=== PATIENT | female | born 1970 | race Caucasian/White ===

== ENCOUNTER 2017-08-13 14:49 | Emergency (ER) | payer OTHER, SELFPAY ==
[2017-08-13 16:29] VITALS: BP 144/90; PULSE 80; RESP 18; TEMP 37.1; O2SAT 95; BMI 50.8
[2017-08-13 17:07] LABS: UTC Influenza A Antigen Negative (Negative); UTC Influenza B Antigen Negative (Negative)
--- NOTE | 2017-08-13 17:14 | HMH.EDUTC ---
[facility] [place] Disposition Clinical Impression: Influenza-like illness Disposition: Home, Self-Care Condition on Discharge: Good Instructions: DI for Influenza -- Adult, DI for Viral Upper Respiratory Infection -- Adult Additional Instructions: * No sign of bacterial infection. Likely viral. Virus can take 7-14 days to run their course. Could be the onset of the flu considering your symptoms. Due to your medications and PMHx, starting tamiflu. * Monitor Temp. Tylenol every 4 hours as needed no more then 5 times a day or 4000mg in 24 hours and/or ibuprofen every 6 hours as needed no more then 3200mg in 24 hours (as long as your primary care doctor has told you that it is ok to take both) for fever/aches/pain. ER if fever no less than 101 despite tylenol and ibuprofen * Encourage fluids, water, gatorade, powerade, pedialyte if infant/toddler/child * warm salt water gargles * warm fluids * sore throat lozenges * sleep elevated * humidifier/vaporizer Referrals: Franko Patricia MD [Primary Care Provider] - ( Follow up IMMEDIATELY for new or worsening symptoms, improvement followed by suddenly feeling worse OR no noticeable improvement over the next 48-72 hours. 911 for difficulty breathing ) Time of Disposition: 17:26 Medical Decision Making Vital Signs: 08/13/17 16:29 Temperature 98.7 F Temperature Source Temporal Artery Scan Pulse Rate [Right] 80 Respiratory Rate 18 Blood Pressure [Right Arm] 144/90 Blood Pressure Mean [Right Arm] 108 Blood Pressure Source [Right Arm] Automatic Cuff Blood Pressure Position [Right Arm] Sitting 02 Sat by Pulse Oximetry 95 Oxygen Delivery Method Room Air - Lab Data Lab results reviewed: Yes: I reviewed the patient's lab results. Lab Results 08/13/17 16:52: Influenza Type A Ag Negative, Influenza Type B Ag Negative - René Inquiry Pt receiving controlled substance: No [facility] [place] HPI - General Stated complaint: head congestion Time Seen by Provider: 08/13/17 17:00 Mode of Arrival: Ambulatory Source of Information: Patient Limitations: No Limitations Description of Symptoms (Recalled from Triage Doc. by RN): COUGH, CONGESTION X3 DAYS HEENT Symptoms (Recalled from RN notes): Yes Resp Symptoms (Recalled from RN notes): No Skin Symptoms (Recalled from RN notes): No MS Symptoms (Recalled from RN notes): No Functional Status (Recalled from RN notes): N - History of Present Illness Provider Complaint: c/o cough, chest congestion, rhinorrhea and feeling feverish starting day before yesterday and each day w/ new symptoms and somewhat worse . Mucinex hasn't helped but nahum jantzer cough congestion has. No known sick contacts. Taking methotrexate daily d/t RA. - Related Data Home Medications Medication Instructions Recorded Confirmed Duloxetine HCl [Cymbalta] 20 mg PO DAILY 08/13/17 08/13/17 Meloxicam 7.5 mg PO DAILY 08/13/17 08/13/17 metHOTREXate sodium [metHOTREXate 2.5 mg PO DAILY 08/13/17 08/13/17 2.5mg Tablet] Allergies Allergy/AdvReac Type Severity Reaction Status Date / Time No Known Allergies Allergy Verified 08/13/17 16:33 - Worker's Comp Is this a Worker's Comp case?: No [facility] History I have reviewed the patient's past medical history: Yes (RA) Medical History: Denies:: Diabetes Mellitus Type 2, Hypertension Other Surgeries: Yes: Appendectomy, Other (hysterectomy) - *Social History Alcohol Intake: never - Psychiatric History Expresses thoughts of harming self/others: None Suicide Plan Description: No Plan ROS Obtained: Yes Systems reviewed as appropriate & no additional complaints - Constitutional Constitutional: Reports as per HPI, Denies anorexia, Denies body ache, Denies chills, Reports fatigue - Eyes Eyes: Denies change in vision, Denies eye pain - ENT Ears, Nose, Mouth, and Throat: Denies abnormal hearing, Denies otalgia, Reports nasal congestion, Reports nasal discharge, Reports post nasal drip, Denies sinus pain, Reports sinus
== END 2017-08-13 17:30 | disposition home or self-care (01) ==
PROVIDERS: Emergency Provider Nurse Practitioner Family; PCP Family Medicine
DX: J10.1 Influenza due to other identified influenza virus with other respiratory manifestations (principal)
CPT/HCPCS: 87804; 99202

== ENCOUNTER → 2017-11-24 08:14 | Outpatient (CLI) | payer OTHER, SELFPAY ==
--- NOTE | 2017-11-24 08:30 | MM_ITS ---
MM Dig screening mamm BI w/CAD CAD Screening ORDERING PHYSICIAN : Monique Del Angel PATIENT AGE: 47 years GENDER: Female HISTORY. No hormones. No new complaints. Noncontributory family history. COMPARISON: . No previous studies for comparison The prior 1998 mammogram study has been purged as per hospital protocol TECHNIQUE: Standard CC and MLO images were obtained. R2 CAD reviewed. FINDINGS: Low-density breast with generalized fatty replacement in both breast.. Minimal fibroglandular elements remaining throughout both breast No worrisome or suspicious mass nor suspicious calcifications. RIGHT BREAST:No new areas of concern. Follow-up in one year recommended LEFT BREAST:No significant findings. There is a ovoid nodular density at the lateral, upper-outer quadrant left breast but this appears to have a area of fatty lumbilication and is most compatible with an intramammary lymph node measuring up to 8.5 mm maximum length. Follow-up in one year the adequate here. IMPRESSION: No areas of significant concern No prior studies available. Only noted What appears to be small benign intramammary lymph node lateral axillary tail left breast Bilateral follow-up in one year recommended BI-RADS Category: 2 Benign Finding(s) RECOMMENDED FOLLOW-UP: 1YR - 1 YEAR FOLLOW-UP (A letter has been sent to the patient regarding results of the study.)
== END ==
PROVIDERS: PCP Family Medicine; Visit Provider Obstetrics & Gynecology Gynecology
DX: Z12.31 Encounter for screening mammogram for malignant neoplasm of breast (principal)
CPT/HCPCS: 77067

== ENCOUNTER → 2019-06-13 09:24 | Outpatient (CLI) | payer OTHER, SELFPAY ==
--- NOTE | 2019-06-13 09:26 | MM_ITS ---
PROCEDURE: MM DIG SCREENING MAMM BI W/CAD CLINICAL INDICATION: SCREENING There is no personal or family history of breast cancer. COMPARISON: [facility] MM Dig screening mamm BI w/CAD from 11/24/2017 TECHNIQUE: Standard CC and MLO images were obtained. R2 CAD reviewed. FINDINGS: The breasts are composed primarily of fat with minimal scattered fibroglandular densities throughout each breast. There is a stable tiny nodular benign-appearing density upper-outer quadrant left breast. There is no suspicious lesion in either breast and no suspicious microcalcifications. IMPRESSION: Fibrofatty parenchyma with no suspicious lesions seen BI-RAD Category: 2 Benign Finding(s) FOLLOW-UP: 1YR 1 Year Follow-up (A letter has been sent to the patient regarding results of the study.) Dictated by: Dr. Rajesh Mendze MD 06/14/2019 15:[address] Rajesh Mendez MD in [place] 06/14/2019 15:32
== END ==
PROVIDERS: PCP Family Medicine; Visit Provider Nurse Practitioner
DX: Z12.31 Encounter for screening mammogram for malignant neoplasm of breast (principal)
CPT/HCPCS: 77067

== ENCOUNTER 2020-12-13 15:36 | Emergency (ER) | payer OTHER, SELFPAY ==
[2020-12-13 15:37] VITALS: BP 148/72; PULSE 79; RESP 19; TEMP 36.9; O2SAT 97; BMI 48.7
--- NOTE | 2020-12-13 16:00 | CT_ITS ---
PROCEDURE INFORMATION: Exam: CT Abdomen And Pelvis Without Contrast Exam date and time: 12/13/2020 4:00 PM Age: 50 years old Clinical indication: Abdominal pain; Flank; Right; Prior surgery TECHNIQUE: Imaging protocol: Computed tomography of the abdomen and pelvis without contrast. Radiation optimization: All CT scans at this facility use at least one of these dose optimization techniques: automated exposure control; mA and/or kV adjustment per patient size (includes targeted exams where dose is matched to clinical indication); or iterative reconstruction. COMPARISON: No relevant prior studies available. FINDINGS: Lungs: Lung bases are clear. Mediastinal space: A small hiatal hernia is present. Liver: There is enlargement of the liver, measuring 25 cm. The liver is otherwise unremarkable. Gallbladder and bile ducts: Prior cholecystectomy. There is no evidence of biliary ductal dilation. Pancreas: Normal. No ductal dilation. Spleen: Normal. No splenomegaly. Adrenal glands: Normal. No mass. Kidneys and ureters: Normal. No hydronephrosis. Stomach and bowel: No bowel obstruction or significant bowel wall thickening. There is excessive colonic stool content. Appendix: Appendix is not confidently visualized on this examination, however there are no significant inflammatory changes to the right lower quadrant. Intraperitoneal space: Unremarkable. No free air. No significant fluid collection. Vasculature: Unremarkable. No abdominal aortic aneurysm. Lymph nodes: Unremarkable. No enlarged lymph nodes. Urinary bladder: Unremarkable as visualized. Reproductive: There has been a hysterectomy. Bones/joints: No acute skeletal pathology. Mild multilevel degenerative changes of the spine, as manifested by multilevel anterior osteophytes and multilevel decrease in intervertebral disc space. Soft tissues: 4.7 cm by 5.9 cm by 7.3 cm supraumbilical ventral abdominal wall fat containing hernia. No other acute soft tissue findings are appreciated. Calcified injection granulomas are noted in the subcutaneous tissues of the buttocks. IMPRESSION: 1. Negative for acute abdominopelvic pathology. 2. Incidental findings as detailed above.
[2020-12-13 16:01] VITALS: BP 126/64; PULSE 73; O2SAT 96
--- NOTE | 2020-12-13 16:03 | HMH.EDABDPAI ---
ED Disposition Clinical Impression: Acute UTI Constipation Qualifiers: Constipation type: slow transit constipation Qualified Code(s): K59.01 - Slow transit constipation Disposition: Home, Self-Care Condition on Discharge: Good Instructions: DI for Urinary Tract Infection (UTI) Prescriptions: cephALEXin [Cephalexin 500mg Tab] 500 mg PO BID #14 tab Transmission Status: Pending to [id number] Referrals: Nitesh Dunne MD [Primary Care Provider] - - Critical Care Critical Care Time: No Attestation: On 12/13/20, the high probability of a clinically significant, sudden or life threatening deterioration of the following system(s) required my full and direct attention, intervention and personal management. The time I documented below is in addition to time spent performing reported procedures but includes the following listed in this critical care notation. Medical Decision Making - Medical Records Medical records reviewed: Yes: I reviewed the patient's medical records. - René Inquiry Pt receiving controlled substance: Yes René was queried for this patient: No Reason not queried -: René login issues Risks and benefits of using a controlled substance: were discussed with pt by me Vital Signs: 12/13/20 15:37 12/13/20 16:01 12/13/20 16:35 Temperature 98.5 F Temperature Source Oral Pulse Rate 73 83 Pulse Rate [Left Radial] 79 Respiratory Rate 19 Blood Pressure 126/64 137/72 Blood Pressure [Right Arm] 148/72 H Blood Pressure Mean 84 93 Blood Pressure Mean [Right Arm] 97 Blood Pressure Source [Right Arm] Automatic Cuff Blood Pressure Position [Right Arm] Sitting 02 Sat by Pulse Oximetry 97 96 99 Oxygen Delivery Method Room Air - Lab Data Lab Results 12/13/20 15:53: Urine Color Yellow, Urine Appearance Clear, Urine pH 6.0, Ur Specific Jackson 1.025, Urine Protein Negative, Urine Glucose (UA) Negative, Urine Ketones Trace, Urine Blood Negative, Urine Nitrate Negative, Urine Bilirubin 3+ A, Urine Urobilinogen 0.2, Ur Leukocyte Esterase Trace, Urine RBC Occasional, Urine WBC 5-10, Ur Squamous Epith Cells 5-10, Urine Bacteria 1+ 12/13/20 15:53: WBC 5.2, RBC 4.92, Hgb 14.1, Hct 42.7, MCV 86.8, MCH 28.7, MCHC 33.0, RDW 14.0, Plt Count 380, MPV 7.4, Neut % (Auto) 57.4, Lymph % (Auto) 33.0, Floyd % (Auto) 6.0, Eos % (Auto) 2.7, Baso % (Auto) 0.9, Neut # (Auto) 3.0, Lymph # (Auto) 1.7, Floyd # (Auto) 0.3, Eos # (Auto) 0.1, Baso # (Auto) 0.1 12/13/20 15:53: Sodium 141, Potassium 3.6, Chloride 103, Carbon Dioxide 33 H, Anion Gap 8.6, BUN 20 H, Creatinine 1.10 H, Estimated Creat Clear 64, Estimated GFR 53 L, Est GFR ( Amer) 64, Glucose 91, Calcium 9.2, Total Bilirubin 0.5, AST 37 H, ALT 32, Alkaline Phosphatase 72, Total Protein 7.3, Albumin 4.5, Globulin 2.8, Albumin/Globulin Ratio 1.6, Lipase 164 Result diagrams: 12/13/20 15:53 12/13/20 15:53 Orders (Tests/Meds): ED MEDICATIONS Generic Name Dose Route Start Last Admin Trade Name Freq PRN Reason Stop Dose Admin Sodium Chloride 1,000 mls @ 999 mls/hr 12/13/20 16:00 12/13/20 16:03 Sod Chlor 0.9% 1000ml Bag IV 12/13/20 17:00 999 mls/hr .Q1H1M [place] Administration Discontinued Medications Generic Name Dose Route Start Last Admin Trade Name Freq PRN Reason Stop Dose Admin Ketorolac Tromethamine 30 mg 12/13/20 16:01 12/13/20 16:03 Ketorolac 30mg/Ml Vial IV 12/13/20 16:02 30 mg ONCE ONE Administration Morphine Sulfate 4 mg 12/13/20 16:00 12/13/20 16:39 Morphine 4mg/Ml Syringe IV 12/13/20 16:01 4 mg ONCE ONE Administration Ondansetron HCl 4 mg 12/13/20 16:00 12/13/20 16:03 Ondansetron 4mg/2ml Vial IV 12/13/20 16:01 4 mg ONCE ONE Administration - CT Data CT Scan: Abdomen, Pelvis Time Received: 18:[address] Reviewed: Yes: I have reviewed the patient's CT results, I have viewed the radiologist's interpretation Findings Narrative: IMPRESSION: 1. Negative for acute abdomino
[2020-12-13 16:06] LABS: Microscopic, Urine URINE MICROSCOPIC (MICROSCOPIC)
[2020-12-13 16:16] LABS: Appearance,Urine CLEAR (Clear); Basophils # 0.1 K/mm3 (0-0.2); Basophils % 0.9 % (0.1-2.0); Blood, Urine Negative (Negative); Color,Urine YELLOW (Yellow); Eosinophils # 0.1 K/mm3 (0.0-0.4); Eosinophils % 2.7 % (0.1-12.0); Glucose,Urine (UA) Negative (Negative); Hematocrit 42.7 % (37.0-47.0); Hemoglobin 14.1 g/dL (12.2-16.2); Ketones,Urine TRACE (Negative); Leukocyte Esterase,Urine TRACE (Negative); Lymphocytes # 1.7 K/mm3 (0.7-4.5); Mean Corpuscular Hemoglobin 28.7 pg (27.0-31.2); Mean Corpuscular Volume 86.8 fl (81-99); Mean Platelet Volume 7.4 fl (7.4-10.4); Monocytes # 0.3 K/mm3 (0.1-1.0); Neutrophils % 57.4 % (37.0-80.0); Nitrate,Urine Negative (Negative); Platelet Count 380 K/mm3 (142-424); Protein,Urine Negative (Negative); Red Blood Count 4.92 M/mm3 (4.20-5.40); Specific Gravity, Urine 1.025 (1.005-1.030); Urobilinogen,Urine 0.2 EU/dl (0.2); White Blood Count 5.2 K/mm3 (4.8-10.8)
[2020-12-13 16:20] LABS: Alanine Aminotransferase 32 U/L (12-78); Albumin Level 4.5 g/dl (3.5-5.0); Albumin/Globulin Ratio 1.6 (1.1-1.8); Alkaline Phosphatase 72 U/L (38-126); Anion Gap 8.6 mEq/L (5-15); Aspartate Amino Transferase 37 U/L (14-36); Bilirubin,Total 0.5 mg/dl (0.2-1.3); Blood Urea Nitrogen 20 mg/dl (7-17); Calcium 9.2 mg/dl (8.4-10.2); Carbon Dioxide 33 mmol/L (22.0-30.0); Chloride 103 mmol/L (98-107); Creatinine Clearance Estimated 64 mL/min (50-200); Estimated Glomerular Filt Rate 53 ml/min (>60); GFR (African American) 64 ML/MIN (>60); Globulin 2.8 g/dL (1.3-3.2); Glucose 91 mg/dl (74-100); Lipase 164 U/L (23-300); Potassium 3.6 mmoL/L (3.5-5.1); Sodium 141 mmol/L (136-145); Total Protein,Serum 7.3 g/dl (6.3-8.2)
[2020-12-13 16:23] LABS: Bilirubin,Urine 3+ (Negative)
[2020-12-13 16:24] LABS: Bacteria,Urine 1+ /lpf; RBC,Urine Occasional #/hpf (0-3)
[2020-12-13 16:35] VITALS: BP 137/72; PULSE 83; O2SAT 99
[2020-12-13 18:39] VITALS: BP 137/72; PULSE 83; RESP 16; TEMP 36.9; O2SAT 99
== END 2020-12-13 18:41 | disposition home or self-care (01) ==
PROVIDERS: Emergency Provider Emergency Medicine; PCP Family Medicine
DX: N30.00 Acute cystitis without hematuria (principal); K59.01 Slow transit constipation; F33.1 Major depressive disorder, recurrent, moderate; Z79.899 Other long term (current) drug therapy
CPT/HCPCS: 74176; 80053; 81001; 83690; 85025; 96365; 96375; 99283; J2405

== ENCOUNTER → 2021-07-15 16:26 | Outpatient (CLI) | payer OTHER, SELFPAY ==
[2021-07-15 18:53] LABS: Basophils % 0.5 % (0.1-2.0); Eosinophils # 0.1 K/mm3 (0.0-0.4); Eosinophils % 2.2 % (0.1-12.0); Hemoglobin 14.2 g/dL (12.2-16.2); Lymphocytes # 1.5 K/mm3 (0.7-4.5); Lymphocytes % 31.4 % (10-50); Mean Corpuscular HGB Conc 34.6 g/dL (31.8-35.4); Mean Corpuscular Hemoglobin 29.3 pg (27.0-31.2); Mean Corpuscular Volume 84.6 fl (81-99); Mean Platelet Volume 6.6 fl (7.4-10.4); Monocytes # 0.2 K/mm3 (0.1-1.0); Neutrophils % 60.9 % (37.0-80.0); Platelet Count 359 K/mm3 (142-424); Red Blood Count 4.85 M/mm3 (4.20-5.40); Red Cell Distribution Width 13.6 % (11.5-17.5); White Blood Count 4.9 K/mm3 (4.8-10.8)
[2021-07-15 19:03] LABS: Chloride 99 mmol/L (98-107); Sodium 139 mmol/L (136-145)
[2021-07-15 19:04] LABS: Potassium 4.2 mmoL/L (3.5-5.1)
[2021-07-15 19:06] LABS: Alanine Aminotransferase 21 U/L (12-78); Albumin Level 4.3 g/dl (3.5-5.0); Albumin/Globulin Ratio 1.7 (1.1-1.8); Alkaline Phosphatase 90 U/L (38-126); Anion Gap 13.2 mEq/L (5-15); Aspartate Amino Transferase 27 U/L (14-36); Bilirubin,Total 0.3 mg/dl (0.2-1.3); Calcium 8.6 mg/dl (8.4-10.2); Carbon Dioxide 31 mmol/L (22.0-30.0); Globulin 2.6 g/dL (1.3-3.2); Glucose 84 mg/dl (74-100); Total Protein,Serum 6.9 g/dl (6.3-8.2)
[2021-07-15 19:11] LABS: Blood Urea Nitrogen 18 mg/dl (7-17); Estimated Glomerular Filt Rate 76 ml/min (>60); GFR (African American) 92 ML/MIN (>60)
[2021-07-15 19:13] LABS: C-Reactive Protein 5.3 mg/L (0-4)
[2021-07-17 11:12] LABS: Hep A Ab, IgM Negative (Negative); Hepatitis B Core Antibody IgM Negative (Negative); Hepatitis B Surface Antigen Negative (Negative); Hepatitis C Antibody 0.1 s/co ratio (0.0-0.9)
[2021-07-17 21:45] LABS: QuantiFERON-TB Gold Plus Negative (Negative)
== END ==
PROVIDERS: Visit Provider Nurse Practitioner Family
DX: M05.79 Rheumatoid arthritis with rheumatoid factor of multiple sites without organ or systems involvement (principal); R53.83 Other fatigue; Z79.899 Other long term (current) drug therapy
CPT/HCPCS: 36415; 80053; 80074; 85025; 86140; 86480

== ENCOUNTER 2021-11-21 13:38 | Emergency (ER) | payer OTHER, SELFPAY ==
[2021-11-21] VITALS (12 sets, daily range): BP systolic 131–153; BP diastolic 88–107; PULSE 65–78; RESP 13–18; TEMP 36.6–36.8; O2SAT 95–98; BMI 51.7
--- NOTE | 2021-11-21 13:29 | ECG_ITS ---
APPROVED REPORT Exam: Resting ECG HR:73 bpm ECG Measurements Heart Rate 73 AXES FL 146 P 27 QRSd 114 QRS -2 QT 409 T 35 QTc 435 Conclusion SINUS RHYTHM WITH MARKED SINUS ARRHYTHMIA MODERATE INTRAVENTRICULAR CONDUCTION DELAY [110+ ms QRS DURATION] BORDERLINE ECG UNCONFIRMED REPORT Electronically signed by : Franko Velasquez MD 11/22/2021 12:11:59
--- NOTE | 2021-11-21 13:44 | XR_ITS ---
FINAL REPORT CLINICAL HISTORY: chest pain FINDINGS: SINGLE-VIEW CHEST The heart size is normal. The mediastinum is normal. The lungs are clear. There is no pneumothorax. IMPRESSION: No acute cardiopulmonary process. Reviewed, Interpreted and Dictated by Gallo Calero III, MD Transcribed by Hawa Stanford Authenticated by Gallo Calero III, MD on 11/21/2021 02:27:[address] [facility]
[2021-11-21 14:12] LABS: Basophils # 0.1 K/mm3 (0-0.2); Basophils % 1.7 % (0.1-2.0); Eosinophils # 0.1 K/mm3 (0.0-0.4); Eosinophils % 2.2 % (0.1-12.0); Hematocrit 43.7 % (37.0-47.0); Hemoglobin 14.2 g/dL (12.2-16.2); Lymphocytes # 1.2 K/mm3 (0.7-4.5); Lymphocytes % 26.1 % (10-50); Mean Corpuscular HGB Conc 32.5 g/dL (31.8-35.4); Mean Corpuscular Hemoglobin 28.8 pg (27.0-31.2); Mean Corpuscular Volume 88.6 fl (81-99); Mean Platelet Volume 7.4 fl (7.4-10.4); Monocytes # 0.2 K/mm3 (0.1-1.0); Monocytes % 5.4 % (1.7-9.3); Neutrophils # 2.8 K/mm3 (1.8-7.8); Neutrophils % 64.5 % (37.0-80.0); Platelet Count 364 K/mm3 (142-424); Red Blood Count 4.93 M/mm3 (4.20-5.40); Red Cell Distribution Width 14.2 % (11.5-17.5); White Blood Count 4.4 K/mm3 (4.8-10.8)
[2021-11-21 14:13] LABS: Chloride 103 mmol/L (98-107); Potassium 3.6 mmoL/L (3.5-5.1); Sodium 140 mmol/L (136-145)
--- NOTE | 2021-11-21 14:14 | CT_ITS ---
FINAL REPORT CLINICAL HISTORY: dizziness FINDINGS: Axial images of the head were obtained without contrast. Coronal reformatted images were also obtained.This study was performed with techniques to keep radiation doses as low as reasonably achievable (ALARA). Individualized dose reduction techniques using automated exposure control or adjustment of mA and/or kV according to the patient's size were employed. There is no evidence of intracranial hemorrhage or mass. The ventricular size is within normal limits. There is no evidence of shift of the midline structures. No abnormal extra axial fluid collection is identified. No skull abnormality is seen on the bone window images. IMPRESSION: No acute intracranial abnormality. Reviewed, Interpreted and Dictated by Gallo Calero III, MD Transcribed by David Rizzo Authenticated by Gallo Calero III, MD on 11/21/2021 03:15:02 PM [facility]
[2021-11-21 14:15] LABS: Bilirubin,Unconjugated 0.4 mg/dL (0.0-1.1); Blood Urea Nitrogen 14 mg/dl (7-17); Creatinine Clearance Estimated 99 mL/min (50-200); Estimated Glomerular Filt Rate 88 ml/min (>60); GFR (African American) 107 ML/MIN (>60)
[2021-11-21 14:16] LABS: Alanine Aminotransferase 32 U/L (12-78); Alkaline Phosphatase 75 U/L (38-126); Anion Gap 5.6 mEq/L (5-15); Aspartate Amino Transferase 37 U/L (14-36); Bilirubin,Direct 0.2 mg/dl (0.0-0.4); Bilirubin,Indirect 0.4 mg/dL (0.0-0.9); Bilirubin,Total 0.6 mg/dl (0.2-1.3); Calcium 8.3 mg/dl (8.4-10.2); Carbon Dioxide 35 mmol/L (22.0-30.0); Glucose 91 mg/dl (74-100); Total Protein,Serum 6.6 g/dl (6.3-8.2)
[2021-11-21 14:41] LABS: Troponin I < 0.01 ng/ml (0.00-0.034)
[2021-11-21 15:14] LABS: Microscopic, Urine URINE MICROSCOPIC (MICROSCOPIC)
--- NOTE | 2021-11-21 15:35 | PC.NURSE ---
rounded on pt at this time, pt resting in bed, states no needs at this time. Call light within reach. will continue to monitor
[2021-11-21 15:39] LABS: Appearance,Urine CLEAR (Clear); Blood, Urine Negative (Negative); Color,Urine YELLOW (Yellow); Glucose,Urine (UA) Negative (Negative); Ketones,Urine Negative (Negative); Leukocyte Esterase,Urine 1+ (Negative); Nitrate,Urine Negative (Negative); PH,Urine 7.5 (5.0-8.5); Protein,Urine Negative (Negative); Urobilinogen,Urine 0.2 EU/dl (0.2)
[2021-11-21 15:49] LABS: Bilirubin,Urine Negative (Negative)
[2021-11-21 16:07] LABS: Mucus,Urine 1+ /lpf; RBC,Urine Occasional #/hpf (0-3)
--- NOTE | 2021-11-21 16:26 | HMH.EDGENADL ---
ED Disposition Clinical Impression: Atypical chest pain, Vertigo Ventral hernia Qualifiers: Obstruction and gangrene presence: without obstruction or gangrene Qualified Code(s): K43.9 - Ventral hernia without obstruction or gangrene Disposition: Home, Self-Care Condition on Discharge: Good Instructions: DI for Vertigo, DI for Atypical Chest Pain, DI for Ventral Hernia Additional Instructions: Antivert and Phenergan as needed for vertigo and nausea. Follow-up with surgery, Dr. Robledo, for hernia. Call for appointment. Additional instructions for CHEST PAIN: See your physician as soon as possible for further evaluation. Return immediately if worsening chest pain, vomiting, shortness of breath, fever, coughing of blood. Prescriptions: Promethazine HCl [Phenergan 25mg tab] 25 mg PO Q6HP PRN #10 tab PRN Reason: Nausea And Vomiting Transmission Status: Pending to [facility] Meclizine HCl [Antivert 25mg tablet] 25 mg PO TIDP PRN #15 tab PRN Reason: Vertigo Transmission Status: Pending to [facility] Referrals: Nitesh Dunne MD [Primary Care Provider] - Gallo Robledo MD [Staff Physician] - - Critical Care Critical Care Time: No Attestation: On 11/21/21, the high probability of a clinically significant, sudden or life threatening deterioration of the following system(s) required my full and direct attention, intervention and personal management. The time I documented below is in addition to time spent performing reported procedures but includes the following listed in this critical care notation. Medical Decision Making - René Inquiry Pt receiving controlled substance: No Vital Signs: 11/21/21 14:00 11/21/21 14:44 11/21/21 15:00 Pulse Rate 73 75 66 Respiratory Rate 17 14 16 Blood Pressure 137/94 H 134/92 H 140/96 H Blood Pressure Mean 108 101 103 02 Sat by Pulse Oximetry 96 96 97 11/21/21 15:30 11/21/21 16:00 11/21/21 16:30 Pulse Rate 69 67 68 Respiratory Rate 17 18 18 Blood Pressure 142/101 H 152/96 H 153/107 H Blood Pressure Mean 112 111 113 02 Sat by Pulse Oximetry 95 96 97 11/21/21 17:00 11/21/21 17:30 11/21/21 18:00 Pulse Rate 65 66 68 Respiratory Rate 18 13 16 Blood Pressure 136/93 H 133/94 H 131/88 Blood Pressure Mean 104 101 97 02 Sat by Pulse Oximetry 96 96 95 - Lab Data Lab Results 11/21/21 13:56: WBC 4.4 L, RBC 4.93, Hgb 14.2, Hct 43.7, MCV 88.6, MCH 28.8, MCHC 32.5, RDW 14.2, Plt Count 364, MPV 7.4, Neut % (Auto) 64.5, Lymph % (Auto) 26.1, Bailey % (Auto) 5.4, Eos % (Auto) 2.2, Baso % (Auto) 1.7, Neut # (Auto) 2.8, Lymph # (Auto) 1.2, Bailey # (Auto) 0.2, Eos # (Auto) 0.1, Baso # (Auto) 0.1 11/21/21 13:56: Sodium 140, Potassium 3.6, Chloride 103, Carbon Dioxide 35 H, Anion Gap 5.6, BUN 14, Creatinine 0.70, Estimated Creat Clear 99, Estimated GFR 88, Est GFR ( Amer) 107, Glucose 91, Calcium 8.3 L, Total Bilirubin 0.6, Direct Bilirubin 0.2, Conjugated Bilirubin 0.0, Indirect Bilirubin 0.4, Unconjugated Bilirubin 0.4, AST 37 H, ALT 32, Alkaline Phosphatase 75, Troponin I < 0.01, NT-Pro-B Natriuret Pep 48.0, Total Protein 6.6, Albumin 4.0 11/21/21 14:12: Urine Color Yellow, Urine Appearance Clear, Urine pH 7.5, Ur Specific Norvell 1.020, Urine Protein Negative, Urine Glucose (UA) Negative, Urine Ketones Negative, Urine Blood Negative, Urine Nitrate Negative, Urine Bilirubin Negative, Urine Urobilinogen 0.2, Ur Leukocyte Esterase 1+ A, Urine RBC Occasional, Urine WBC 3-5, Ur Squamous Epith Cells 3-5, Urine Bacteria None, Urine Mucus 1+ 11/21/21 16:50: Troponin I < 0.01 Result diagrams: 11/21/21 13:56 11/21/21 13:56 Orders (Tests/Meds): ED MEDICATIONS Generic Name Dose Route Start Last Admin Trade Name Freq PRN Reason Stop Dose Admin Sodium Chloride 10 ml 11/21/21 14:00 Sodium Chloride 0.9% 10ml Flush Syringe IV 12/21/21 13:59 NEEDED PRN Maintain IV Site ORDERS Category Date Time Status Troponin I Q3H Lab
--- NOTE | 2021-11-21 16:56 | PC.NURSE ---
LETY FRANKLIN at
[2021-11-21 18:07] LABS: Troponin I < 0.01 ng/ml (0.00-0.034)
== END 2021-11-21 19:38 | disposition home or self-care (01) ==
PROVIDERS: Emergency Provider Emergency Medicine; PCP Family Medicine
DX: R07.89 Other chest pain (principal); R42 Dizziness and giddiness; K43.9 Ventral hernia without obstruction or gangrene; I10 Essential (primary) hypertension; F33.1 Major depressive disorder, recurrent, moderate; Z79.899 Other long term (current) drug therapy
CPT/HCPCS: 36415; 70450; 71045; 80048; 80076; 81001; 83880; 84484; 85025; 87086; 93005; 99284

== ENCOUNTER → 2021-12-11 08:16 | Outpatient (CLI) | payer OTHER, SELFPAY ==
--- NOTE | 2021-12-11 08:17 | CT_ITS ---
FINAL REPORT CLINICAL HISTORY: RUQ abdominal pain; ventral hernia COMPARISON: December 13, 2020 FINDINGS: CT OF THE ABDOMEN AND PELVIS WITH CONTRAST Axial CT images of the abdomen and pelvis were obtained after the administration of intravenous contrast. The patient was unable to tolerate oral contrast. Coronal reformatted images were also obtained and reviewed.This study was performed with techniques to keep radiation doses as low as reasonably achievable (ALARA). Individualized dose reduction techniques using automated exposure control or adjustment of mA and/or kV according to the patient's size were employed. Abdomen: There is mild bibasilar atelectasis or scarring. The heart is normal in size. The liver has an unremarkable appearance, without evidence of mass or biliary ductal dilatation. There is evidence of cholecystectomy. The spleen is unremarkable. No adrenal mass is present. The pancreas has an unremarkable appearance. The kidneys are normal, without evidence of mass or hydronephrosis. The aorta is normal in caliber. There is no free fluid or adenopathy. There is a supraumbilical midline ventral hernia containing fat and a small amount of fluid. The hernia orifice measures 32 mm and the hernia sac measures 101 mm. There is mild stranding/inflammation of the fat that extends to the hernia. Pelvis: The appendix is not identified consistent with the history of appendectomy. The urinary bladder is unremarkable. There has been hysterectomy. No inflammatory process is seen. There is no evidence of mass or adenopathy. There is no evidence of bowel obstruction. IMPRESSION: Supraumbilical midline ventral hernia containing fat and a small amount of fluid with mild stranding/inflammation of the fat. Reviewed, Interpreted and Dictated by Gallo Calero III, MD Transcribed by David Rizzo Authenticated by Gallo Calero III, MD on 12/11/2021 10:20:27 AM [facility]
== END ==
PROVIDERS: PCP Family Medicine; Visit Provider Surgery
DX: R10.11 Right upper quadrant pain (principal)
CPT/HCPCS: 74177; Q9967

== ENCOUNTER → 2022-04-15 07:51 | Outpatient (CLI) | payer OTHER, SELFPAY ==
[2022-04-15 08:25] VITALS: PULSE 79; PULSE 82
--- NOTE | 2022-04-15 09:00 | XR_ITS ---
FINAL REPORT CLINICAL HISTORY: CHRONIC COUGH AND CONGESTION COMPARISON: November 21, 2021 FINDINGS: Two views of the chest were obtained. There is cardiomegaly. The mediastinum is normal. No acute pulmonary abnormality is identified. There is no pneumothorax. The bony thorax is intact. IMPRESSION: No active cardiopulmonary disease. Reviewed, Interpreted and Dictated by Gallo Calero III, MD Transcribed by Suzette Garcia Authenticated and [facility]
== END ==
PROVIDERS: PCP Family Medicine; Visit Provider Nurse Practitioner Family
DX: R09.89 Other specified symptoms and signs involving the circulatory and respiratory systems (principal); R05.3 Chronic cough
CPT/HCPCS: 71046; 94060; 94640

== ENCOUNTER 2022-04-16 21:15 | Emergency (ER) | payer OTHER, SELFPAY ==
[2022-04-16 21:17] VITALS: BP 189/109; PULSE 91; RESP 18; TEMP 36.5; O2SAT 98; BMI 51.7
--- NOTE | 2022-04-16 21:18 | PC.NURSE ---
notified of completion of triage on pt
[2022-04-16 21:30] VITALS: BP 151/98; PULSE 81; O2SAT 95
--- NOTE | 2022-04-16 21:54 | HMH.EDBACK ---
Discharge Plan Disposition Patient Disposition: Home, Self-Care Prescriptions Prescriptions: New prednisone [prednisone] 20 mg tablet 20 mg PO BID Qty: 10 0RF No Action ergocalciferol (vitamin D2) 1,250 mcg (50,000 unit) capsule 1,250 mcg PO pregabalin 75 mg capsule 75 mg PO duloxetine 60 mg capsule,delayed release(DR/EC) 60 mg PO (DME) BD Luer-Oskar Syringe 3 mL 25 gauge x 1 syringe See Rx Instructions .ROUTE .MEDSUPPLY Qty: 1 Rx Instructions: As directed cyanocobalamin (vitamin B-12) 1,000 mcg/mL solution 1,000 mcg SQ prednisone 5 mg tablet 5 mg PO Label Comments: TAKE 4 TABLET BY MOUTH FOR 3 DAYS AND THEN DECREASE BY 1 TABLET EVERY 3 DAYS UNTIL COMPLETE lisinopril 20 mg tablet 20 mg PO Xeljanz 10 mg tablet 10 mg PO BID amoxicillin 875 mg tablet 875 mg PO BID 10 Days Qty: 20 0RF duloxetine 20 MG capsule,delayed release(DR/EC) 20 mg PO DAILY cephalexin 500 MG tablet 500 mg PO BID Qty: 14 0RF meclizine 25 MG tablet 25 mg PO TIDP PRN (Reason: Vertigo) Qty: 15 0RF promethazine 25 MG tablet 25 mg PO Q6HP PRN (Reason: Nausea And Vomiting) Qty: 10 0RF Referrals Follow up/Referrals: Nitesh Dunne MD [Primary Care Provider] - See instructions Clinical Impressions Clinical Impression: Lumbar radiculopathy Instructions Patient Instructions: DI for Back Pain With Sciatica Discharge ED Provider: Rohith Garcia Back Pain HPI General Chief Complaint: Back Pain/Injury Stated Complaint: Lower back pain with nausea Time Seen by Provider: 04/16/22 21:54 Mode of Arrival: Wheelchair Source of Information: Patient and Medical Record Limitations: No Limitations Description of Symptoms (Recalled from ER Triage Doc. by RN): pt states that she was working in her kitchen and stood up and she stated she just felt intense pain in her lower back that radiated to her sides the pt states to have never felt this pain before and that it is a stabbing shooting pain when she moves but when she sits still it is constant pressure. pt states pain is a 10/10 pt also has a hx of RA History of Present Illness HPI Narrative: acute lower back pain after flexion/ext but no fall with burning type pain rad to groin bilat - no cauda equina sx - hx of rheumatoid arthritis MD Complaint: back pain Onset (ago): hour(s) Duration: constant Similar Symptoms Previously: No Location: lumbar spine Severity: moderate Quality: burning Radiation: groin Exacerbating factors: movement Associated symptoms: denies other symptoms Related Data Home Medications Medication Instructions Recorded Confirmed duloxetine 20 mg capsule,delayed 20 mg PO DAILY RHEU 08/13/17 12/18/21 release tofacitinib 10 mg tablet (Xeljanz) 10 mg PO BID 08/26/19 12/18/21 cyanocobalamin (vitamin B-12) 1,000 mcg SQ 12/04/21 12/18/21 1,000 mcg/mL injection solution duloxetine 60 mg capsule,delayed 60 mg PO 12/04/21 12/18/21 release ergocalciferol (vitamin D2) 1,250 1,250 mcg PO 12/04/21 12/18/21 mcg (50,000 unit) capsule lisinopril 20 mg tablet 20 mg PO 12/04/21 12/18/21 prednisone 5 mg tablet 5 mg PO 12/04/21 12/18/21 pregabalin 75 mg capsule 75 mg PO 12/04/21 12/18/21 syringe with needle 3 mL 25 gauge #1 ea 12/04/21 12/18/21 x 1 (BD Luer-Oskar Syringe) Previous Rx's Medication Instructions Recorded amoxicillin 875 mg tablet 875 mg PO BID 10 days #20 tabs 08/26/19 cephalexin 500 mg tablet 500 mg PO BID #14 tabs 12/13/20 meclizine 25 mg tablet 25 mg PO TIDP PRN Vertigo #15 tabs 11/21/21 promethazine 25 mg tablet 25 mg PO Q6HP PRN Nausea And 11/21/21 Vomiting #10 tabs prednisone 20 mg tablet 20 mg PO BID #10 tabs 04/16/22 Allergies Allergy/AdvReac Type Severity Reaction Status Date / Time No Known Allergies Allergy Verified 12/18/21 09:48 PFSH PFSH Social History Smoking Status: Never smoker alcohol intake: never current occupational statu
--- NOTE | 2022-04-16 21:57 | CT_ITS ---
PROCEDURE INFORMATION: Exam: CT Abdomen And Pelvis Without Contrast Exam date and time: 04/16/2022 10:23 PM Age: 51 years old Clinical indication: Abdominal pain; Patient HX: PT states pain from low back, radiates bilaterally; Additional info: Flank pain TECHNIQUE: Imaging protocol: Computed tomography of the abdomen and pelvis without contrast. Radiation optimization: All CT scans at this facility use at least one of these dose optimization techniques: automated exposure control; mA and/or kV adjustment per patient size (includes targeted exams where dose is matched to clinical indication); or iterative reconstruction. COMPARISON: CT ABDOMEN PELVIS W CON 12/11/2021 8:45 AM FINDINGS: Liver: Relatively mild heterogeneous hepatic steatosis. Gallbladder and bile ducts: Cholecystectomy. Pancreas: Mild peripancreatic haziness in the region of pancreatic head, nonspecific, mild pancreatitis is possible. Spleen: No contour deforming lesion. Adrenal glands: No mass. Kidneys and ureters: Few punctate nonobstructing renal calculi. No hydronephrosis. Stomach and bowel: Non-obstructive bowel gas pattern. Appendix: Unremarkable appendix. Intraperitoneal space: No free air. No ascites. Vasculature: No abdominal aortic aneurysm. Lymph nodes: No grossly enlarged lymph nodes. Urinary bladder: Unremarkable as visualized. Reproductive: Hysterectomy. Bones/joints: No acute fracture. No suspicious osseous lesion. Soft tissues: Evaluation of solid abdominal viscera is limited due to lack of intravenous contrast. Large fat containing anterior supraumbilical abdominal wall hernia containing fluid. IMPRESSION: 1. Mild peripancreatic haziness in the region of pancreatic head, nonspecific, mild pancreatitis is possible. Recommend imaging follow-up until complete resolution. 2. No hydronephrosis. 3. Large fat containing anterior supraumbilical abdominal wall hernia containing fluid.
--- NOTE | 2022-04-16 21:57 | CT_ITS ---
PROCEDURE INFORMATION: Exam: CT Lumbar Spine Without Contrast Exam date and time: 04/16/2022 10:26 PM Age: 51 years old Clinical indication: Low back pain; Patient HX: PT states lbp that started today with nki. TECHNIQUE: Imaging protocol: Computed tomography of the lumbar spine without contrast. Radiation optimization: All CT scans at this facility use at least one of these dose optimization techniques: automated exposure control; mA and/or kV adjustment per patient size (includes targeted exams where dose is matched to clinical indication); or iterative reconstruction. COMPARISON: CT ABDOMEN PELVIS WO CON 04/16/2022 10:23 PM FINDINGS: Bones/joints: Visualized vertebral body heights are preserved. Kidneys and ureters: Few subcentimeter nonobstructing renal calculi in the partially visualized left kidney. Soft tissues: Unremarkable. IMPRESSION: Visualized vertebral body heights are preserved. If symptoms persist consider further evaluation with MR.
--- NOTE | 2022-04-16 22:03 | PC.NURSE ---
Pt up to bathroom with one person assist and use of wheelchair
[2022-04-16 22:04] LABS: Microscopic, Urine URINE MICROSCOPIC (MICROSCOPIC)
[2022-04-16 22:07] LABS: Appearance,Urine CLEAR (Clear); Blood, Urine Negative (Negative); Color,Urine YELLOW (Yellow); Glucose,Urine (UA) Negative (Negative); Ketones,Urine Negative (Negative); Leukocyte Esterase,Urine 1+ (Negative); Nitrate,Urine Negative (Negative); PH,Urine 6.5 (5.0-8.5); Protein,Urine Negative (Negative); Specific Gravity, Urine 1.015 (1.005-1.030); Urobilinogen,Urine 0.2 EU/dl (0.2)
[2022-04-16 22:10] LABS: Bilirubin,Urine 2+ (Negative)
[2022-04-16 22:23] LABS: Bacteria,Urine Trace /lpf
--- NOTE | 2022-04-16 22:27 | PC.NURSE ---
Pt gone to RAD
--- NOTE | 2022-04-16 22:36 | PC.NURSE ---
Pt back from RAD
[2022-04-16 23:00] VITALS: BP 150/96; PULSE 81; O2SAT 96
--- NOTE | 2022-04-16 23:18 | PC.NURSE ---
pt stated she is umcomfortable was requesting something for pain. MD notified. no new orders at this time
--- NOTE | 2022-04-16 23:28 | PC.NURSE ---
Pt complains of discomfort. RN and MD made aware.
[2022-04-16 23:30] VITALS: BP 144/88; PULSE 73; O2SAT 93
--- NOTE | 2022-04-16 23:36 | PC.NURSE ---
Pt updated on POC. Pt agreeable. Nneeds or complaints voiced at this time. Call light within reach.
--- NOTE | 2022-04-16 23:40 | PC.NURSE ---
at updating pt on results
[2022-04-17 00:01] VITALS: BP 145/99; PULSE 84; RESP 20; TEMP 36.8; O2SAT 97
== END 2022-04-17 00:10 | disposition home or self-care (01) ==
PROVIDERS: Emergency Provider Emergency Medicine; PCP Family Medicine
DX: M54.16 Radiculopathy, lumbar region (principal)
CPT/HCPCS: 72131; 74176; 81001; 87086; 96372; 99284

== ENCOUNTER 2022-08-02 08:03 | Emergency (ER) | payer OTHER, SELFPAY ==
[2022-08-02 08:10] VITALS: BP 133/98; PULSE 81; RESP 20; TEMP 36.9; O2SAT 96; BMI 51.7
--- NOTE | 2022-08-02 08:28 | EXP.UTC ---
Discharge Plan Disposition Patient Disposition: Home, Self-Care Condition: Good Prescriptions Prescriptions: New azithromycin [Zithromax] 250 mg tablet 250 mg PO UD DOSE PK Qty: 6 0RF Rx Instructions: Take two (2) tablets today, then one (1) tablet days #2 thru #5 benzonatate [benzonatate] 100 mg capsule 100 mg PO TIDP PRN (Reason: Cough) Qty: 30 0RF methylprednisolone 4 mg Tablets,Dose Pack 4 mg PO DIRECTED Qty: 21 0RF Paxlovid (EUA) 300 mg (150 mg x 2)-100 mg tablet See Rx Instructions .ROUTE .COMPLEX Qty: 30 0RF Rx Instructions: take TWO 150 mg tablets of nirmatrelvir with ONE 100 mg tablet of ritonavir twice daily for 5 days ondansetron 4 mg Tablet,Disintegrating 4 mg PO Q8H PRN (Reason: Nausea) Qty: 12 0RF No Action ergocalciferol (vitamin D2) 1,250 mcg (50,000 unit) capsule 1,250 mcg PO pregabalin 75 mg capsule 75 mg PO duloxetine 60 mg capsule,delayed release(DR/EC) 60 mg PO (DME) BD Luer-Oskar Syringe 3 mL 25 gauge x 1 syringe See Rx Instructions .ROUTE .MEDSUPPLY Qty: 1 Rx Instructions: As directed cyanocobalamin (vitamin B-12) 1,000 mcg/mL solution 1,000 mcg SQ prednisone 5 mg tablet 5 mg PO Label Comments: TAKE 4 TABLET BY MOUTH FOR 3 DAYS AND THEN DECREASE BY 1 TABLET EVERY 3 DAYS UNTIL COMPLETE lisinopril 20 mg tablet 20 mg PO Xeljanz 10 mg tablet 10 mg PO BID amoxicillin 875 mg tablet 875 mg PO BID 10 Days Qty: 20 0RF duloxetine 20 MG capsule,delayed release(DR/EC) 20 mg PO DAILY prednisone [prednisone] 20 mg tablet 20 mg PO BID Qty: 10 0RF cephalexin 500 MG tablet 500 mg PO BID Qty: 14 0RF meclizine 25 MG tablet 25 mg PO TIDP PRN (Reason: Vertigo) Qty: 15 0RF promethazine 25 MG tablet 25 mg PO Q6HP PRN (Reason: Nausea And Vomiting) Qty: 10 0RF Referrals Follow up/Referrals: Nitesh Dunne MD [Primary Care Provider] - See instructions Activity Restrictions/Add. Instructions Additional Instructions/Restrictions: Drink plenty of fluids. Take tylenol or ibuprofen for pain or fever. Take the medications as directed. Follow up with your regular doctor. GO TO THE ER FOR ANY WORSENING SYMPTOMS Clinical Impressions Clinical Impression: COVID-19 Instructions Patient Instructions: Coronavirus Disease 2019, Preventing the Spread of Coronavirus Discharge Instructions Discharge ED Provider: Jhon Trotter [facility] General Stated complaint: Covid + @ home, Congestion,Headache Mode of Arrival: Ambulatory Source of Information: Patient Limitations: No Limitations Time Seen by Provider: 08/02/22 08:27 Description of Symptoms (Recalled from Triage Doc. by RN): PATIENT C/O NAUSEA, FATIGUE AND BODY ACHES. REPORTS A POSITIVE AT HOME COVID TEST LAST NIGHT HEENT Symptoms (Recalled from RN notes): No Resp Symptoms (Recalled from RN notes): No Skin Symptoms (Recalled from RN notes): No MS Symptoms (Recalled from RN notes): No Functional Status (Recalled from RN notes): WNL History of Present Illness Provider Complaint: She states that she has been feeling bad for the past 2 days. She has malaise, fatigue, fever, cough, chest congestion, and sinus congestion. She has never had covid-19 before and she has never been vaccinated before. Related Data Home Medications Medication Instructions Recorded Confirmed duloxetine 20 mg capsule,delayed 20 mg PO DAILY RHEU 08/13/17 12/18/21 release tofacitinib 10 mg tablet (Xeljanz) 10 mg PO BID 08/26/19 12/18/21 cyanocobalamin (vitamin B-12) 1,000 mcg SQ 12/04/21 12/18/21 1,000 mcg/mL injection solution duloxetine 60 mg capsule,delayed 60 mg PO 12/04/21 12/18/21 release ergocalciferol (vitamin D2) 1,250 1,250 mcg PO 12/04/21 12/18/21 mcg (50,000 unit) capsule lisinopril 20 mg tablet 20 mg PO 12/04/21 12/18/21 prednisone 5 mg tablet 5 mg PO 12/04/21 12/18/21 pregabalin 75 mg capsule 75 mg PO
[2022-08-02 08:36] VITALS: BP 133/98; PULSE 81; RESP 20; TEMP 36.9; O2SAT 96
== END 2022-08-02 08:54 | disposition home or self-care (01) ==
PROVIDERS: Emergency Provider Nurse Practitioner Family; PCP Family Medicine
DX: U07.1 COVID-19 (principal); R51.9 Headache, unspecified; R09.89 Other specified symptoms and signs involving the circulatory and respiratory systems
CPT/HCPCS: 99212; G0463

== ENCOUNTER → 2023-01-02 10:28 | Outpatient (CLI) | payer OTHER, SELFPAY ==
[2023-01-02 10:43] LABS: Basophils % 0.4 % (0.1-2.0); Eosinophils # 0.2 K/mm3 (0.0-0.4); Eosinophils % 2.7 % (0.1-12.0); Hematocrit 44.9 % (37.0-47.0); Hemoglobin 14.5 g/dL (12.2-16.2); Lymphocytes # 1.1 K/mm3 (0.7-4.5); Lymphocytes % 20.1 % (10-50); Mean Corpuscular HGB Conc 32.3 g/dL (31.8-35.4); Mean Corpuscular Hemoglobin 28.3 pg (27.0-31.2); Mean Corpuscular Volume 87.8 fl (81-99); Mean Platelet Volume 7.4 fl (7.4-10.4); Monocytes # 0.2 K/mm3 (0.1-1.0); Monocytes % 4.3 % (1.7-9.3); Neutrophils % 72.4 % (37.0-80.0); Platelet Count 343 K/mm3 (142-424); Red Blood Count 5.11 M/mm3 (4.20-5.40); White Blood Count 5.6 K/mm3 (4.8-10.8)
[2023-01-02 11:13] LABS: Anion Gap 11.6 mEq/L (5-15); Blood Urea Nitrogen 11 mg/dl (7-17); Calcium 8.7 mg/dl (8.4-10.2); Carbon Dioxide 33 mmol/L (22.0-30.0); Chloride 99 mmol/L (98-107); Estimated Glomerular Filt Rate 88 ml/min (>60); GFR (African American) 106 ML/MIN (>60); Glucose 121 mg/dl (74-100); Potassium 3.6 mmoL/L (3.5-5.1); Sodium 140 mmol/L (136-145)
== END ==
PROVIDERS: PCP Family Medicine; Visit Provider Surgery
DX: Z01.812 Encounter for preprocedural laboratory examination (principal); K43.9 Ventral hernia without obstruction or gangrene
CPT/HCPCS: 36415; 80048; 85025

== ENCOUNTER 2023-01-04 13:00 | Observation (INO) | payer OTHER, SELFPAY ==
[2023-01-01 10:37] VITALS: BMI 53.1
--- NOTE | 2023-01-01 11:18 | SUR.PREOP ---
01/01/23-1109- Patient called requesting rm in OB if Dr goes open during her surgery. Her daughter Sheryl works in OB. Stefanie Jolley joint cutter
[2023-01-04] VITALS (36 sets, daily range): BP systolic 111–150; BP diastolic 71–96; PULSE 76–96; RESP 12–18; TEMP 36.1–43; O2SAT 2–96
--- NOTE | 2023-01-04 07:04 | EXP.HP ---
History of Present Illness *Admission Date: 01/04/23 *Reason for visit:: Hernia *History of present illness: Patient presents for hernia repair.? She is a very pleasant 52-year-old female originally referred by the emergency department for possible incisional hernia.? I had seen her approximately 1 year ago initially.? She has a history of multiple prior surgeries.? She has BMI of approximately 52.? She had presented to the emergency department on 11/21/2021 with symptoms of vertigo and nausea.? She was evaluated and as a side evaluation she asked about unusual sensation in her abdomen.? Patient apparently had laparotomy at [facility] approximately 24 years ago..? She states that incision was left open and had to heal by secondary intention.? She has had additional gynecologic surgeries by Dr. Mike including several laparoscopies, laparotomy with HARJEET and LSO in 1998 and laparotomy with right salpingo-oophorectomy in 2000.? She has had surgery about 3 and half years ago by Dr. Sanabria for prolapse at [facility].? She had an unusual sensation in the abdomen at the lower aspect of her upper midline scar with a palpable knot.? She has some minor discomfort.? She did have a CT scan in November 2020 which made no mention of incisional hernia.? I had her undergo a CT scan last year and this reveals findings of supraumbilical midline ventral hernia containing fat and small amount of fluid with mild stranding/inflammation.? Defect measures 32 mm.? I had made arrangements for laparoscopic possibly open ventral hernia repair in December 2021.? Due to work issues with patient closing her work she delayed surgery.? She has some ongoing symptoms and states that she occasionally has more protrusion at the area. [facility] Disclaimer: The information contained in this section may have been updated after the patient was seen, as this information can be updated by other users. Medical History Anxiety Hypertension ADIEL (obstructive sleep apnea) Surgical History History of appendectomy History of cholecystectomy History of hysterectomy History of thyroidectomy History of tonsillectomy Family History (Updated 01/04/23 @ 06:27 by Ana Barragan RN) Cancer Stroke Social History (Updated 01/04/23 @ 06:28 by Ana Barragan RN) Smoking Status: Never smoker alcohol intake: never current occupational status: employed Travel in the last 8 weeks: None household members: family housing: house current occupational exposures/hazards: No caffeine: Yes Meds Home Medications and Allergies Home Medications Medication Instructions Recorded Confirmed Type tofacitinib 10 mg tablet (Xeljanz) 10 mg PO DAILY . 08/26/19 01/04/23 History duloxetine 60 mg capsule,delayed 60 mg PO DAILY . 12/04/21 01/04/23 History release lisinopril 20 mg tablet 20 mg PO DAILY bp 12/04/21 01/04/23 History etodolac 400 mg tablet 400 mg PO BID . 01/01/23 01/04/23 History fexofenadine 60 mg tablet 180 mg PO DAILY allergies 01/01/23 01/04/23 History New Prescriptions to Start Prescriptions: Allergies Allergy/AdvReac Type Severity Reaction Status Date / Time No Known Allergies Allergy Verified 01/04/23 06:23 Exam Data for Last 24 hours Vital signs and Labs for Last 24 Hours: Temp Pulse Resp BP Pulse Ox 98.3 F 76 18 122/73 95 01/04/23 06:27 01/04/23 06:27 01/04/23 06:27 01/04/23 06:27 01/04/23 06:27 I & O for Last 24 hours: Intake & Output 01/01/23 01/02/23 01/03/23 01/04/23 11:59 11:59 11:59 11:59 Weight 360 lb Constitutional Constitutional: no acute distress *Routine HEENT Exam Head: Present normocephalic Eye: Present EOMI and PERRL ENT: Present mucous membranes moist *Routine Neck Exam Neck: Present supple; Absent lymphadenopathy *Routine Respiratory Exam Respiratory: Present CTA bilaterally
--- NOTE | 2023-01-04 07:37 | P.PN_ITS ---
[facility] Disclaimer: The information contained in this section may have been updated after the patient was seen, as this information can be updated by other users. Medical History Anxiety Hypertension ADIEL (obstructive sleep apnea) Surgical History History of appendectomy History of cholecystectomy History of hysterectomy History of thyroidectomy History of tonsillectomy Family History Other Cancer Stroke Social History Smoking Status: Never smoker alcohol intake: never substance use type: denies use current occupational status: employed Travel in the last 8 weeks: None household members: family housing: house current occupational exposures/hazards: No caffeine: Yes [facility] Anesthesia Checklist Patient Identification Patient Identification: Arm Band and Verbal (Name & ) Structural Data Admitted From: Home Planned Operative Procedure/s: Incisional hernia repair Consent for Planned Operative Procedure(s) Verified: Yes NPO Status Verified Time NPO: 00:00 Additional verifications Anesthesia Reactions: Yes (STOP BREATHING DURING LAST SURGERY DUE TO SLEEP APNEA. ANESTHESIA AWARE.) Hx Blood Transfusions: No Blood Transfusion Reaction: No Airway Assessment C-Spine Mobility Assessed: Yes TMJ Mobility Assessed: Yes Dentition: Good Dentition Neurological Assessment Level of Consciousness: Awake Hx Seizures: No Numbness or tingling in extremities: No Anesthesia Plan Anesthesia Risk discussed: Yes Anesthesia Plan: Verified ASA Class: III Anesthesia Type: General
--- NOTE | 2023-01-04 09:16 | SUR.OPER ---
0915- ONE GRAM OF ANCEF ORDERED BY . GIVEN BY FERNANDO BAKER. PATIENT HAS RECEIVED A TOTAL OF 3 GRAMS OF ANCEF.MD MADE AWARE AND AGREEABLE.
--- NOTE | 2023-01-04 10:39 | P.PNANES_ITS ---
[facility] Anesthesia Record Part I Anesthesia Record I Intake, IV Amount: 2,000 Estimated blood loss (mL): 50 Urine output (mL): 400 Blood Pressure: 128/72 SaO2: 92 Pulse Rate: 87 Respiratory Rate: 12 Temperature: 97.5 F Patient is:: Awake Stable to PACU at:: 10:39
--- NOTE | 2023-01-04 10:46 | EXP.OP.NOTE ---
Date of procedure: 01/04/23 Pre-op Diagnosis:: Incisional/ventral hernia Post-op Diagnosis:: Same Procedure performed:: Laparoscopic ventral hernia repair with placement of 15.2 x 20 cm Bard Ventralight mesh Surgeon:: Gallo Robledo MD MVA STILL OPERATOR:: Caleb Eli Anesthesia: GETNitesh Estimated blood loss (mL): 50 Clinical Note:: Patient presents for hernia repair.? She is a very pleasant 52-year-old female originally referred by the emergency department for possible incisional hernia.? I had seen her approximately 1 year ago initially.? She has a history of multiple prior surgeries.? She has BMI of approximately 52.? She had presented to the emergency department on 11/21/2021 with symptoms of vertigo and nausea.? She was evaluated and as a side evaluation she asked about unusual sensation in her abdomen.? Patient apparently had laparotomy at [facility] approximately 24 years ago..? She states that incision was left open and had to heal by secondary intention.? She has had additional gynecologic surgeries by Dr. Mike including several laparoscopies, laparotomy with HARJEET and LSO in 1998 and laparotomy with right salpingo-oophorectomy in 2000.? She has had surgery about 3 and half years ago by Dr. Sanabria for prolapse at [facility].? She had an unusual sensation in the abdomen at the lower aspect of her upper midline scar with a palpable knot.? She has some minor discomfort.? She did have a CT scan in November 2020 which made no mention of incisional hernia.? I had her undergo a CT scan last year and this reveals findings of supraumbilical midline ventral hernia containing fat and small amount of fluid with mild stranding/inflammation.? Defect measures 32 mm.? I had made arrangements for laparoscopic possibly open ventral hernia repair in December 2021.? Due to work issues with patient closing her work she delayed surgery.? She has some ongoing symptoms and states that she occasionally has more protrusion at the area. Operative findings:: She had a moderate hernia above her umbilicus. There was a large amount of chronically incarcerated omentum with thickened hernia sac and edema. There was a smaller hernia above this. She also had an umbilical hernia. There was fatty infiltration of the liver. Operative note:: Patient was taken to the operating room. She was given preoperative intravenous antibiotics. In the operating room she was placed in a supine position. General anesthesia was induced. Villar catheter was placed. Abdomen was prepped and draped in the standard surgical fashion. Left subcostal incision was made and 5 mm optical trocar was inserted. Please note that this required utilization of extra long trocar for entry into the abdominal cavity. CO2 pneumoperitoneum was achieved to 15 mmHg. This was increased to 20 mmHg. Additional 5 mm trocars were inserted in the left mid and left lower abdomen. There were a large amount of omental adhesions to the anterior abdominal wall. This was taken down using blunt dissection with some use of laparoscopic Metzenbaum dissection and KARISSA ultrasonic harmonic steffanie. Falciform ligament was taken down partly. There was noted to be a hernia at the umbilicus. Above the umbilical area there was herniation of omentum. Prolonged dissection was carried out with traction on this and some use of Metzenbaum dissection for incising surrounding adhesions and KARISSA ultrasonic harmonic steffanie. There was a rather thickened hernia sac which was dissected free from the hernia defect. Dissection was carried out identifying a smaller hernia above this. Ultimately all of the hernia contents and anterior abdominal adhesions were taken down. This was a prolonged process. A 12 mm trocar was inserted in the right subcostal area. 5 mm trocar was inserted in the right lower abdomen. Defects were measured and it was determined that in order to for good coverage of all defects a 15.2 x 20.3 cm Bard Ventralight mesh. Through a tiny incision
--- NOTE | 2023-01-04 13:06 | HMH.PHAINT1 ---
Pharmacy Intervention Comments: MEDICATION RECONCILIATION COMPLETED ON PATIENT USING EXTERNAL FILL HISTORY FROM PHARMACY. -STEVEN LUGO, [place]
--- NOTE | 2023-01-04 13:22 | SUR.PHASEII ---
Report called to Janey Lara RN and pt to room 279
--- NOTE | 2023-01-04 13:30 | PC.NURSE ---
Pt. arrived to room 279 via stretcher accompanied by PACU staff x2. Pt. transferred to bed with assist x3. Pt. tolerated fair. BP noted to be 150/90. all other VSS. Pt. noted to be on 2L O2 via NC. Pt. reports Pain at 10/10 and requesting pain medication. nurse informed pt. she will review orders. Pt. v/u. Call button within reach. Pt. denies further needs.
[2023-01-04 16:09] LABS: Microscopic,Cath URINE MICROSCOPIC (MICROSCOPIC)
[2023-01-04 16:33] LABS: Appearance,Urine/Cath CLEAR (Clear); Blood, Urine/Cath Negative (Negative); Color,Urine/Cath YELLOW (Yellow); Glucose,Urine/Cath (UA) Negative (Negative); Ketones,Urine/Cath Negative (Negative); Leukocyte Esterase,Cath Negative (Negative); Nitrate,Cath Negative (Negative); PH,Urine/Cath 7.5 (5.0-8.5); Protein,Urine/Cath Negative (Negative); Specific Gravity, Urine/Cath 1.015 (1.005-1.030); Urobilinogen,Cath 0.2 EU/dl (0.2)
[2023-01-04 16:35] LABS: Bilirubin,Cath 2+ (Negative)
[2023-01-04 16:52] LABS: Amorphous Sediment,Ur/Cath Trace /lpf; Bacteria,Urine/Cath TRACE /lpf
--- NOTE | 2023-01-04 18:28 | PC.NURSE ---
Pt. arrived to room 279 via bed, accompanied by PACU staff x2. Nurse x2 to room. VSS. Pt noted to be on 2L PO2 via NC.
--- NOTE | 2023-01-04 19:09 | PC.NURSE ---
All care and documentation by Stefanie CONNORS was completed under my direct supervision.
[2023-01-04 21:05] LABS: Coronavirus 19, PCR Not Detected (NotDetected); Influenza A, PCR Not Detected (NotDetected); Influenza B, PCR Not Detected (NotDetected)
--- NOTE | 2023-01-05 04:18 | PC.NURSE ---
Patient has rested well. Pain rating has been about a 4-5/10 throughout the night resting. Patient lung sounds are clear throughout. Bowel sounds are normoactive in all four quadrants. Patient was able to ambulate to the bathroom with standby assistance x2 and void her bladder. Patient reports severe pain with movement. Abdominal binder placed on patient. Educated patient on use of a pillow to splint abdomen will help with pain. Patient verbalized understanding. Vitals have been WNL and patient has remained afebrile thus far.
[2023-01-05 06:39] LABS: Basophils % 0.1 % (0.1-2.0); Eosinophils # 0.1 K/mm3 (0.0-0.4); Eosinophils % 1.9 % (0.1-12.0); Hematocrit 38.9 % (37.0-47.0); Hemoglobin 12.2 g/dL (12.2-16.2); Lymphocytes # 0.5 K/mm3 (0.7-4.5); Lymphocytes % 9.2 % (10-50); Mean Corpuscular HGB Conc 31.3 g/dL (31.8-35.4); Mean Corpuscular Hemoglobin 28.2 pg (27.0-31.2); Mean Platelet Volume 6.2 fl (7.4-10.4); Monocytes # 0.4 K/mm3 (0.1-1.0); Monocytes % 6.4 % (1.7-9.3); Neutrophils # 4.9 K/mm3 (1.8-7.8); Neutrophils % 82.4 % (37.0-80.0); Platelet Count 298 K/mm3 (142-424); Red Blood Count 4.32 M/mm3 (4.20-5.40); Red Cell Distribution Width 13.9 % (11.5-17.5); White Blood Count 5.9 K/mm3 (4.8-10.8)
[2023-01-05 06:47] LABS: Chloride 99 mmol/L (98-107); Potassium 3.3 mmoL/L (3.5-5.1); Sodium 141 mmol/L (136-145)
[2023-01-05 06:50] LABS: Alanine Aminotransferase 216 U/L (12-78); Albumin Level 3.4 g/dl (3.5-5.0); Albumin/Globulin Ratio 1.4 (1.1-1.8); Alkaline Phosphatase 82 U/L (38-126); Anion Gap 8.3 mEq/L (5-15); Aspartate Amino Transferase 217 U/L (14-36); Bilirubin,Total 0.4 mg/dl (0.2-1.3); Blood Urea Nitrogen 13 mg/dl (7-17); Calcium 8.2 mg/dl (8.4-10.2); Carbon Dioxide 37 mmol/L (22.0-30.0); Creatinine Clearance Estimated 76 mL/min (50-200); Estimated Glomerular Filt Rate 66 ml/min (>60); GFR (African American) 80 ML/MIN (>60); Globulin 2.5 g/dL (1.3-3.2); Glucose 94 mg/dl (74-100); Total Protein,Serum 5.9 g/dl (6.3-8.2)
[2023-01-05 07:25] VITALS: O2SAT 99
[2023-01-05 07:35] VITALS: RESP 16
[2023-01-05 07:59] VITALS: BP 105/62; PULSE 81; RESP 20; TEMP 36.8; O2SAT 91
--- NOTE | 2023-01-05 08:25 | EXP.ACUTE.PN ---
Subjective *Date: 01/05/23 *Time: 08:25 Interval history: Patient had been admitted due to inability to control pain postoperatively. She had received multiple doses of morphine and still had some significant pain. With scheduled Toradol and as needed Dilaudid and hydrocodone her pain has improved. She feels better. Still with some postoperative soreness. Tolerating diet. Medical Exam Vital signs and Labs for Last 24 Hours: Vital Signs Temp Pulse Pulse Resp BP BP Pulse Ox 01/05/23 07:59 98.2 F 81 20 105/62 L 91 L 01/05/23 07:35 16 01/04/23 23:35 97.7 F 86 17 148/96 H 91 L 01/04/23 20:30 97.9 F 86 17 115/81 91 L 01/04/23 19:48 90 L 01/04/23 19:45 97.8 F 88 16 125/81 90 L 01/04/23 18:45 98.3 F 90 16 125/80 92 L 01/04/23 17:45 98.2 F 89 18 126/71 92 L 01/04/23 18:02 18 01/04/23 16:45 98.4 F 93 H 16 117/81 93 L 01/04/23 17:00 93 L 01/04/23 16:15 93 H 14 122/74 93 L 01/04/23 16:29 14 01/04/23 13:30 98.3 F 91 H 18 150/92 H 96 01/04/23 15:45 98.3 F 88 16 130/84 92 L 01/04/23 15:15 89 16 133/90 92 L 01/04/23 15:30 16 01/04/23 14:45 98.4 F 94 H 16 93 L 01/04/23 14:30 85 16 111/74 90 L 01/04/23 14:15 94 H 16 123/73 92 L 01/04/23 14:00 96 H 18 139/73 91 L 01/04/23 13:45 98.3 F 91 H 18 150/92 H 96 01/04/23 13:55 18 01/04/23 13:09 91 H 18 125/76 91 L 01/04/23 12:40 88 18 132/88 90 L 01/04/23 12:10 90 18 146/83 H 92 L 01/04/23 11:40 90 18 140/83 93 L 01/04/23 11:30 90 18 139/77 90 L 01/04/23 13:22 93 H 18 130/83 2 L 01/04/23 11:20 91 H 18 135/79 91 L 01/04/23 11:10 97.0 F L 96 H 18 136/86 88 L 01/04/23 11:09 91 H 16 136/90 94 L 01/04/23 10:59 89 14 134/76 94 L 01/04/23 10:49 89 14 141/87 H 92 L 01/04/23 10:39 97.5 F L 88 14 138/93 H 93 L 01/04/23 10:40 97.5 F L 87 12 128/72 Intake and Output 01/04/23 01/05/23 01/05/23 19:59 03:59 11:59 Intake Total 100 / 340 240 / 340 Output Total 0 / 600 600 / 600 Balance 0 / -260 100 / -260 -360 / -260 Intake: Intake, Oral Amount 240 / 240 Intake, Total IV Amount 100 / 100 Cefazolin Sodium 2 gm In 0.9 % 100 / 100 Sodium Chloride 100 ml @ 200 mls/hr IV Q8H [facility] Rx#:[id number] Output: Output, Urine Amount 0 / 600 600 / 600 Other: Number of Unmeasured Voids 1 Laboratory Results - last 24 hr 01/04/23 07:40: Urine Color Yellow, Urine Appearance Clear, Urine pH 7.5, Ur Specific [place] 1.015, Urine Protein Negative, Urine Glucose (UA) Negative, Urine Ketones Negative, Urine Blood Negative, Urine Nitrate Negative, Urine Bilirubin 2+ A, Urine Urobilinogen 0.2, Ur Leukocyte Esterase Negative, Urine RBC None, Urine WBC None, Urine Bacteria Trace 01/04/23 20:57: SARS-CoV-2 (PCR) Not detected, Influenza A Untype (PCR) Not detected, Influenza Type B (PCR) Not detected 01/05/23 06:07: WBC 5.9, RBC 4.32, Hgb 12.2, Hct 38.9, MCV 90.0, MCH 28.2, MCHC 31.3 L, RDW 13.9, Plt Count 298, MPV 6.2 L, Neut % (Auto) 82.4 H, Lymph % (Auto) 9.2 L, Barren % (Auto) 6.4, Eos % (Auto) 1.9, Baso % (Auto) 0.1, Neut # (Auto) 4.9, Lymph # (Auto) 0.5 L, Barren # (Auto) 0.4, Eos # (Auto) 0.1, Baso # (Auto) 0.0 01/05/23 06:07: Sodium 141, Potassium 3.3 L, Chloride 99, Carbon Dioxide 37 H, Anion Gap 8.3, BUN 13, Creatinine 0.90 D, Estimated Creat Clear 76, Estimated GFR 66, Est GFR ( Amer) 80 D, Glucose 94, Calcium 8.2 L, Total Bilirubin 0.4, AST 217 H, ALT 216 H, Alkaline Phosphatase 82, Total Protein 5.9 L, Albumin 3.4 L, Globulin 2.5, Albumin/Globulin Ratio 1.4 I & O for Labs for Last 24 Hours: Intake & Output 01/02/23 01/03/23 01/04/23 01/05/23 11:59 11:59 11:59 11:59 Intake Total 1999 340 / 340 Output Total 600 / 600 Balance 1999 -260 / -260 GI: Present soft Comments:: T
--- NOTE | 2023-01-05 08:28 | EXP.DC.SUM ---
General Admission date:: 01/04/23 Discharge date: 01/05/23 HPI HPI HPI: Patient presents for hernia repair.? She is a very pleasant 52-year-old female originally referred by the emergency department for possible incisional hernia.? I had seen her approximately 1 year ago initially.? She has a history of multiple prior surgeries.? She has BMI of approximately 52.? She had presented to the emergency department on 11/21/2021 with symptoms of vertigo and nausea.? She was evaluated and as a side evaluation she asked about unusual sensation in her abdomen.? Patient apparently had laparotomy at [facility] approximately 24 years ago..? She states that incision was left open and had to heal by secondary intention.? She has had additional gynecologic surgeries by Dr. Mike including several laparoscopies, laparotomy with HARJEET and LSO in 1998 and laparotomy with right salpingo-oophorectomy in 2000.? She has had surgery about 3 and half years ago by Dr. Sanabria for prolapse at [facility].? She had an unusual sensation in the abdomen at the lower aspect of her upper midline scar with a palpable knot.? She has some minor discomfort.? She did have a CT scan in November 2020 which made no mention of incisional hernia.? I had her undergo a CT scan last year and this reveals findings of supraumbilical midline ventral hernia containing fat and small amount of fluid with mild stranding/inflammation.? Defect measures 32 mm.? I had made arrangements for laparoscopic possibly open ventral hernia repair in December 2021.? Due to work issues with patient closing her work she delayed surgery.? She has some ongoing symptoms and states that she occasionally has more protrusion at the area. Postoperatively patient had pain which was unable to be controlled with multiple doses of intravenous morphine. Plan was for admission for pain control. Hospital Course Hospital Course Hospital Course: Patient was taken to the operating room in the morning of 01/04/2023. She had extensive intra-abdominal adhesions. There was a moderate hernia above her umbilicus. There was a large amount of chronically incarcerated omentum with a thickened hernia sac and reactive fluid and edema. There was also a hernia at her umbilicus and a smaller hernia above the moderate hernia. Archbold of hernias were repaired with laparoscopic placement of 15.2 x 20.3 cm Bard Ventralight mesh. Please see operative dictation for complete details. Postoperatively she was having some significant pain and this was refractory to multiple doses of intravenous morphine. Given her refractory pain plan was for admission overnight for pain control. Her morphine was switched to Dilaudid as needed. She was given hydrocodone. Patient was given scheduled Toradol. Overnight her pain improved with this regimen. She was tolerating full liquid diet without difficulty. Following morning plan was made for discharge home. Exam Data for Last 24 hours Vital signs and Labs for Last 24 Hours: Temp Pulse Resp BP Pulse Ox 98.2 F 81 20 105/62 L 91 L 01/05/23 07:59 01/05/23 07:59 01/05/23 07:59 01/05/23 07:59 01/05/23 07:59 Laboratory Results - last 24 hr 01/04/23 07:40: Urine Color Yellow, Urine Appearance Clear, Urine pH 7.5, Ur Specific [place] 1.015, Urine Protein Negative, Urine Glucose (UA) Negative, Urine Ketones Negative, Urine Blood Negative, Urine Nitrate Negative, Urine Bilirubin 2+ A, Urine Urobilinogen 0.2, Ur Leukocyte Esterase Negative, Urine RBC None, Urine WBC None, Urine Bacteria Trace 01/04/23 20:57: SARS-CoV-2 (PCR) Not detected, Influenza A Untype (PCR) Not detected, Influenza Type B (PCR) Not detected 01/05/23 06:07: WBC 5.9, RBC 4.32, Hgb 12.2, Hct 38.9, MCV 90.0, MCH 28.2, MCHC 31.3 L, RDW 13.9, Plt Count 298, MPV 6.2 L, Neut % (Auto) 82.4 H, Lymph % (Auto) 9.2 L, [place] % (Auto) 6.4, Eos % (Auto) 1.9, Baso % (Auto) 0.1, Neut # (Auto) 4.9, Lymph # (Auto) 0.5 L, [place] # (Auto) 0.4, Eos # (Auto) 0.1, Ba
--- NOTE | 2023-01-05 08:46 | PC.NURSE ---
07:50- Dr Robledo at bedside speaking with patient. Abdominal binder removed for assessment. Pt agrees to be discharged home today. Instructions given by MD to shower and remove telfa/tegaderm dressings in 48hrs. Pt v/u
--- NOTE | 2023-01-05 09:35 | HMH.PHAINT1 ---
Pharmacy Intervention Comments: DISCHARGE COUNSELED PATIENT ON KETORLAC AND NORCO. CAUTIONED PATIENT NOT TO TAKE ETODOLAC WHILE TAKING KETORLAC.
--- NOTE | 2023-01-05 09:48 | PC.NURSE ---
0940Chao Giraldo from pharmacy at bedside, educating patient on medications. V/u
--- NOTE | 2023-01-05 10:00 | P.PNANES_ITS ---
[facility] Anesthesia Record Part II Anesthesia Record Part II Discharge Time: 11:09 Destination: Surgical Day Care (OP Surgery) PACU nurse assessment reviewed?: Yes Patient Condition:: Good Anesthesia Complications:: None Swallowing reflex intact?: Yes Cyanosis?: No Blood Pressure: 136/90 Pulse Rate: 91 Temperature: 97 F Mental Status: Alert & Oriented Pain level:: 3 Nausea and/or vomitting:: None Intake, IV Amount: 0 Comments:: Pt discharged from PACU, but pain became uncontrollable in post op. Pt admitted overnight for pain control.
[2023-01-05 10:02] VITALS: BP 136/90; PULSE 91; TEMP 36.1
[2023-01-06 12:15] LABS: HBsAg Screen Negative (Negative); HCV Ab Non Reactive (Non Reactive); Hep A Ab, IGM Negative (Negative); Hep B Core Ab, IgM Negative (Negative)
== END 2023-01-05 09:55 | disposition home or self-care (01) ==
LOC: OB 13:00
PROVIDERS: Admitting Provider Surgery; PCP Family Medicine; Visit Provider Surgery
PROC: 0WQF4ZZ Repair Abdominal Wall, Percutaneous Endoscopic Approach (ICD-10-PCS; CPT 49594; principal; 2023-01-04 07:30)
DX: K43.6 Other and unspecified ventral hernia with obstruction, without gangrene (principal); I10 Essential (primary) hypertension; G47.33 Obstructive sleep apnea (adult) (pediatric)
CPT/HCPCS: 49594; 36415; 80053; 80074; 81001; 85025; 87635; 87636; 96374; C1781; C9803; G0378; J0131; J0330; J2405; U0003; U0005

== ENCOUNTER → 2023-01-14 15:53 | Outpatient (CLI) | payer OTHER, SELFPAY ==
[2023-01-14 16:18] LABS: Chloride 101 mmol/L (98-107); Sodium 141 mmol/L (136-145)
[2023-01-14 16:19] LABS: Potassium 3.7 mmoL/L (3.5-5.1)
[2023-01-14 16:21] LABS: Alanine Aminotransferase 43 U/L (12-78); Albumin Level 4.1 g/dl (3.5-5.0); Albumin/Globulin Ratio 1.6 (1.1-1.8); Alkaline Phosphatase 81 U/L (38-126); Anion Gap 13.7 mEq/L (5-15); Aspartate Amino Transferase 35 U/L (14-36); Bilirubin,Total 0.4 mg/dl (0.2-1.3); Blood Urea Nitrogen 15 mg/dl (7-17); Calcium 8.4 mg/dl (8.4-10.2); Carbon Dioxide 30 mmol/L (22.0-30.0); Estimated Glomerular Filt Rate 66 ml/min (>60); GFR (African American) 80 ML/MIN (>60); Globulin 2.5 g/dL (1.3-3.2); Glucose 102 mg/dl (74-100); Total Protein,Serum 6.6 g/dl (6.3-8.2)
== END ==
PROVIDERS: PCP Family Medicine; Visit Provider Surgery
DX: R74.8 Abnormal levels of other serum enzymes (principal)
CPT/HCPCS: 36415; 80053

== ENCOUNTER 2024-06-23 07:36 | Outpatient (CLI) | payer OTHER, SELFPAY ==
--- OUTSIDE RECORDS SUMMARY | 2024-06-23 07:43 | XMS_ITS | Encounter Summary ---
Author Organization Healthcare Address [address] [place] [address] Care Team Providers Care Change Management Expert Name Role Phone Ralph Dunne MD Primary Care Provider [phone] Reason for Visit * Reason Comments Follow-up Encounter Details Date Type Department Care Team (Late st Contact Info) Description 12/22/2021 11:40 AM EDT Office Visit [facility] [address] [place] [address] Jet Braga MD [address] [place] [address] Social History Tobacco Use Types Packs/Day Years Used Date Smoking Tobacco: Never Smokeless Tobacco: Never Alcohol Use Standard Drinks/Week Comments Yes 0 (1 standard drink = 0.6 oz pur e alcohol) very rare PHQ-2 Answer Date Recorded Patient Health Questionnaire-2 Score 0 12/22/2021 Comments No Sex and Gender Information Value Date Recorded Sex Assigned at Not on file Legal Sex Female 8:58 PM EDT Gender Identity Not on file Sexual Orientation Not on file COVID-19 Exposure Response Date Recorded In the last 10 days, have yo u been in contact with someone who was confirmed or suspected to have Coronavirus/COVID-19? No / Unsure 12/22/2021 11:25 AM EDT documented as of this encounter Last Filed Vital Signs Vital Sign Reading Time Taken Comments Blood Pressure - - Pulse - - Temperature - - Respiratory Rate - - Oxygen Saturation - - Inhaled Oxygen Concentration - - Weight 159 kg (350 lb) 12/22/2021 11:39 AM EDT Height 175.3 cm (5' 9 ) 12/22/2021 11:39 AM EDT Body Mass Index 51.69 12/22/2021 11:39 AM EDT documented in this encounter Miscellaneous Notes * Progress Notes - Jet Braga MD - 12/22/2021 11:40 AM EDT Subjective Patient Verification Patient identity has been confirmed using name and date of ? Yes Authorizations and Agreements/Telemedicine Consent sent and consent confirmed? Yes Patient Location: Patient's Home Patient confirms they are physically located in [place]? Yes If the patient is not physically located in [place], the provider has confirmed with Legal thatthe provider is authorized to provide services in patient's stated location? Yes Provider Location: HealthCare Facility Audio and video or audio only? Audio and video Total visit time: [address] Ralph Dunne MD, I had the pleasure of seeing Florencia Mai at the [facility] with/for Follow-up snoring and OSAH. Visit Type: Established patient HPI She does describe severe excessive daytime sleepiness with ESS score of 20/24. ??She also describesnonrestorative sleep with daytime fatigue. ??She denies any near miss accidents but does have drowsy driving for more than [address] and sometimes has to pull her car on the side to make herself rash when there is long distance driving. ??She does describe very fragmented sleep awakening severaltimes at night including restroom 2-4 times a night and able to go back to sleep. ??Patient denies any nocturnal pains awakening and denies any morning headaches but has describe foggy feeling at times when she wakes up in the morning after nonrestorative sleep despite 7 hours of bedtime. ??She denies any nocturnal cough awakenings nor any nocturnal GERD symptoms. ??She has describe night sweats without any hot flashes but she does have hysterectomy with oophorectomy done in past. She denies any history of restless leg syndrome nor any nocturnal PLM disease as described by patient. PATIENT'S SLEEP STUDY IN JULY OF 2021 SHOWED EVIDENCE OF MODERATE OBSTRUCTIVE SLEEP APNEA WITH AHI 17.2 EVENTS PER HOUR WITH REM AHI 61.9 EVENTS PER HOUR WITH LOWEST O2 SATURATION OF 73% ON ROOM AIR WITH 26.9 MINUTES OF O2 SATURATION BELOW 90%. EVIDENCE OF OBESITY HYPOVENTILATION SYNDROME WITH MORBID OBESITY WITH A BMI OF 51.4. Patient was prescribed auto CPAP at 7/16 cm with new mask fit with heated humidity for comfort [facility] accepts her insurance and they have given her new CPAP unit just yesterday and has not even started using it. For some reason she had to wait 3 months to get this unit. PAP Data Card Download Data card download: Waiting for new data after she starts using it. Total usage % >4 hour compliance % Average use (days used) Setting AutoPAP cm H2O 95th percentile pressure cm H2O, max pressure cm H2O 95th percentile leak L/min, max leak L/min Residual AHI oAHI (apnea plus hypopnea) cAHI Past Medical History: Diagnosis Date ??? Allergy status to unspecified drugs, medicaments and biological substances status History of seasonal allergies ??? Arthritis rhumetoid / fibromyalgia ??? Disease of thyroid gland ??? GERD (gastroesophageal reflux disease) prn med ??? Personal history of other diseases of the musculoskeletal system and connective tissue History of fibromyalgia ??? Personal history of other diseases of the musculoskeletal system and connective tissue History of osteoarthritis ??? Personal history of other endocrine, nutritional and metabolic disease History of obesity ??? Personal history of other mental and behavioral disorders History of anxiety ??? 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 ABDOMINAL SURGERY ??? APPENDECTOMY N/A Appendectomy from [facility] ??? BUNIONECTOMY ??? CHOLECYSTECTOMY ??? COLONOSCOPY multiple ??? FOOT SURGERY N/A Foot surgery from [facility] ??? HYSTEROSCOPY ??? RECTAL PROLAPSE REPAIR Family History Problem Relation Name Age of Onset ??? Crohn's disease Father ??? Other cancer Mother ??? Malig Hyperthermia Neg Hx ??? Anesthesia problems Neg Hx Social History Tobacco Use ??? Smoking status: Never Smoker ??? Smokeless tobacco: Never Used Substance Use Topics ??? Alcohol use: Yes Comment: very rare Current Outpatient Medications Medication Sig Dispense Refill ??? cyanocobalamin (Vitamin B-12) 1000 MCG/ML injection inject 1 milliliter by intramuscular route every week for 4 weeks then once a month for 5 months ??? DULoxetine (Cymbalta) [address] capsule Take 1 capsule by mouth 1 (one) time each day. ??? Tofacitinib Citrate ER (Xeljanz XR) 11 MG tablet sustained-release 24 hour Take 1 tablet by mouth 1 (one) time each day. ??? Tuberculin-Allergy Syringes (VanishPoint Tuberculin Syringe) 25G X 1 1 ML misc to use with b12 ? ? Loreta-D Allergy & Congestion 180-240 MG 24 hr tablet TAKE 1 TABLET BY MOUTH ONCE DAILY FOR 10 DAYS ??? B-D 3CC LUER-KIMBERLEE SYR 25GX1 25G X 1 3 ML misc USE WITH B12 ??? cholecalciferol (Vitamin D-3) 250 MCG (83191 UT) capsule Take 10,000 Units by mouth every 30 (thirty) days. ??? cyanocobalamin (Vitamin B-12) 1000 MCG/ML injection inject 1 milliliter by intramuscular route every week for 4 weeks then once a month for 5 months ??? DULoxetine (Cymbalta) [address] capsule Take 30 mg by mouth 1 (one) time each day. ??? ergocalciferol (Vitamin D-2) 1.25 MG (46740 UT) capsule take 1 capsule by oral route every weekfor 12 weeks ??? etodolac (Lodine) 400 MG tablet Take 400 mg by mouth 2 (two) times a day with meals. ??? fexofenadine (Loreta) 180 MG tablet Take 180 mg by mouth if needed. ??? lisinopril 20 MG tablet Take 1 tablet (20 mg total) by mouth 1 (one) time each day. 30 tablet 3 ??? lisinopril 20 MG tablet Take 1 tablet by mouth 1 (one) time each day. ??? meclizine (Antivert) 25 MG tablet Take 25 mg by mouth 3 (three) times a day if needed. ??? ondansetron ODT (Zofran ODT) 4 MG disintegrating tablet Take 1 tablet (4 mg total) by mouth every 8 (eight) hours if needed for nausea or vomiting for up to 10 doses. 10 tablet 0 ??? pregabalin (Lyrica) 75 MG capsule TAKE 1 CAPSULE BY MOUTH TWICE DAILY FOR FIBROMYALGIA ??? Xeljanz XR 11 MG tablet sustained-release 24 hour No current facility-administered medications for this visit. All medications have been reviewed today. No Known Allergies Immunization History Administered Date(s) Administered ??? Sheri SARS-CoV-2 Vaccination 10/09/2020, 08/07/2021 The following portions of the chart were reviewed this encounter and updated as appropriate: ROS Review of Systems Objective There were no vitals taken for this visit. Height and Weight Height: 175.3 cm (5' 9 ) Weight: 159 kg (350 lb) BSA (Calculated - sq m): 2.78 sq meters BMI (Calculated): 51.66 Weight in (lb) to have BMI = 25: 168.9 Physical exam Physical Exam Phone discussion only done. Assessment/Plan: Impression: 1.??Moderate to high probability for obstructive sleep apnea and possibly severe with excessive daytime sleepiness and nonrestorative sleep with daytime fatigue affecting quality of life.?Moderateto severe OSAH documented on PSG 07/07/21. 2.??Highly suspected obesity hypoventilation syndrome with increase in venous CO2 but also arterialblood gases showing hypoxemia and hypercapnia on room air recently done.? 3.??Cardiac dysrhythmias which includes occasional PVCs but frequent PACs and short runs of SVT. Norecent recurrence. 4.??History of rheumatoid arthritis, but no symptoms flare up. High Risk for difficult intubation if neck spines stiffness develops. 5.??History of fibromyalgia syndrome with chronic pains?? 6.??Chronic lower extremity edema possibly due to chronic venous insufficiency.? 7.??Essential hypertension, labile blood pressure control. Plan and suggest:?? 1. FU in 2 months once she starts use of her CPAP. She was just mailed her mask with out fit by virtual meeting only. Discussion Summary: FU in 2 months. Counseling Documentation: The patient was counseled regarding cpap education, cpap troubleshooting, DME education, diagnosticresults, risks and benefit of treatment options, instructions for management and importance of compliance with treatment. Reviewed data card download and the importance of compliance with therapy. Edu cation provided was verbal counseling.Additional time was spent in care coordination including medical record review. The total time of encounter was 20 minutes. . documented in this encounter Plan of Treatment Not on file documented as of this encounter Visit Diagnoses Not on filedocumented in this encounter Additional Health Concerns Assessment Noted Time A fall risk assessment has been complete d for the patient 12/22/2021 11:43 AM EDT documented as of this encounter Care Teams Change Management Expert Relationship Specialty Start Date End Date Ralph Dunne MD [address] [place] [id number] PCP - General 12/13/20 documented as of this encounter
--- OUTSIDE RECORDS SUMMARY | 2024-06-23 07:43 | XMS_ITS | Encounter Summary ---
Author Organization [facility] Address [address] [place] [address] Care Team Providers Care Veneer Jointer Helper Name Role Phone aRlph Dunne MD Primary Care Provider [phone] Encounter Details Date Type Department Care Team (Latest Contact Info) Description 09/08/2021 Travel Social History Tobacco Use Types Packs/Day Years Used Date Smoking Tobacco: Never Smokeless Tobacco: Never Alcohol Use Standard Drinks/Week Comments Yes 0 (1 standard drink = 0.6 oz pur e alcohol) very rare PHQ-2 Answer Date Recorded Patient Health Questionnaire-2 Score 0 04/08/2021 Comments No Sex and Gender Information Value Date Recorded Sex Assigned at Not on file Legal Sex Female 8:58 PM EDT Gender Identity Not on file Sexual Orientation Not on file COVID-19 Exposure Response Date Recorded In the last month, have you been in contact with someone who was confirmed or suspected to have Coronavirus / COVID-19? No / Unsure 09/08/2021 1:00 PM EST documented as of this encounter Plan of Treatment Not on file documented as of this encounter Visit Diagnoses Not on filedocumented in this encounter Additional Health Concerns Assessment Noted Time A fall risk assessment has been complete d for the patient 09/08/2021 1:11 PM EST documented as of this encounter Care Teams Veneer Jointer Helper Relationship Specialty Start Date End Date Ralph Dunne MD [address] [place] [address] PCP - General 12/13/20 documented as of this encounter
--- OUTSIDE RECORDS SUMMARY | 2024-06-23 07:43 | XMS_ITS | Encounter Summary ---
Author Organization [facility] Address [address] [place] [address] Care Team Providers Care Pepper Picker Name Role Phone Ralph Dunne MD Primary Care Provider [phone] Encounter Details Date Type Department Care Team (Latest Contact Info) Description 12/22/2021 Travel Social History Tobacco Use Types Packs/Day [...] AM EDT documented as of this encounter Plan of Treatment Not on file documented as of this encounter Visit Diagnoses Not on filedocumented in this encounter Additional Health Concerns Assessment Noted Time A fall risk assessment has been complete d for the patient 12/22/2021 11:43 AM EDT documented as of this encounter Care Teams Pepper Picker Relationship Specialty Start Date End Date Ralph Dunne MD [address] [place] [address] PCP - General 12/13/20 documented as of this encounter
--- OUTSIDE RECORDS SUMMARY | 2024-06-23 07:43 | XMS_ITS | Clinical Summary ---
Author Organization [facility] Address [address] [place] [address] Care Team Providers Care Garland Maker Name Role Phone Ralph Dunne MD Primary Care Provider Allergies No known active allergies Medications Xeljanz XR 11 MG tablet sustained-release 24 hour 01/04/20 21 Active etodolac (Lodine) 400 MG tablet Take 400 mg by mouth 2 (two) times a day with meals. 10/06/19 21 Active DULoxetine (Cymbalta) [address] capsule Take 30 mg by mouth 1 (one) time each day. 07/31/20 20 Active cholecalciferol (Vitamin D-3) 250 MCG (66441 UT) capsule Take 10,000 Units by mouth every 30 (thirty) days. Active fexofenadine (Loreta) 180 MG tablet Take 180 mg by mouth if needed. Active ondansetron ODT (Zofran ODT) 4 MG disintegrating tablet Take 1 tablet (4 mg total) by mouth every 8 (eight) hours if needed for nausea or vomiting for up to 10 doses. 10 tablet 03/21/20 21 Active cyanocobalamin (Vitamin B-12) 1000 MCG/ML injection inject 1 milliliter by intramuscular route every week for 4 weeks then once a month for 5 months 01/16/20 21 Active ergocalciferol (Vitamin D-2) 1.25 MG (64133 UT) capsule take 1 capsule by oral route every week for 12 weeks 01/16/20 21 Active lisinopril 20 MG tablet Take 1 tablet (20 mg total) by mouth 1 (one) time each day. 30 tablet 3 05/27/20 Active pregabalin (Lyrica) 75 MG capsule TAKE 1 CAPSULE BY MOUTH TWICE DAILY FOR FIBROMYALGIA 11/06/19 Active lisinopril 20 MG tablet Take 1 tablet by mouth 1 (one) time each day. Active Loreta-D Allergy & Congestion 180-240 MG 24 hr tablet TAKE 1 TABLET BY MOUTH ONCE DAILY FOR 10 DAYS 11/25/19 Active DULoxetine (Cymbalta) [address] capsule Take 1 capsule by mouth 1 (one) time each day. 04/16/20 Active cyanocobalamin (Vitamin B-12) 1000 MCG/ML injection inject 1 milliliter by intramuscular route every week for 4 weeks then once a month for 5 months 04/16/20 Active meclizine (Antivert) 25 MG tablet Take 25 mg by mouth 3 (three) times a day if needed. 11/25/19 22 Active B-D 3CC LUER-KIMBERLEE SYR 25GX1 25G X 1 3 ML misc USE WITH B12 11/06/19 22 Active Tuberculin-Allergy Syringes (Skim.it Tuberculin Syringe) 25G X 1 1 ML misc to use with b12 04/16/20 Active Tofacitinib Citrate ER (Xeljanz XR) 11 MG tablet sustained-release 24 hour Take 1 tablet by mouth 1 (one) time each day. 04/16/20 Active Active Problems Problem Noted Date Diagnosed Date Morbid obesity with body mass index (BMI) of 40. 0 or higher 09/08/2021 Nocturnal hypoxemia 07/07/2021 Excessive daytime sleepiness 04/08/2021 Obesity hypoventilation syndrome 04/08/2021 ADIEL (obstructive sleep apnea) 03/17/2021 History of anesthesia complications 03/17/2021 Fibromyalgia 03/17/2021 Dyspnea 03/17/2021 Peripheral edema 03/17/2021 Precordial pain 03/10/2021 Thyroid nodule 11/04/2020 GERD (gastroesophageal reflux disease) PND (post-nasal drip) 11/04/2020 Morbid obesity 12/20/2019 S/P sacrocolpopexy 12/20/2019 Hypertension 12/19/2019 Mixed stress and urge urinary incontinence 08/30 Vaginal vault prolapse 08/30/2019 Anxiety 02/11/2018 Seropositive rheumatoid arthritis 10/05/2017 Family History Medical History Relation Name Comments Crohn's disease Father Other cancer Mother Anesthesia problems Neg Hx Malig Hyperthermia Neg Hx Relation Name Status Comments Father Mother Social History Tobacco Use Types Packs/Day Years Used Date Smoking Tobacco: Never Smokeless Tobacco: Never Tobacco Cessation:Counseling Given: Yes Alcohol Use Standard Drinks/Week Comments Yes 0 (1 standard drink = 0.6 oz pur e alcohol) very rare PHQ-2 Answer Date Recorded Patient Health Questionnaire-2 Score 0 12/22/2021 Comments No Sex and Gender Information Value Date Recorded Sex Assigned at Not on file Legal Sex Female 8:58 PM EDT Gender Identity Not on file Sexual Orientation Not on file Last Filed Vital Signs Vital Sign Reading Time Taken Comments Blood Pressure 135/94 09/08/2021 1:09 PM EST Pulse 72 09/08/2021 1:09 PM EST Temperature 37.1 ??C (98.8 ??F) 03/21/2021 11:50 AM E DT Respiratory Rate 20 03/21/2021 1:45 PM EDT Oxygen Saturation 94% 09/08/2021 1:09 PM EST Inhaled Oxygen Concentration - - Weight 159 kg (350 lb) 12/22/2021 11:39 AM EDT Height 175.3 cm (5' 9 ) 12/22/2021 11:39 AM EDT Body Mass Index 51.69 12/22/2021 11:39 AM EDT Plan of Treatment Health Maintenance Due Date Last Done Comments [facility]-HIV Screening 1970 [facility]-Hepatitis C Screening 1970 [facility]-/Child/Adol SDOH Screenings 1970 [facility]-Obesity Intervention 1976 [facility]-Pneumococcal Vaccine: Pediatrics (0 to 5 Years) and At-Risk Patients (6 to 64 Years) (1 of 2 - PCV) 1976 [facility]- SDOH Screenings 1988 [facility]-Adult SDOH Screenings 1988 [facility]-DTaP,Tdap,and Td Vaccine s (1 - Tdap) 1989 [facility]-Hepatitis B Vaccines (1 of 3 - 19+ 3-dose series) 1989 [facility]-Zoster Vaccines (1 of 2) 1989 CT Colonography 2015 Colonoscopy 2015 FIT-DNA 2015 FIT 2015 FOBT 2015 Sigmoidoscopy 2015 [facility]-Colorectal Cancer Screening 2015 [facility]-Breast Cancer Screening 2020 [facility]-Depression Screening 12/22/2022 12/22/2021 [id number] Vaccine (2023- season) 2024 08/07/2021, 10/09/2020 [facility]-Influenza Vaccine (#1) 2024 [facility]-RSV Vaccine: 60+ Years o r (1 - 1-dose 75+ series) 2045 [facility]-HIB Vaccines Aged Out No longer e ligible based on patient's age to complete this topic [facility]-HPV Vaccines Aged Out No longer e ligible based on patient's age to complete this topic [facility]-Hepatitis A Vaccines Aged Out No longer eligible based on patient's age to complete this topic [facility]-IPV Vaccines Aged Out No longer e ligible based on patient's age to complete this topic [facility]-Rotavirus Vaccines Aged Out No lo nger eligible based on patient's age to complete this topic Insurance [employer] Care Teams Garland Maker Relationship Specialty Start Date End Date Ralph Dunne MD [address] [place] [address] PCP - General 12/13/20
--- OUTSIDE RECORDS SUMMARY | 2024-06-23 07:44 | XMS_ITS | Encounter Summary ---
Author Organization [facility] Address [address] [id number] Care Team Providers Care Vault Custodian Name Role Phone Ralph Dunne MD Primary Care Provider [phone] Encounter Details Date Type Department Care Team (Late st Contact Info) Description 03/17/2021 2:30 PM EDT Pre-Admission Testing [facility] Pre-op Clinic [address], [address] [place] [id number] Thyroid nodule Anesthesia Record Procedure Summary Procedure Name Responsible Anesthesiologist Anesthesia Start Time Anesthesia Stop Time RT or LT Thyroidectomy, Isthmectomy (Bilateral: Neck) Colby Jalloh MD 03/21/21 0947 03/21/21 1200 Events Date Time Event Comment 03/21/2021 0947 In Room 0947 An Start 0949 An Start Data 1001 An Induction The patient was reevaluated immediately before moderate or deep sedation use and before anesthesia induction. 1002 An Intubation 1013 Anesthesia Ready 1031 Proc Start 1047 Ino IV stopped flus emily, readjusted position with good flow. 1128 Proc Fin 1141 An Extubation 1141 an stop data 1143 Out of Room 1155 Handoff to Receiving I compl eted my handoff to the receiving clinician during which we: 1. Identified the patient 2. Identified the responsible provider 3. Reviewed the pertinent medical history 4. Discussed the surgical course 5. Reviewed intra-op anesthesia management and issues during anesthesia 6. Set expectations for post-procedure period 7. Allowed opportunity for questions and acknowledgement of understanding. 1200 An Stop Meds * Agents No agents on file. * Blood No blood administrations on file. Lines, Drains, and Airways Type Details Placement Removal Wound 03/21/21; 1031; N; Y es; Incision; Throat; Steri strips to sugical incision 03/21/21 1031 by Crispin Esparza RN Peripheral IV Placement Date: 03/03 ; Placement Time: 09; Catheter Size: 18 G; Orientation: Right; Location: Antecubital; Site Prep: Chlorhexidine ; Local Anesth: Injectable, Guion; Technique: Anatomical landmarks; Inserted by: Zane Martins; Insertion Attempts: 2; Patient Tolerance: Tolerated well; Removal Date: 03/21/21; Removal Time: 17103/21/21 0906 by Kyra Dobson RN 03/21/21 171 by Coral La RN Arterial Line Placement Date: 03/03 ; Placement Time: 1000 (created via procedure documentation); Size: 20 G; Orientation: Right; Location: Radial; Inserted by: Resident; Securement: Taped; Patient Tolerance: Tolerated well; Removal Date: 03/21/21; Removal Time: 134; Removal Reason: Per protocol 03/21/21 1000 by Chacho Thompson DO 03/21/21 1347 by Paige Palacio RN ETT Placement Date: 03/03 ; Placement Time: 1002 (created via procedure documentation); Mask Ventilation: 0; Technique: Direct laryngoscopy; Type: ETT - single, NIM tube; Single Lumen Tube Size: 7 mm; Cuffed: Yes; Laryngoscope: Jolanta; Blade Size: 3; Location: Oral; Grade View: Grade I; Insertion Attempts: 1; Placement Verification: Auscultation, Capnometry; Placed by: Resident ; Removal Date: 03/21/21; Removal Time: 1141 03/21/21 1002 by Chacho Thompson DO 03/21/21 1141 by Chacho Thompson DO documented in this encounter Social History Tobacco Use Types Packs/Day Years Used Date Smoking Tobacco: Never Smokeless Tobacco: Never Alcohol Use Standard Drinks/Week Comments Yes 0 (1 standard drink = 0.6 oz pur e alcohol) very rare Comments No Sex and Gender Information Value Date Recorded Sex Assigned at Not on file Legal Sex Female 8:58 PM EDT Gender Identity Not on file Sexual Orientation Not on file COVID-19 Exposure Response Date Recorded In the last month, have you been in contact with someone who was confirmed or suspected to have Coronavirus / COVID-19? No / Unsure 03/20/2021 1:20 PM EDT documented as of this encounter Last Filed Vital Signs Vital Sign Reading Time Taken Comments Blood Pressure 128/83 03/17/2021 2:02 PM EDT Pulse 79 03/17/2021 2:02 PM EDT Temperature 36.6 ??C (97.8 ??F) 03/17/2021 2:02 PM ED T Respiratory Rate 16 03/17/2021 2:02 PM EDT Oxygen Saturation 95% 03/17/2021 2:02 PM EDT Inhaled Oxygen Concentration - - Weight 157 kg (346 lb 12.5 oz) 03/17/2021 2:02 P M EDT Height 175.3 cm (5' 9 ) 03/17/2021 2:02 PM EDT Body Mass Index 51.21 03/17/2021 2:02 PM EDT documented in this encounter Miscellaneous Notes * Preprocedure Instructions - Teo Sanchez DO - 03/17/2021 2:30 PM EDT Current Medications Medication Instructions ??? cholecalciferol (Vitamin D-3) 250 MCG (73499 UT) capsule Hold day of surgery ??? DULoxetine (Cymbalta) [address] capsule Take morning of surgery ??? etodolac (Lodine) 400 MG tablet Hold day of surgery ??? fexofenadine (Loreta) 180 MG tablet Hold day of surgery ??? lisinopril 20 MG tablet Hold day of surgery ??? Xeljanz XR 11 MG tablet sustained-release 24 hour Take morning of surgery General Preoperative Instructions You will be called the business day before surgery with your arrival time Do not eat or drink anything after midnight except water with your medications unless other instructions are given No alcohol or smoking prior to surgery Arrive on time to avoid delays Parking/Registration procedure explained You MUST have a responsible adult available for transport to and from hospital Visitation policy for the day of surgery reviewed Bring insurance card, photo ID, along with power of curriculum and instruction specialist, guardianship or advanced directives if applicable Do not bring money, jewelry or other valuables Hibiclens bathing instructions reviewed if applicable Notify surgeon of fever, illness, any changes or if you decide not to have surgery Pediatric patients under 12 years of age (If applicable) No solid food or milk after midnight Formula 6 hours prior to arrival for surgery Breast milk 4 hours prior to arrival surgery Clear liquids 2 hours prior to arrival for surgery Diabetes Instructions (If applicable) Take diabetes medication as instructed You may have up to 4 ounces of apple juice 2 hours prior to arrival for surgery for low glucose documented in this encounter Plan of Treatment Not on file documented as of this encounter Visit Diagnoses Diagnosis Thyroid nodule Nontoxic uninodular goiter documented in this encounter Additional Health Concerns Assessment Noted Time A fall risk assessment has been complete d for the patient 03/10/2021 12:33 PM EDT documented as of this encounter Care Teams Vault Custodian Relationship Specialty Start Date End Date Ralph Dunne MD [address] [place] [id number] PCP - General 12/13/20 documented as of this encounter
--- OUTSIDE RECORDS SUMMARY | 2024-06-23 07:44 | XMS_ITS | Encounter Summary ---
Author Organization [facility] Address [address] [place] [address] Care Team Providers Care Top Screw Name Role Phone Ralph Dunne MD Primary Care Provider Encounter Details Date Type Department Care Team (Late st Contact Info) Description 03/14/2021 Orders Only [facility] [address] [place] [address] Va Yanes, RN [facility]-INTERVENTIONAL RADIOLOGY ADMIN Encounter for preprocedure screening laboratory testing for COVID-19 (Primary Dx) Social History Tobacco Use Types Packs/Day Years [...] have Coronavirus / COVID-19? No / Unsure 03/12/2021 9:36 AM EDT documented as of this encounter Plan of Treatment Not on file documented as of this encounter Results * SARS CoV-2/COVID-19 by PCR (03/18/2021 8:07 AM EDT) SARS CoV-2/COVID-1 9 RNA PCR Result Not Detected Not Detected 03/18/2021 4:12 PM EDT [facility] Swab Oropharyngeal structure / Unknown Non-blood Collection / Unknown 03/18/2021 8:07 AM EDT 03/18/2021 8:08 AM EDT Narrative [facility] - 03/18/2021 4:12 PM EDT This assay is for in vitro diagnostic use under FDA emergency use authorization only. Negative results do not preclude infection with the SARS CoV-2 virus and should not be the sole basis of a patient treatment/management or public health decision. Follow up testing should be performed according to the current CDC recommendations. This test was performed using the [employer] Alinity m SARS CoV-2 assay, a PCR-based method. The limit of detection (LoD) for this assay is 100 copies/mL. Use of Alinity m SARS CoV-2 assay in an asymptomatic screening population is intended to be used as part of an infection control plan, that may include additional preventative measures such a predefined serial testing plan or directed testing of high-risk individuals. Negative results should be considered presumptive and do not preclude current or future infection obtained through community transmission or other exposures. Negative results must be considered in the context of an individual's recent exposures, history, presence of clinical signs and symptoms consistent with COVID-19. us Hector Oquendo MD LAB MICROBIOLOGY - GENERAL ORDER ANGELES Final Result [facility] [address] [place] [address] documented in this encounter Visit Diagnoses Diagnosis Encounter for preprocedure screening laboratory testing for COVID-19- Primary documented in this encounter Additional Health Concerns Assessment Noted Time A fall risk assessment has been complete d for the patient 03/10/2021 12:33 PM EDT documented as of this encounter Care Teams Top Screw Relationship Specialty Start Date End Date Ralph Dunne MD [address] [place] [address] PCP - General 12/13/20 documented as of this encounter
--- OUTSIDE RECORDS SUMMARY | 2024-06-23 07:44 | XMS_ITS | Encounter Summary ---
Author Organization [facility] Address [address] [place] [address] Care Team Providers Care Cofferdam Construction Supervisor Name Role Phone Ralph Dunne MD Primary Care Provider [phone] Reason for Visit * Imaging (Routine) - Closed Specialty Diagnoses / Procedures Referred By Contac t Referred To Contact Diagnoses Abnormal echocardiogram Shortness of breath Procedures NM Myocardial Perfusion Stress Test Rosa Elena Henderson APRN [address] [place] [address] Phone: tel: fax: [facility] [address] [place] [address] Phone: tel: Referral ID Status Reason Start Date Expiration Date Visits Re quested Visits Authorized [id number] Closed 03/10/2021 09/06/2021 1 1 Encounter Details Date Type Department Care Team (Latest Contact Info) Description 03/12/2021 9:37 AM EDT Hospital Encounter Cardiac Imaging [address] [place] [address] Discharge Disposition: Home or Self Care Social History Tobacco Use Types Packs/Day Years [...] AM EDT documented as of this encounter Medications at Time of Discharge cholecalciferol (Vitamin D-3) 250 MCG (08793 UT) capsule Take 10,000 Units by mouth every 30 (thirty) days. cyanocobalamin (Vitamin B-12) 1000 MCG/ML injection inject 1 milliliter by intramuscular route every week for 4 weeks then once a month for 5 months 1 DULoxetine (Cymbalta) [address] capsule Take 30 mg by mouth 1 (one) time each day. 0 ergocalciferol (Vitamin D-2) 1.25 MG (23277 UT) capsule take 1 capsule by oral route every week for 12 weeks 1 etodolac (Lodine) 400 MG tablet Take 400 mg by mouth 2 (two) times a day with meals. 1 ondansetron ODT (Zofran ODT) 4 MG disintegrating tablet Take 1 tablet (4 mg total) by mouth every 8 (eight) hours if needed for nausea or vomiting for up to 10 doses. 10 tablet 1 Xeljanz XR 11 MG tablet sustained-release 24 hour 1 cephalexin (Keflex) 500 MG capsule Take 1 capsule (500 mg total) by mouth 3 (three) times a day for 7 days. 21 capsule 1 03/28/20 21 diclofenac (Cataflam) 50 MG tablet Take 1 tablet (50 mg total) by mouth 3 (three) times a day for 7 days. 21 tablet 1 03/28/20 21 HYDROcodone-acetami nophen (Novi) 5-325 MG tablet Take 1 tablet by mouth every 4 (four) hours if needed for severe pain for up to 3 days. 18 tablet 1 03/24/20 21 lisinopril 20 MG tablet Take 1 tablet (20 mg total) by mouth 1 (one) time each day. 30 tablet 3 1 05/27/20 21 documented as of this encounter Plan of Treatment Not on file documented as of this encounter Procedures Procedure Name Priority Date/Time Associated Diagnosis Comments NM MYOCARDIAL SPECT REGADENOSON STRESS (MULTI STUDY) Routine 03/12/2021 12:22 PM EDT Abnormal echocardiogram Shortness of breath documented in this encounter Visit Diagnoses Not on filedocumented in this encounter Additional Health Concerns Assessment Noted Time A fall risk assessment has been complete d for the patient 03/10/2021 12:33 PM EDT documented as of this encounter Care Teams Cofferdam Construction Supervisor Relationship Specialty Start Date End Date Ralph Dunne MD [address] [place] [address] PCP - General 12/13/20 documented as of this encounter
--- OUTSIDE RECORDS SUMMARY | 2024-06-23 07:44 | XMS_ITS | Encounter Summary ---
Author Organization [facility] Address [address] [place] [address] Care Team Providers Care Chief Business Officer Name Role Phone Ralph Dunne MD Primary Care Provider [phone] Encounter Details Date Type Department Care Team (Latest Contact Info) Description 07/01/2021 Travel Social History Tobacco Use Types Packs/Day [...] have Coronavirus / COVID-19? No / Unsure 07/01/2021 7:42 PM EST documented as of this encounter Plan of Treatment Not on file documented as of this encounter Visit Diagnoses Not on filedocumented in this encounter Additional Health Concerns Assessment Noted Time A fall risk assessment has been complete d for the patient 07/01/2021 7:45 PM EST documented as of this encounter Care Teams Chief Business Officer Relationship Specialty Start Date End Date Ralph Dunne MD [address] [place] [address] PCP - General 12/13/20 documented as of this encounter
--- OUTSIDE RECORDS SUMMARY | 2024-06-23 07:44 | XMS_ITS | Encounter Summary ---
Author Organization [facility] Address [address] [place] [address] Care Team Providers Care Lasting Machine Operator Hand Method Name Role Phone Ralph Dunne MD Primary Care Provider [phone] Encounter Details Date Type Department Care Team (Latest Contact Info) Description 03/14/2021 Travel Social History Tobacco Use Types Packs/Day [...] have Coronavirus / COVID-19? No / Unsure 03/14/2021 1:24 PM EDT documented as of this encounter Plan of Treatment Not on file documented as of this encounter Visit Diagnoses Not on filedocumented in this encounter Additional Health Concerns Assessment Noted Time A fall risk assessment has been complete d for the patient 03/10/2021 12:33 PM EDT documented as of this encounter Care Teams Lasting Machine Operator Hand Method Relationship Specialty Start Date End Date Ralph Dunne MD [address] [facility] [place] [address] PCP - General 12/13/20 documented as of this encounter
--- OUTSIDE RECORDS SUMMARY | 2024-06-23 07:44 | XMS_ITS | Encounter Summary ---
Author Organization [facility] Address [address] [place] [address] Care Team Providers Care Automation Clerk Name Role Phone Ralph Dunne MD Primary Care Provider [phone] Reason for Visit * Reason Onset Date Comments HCN - Rx Refill Request 05/26/2021 Encounter Details Date Type Department Care Team ([facility] st Contact Info) Description 05/26/2021 Telephone [facility] [address] [place] [address] Rosa Elena Henderson, MANAGER ASSISTED LIVING [address] [place] [address] HCN - Rx Refill Request Social History Tobacco Use Types Packs/Day Years [...] PM EST documented as of this encounter Miscellaneous Notes * Telephone Encounter - Tanya White I - 05/26/2021 3:42 PM EDT Patient's primary won't fill her bp meds, said to get that from [place] [place] office or to send the script over to the patient's primary who is a non- physician. Lisinopril 20mg Has 0 refills, needs renewal documented in this encounter Plan of Treatment Not on file documented as of this encounter Visit Diagnoses Not on filedocumented in this encounter Additional Health Concerns Assessment Noted Time A fall risk assessment has been complete d for the patient 04/08/2021 9:49 AM EDT documented as of this encounter Care Teams Automation Clerk Relationship Specialty Start Date End Date Ralph Dunne MD [address] [place] [address] PCP - General 12/13/20 documented as of this encounter
--- OUTSIDE RECORDS SUMMARY | 2024-06-23 07:44 | XMS_ITS | Encounter Summary ---
Author Organization [facility] Address [address] [place] [address] Care Team Providers Care Traffic Court Magistrate Name Role Phone Ralph Dunne MD Primary Care Provider [phone] Encounter Details Date Type Department Care Team (Latest Contact Info) Description 02/14/2021 Travel Social History Tobacco Use Types Packs/Day [...] have Coronavirus / COVID-19? No / Unsure 02/13/2021 10:54 AM EDT documented as of this encounter Plan of Treatment Not on file documented as of this encounter Visit Diagnoses Not on filedocumented in this encounter Care Teams Traffic Court Magistrate Relationship Specialty Start Date End Date Ralph Dunne MD [address] [place] [address] PCP - General 12/13/20 documented as of this encounter
--- OUTSIDE RECORDS SUMMARY | 2024-06-23 07:44 | XMS_ITS | Encounter Summary ---
Author Organization [facility] Address [address] [place] [address] Care Team Providers Care Bowling Alley Manager Name Role Phone Ralph Dunne MD Primary Care Provider [phone] Encounter Details Date Type Department Care Team (Late st Contact Info) Description 07/07/2021 Orders Only [facility] [address] [place] [address] Jet Braga MD [address] [place] [address] ADIEL (obstructive sleep apnea) (Primary Dx); Obesity hypoventilation syndrome (CMS/HCC); Nocturnal hypoxemia Social History Tobacco Use Types Packs/Day Years [...] as of this encounter Visit Diagnoses Diagnosis ADIEL (obstructive sleep apnea)- Primary Obstructive sleep apnea (adult) (pediatric) Obesity hypoventilation syndrome (CMS/HCC) Obesity hypoventilation syndrome Nocturnal hypoxemia documented in this encounter Additional Health Concerns Assessment Noted Time A fall risk assessment has been complete d for the patient 07/01/2021 7:45 PM EST documented as of this encounter Care Teams Bowling Alley Manager Relationship Specialty Start Date End Date Ralph Dunne MD [address] [place] [address] PCP - General 12/13/20 documented as of this encounter
--- OUTSIDE RECORDS SUMMARY | 2024-06-23 07:44 | XMS_ITS | Encounter Summary ---
Author Organization [facility] Address [address] [place] [address] Care Team Providers Care Partridge Farmer Name Role Phone Ralph Dunne MD Primary Care Provider [phone] Reason for Visit * Reason Comments Follow-up thyroid nodule Encounter Details Date Type Department Care Team ([facility] Contact Info) Description 04/10/2021 9:45 AM EDT Office Visit [facility] [address] [place] [address] Hector Oquendo MD [address] [facility] [address] [place] [address] Thyroid nodule (Primary Dx) Social History Tobacco Use Types [...] have Coronavirus / COVID-19? No / Unsure 04/10/2021 9:26 AM EDT documented as of this encounter Last Filed Vital Signs Vital Sign Reading Time Taken Comments Blood Pressure 131/83 04/10/2021 9:38 AM EDT Pulse 77 04/10/2021 9:38 AM EDT Temperature - - Respiratory Rate - - Oxygen Saturation - - Inhaled Oxygen Concentration - - Weight 152 kg (335 lb) 04/10/2021 9:38 AM EDT Height 175.3 cm (5' 9 ) 04/10/2021 9:38 AM EDT Body Mass Index 49.47 04/10/2021 9:38 AM EDT documented in this encounter Miscellaneous Notes * Progress Notes - Hector Oquendo MD - 04/10/2021 9:45 AM EDT Ms. Florencia Mai is a very pleasant 50 y.o. patient who is returning to the clinic today for follow-up. She underwent excision the nodule of the thyroid isthmus on 03/21/2021. Pathology revealed a benign nodule. The patient is returning to the clinic without any complications. ?? She 1st noticed an anterior lower neck mass early September 2020. It was mobile and nontender to palpation. She felt some discomfort and throat irritation without any pain, choking sensation, dysphagia. She was seen by primary care physician and had blood work that included a thyroid panel and PTH and all came back normal. She was then recommended consult with me for evaluation and management. My clinical examination revealed a 3 cm mobile nontender mass of the isthmus and I recommended an ultrasound-guided biopsy. She underwent an ultrasound of the thyroid on December 23, 2020 and this revealed a 3 cm nodule of the isthmus, TR 2 and no biopsy was performed. The patient is returning to the clinic today to discuss the ultrasound results and have the nodule treated. She has been on omeprazole but this is not significantly improving her hoarseness. She has been taking Flonase that is also partially helping with herpostnasal drip. She underwent an excision of thyroid nodule of the isthmus on 03/21/2021 and was discharged home without any complications. Pathology revealed a benign colloid nodule. She denies any choking sensationas before. The patient's complete review of system from 04/10/21 was performed today All systems were negativeexcept for those mentioned in the HPI, osteoarthritis, rheumatoid arthritis and fibromyalgia. Radiographs: - Ultrasound of the thyroid: . December 23, 2020: Right thyroid lobe measures 4.3 cm, left thyroid lobe 5.1 cm, nodule of the isthmusmeasuring 3 cm, TR 2 I reviewed the images in person and discussed them with the patient. I do agree with the interpretation. Surgery: -03/21/2021: Excision of isthmus nodule Pathology: -03/21/2021: Benign colloid nodule ?? Allergies: No Known Allergies Past medical history: As in history of present illness Past surgical history: bilateral Bunionectomy, appendectomy, abdominal surgery, cholecystectomy andexcision of left neck cyst, excision of thyroid nodule 03/21/2021 Family history: reviewed and consistent with colon cancer in her mother and Crohn's disease in her father Social history: The patient does not smoke, drink or use any illicit drugs ?? PHYSICAL EXAMINATION: Visit Vitals BP 131/83 Pulse 77 Ht 1.753 m (5' 9 ) Wt 152 kg (335 lb) BMI 49.47 kg/m?? General: she is a healthy-appearing 50 y.o. patient, alert and oriented x3, in no acute distress, well nourished, well developed ?? Psychiatric evaluation: Normal mood and affect, very pleasant and cooperative ?? Otoscopy: did not reveal any cerumen impaction Tympanic membranes are normal without any middle eareffusions ?? Nasal cavity examination: Septum is midline I did not see any pus or polyps ?? Oral cavity examination: The buccal mucosa, lips, gingiva, retromolar trigone, alveolar ridge, floor of mouth, tongue and palate unremarkable ?? Neck: soft and supple I did not feel any enlarged lymphadenopathy ?? Eyes: Extraocular movements are intact bilaterally PERRLA ?? Neurological examination: Cranial nerves II-XII are grossly intact ?? Skin of the neck and face: did not reveal any evidence of significant rashes or suspicious appearing nevi or other concerning lesions ?? Endocrine examination: s/p excision of thyroid nodule of the isthmus ?? Respiratory: chest is symmetrical, breathing comfortably without effort. Voice is very strong. ?? IMPRESSION: 1-s/p excision of the nodule a thyroid isthmus, 03/21/2021 2-allergic rhinitis with postnasal drip 3-GERD 4-fibromyalgia 5-osteoarthritis 6-rheumatoid arthritis ?? RECOMMENDATIONS: I discussed those findings with the patient. She is doing very well with surgery and her nodule was benign on pathology. She will continue to follow-up with her primary care physician and with me on a p.r.n. basis. Hector Oquendo MD MS FACS Hepatologist Head & Neck Oncology Rhinology & Skull Base Surgery documented in this encounter Plan of Treatment Not on file documented as of this encounter Visit Diagnoses Diagnosis Thyroid nodule- Primary Nontoxic uninodular goiter documented in this encounter Additional Health Concerns Assessment Noted Time A fall risk assessment has been complete d for the patient 04/08/2021 9:49 AM EDT documented as of this encounter Care Teams Partridge Farmer Relationship Specialty Start Date End Date Ralph Dunne MD [address] [place] [address] PCP - General 12/13/20 documented as of this encounter
--- OUTSIDE RECORDS SUMMARY | 2024-06-23 07:44 | XMS_ITS | Encounter Summary ---
Author Organization [facility] Address [address] [place] [address] Care Team Providers Care Real Estate Marketing Coordinator Name Role Phone Ralph Dunne MD Primary Care Provider [phone] Encounter Details Date Type Department Care Team (Latest Contact Info) Description 06/24/2021 Travel Social History Tobacco Use Types Packs/Day [...] have Coronavirus / COVID-19? No / Unsure 06/24/2021 9:25 AM EST documented as of this encounter Plan of Treatment Not on file documented as of this encounter Visit Diagnoses Not on filedocumented in this encounter Additional Health Concerns Assessment Noted Time A fall risk assessment has been complete d for the patient 04/08/2021 9:49 AM EDT documented as of this encounter Care Teams Real Estate Marketing Coordinator Relationship Specialty Start Date End Date Ralph Dunne MD [address] [place] [address] PCP - General 12/13/20 documented as of this encounter
--- OUTSIDE RECORDS SUMMARY | 2024-06-23 07:44 | XMS_ITS | Encounter Summary ---
Author Organization [facility] Address [address] [place] [address] Care Team Providers Care General Engineer Name Role Phone Ralph Dunne MD Primary Care Provider [phone] Encounter Details Date Type Department Care Team (Latest Contact Info) Description 04/10/2021 Travel Social History Tobacco Use Types Packs/Day [...] documented as of this encounter Care Teams General Engineer Relationship Specialty Start Date End Date Ralph Dunne MD [address] [place] [address] PCP - General 12/13/20 documented as of this encounter
--- OUTSIDE RECORDS SUMMARY | 2024-06-23 07:44 | XMS_ITS | Encounter Summary ---
Author Organization [facility] Address [address] [place] [address] Care Team Providers Care Batch And Furnace Manager Name Role Phone Ralph Dunne MD Primary Care Provider [phone] Reason for Visit * Auth/Cert Specialty Diagnoses / Procedures Referred By Prakash morejon Referred To Contact Diagnoses Thyroid nodule Thyroid nodule [E04.1] Procedures SD THYROID LOBECTOMY,UNILAT SD REMOVE BENIGN THYROID LESION RT or LT Thyroidectomy, Isthmectomy Hector Oquendo MD [address] [address] Phone: tel: fax: [facility] [address] [place] [phone] Phone: tel: Referral ID Status Reason Start Date Expiration Date Visits Re quested Visits Authorized [id number] 1 1 Encounter Details Date Type Department Care Team (Late st Contact Info) Description 03/21/2021 10:00 AM EDT - 03/21/2021 1:15 PM EDT Surgery [facility] [address] [place] [phone] Hector Oquendo MD [address] [phone] RT or LT Thyroidectomy, Isthmectomy Surgery Details Date/Time Status Location OR Service Patient Class Case Class Case Type Trauma Case? 03/21/2021 10:00 AM Posted [facility] Extended Recovery E-Electiv e Panel 1 Procedure LRB Anes Op Region Wound Class Comments RT or LT Thyroidectomy, Isthmectomy Bilateral General Neck Class I/ Clean Surgeon Surgeon Role Service Panel Hector Oquendo MD Primary ENT 30 January, Gavi Singletary MD Resident - Assisting ENT 1 documented in this encounter Social History Tobacco [...] have Coronavirus / COVID-19? No / Unsure 03/21/2021 8:57 AM EDT documented as of this encounter Last Filed Vital Signs Vital Sign Reading Time Taken Comments Blood Pressure 163/103 03/21/2021 1:15 PM EDT Pulse 93 03/21/2021 1:15 PM EDT Temperature 37.1 ??C (98.8 ??F) 03/21/2021 11:50 AM E DT Respiratory Rate 23 03/21/2021 1:15 PM EDT Oxygen Saturation 92% 03/21/2021 1:15 PM EDT Inhaled Oxygen Concentration - - Weight 157 kg (346 lb 2 oz) 03/21/2021 11:50 AM EDT Height 175.3 cm (5' 9 ) 03/21/2021 11:50 AM EDT Body Mass Index 51.11 03/21/2021 11:50 AM EDT documented in this encounter Discharge Instructions * Attachments The following attachments cannot be sent through Care Everywhere. * Thyroidectomy Discharge Instructions ([place]) ([place]) documented in this encounter Medications at Time of Discharge cholecalciferol (Vitamin D-3) 250 MCG ([address] [place]) capsule Take 10,000 Units by mouth every 30 (thirty) days. cyanocobalamin (Vitamin B-12) 1000 MCG/ML injection inject 1 milliliter by intramuscular route every week for 4 weeks then once a month for 5 months 06/16/202 1 DULoxetine (Cymbalta) [address] capsule Take 30 mg by mouth 1 (one) time each day. 0 ergocalciferol (Vitamin D-2) 1.25 MG (27760 [place]) capsule take 1 capsule by oral route every week for 12 weeks 1 etodolac (Lodine) 400 MG tablet Take 400 mg by mouth 2 (two) times a day with meals. 1 fexofenadine (Loreta) 180 MG tablet Take 180 mg by mouth if needed. ondansetron ODT (Zofran ODT) 4 MG disintegrating [...] 21 tablet 1 03/28/20 21 HYDROcodone-acetami nophen ([place]) 5-325 MG tablet Take 1 tablet by mouth every 4 (four) hours if needed for severe pain for up to 3 days. 18 tablet 1 03/24/20 21 lisinopril 20 MG tablet Take 1 tablet (20 mg total) by mouth 1 (one) time each day. 30 tablet 3 1 05/27/20 21 documented as of this encounter Miscellaneous Notes * Anesthesia PACU Signout - Delbert Menchaca MD - 03/21/2021 1:32 PM EDT Anesthesia PACU Signout Patient location during evaluation: PACU Patient participation: complete - patient participated Level of consciousness: baseline Pain management: inadequate (pain score >3) with changes suggested below Airway patency: natural airway Hydration status: acceptable PONV: none Cardiovascular status: acceptable Respiratory status: acceptable Discharge Disposition: home Comments: Patient has mildly increased BP with complaints of surgical site pain. Will continue ordered regimen of narcotic medication and re-assess. Cosigned by Marvin Osorio MD at 03/21/2021 4:41 PM EDT Associated attestation - Marvin Osorio MD - 03/21/2021 4:41 PM EDT Patient seen and evaluated. Agree with A&P. * Perioperative Nursing Note - Crispin Esparza RN - 03/21/2021 10:38 AM EDT No castillo per . January. Family contacted at 1032. * Op Note - Hector Oquendo MD - 03/21/2021 10:31 AM EDT PATIENT NAME: Florencia Mai DATE OF : 1970 DATE OF PROCEDURE: 03/21/2021 ATTENDING PHYSICIAN: Hector Oquendo MD RESIDENT SURGEON: Gavi Jade MD PREOPERATIVE DIAGNOSES: 1. Thyroid isthmus nodule POSTOPERATIVE DIAGNOSES: 1. Same PROCEDURE PERFORMED: 1. Thyroid isthmusectomy ANESTHESIA: GETA with NIM ESTIMATED BLOOD LOSS: 5 cc SPECIMENS: Thyroid isthmus IMPLANTS, DRAINS AND STENTS: None COMPLICATIONS: None immediate INDICATIONS FOR PROCEDURE: Florencia Mai is a 50 y.o. female with a 3 cm nodule of the isthmus, TR 2, discovered on palpation and with dysphagia. It was recommended she undergo isthmusectomy with possible hemithyroidectomy and she was agreeable to proceed. FINDINGS: 1. Soft benign appearing 3 cm thyroid nodule in the isthmus with no extension laterally into eitherthyroid lobe. This was removed with a transthyroid dissection on the lateral edges with preservation of RLN. OPERATIVE DESCRIPTION: After informed consent was obtained from the patient, the patient was brought back to the operatingroom suite and placed in supine position on the operating room table. After induction of general endotracheal anesthesia by the Anesthesia service, using an endotracheal tube designed to monitor the integrity the patient's recurrent laryngeal nerve, a timeout was performed to ensure the correct patient and correct procedure. Once all in the room were in agreement, EMG wires were connected to the nerve integrity monitoring system and grounds were secured. Mechanical stimulation revealed normal EMG signals bilaterally. Resistance in the electrodes was adequate. The nerve integrity monitoring mac walter was found to be in working order and was used subsequently throughout the case. With this found to be in working order, a shoulder roll was placed and the patient was prepped and draped in the usual sterile fashion for thyroid surgery. Next, 1% lidocaine with 1:100,000 epinephrine was injected into the patient's anterior neck within a preexisting skin crease. The sternal notchand cricoid cartilage was also identified at this time. Next, a #15 blade was used to incise down through skin and soft tissue over the previously marked location down through the subcutaneous fat. Dissection continued down in layers until the platysma muscle was reached. This was incised through using Bovie electrocautery, and subplatysmal flaps were raised superiorly to the level of the thyroid cartilage and inferiorly to the level of the sternal notch. After this, attention was then turned to separation of the strap muscles. Dissection continued deep along the median raphe of the strap muscles, and these were retracted laterally. The strap muscles were left intact and the thyroid isthmus was visualized along with the nodule The strap muscles were retracted laterally off of the nodule. An anterior jugular vein was dissected free and clipped. The nodule was palpated and felt to be almost all completely superficial to the anterior aspect of the trachea. The nodule was grasped with a [place] and was retracted inferiorly and using dissection with bipolar and clips through the superior aspect of the isthmus and nodule this was released off of the anterior tracheal wall. This was palpated out laterally on the left and dissection through the thyroid lobe on the left taking a small cuff of thyroid tissue with isthmus andnodule was performed. This was all done anterior to the trachea to preserve the recurrent laryngealnerve. This is carried around inferiorly to remove the attachments of the thyroid isthmus off of the anterior tracheal wall using care with the bipolar electrocautery. On the right side a small cuff of thyroid tissue was kept around the nodule and dissection was carried through the thyroid lobe on the right side all anterior to the anterior trachea as well. This thus removed the nodule in the isthmus. This was set aside for permanent. Bipolar was performed on the edges of the thyroid lobes for hemostasis. Next, a Valsalva was performed to look for any evidence of active bleeding. No evidence of further bleeding was identified. Surgicel was placed within the thyroid wound bed. Next, the strap muscles were approximated in a running locking fashion. Next, the subplatysmal flaps were subsequently closedin a 2- layer fashion using 4-0 Vicryl in a deep dermal fashion followed by 5-0 moncryl in a subcuticular fashion. Steristrips were placed. This subsequently completed the patient's procedure and the patient was returned to the Anesthesia service, who extubated and awoke the patient without difficulty and transferred the patient to the recovery room in stable condition. Dr. Oquendo was present and av ailable for all portions of this procedure. I was present for the entire procedure. Hector Oquendo MD MS FACS [employer] Head & Neck Oncology Rhinology & Skull Base Surgery * H&P - Gavi Zepeda MD - 03/21/2021 9:12 AM EDT Ms.??Florencia Mai is a very pleasant 50 y.o. patient who??is scheduled to undergo isthmusectomy with possible hemithyroidectomy today after preop clearance. No new changes. ?? She 1st noticed an anterior lower neck mass early September 2020.?It was mobile and nontender to palpation.??She felt some discomfort and throat irritation without any pain, choking sensation and dysphagia.??She was seen by primary care physician and had blood work that included a thyroid panel and PTH and all came back normal.??She was then recommended consult with me for evaluation and management.??My clinical examination revealed a 3 cm mobile nontender mass of the isthmus and I recommended an ultrasound-guided biopsy. ?? She underwent an ultrasound of the thyroid on December 23, 2020 and this revealed a 3 cm nodule of the isthmus, TR 2 and no biopsy was performed. ??The patient is returning to the clinic today to discuss the ultrasound results and have the nodule treated. ??She has been on omeprazole but this is not significantly improving her hoarseness. ??She has been taking Flonase that is also partially helping with her postnasal drip. ?? The patient's complete review of system from??03/21/21 was performed today ??All systems were negative except for those mentioned in the HPI, osteoarthritis, rheumatoid arthritis and fibromyalgia. ?? Radiographs: -??Ultrasound of the thyroid: ?. ??December 23, 2020: ??Right thyroid lobe measures 4.3 cm, left thyroid lobe 5.1 cm, nodule of the isthmus measuring 3 cm, TR 2 ?? Allergies:??No Known Allergies Past medical history: As in history of present illness Past surgical history:??bilateral Bunionectomy, appendectomy, abdominal surgery, cholecystectomy and excision of left neck cyst Family history: reviewed and consistent with colon cancer in her mother and Crohn's disease in her father Social history:??The patient does not smoke, drink or use any illicit drugs ?? PHYSICAL EXAMINATION: General: she is a healthy-appearing 50 y.o. patient, alert and oriented x3, in no acute distress, well nourished, well developed ? Psychiatric evaluation: Normal mood and affect, very pleasant and cooperative ?? Otoscopy: normal pinnae ?? Nasal cavity examination: Septum is midline dorsum straight ?? Oral cavity examination: The buccal mucosa, lips, gingiva, retromolar trigone, alveolar ridge, floor of mouth, tongue and palate unremarkable ?? Neck: soft and supple ??I did not feel any enlarged lymphadenopathy ?? Eyes: Extraocular movements are intact bilaterally ??PERRLA ?? Neurological examination: Cranial nerves II-XII are grossly intact ?? Skin of the neck and face: did not reveal any evidence of significant rashes or suspicious appearing nevi or other concerning lesions ?? Endocrine examination: She had a 3 cm thyroid nodule, located in the isthmus ??It is nontender to palpation??and ascends with swallowing. ?? Respiratory: chest is symmetrical, breathing comfortably without effort ?? IMPRESSION: 1-3 cm thyroid nodule, in the isthmus, TR 2 2-allergic rhinitis with postnasal drip 3-GERD 4-fibromyalgia 5-osteoarthritis 6-rheumatoid arthritis ?? RECOMMENDATIONS: I discussed those findings with the patient.?? she is scheduled to undergo an isthmusectomty with possible hemithyroidectomy, right versus left. She agreed to proceed despite all the risks and benefits today and consent signed. ?? All the risks of the surgery were discussed with the patient who agreed to proceed. The patient understands that the risks include but are not limited to infection, bleeding, pain, hoarseness with injury of the recurrent laryngeal or superior thyroid nerve or nerves, hypocalcemia which may be permanent, injury to the lips and teeth, hematomas, need for tracheostomy, need for additional surgeries,difficulty swallowing, difficulty breathing and risk of anesthesia such as arrhythmias, stroke, disability and . Despite all those risks, the patient wished to proceed and is already on my schedule for the procedure. ? Hector Oquendo MD MS FACS [employer] Head & Neck Oncology Rhinology & Skull Base Surgery Cosigned by Hector Oquendo MD at 03/21/2021 12:18 PM EDT Associated attestation - Hector Oquendo MD - 03/21/2021 12:18 PM EDT I saw and evaluated the patient with the resident/fellow. I discussed the case with the resident/fellow and agree with the findings and plan as documented. Hector Oquendo MD MS FACS [employer] Head & Neck Oncology Rhinology & Skull Base Surgery' documented in this encounter Plan of Treatment Not on file documented as of this encounter Procedures Procedure Name Priority Date/Time Associated Diagnosis Comments SURGICAL PATHOLOGY EXAM Routine 03/21/2021 11:13 AM EDT Thyroid nodule THYROIDECTOMY 03/21/2021 9:32 AM EDT Thyroid nodule documented in this encounter Results * Surgical Pathology Exam (03/21/2021 11:13 AM EDT) Case Report Surgical Pathology ?Case: [id number] ? Authorizing Provider: ??Hector Oquendo MD ? Collected: ? 03/21/2021 1113 ? Ordering Location: ? [facility] ? Received: ?03/21/2021 1153 ? Pathologist: ? Barb Whelan MD ? Specimen: ?Thyroid, thyroid isthmus ? 03/25/2021 2:02 PM EDT [facility] Final Diagnosis THYROID, ISTHMUSECTOMY: - COLLOID NODULES, CONSISTENT WITH MULTINODULAR GOITER. - NO EVIDENCE OF ADENOMA OR MALIGNANCY. 03/25/2021 2:02 PM EDT [facility] Clinical Information Pre-op diagnosis: Thyroid nodule [E04.1] 03/25/2021 2:02 PM EDT [facility] Gross Description A. THYROID ISTHMUS Specimen label: Thyroid Specimen fixation: Fresh and subsequently placed in formalin Specimen type: Isthmusectomy Laterality: Isthmus Specimen weight: 57.8 grams Specimen size: 2.8 x 2.4 x 1.7 cm Exterior surface: Intact The specimen is serially sectioned into six levels (right margin-level I, left margin-level ) Inking code: Anterior: Black Posterior: Blue Right resection margin: Green Left resection margin: Red Masses:1 Description: Centrally located, well circumscribed, yellow red, friable nodule that measures 1.7 x 1.5 x 1.1 cm. Margins: Right resection margin: 0.5 cm Left resection margin: 0.8 cm Anterior capsule: Abutting Posterior capsule: Abutting Background thyroid parenchyma: Maroon brown and grossly unremarkable. Other findings: None Tissue submitted for ancillary studies: No Digital photos taken: No Specimen entirely submitted: Yes Mass entirely submitted: Yes The specimen is entirely submitted as follows: A1-A2: Right resection margin (Level I) A3: Left resection margin (level ) A4: Superior half of level II A5: Inferior half of level II A6: Superior half of level III A7: Inferior half of level III A8: Superior half of level IV A9: Inferior half of level IV A10: Superior half of level V A11: Inferior half of level V Ora Rico MD 03/25/2021 2:02 PM EDT [facility] Note: A resident was involved in the service. I attest I examined the relevant preparations for the specimens and confirmed the diagnosis or interpretation. 03/25/2021 2:02 PM EDT [facility] Tissue Thyroid structure / Unknown 03/21/2021 11:13 AM EDT 03/21/2021 11:53 AM EDT Comment:Pre-op diagnosis: Thyroid nodule [E04.1] us Hector Oquendo MD LAB PATHOLOGY ORDERABLES Final R esult [facility] [address] [place] [address] documented in this encounter Visit Diagnoses Diagnosis Thyroid nodule Nontoxic uninodular goiter Thyroid nodule Nontoxic uninodular goiter documented in this encounter Administered Medications Inactive Administered Medications - up to 3 most recent administrations Medication Order MAR Action Action Date Dose Rate Site acetaminophen (Tylenol) tablet 1,000 mg 1,000 mg, Oral, Once as needed, 1 dose, Starting on Wed03/21/21 at 1143, Until Wed03/21/21 at 1651, Routine, Recovery (Phase I only), mild pain, pain level >1 out of 10 Given 03/21/2021 4:51 PM EDT 1,000 mg fentaNYL (Sublimaze) injection 25 mcg 25 mcg, Intravenous, Every 5 min PRN, 2 doses, Starting on Wed03/21/21 at 1143, Until Wed03/21/21 at 1237, Routine, Recovery (Phase I only), severe pain, pain score of 3 to 4 out of 10 Given 03/21/2021 12:37 PM EDT 25 mcg Given 03/21/2021 12:32 PM EDT 25 mcg fentaNYL (Sublimaze) injection 50 mcg 50 mcg, Intravenous, Once as needed, 2 doses, Starting on Wed03/21/21 at 1143, Until Wed03/21/21 at 2007, Routine, Recovery (Phase I only), severe pain, pain score of 5 to 8 out of 10 Given 03/21/2021 12:11 PM EDT 50 mcg HYDROmorphone (Dilaudid) injection 0.5 mg 0.5 mg, Intravenous, Every 10 min PRN, 2 doses, Starting on Wed03/21/21 at 1143, Until Wed03/21/21 at 1313, Routine, Recovery (Phase I only), severe pain, pain score of 9 to 10 out of 10 Given 03/21/2021 1:13 PM EDT 0.5 mg Given 03/21/2021 12:49 PM EDT 0.5 mg lidocaine (Xylocaine) 1 % injection - Pyxis Override Pull 1 dose, Starting on Wed03/21/21 at 0857, Until Wed03/21/21 at 0916 Given 03/21/2021 9:16 AM EDT 50 mL lidocaine-EPINEPHrine (Xylocaine W/EPI) 1 %-1:[id number] injection As needed, Starting on Wed03/21/21 at 1031, Until Wed03/21/21 at 1144, Routine, Intraprocedure Given 03/21/2021 10:31 AM EDT 4 mL Ot her ondansetron (Zofran) injection 4 mg 4 mg, Intravenous, Once as needed, 1 dose, Starting on Wed03/21/21 at 1143, Until Wed03/21/21 at 1249, Routine, Recovery (Phase I only), nausea, vomiting Given 03/21/2021 12:49 PM EDT 4 mg oxyCODONE (Roxicodone) immediate release tablet 10 mg 10 mg, Oral, Once as needed, 1 dose, Starting on Wed03/21/21 at 1146, Until Wed03/21/21 at 1233, Routine, Recovery (Phase I only), severe pain, > 5 out of 10 Given 03/21/2021 12:33 PM EDT 10 mg sodium chloride 0.9 % flush 10 mL 10 mL, Intravenous, Every 8 hours PRN, Starting on Wed03/21/21 at 0915, Until Wed03/21/21 at 2007, Routine, Holding - Preprocedure, line care Given 03/21/2021 12:15 PM EDT 10 mL documented in this encounter Active and Recently Administered Medications Times are shown in EDT. Scheduled Medication Order 03/19/2021 03/20/2021 03/21/2021 lactated Ringer's infusion (COMPLETED) 100 mL/hr, Intravenous, Once, 1 dose, On Wed03/21/21 at 0945, Routine 0947 (New Bag - Prov ider: Chacho Thompson DO)1143 (Stopped - Provider: Chacho Thompson DO) PRN Medication Order 03/19/2021 03/20/2021 03/21/2021 acetaminophen (Tylenol) tablet 1,000 mg (COMPLETED) 1,000 mg, Oral, Once as needed, 1 dose, Starting on Wed03/21/21 at 1143, Until Wed03/21/21 at 1651, Routine, Recovery (Phase I only), mild pain, pain level >1 out of 10 1651 (Given - Provid er: Emily Nicole) fentaNYL (Sublimaze) injection 25 mcg (COMPLETED) 25 mcg, Intravenous, Every 5 min PRN, 2 doses, Starting on Wed03/21/21 at 1143, Until Wed03/21/21 at 1237, Routine, Recovery (Phase I only), severe pain, pain score of 3 to 4 out of 10 1232 (Given - Provid er: Paige Palacio RN)1237 (Given - Provider: Paige Palacio RN) fentaNYL (Sublimaze) injection 50 mcg 50 mcg, Intravenous, Once as needed, 2 doses, Starting on Wed03/21/21 at 1143, Until Wed03/21/21 at 2007, Routine, Recovery (Phase I only), severe pain, pain score of 5 to 8 out of 10 1211 (Given - Provid er: Paige Palacio RN) HYDROmorphone (Dilaudid) injection 0.5 mg (COMPLETED) 0.5 mg, Intravenous, Every 10 min PRN, 2 doses, Starting on Wed03/21/21 at 1143, Until Wed03/21/21 at 1313, Routine, Recovery (Phase I only), severe pain, pain score of 9 to 10 out of 10 1249 (Given - Provid er: Paige Palacio RN)1313 (Given - Provider: Paige Palacio RN) lidocaine-EPINEPHrine (Xylocaine W/EPI) 1 %-1:[id number] injection (CANCELED) As needed, Starting on Wed03/21/21 at 1031, Until Wed03/21/21 at 1144, Routine, Intraprocedure 1031 (Given - Provid er: Gavi Jade MD - Comment: injection to neck) ondansetron (Zofran) injection 4 mg (COMPLETED) 4 mg, Intravenous, Once as needed, 1 dose, Starting on Wed03/21/21 at 1143, Until Wed03/21/21 at 1249, Routine, Recovery (Phase I only), nausea, vomiting 1249 (Given - Provid er: Paige Palacio RN) oxyCODONE (Roxicodone) immediate release tablet 10 mg (COMPLETED)(Linked Group 1) 10 mg, Oral, Once as needed, 1 dose, Starting on Wed03/21/21 at 1146, Until Wed03/21/21 at 1233, Routine, Recovery (Phase I only), severe pain, > 5 out of 10 1233 (Given - Provid er: Paige Palacio RN) sodium chloride 0.9 % flush 10 mL(Linked Group 2) 10 mL, Intravenous, Every 8 hours PRN, Starting on Wed03/21/21 at 0915, Until Wed03/21/21 at 2007, Routine, Holding - Preprocedure, line care 1215 (Given - Provid er: Paige Palacio RN) No Frequency Medication Order 03/19/2021 03/20/2021 03/21/2021 lidocaine (Xylocaine) 1 % injection - Pyxis Override Pull (COMPLETED) 1 dose, Starting on Wed03/21/21 at 0857, Until Wed03/21/21 at 0916 0916 (Given - Provid er: Kyra Dobson RN) Linked Groups Order Group 1: oxyCODONE (Roxicodone) immediate release tablet 5 mg (COMPLETED) 5 mg, Oral, Once as needed, 1 dose, Starting on Wed03/21/21 at 1146, Until Wed03/21/21 at 1233, Routine, Recovery (Phase I only), moderate pain, > 2 out of 10 Or oxyCODONE (Roxicodone) immediate release tablet 10 mg (COMPLETED)Jump to med 10 mg, Oral, Once as needed, 1 dose, Starting on Wed03/21/21 at 1146, Until Wed03/21/21 at 1233, Routine, Recovery (Phase I only), severe pain, > 5 out of 10 Group 2: Insert peripheral IV (CANCELED) Once, On Wed03/21/21 at 0916, For 1 occurrence, Holding - Preprocedure And Saline lock IV (CANCELED) Once, On Wed03/21/21 at 0916, For 1 occurrence, Holding - Preprocedure And sodium chloride 0.9 % flush 10 mLJump to med 10 mL, Intravenous, Every 8 hours PRN, Starting on Wed03/21/21 at 0915, Until Wed03/21/21 at 2007, Routine, Holding - Preprocedure, line care documented in this encounter Additional Health Concerns Assessment Noted Time A fall risk assessment has been complete d for the patient 03/10/2021 12:33 PM EDT documented as of this encounter Care Teams Batch And Furnace Manager Relationship Specialty Start Date End Date Ralph Dunne MD [address] [place] [id number] PCP - General 12/13/20 documented as of this encounter
--- OUTSIDE RECORDS SUMMARY | 2024-06-23 07:44 | XMS_ITS | Encounter Summary ---
Author Organization [facility] Address [address] [place] [address] Care Team Providers Care Records Supervisor Name Role Phone Ralph Dunne MD Primary Care Provider [phone] Reason for Visit * Auth/Cert Specialty Diagnoses / Procedures Referred By Prakash morejon Referred To Contact Diagnoses Thyroid nodule Thyroid nodule Procedures MO THYROID LOBECTOMY,UNILAT MO REMOVE BENIGN THYROID LESION BILATERAL THYROIDECTOMY, ISTHMECTOMY Hector Oquendo MD [address] [address] Phone: tel: fax: [facility] [address] [place] [phone] Phone: tel: Referral ID Status Reason Start Date Expiration Date Visits Re quested Visits Authorized [id number] 1 1 Encounter Details Date Type Department Care Team (Late st Contact Info) Description 02/14/2021 7:30 AM EDT - 02/14/2021 10:00 AM EDT Surgery [facility] [address] [place] [phone] Hector Oquendo MD [address] [phone] Not Performed BILATERAL THYROIDECTOMY, ISTHMECTOMY Social History Tobacco Use Types Packs/Day Years [...] Sign Reading Time Taken Comments Blood Pressure 144/90 02/14/2021 10:00 AM EDT Pulse 86 02/14/2021 10:00 AM EDT Temperature 36.5 ??C (97.7 ??F) 02/14/2021 9:20 AM ED T Respiratory Rate 31 02/14/2021 10:00 AM EDT Oxygen Saturation 92% 02/14/2021 10:00 AM EDT Inhaled Oxygen Concentration - - Weight 154 kg (340 lb) 02/14/2021 9:20 AM EDT Height 175.3 cm (5' 9 ) 02/14/2021 9:20 AM EDT Body Mass Index 50.21 02/14/2021 3:00 PM EDT documented in this encounter Medications at Time of Discharge cholecalciferol (Vitamin D-3) 250 MCG (10029 UT) capsule Take 10,000 Units by mouth every 30 (thirty) days. cyanocobalamin (Vitamin B-12) 1000 MCG/ML injection inject 1 milliliter by intramuscular route every week for 4 weeks then once a month for 5 months 01/15/2021 DULoxetine (Cymbalta) [address] capsule Take 30 mg by mouth 1 (one) time each day. 07/31/2020 ergocalciferol (Vitamin D-2) 1.25 MG (48889 UT) capsule take 1 capsule by oral route every week for 12 weeks 01/15/2021 etodolac (Lodine) 400 MG tablet Take 400 mg by mouth 2 (two) times a day with meals. 10/05/2020 Xeljanz XR 11 MG tablet sustained-releas e 24 hour 01/03/2021 lisinopril 10 MG tablet Take 10 mg by mouth 1 (one) time each day. 11/28/2020 documented as of this encounter Miscellaneous Notes * H&P - PiyushAmber marquis, DO - 02/14/2021 6:30 PM EDT Images from the original note were not included. CARDIOLOGY NEW CONSULT NOTE Reason For Consult: hypotension Requesting Service: Emergency Department Requested Date/Time: 02/14/21 SUBJECTIVE History Of Present Illness Florencia Mai is a 50 y.o. female with a past medical history as listed below who initially presented to the [facility] today for scheduled thyroidectomy. During the procedure patient became bradycardic with HR in the 50s and hypotensive with systolic blood pressure in the 70s. Intraoperatively patient received pushes of phenylephrine, vaso, and epinephrine. Cardiology was consultedfor intra-operative bradycardia and hypotension. Patient reports that she has had shortness of breath and fatigue with minimal activity. Notes chronic lower extremity edema. No recent chest pain, orthopnea, PND, or palpitations. She has never formally been tested for ADIEL. She is not a smoker and does not have a family history of heart disease. Review of Systems 14 point ROS reviewed and is otherwise negative except that which is mentioned in the HPI. Past Medical History Past Medical History: Diagnosis Date ??? Allergy [...] arthritis of unspecified site (CMS/HCC) Rheumatoid arteritis Surgical History Past Surgical History: Procedure Laterality Date ??? APPENDECTOMY N/A Appendectomy from [facility] ??? BUNIONECTOMY ??? CHOLECYSTECTOMY ??? FOOT SURGERY N/A Foot surgery from [facility] ??? GALLBLADDER SURGERY N/A Gallbladder Surgery from [facility] ??? HYSTEROSCOPY Family History Reviewed and non-contributory. Social History Tobacco use: none Alcohol use: Denies any significant recent usage. Other: Denies any recent illicit drug use. Allergies Patient has no known allergies. Home Medications Current Outpatient Medications Medication Instructions ??? cholecalciferol (VITAMIN D-3) 10,000 Units, Oral, Weekly ??? DULoxetine (CYMBALTA) 30 mg, Oral, Daily ??? etodolac (LODINE) 400 mg, Oral, 2 times daily with meals ??? lisinopril 10 mg, Oral, Daily ??? Xeljanz XR 11 MG tablet sustained-release 24 hour No dose, route, or frequency recorded. OBJECTIVE Physical Exam Blood pressure (!) 133/93, pulse 92, temperature 36.5 ??C (97.7 ??F), temperature source Oral, resp. rate 19, height 1.753 m (5' 9 ), weight 154 kg (340 lb), SpO2 91 %. GENERAL: Awake, alert, NAD HEENT: NCAT NECK: No appreciable JVD CARDIAC: Regular rate, regular rhythm, normal S1/S2, no m/r/g, 2+ radial pulses bilaterally PULM: CTAB without increased work of breathing ABD: Soft, NT, ND EXT: Warm and well perfused, bilateral 1+ non-pitting edema SKIN: No rashes or lesions NEURO: A&Ox4, moving all extremities spontaneously Results / Imaging Results from last 7 days Lab Units 02/14/21 0949 SODIUM, SYRINGE mmol/L 143 Most recent Echocardiogram: 02/14/21: Left??Ventricle: Left ventricle size is normal. Normal wall thickness. Severely increased ventricular mass. The EF by visual approximation is greater than 55%. Normal diastolic function. Normal left ventricular filling pressure. Right??Ventricle: Right ventricle size is normal. Normal systolic function. Pericardium: No pericardial effusion. No significant valvular stenosis or regurgitation ECG/Telemetry: Bigeminy with no significant ST changes. ASSESSMENT/PLAN Floerncia Mai is a 50 y.o. female who initially presented to the [facility] today forplanned thyroidectomy. 1. Intraoperative hypotension and bradycardia 2. Dyspnea 3. Rheumatoid arthritis 4. Thyroid Nodule Patient presented for planned thyroidectomy today however shortly after being sedated she developedsignificant hypotension and bradycardia and the procedure was aborted. ECG revealed bigeminy without significant ST changes. An echocardiogram was completed which revealed preserved LVEF without any wall motion abnormalities; however, main pulmonary artery dilation was noted. Suspect some degree ofunderlying pulmonary hypertension. Recommend that she have an outpatient sleep study. Recommend establishing with cardiology as an outpatient. Amber Pickett DO Fellow, PGY-4, Department of Cardiovascular Medicine Pager: [phone] Cosigned by Varun Cabezas MD at 02/15/2021 5:41 AM EDT Associated attestation - Varun Cabezas MD - 02/15/2021 5:41 AM EDT I saw and evaluated the patient with the resident/fellow. I discussed the case with the resident/fellow and agree with the findings and plan as documented. * Anesthesia PACU Signout - Booker White MD - 02/14/2021 10:52 AM EDT Patient: Florencia Mai Anesthesia Type: general Vitals Value Taken Time BP 127/80 02/14/21 1030 Temp 36.5 ??C (97.7 ??F) 02/14/21 0920 Pulse 82 02/14/21 1050 Resp 18 02/14/21 1050 SpO2 93 % 02/14/21 1050 Vitals shown include unvalidated device data. Anesthesia PACU Signout Patient location during evaluation: PACU Level of consciousness: baseline Pain management: adequate (pain score 0-3) Airway patency: natural airway Hydration status: acceptable PONV: none Cardiovascular status: acceptable Respiratory status: acceptable Discharge Disposition: home Cosigned by Emmanuel Teran MD at 02/14/2021 3:47 PM EDT Associated attestation - Emmanuel Teran MD - 02/14/2021 3:47 PM EDT Agree with above assessment and evaluation from resident/MACHINE [employer]. * Op Note - Hector Oquendo MD - 02/14/2021 7:30 AM EDT Procedure canceled by Anesthesia. Hector Oquendo MD MS FACS [facility] Rhinology & Skull Base Surgery * H&P - Hector Oquendo MD - 02/14/2021 6:44 AM EDT Ms. Florencia Mai is a very pleasant 50 y.o. patient who is scheduled to undergo any smoke ME with possible hemithyroidectomy. She 1st noticed an anterior lower neck mass early September 2020. ??It was mobile and nontender to palpation.??She felt some discomfort and throat irritation without any pain, choking sensation and dysphagia. She was seen by primary care physician and had blood work that included a thyroid panel andPTH and all came back normal. She was then recommended consult with me for evaluation and management. My clinical examination revealed a 3 cm mobile nontender mass of the isthmus and I recommended anultrasound-guided biopsy. ?? She underwent an ultrasound of [...] is also partially helping with herpostnasal drip. ?? The patient's complete review of system from 02/14/21 was performed today ??All systems were negative except for those mentioned in the HPI, osteoarthritis, rheumatoid arthritis and fibromyalgia. ?? Radiographs: - Ultrasound of the thyroid: . December 23, 2020: Right thyroid lobe measures 4.3 cm, left thyroid lobe 5.1 cm, nodule of the isthmusmeasuring 3 cm, TR 2 ?? I reviewed the images in person and discussed them with the patient. I do agree with the interpretation. ?? Allergies: No Known Allergies Past medical history: As in history of present illness Past surgical history: bilateral Bunionectomy, appendectomy, abdominal surgery, cholecystectomy andexcision of left neck cyst Family history: reviewed [...] Otoscopy: did not reveal any cerumen impaction ??Tympanic membranes are normal without any middle ear effusions ?? Nasal cavity examination: Septum is midline ??I did not see any pus or polyps [...] in the isthmus ??It is nontender to palpation and ascends with swallowing. ?? Respiratory: chest is symmetrical, breathing comfortably without effort ?? IMPRESSION: 1-3 cm thyroid nodule, in the isthmus, TR 2 2-allergic rhinitis with postnasal drip 3-GERD 4-fibromyalgia 5-osteoarthritis 6-rheumatoid arthritis ?? RECOMMENDATIONS: I discussed those findings with the patient. she is scheduled to undergo any smoked a me with possible hemithyroidectomy, right versus left. She agreed to proceed despite all the risks and benefits. ?? All the risks of the surgery [...] procedure. ? Hector Oquendo MD MS FACS [facility] Rhinology & Skull Base Surgery * Preprocedure Instructions - Jacqui Bradshaw RN - 02/11/2021 9:37 AM EDT Current Medications Medication Instructions ??? DULoxetine (Cymbalta) [address] capsule Take morning of surgery ??? etodolac (Lodine) 400 MG tablet Hold 3-5 days before surgery ??? lisinopril 10 MG tablet Hold day of surgery ??? Xeljanz XR 11 MG tablet sustained-release 24 hour Consult prescribing physician for instructions General Preoperative Instructions You will be called [...] card, photo ID, along with power of trust and estates attorney, guardianship or advanced directives if applicable Do [...] to arrival for surgery for low glucose preop instructions reviewed with pt., verbalized understanding documented in this encounter Plan of Treatment Not on file documented as of this encounter Procedures Procedure Name Priority Date/Time Associated Diagnosis Comments ECHO, ADULT TRANSTHORACIC COMPLETE Routine 02/14/2021 3:58 PM EDT BLOOD GAS PANEL, ARTERIAL STAT 02/14/2021 9:49 AM EDT BLOOD GAS PANEL, ARTERIAL STAT 02/14/2021 8:40 AM EDT Thyroid nodule ECG ADULT STAT 02/14/2021 7:17 AM EDT documented in this encounter Results * ECHO, ADULT TRANSTHORACIC COMPLETE (02/14/2021 3:58 PM EDT) BSA 2.6 m2 JESSE ISCV LVIDd 53.0 mm JESSE ISCV LVIDs 36.0 mm JESSE ISCV IVSd 11.9 mm JESSE ISCV LVPWd 8.3 mm JESSE ISCV MV E Vmax 75.3 cm/s JESSE ISCV MV A Vmax 73.5 cm/s JESSE ISCV LA dimension 28.0 mm JESSE ISCV RV s' Topher 20.4 cm/s JESSE ISCV TAPSE 26.[address]ESSE ISCV [address] end-d topher 0.8 cm/s JESSE ISCV PA MO(ACCEL) 63.3 mmHg JESSE ISCV LV MASS(C)D 202.1 g JESSE ISCV PA acc time 0.0 sec JESSE ISCV LV Lat e' Velocity 8.0 cm/s JESSE ISCV LV Sept e' Topher 7.0 cm/s JESSE ISCV RAP [id number] 00 mmHg JESSE ISCV PA accel 35.0 ms JESSE ISCV Ao Root Diam 39.0 cm JESSE ISCV Ao Sinus Diam 39.0 mm JESSE ISCV Asc Ao Diam 33.0 mm JESSE ISCV Lat E/e' 9.4 JESSE ISCV Sep E/e' 10.8 JESSE ISCV Avg E/e' [id number] 000 JESSE ISCV LV mass 202.0 g JESSE ISCV LV Mass Index 77.7 g/m2 JESSE ISCV Anatomical Region Laterality Modality Echocardiography Narrative 02/14/2021 4:34 PM EDT ?Left??Ventricle: Left ventricle size is normal. Normal wall thickness. Severely increased ventricular mass. The EF by visual approximation is greater than 55%. Normal diastolic function. Normal left ventricular filling pressure. ?Right??Ventricle: Right ventricle size is normal. Normal systolic function. ?Pericardium: No pericardial effusion. ?No significant valvular stenosis or regurgitation ?No previoust study for comparison Left Ventricle Left ventricle size is normal. Normal wall thickness. Severely increased ventricular mass. Normal wall motion. The EF by visual approximation is greater than 55%. Normal diastolic function. Normal left ventricular filling pressure. Right Ventricle Right ventricle size is normal.Normal systolic function. Normal systolic excursion velocity by TDI (>9.5 cm/s). Left Atrium Left atrium volume index is normal. Normal sized pulmonary veins. Right Atrium Right atrium size is normal. IVC/SVC IVC diameter is less than or equal to 21 mm and decreases greater than 50% during inspiration; therefore the estimated right atrial pressure is normal (~3 mmHg). Mitral Valve Valve structure is normal. No restricted motion. Physiologically normal transvalvular regurgitation. No stenosis. Tricuspid Valve Valve structure is normal. No restricted motion. Physiologically normal transvalvular regurgitation. No stenosis. Although the spectral doppler envelope of TR was not adequate for calculating the PAP, the estimated PAP based upon other 2D and Doppler features that the PAP is 'at most elevated' Aortic Valve The aortic valve appears to be anatomically normal (trileaflet). No restricted motion. Trace transvalvular regurgitation. No hemodynamically significant stenosis. Pulmonic Valve Grossly Normal Trace transvalvular regurgitation. No stenosis. Main pulmonary artery is moderately dilated. Ascending Aorta Mildly enlarged sinus of Valsalva. Pericardium No pericardial effusion. Study Details A complete echocardiogram using two-dimensional (2D) and m-mode imaging with color and spectral flow Doppler was performed.During the study the apical, parasternal, subcostal and suprasternal view was captured. Overall the study quality was adequate. Hector Oquendo MD CV ECHO PROCEDURES Final Result * (ABNORMAL) Blood gas panel, arterial (02/14/2021 9:49 AM EDT) pH, Arterial 7.37 7.35 - 7.45 LAB HEMATOLOGY METHOD 02/14/2021 10:19 AM EDT [facility] pCO2, Arterial 52(H) 32 - 45 mmHg LAB HEMATOLOGY METHOD 02/14/2021 10:19 AM EDT [facility] pO2, Arterial 59(LL) 83 - 108 mmHg LAB HEMATOLOGY METHOD 02/14/2021 10:19 AM EDT [facility] SO2, Measured, Arterial 91(L) 94 - 98 % LAB HEMATOLOGY METHOD 02/14/2021 10:19 AM EDT [facility] Base Excess, Arterial 3.1(H) -2 - 3 mmol/L LAB HEMATOLOGY METHOD 02/14/2021 10:19 AM EDT [facility] Bicarbonate, Calculated, Arterial 30(H) 22 - 26 mmol/L LAB HEMATOLOGY METHOD 02/14/2021 10:19 AM EDT [facility] Hematocrit, Whole Blood 43.3 34.0 - 45.0 % LAB HEMATOLOGY METHOD 02/14/2021 10:19 AM EDT [facility] Sodium, Whole Blood 143 136 - 145 mmol/L LAB HEMATOLOGY METHOD 02/14/2021 10:19 AM EDT [facility] Potassium, Whole Blood 3.3(L) 3.6 - 4.9 mmol/L LAB HEMATOLOGY METHOD 02/14/2021 10:19 AM EDT [facility] Chloride, Whole Blood 104 97 - 107 mmol/L LAB HEMATOLOGY METHOD 02/14/2021 10:19 AM EDT [facility] Glucose, Whole Blood 141(H) 74 - 99 mg/dL LAB HEMATOLOGY METHOD 02/14/2021 10:19 AM EDT [facility] Ionized Calcium, Whole Blood 4.5(L) 4.6 - 5.1 mg/dL LAB HEMATOLOGY METHOD 02/14/2021 10:19 AM EDT [facility] Lactate, Arterial, Whole Blood 1.0 0.5 - 1.6 mmol/L LAB HEMATOLOGY METHOD 02/14/2021 10:19 AM EDT [facility] Blood Arterial blood specimen / Unknown Arterial Puncture / Unknown 02/14/2021 9:49 AM EDT 02/14/2021 10:15 AM EDT [facility]ac Casillas [facility] BLOOD ORDERABLES Fi nal Result [facility] [address] [place] [id number] * (ABNORMAL) Blood gas panel, arterial (02/14/2021 8:40 AM EDT) pH, Arterial 7.41 7.35 - 7.45 LAB HEMATOLOGY METHOD 02/14/2021 8:58 AM EDT [facility] pCO2, Arterial 48(H) 32 - 45 mmHg LAB HEMATOLOGY METHOD 02/14/2021 8:58 AM EDT [facility] pO2, Arterial 140(H) 83 - 108 mmHg LAB HEMATOLOGY METHOD 02/14/2021 8:58 AM EDT [facility] SO2, Measured, Arterial 100(H) 94 - 98 % LAB HEMATOLOGY METHOD 02/14/2021 8:58 AM EDT [facility] Base Excess, Arterial 4.7(H) -2 - 3 mmol/L LAB HEMATOLOGY METHOD 02/14/2021 8:58 AM EDT [facility] Bicarbonate, Calculated, Arterial 30(H) 22 - 26 mmol/L LAB HEMATOLOGY METHOD 02/14/2021 8:58 AM EDT [facility] Hematocrit, Whole Blood 38.5 34.0 - 45.0 % LAB HEMATOLOGY METHOD 02/14/2021 8:58 AM EDT [facility] Sodium, Whole Blood 142 136 - 145 mmol/L LAB HEMATOLOGY METHOD 02/14/2021 8:58 AM EDT [facility] Potassium, Whole Blood 3.2(L) 3.6 - 4.9 mmol/L LAB HEMATOLOGY METHOD 02/14/2021 8:58 AM EDT [facility] Chloride, Whole Blood 106 97 - 107 mmol/L LAB HEMATOLOGY METHOD 02/14/2021 8:58 AM EDT [facility] Glucose, Whole Blood 122(H) 74 - 99 mg/dL LAB HEMATOLOGY METHOD 02/14/2021 8:58 AM EDT [facility] Ionized Calcium, Whole Blood 4.4(L) 4.6 - 5.1 mg/dL LAB HEMATOLOGY METHOD 02/14/2021 8:58 AM EDT [facility] Lactate, Arterial, Whole Blood 1.3 0.5 - 1.6 mmol/L LAB HEMATOLOGY METHOD 02/14/2021 8:58 AM EDT [facility] Blood Arterial blood specimen / Unknown Arterial Puncture / Unknown 02/14/2021 8:40 AM EDT 02/14/2021 8:56 AM EDT Comment:Pre-op diagnosis: Thyroid nodule us Hector Oquendo MD LAB BLOOD ORDERABLES Final Resul t [facility] [address] [place] [id number] * ECG Adult (02/14/2021 7:17 AM EDT) EKG DIAGNOSIS CLASS Abnormal MUSE ECG Ventricular Rate 67 BPM MUSE ECG Atrial Rate 67 BPM MUSE ECG MO Interval 144 ms MUSE ECG QRSD Interval 110 ms MUSE ECG QT Interval 458 ms MUSE ECG QTC Interval 483 ms MUSE ECG P [place] 35 degrees MUSE ECG R [place] -1 degrees MUSE ECG T Wave [place] 19 degrees MUSE ECG Diagnosis Sinus rhythm MUSE ECG Diagnosis with MUSE ECG Diagnosis premature atrial complexes MUSE ECG Diagnosis in a pattern of bigeminy MUSE ECG Diagnosis Abnormal ECG MUSE ECG Diagnosis Confirmed by Byron De Dios ([id number]) on 02/14/2021 12:29:59 PM MUSE ECG 02/14/2021 7:17 AM EDT 02/14/2021 12:29 PM EDT Sterling Carrasquillo DO ECG ORDERABLES Final Result MUSE ECG documented in this encounter Visit Diagnoses Diagnosis Thyroid nodule Nontoxic uninodular goiter HTN (hypertension) Unspecified essential hypertension Obesity Obesity, unspecified Thyroid nodule Nontoxic uninodular goiter documented in this encounter Administered Medications Inactive Administered Medications - up to 3 most recent administrations Medication Order MAR Action Action Date Dose Rate Site lactated Ringer's infusion 100 mL/hr, Intravenous, Continuous, Starting on Wed02/14/21 at 0945, Until Wed02/14/21 at 2041, Routine ondansetron (Zofran) injection 4 mg 4 mg, Intravenous, Once as needed, 1 dose, Starting on Wed02/14/21 at 0931, Until Wed02/14/21 at 2041, Routine, Recovery (Phase I only), nausea, vomiting documented in this encounter Active and Recently Administered Medications Times are shown in EDT. Continuous Medication Order 02/12/2021 02/13/2021 02/14/2021 lactated Ringer's infusion 100 mL/hr, Intravenous, Continuous, Starting on Wed02/14/21 at 0945, Until Wed02/14/21 at 2041, Routine 0945 (Canceled Entry - Provider: Automatic Discharge Provider - Comment: Automatically canceled at discontinue of medication order) PRN Medication Order 02/12/2021 02/13/2021 02/14/2021 ondansetron (Zofran) injection 4 mg 4 mg, Intravenous, Once as needed, 1 dose, Starting on Wed02/14/21 at 0931, Until Wed02/14/21 at 2042, Routine, Recovery (Phase I only), nausea, vomiting documented in this encounter Care Teams Records Supervisor Relationship Specialty Start Date End Date Ralph Dunne MD [address] [place] [address] PCP - General 12/13/20 documented as of this encounter
--- OUTSIDE RECORDS SUMMARY | 2024-06-23 07:44 | XMS_ITS | Encounter Summary ---
Author Organization [facility] Address [address] [place] [address] Care Team Providers Care Drafter Structural Name Role Phone Ralph Dunne MD Primary Care Provider [phone] Reason for Referral * Cardiac Stress Testing (Routine) - Closed Specialty Diagnoses / Procedures Referred By Prakash morejon Referred To Contact Cardiology Diagnoses Abnormal echocardiogram Shortness of breath Palpitations Procedures Adult Holter Monitor > 48hrs - 7 days Rosa Elena Henderson APRN [address] [place] [address] Phone: tel: fax: Referral ID Status Reason Start Date Expiration Date Visits Re quested Visits Authorized [id number] Closed 03/10/2021 09/06/2021 1 1 * Imaging (Routine) - Closed Specialty Diagnoses / Procedures Referred By Prakash morejon Referred To Contact Diagnoses Abnormal echocardiogram Shortness of breath Procedures NM Myocardial Perfusion Stress Test Rosa Elena Henderson APRN [address] [place] [address] Phone: tel: fax: PFE AUTHORIZATIONS [address] [place] [address] Phone: tel: Referral ID Status Reason Start Date Expiration Date Visits Re quested Visits Authorized [id number] Closed 03/10/2021 09/06/2021 1 1 * Consultation (Routine) - Closed Specialty Diagnoses / Procedures Referred By Prakash morejon Referred To Contact Sleep Medicine Diagnoses Abnormal echocardiogram Shortness of breath Rosa Elena Henderson, VEHICLE FARE COLLECTOR [address] [place] [address] Phone: tel: fax: [facility] [address] [place] [address] Phone: tel: Referral ID Status Reason Start Date Expiration Date V isits Requested Visits Authorized [id number] Closed Specialty Services Required 03/10/2021 09/06/2021 1 1 Encounter Details Date Type Department Care Team ([facility] st Contact Info) Description 03/10/2021 12:30 PM EDT Office Visit [facility] [place] [address], [address] [place] [address] Rosa Elena Henderson, VEHICLE FARE COLLECTOR [address] [place] [address] Abnormal echocardiogram (Primary Dx); Shortness of breath; Palpitations; Essential hypertension; Class 3 severe obesity due to excess calories with serious comorbidity and body mass index (BMI) of 50.0 to 59.9 in adult (CMS/HCC); Precordial pain Social History Tobacco Use Types Packs/Day Years [...] Sign Reading Time Taken Comments Blood Pressure 131/88 03/10/2021 12:30 PM EDT Pulse 72 03/10/2021 12:30 PM EDT Temperature 37.1 ??C (98.7 ??F) 03/10/2021 12:30 PM E DT Respiratory Rate - - Oxygen Saturation 93% 03/10/2021 12:30 PM EDT Inhaled Oxygen Concentration - - Weight 157 kg (345 lb 7.4 oz) 03/10/2021 12:30 P M EDT Height 175.3 cm (5' 9 ) 03/10/2021 12:30 PM EDT Body Mass Index 51.02 03/10/2021 12:30 PM EDT documented in this encounter Miscellaneous Notes * Progress Notes - Rosa Elena Henderson NP - 03/10/2021 12:30 PM EDT Images from the original note were not included. Florencia Mai is a 50 y.o. female female with a past medical history of HTN, Obesity, and thyroiddisease. She presented to the [facility] on 02/14/2021 for a scheduled thyroidectomy. During the procedure patient became bradycardic with HR in the 50s and hypotensive with systolic bloodpressure in the 70s. Intraoperatively patient received pushes of phenylephrine, vaso, and epinephrine. Cardiology was consulted for intra-operative bradycardia and hypotension. She underwent an echo with the following findings: 02/14/21: Left??Ventricle: Left ventricle size is normal. Normal wall thickness. Severely increased ventricular mass. The EF by visual approximation is greater than 55%. Normal diastolic function. Normal left ventricular filling pressure. ??Right??Ventricle: Right ventricle size is normal. Normal systolic function. Pericardium: No pericardial effusion. No significant valvular stenosis or regurgitation Moderately dilated pulmonary artery. ?? ECG/Telemetry intraop: Bigeminy with no significant ST changes. The surgery was canceled, she was referred for outpt. Referral for a sleep study (which she hasn't gotten an appt for yet), and to f/u with cardiology as an outpatient. Today she reports that she has had shortness of breath, fatigue, and palpitations for a few months.She can walk just 10-12 feet and be winded to the point she has to stop and catch her breath. The palpitations happen 2-3 times a day and she describes them as a flutter. last week while mowing herlawn and weed eating she had a chest pressure in the center of her chest that lasted for 30 minutes. It went away gradually when she stopped to rest. She denies any dizziness, orthopnea, or syncope. She has gotten so fatigued at times that she feels she will collapse. She has chronic edema that hasbeen stable. In regards to potential sleep apnea, she is unsure if she snores as she is single and no one lives with her. She does wake up tired and could fall asleep easily during the day. She does not exercise. Family hx-father had ME in his 70s-no stents. Non-smoker. ?? Review of symptoms Constitutional: Negative for decreased appetite and weight gain. Positive for fatigue Cardiovascular: Positive for chest pain, dyspnea on exertion, palpitations, and leg swelling. Negative for near-syncope, orthopnea, paroxysmal nocturnal dyspnea and syncope. Respiratory: Negative for cough, shortness of breath and sleep disturbances due to breathing. Gastrointestinal: Negative for bloating. 14 Point ROS reviewed and is otherwise negative except as per HPI. Past Medical History Past Medical History: [...] Surgery from [facility] ??? HYSTEROSCOPY Family History family history includes Crohn's disease in her father; Other cancer in her mother. Father-ME in his70s. Social History reports that she has never smoked. She has never used smokeless tobacco. She reports current alcohol use. She reports that she does not use drugs. Medications Current Outpatient Medications Medication Sig Dispense Refill ??? cholecalciferol (Vitamin D-3) 250 MCG (52503 UT) capsule Take 10,000 Units by mouth 1 (one) time per week. ??? DULoxetine (Cymbalta) [address] capsule Take 30 mg by mouth 1 (one) time each day. ??? etodolac (Lodine) 400 MG tablet Take 400 mg by mouth 2 (two) times a day with meals. ??? lisinopril 10 MG tablet Take 10 mg by mouth 1 (one) time each day. ??? Xeljanz XR 11 MG tablet sustained-release 24 hour No current facility-administered medications for this visit. Physical Exam Constitutional: Appearance: Normal appearance. Morbidly obese Cardiovascular: Rate and Rhythm: Normal rate and regular rhythm. Heart sounds: Normal heart sounds. No cardiac murmur Extremities: chronic 2+ edema, normal pulses Pulmonary: Effort: Pulmonary effort is normal. Breath sounds: Normal breath sounds. Abdominal: General: Abdomen is flat. Palpations: Abdomen is soft. Skin: General: Skin is warm and dry. Neurological: General: No focal deficit present. Mental Status: She is alert and oriented to person, place, and time. Psychiatric: Mood and Affect: Mood normal. Behavior: Behavior normal. Visit Vitals BP 131/88 Pulse 72 Temp 37.1 ??C (98.7 ??F) Ht 1.753 m (5' 9 ) Wt 157 kg (345 lb 7.4 oz) SpO2 93% BMI 51.02 kg/m?? Cardiac Testing Imaging Echo, Adult Transthoracic Complete Result Date: 02/14/2021 ??? Left??Ventricle: Left ventricle size is normal. Normal wall thickness. Severely increased ventricular mass. The EF by visual approximation is greater than 55%. Normal diastolic function. Normal left ventricular filling pressure. ??? Right??Ventricle: Right ventricle size is normal. Normal systolic function. ??? Pericardium: No pericardial effusion. ??? No significant valvular stenosis or regurgitation ??? No previoust study for comparison Labs Lab Results Component Value Date NA 143 02/14/2021 Assessment and Plan Chest pain -Suspicious for ischemia in her description per HPI. Risk factors include HTN, Family hx, morbid obesity -Will proceed with Nuclear stress test as her pain is too severe to walk on a treadmill. -Need labs for risk stratification-lipid, cmp Shortness of breath -Abnormal echo suggesting PH due to dilation of Pulmonary Artery. Cause could be from ADIEL. -Agree with Sleep Clinic referral -Proceed with Nuclear stress test. HTN -BP not controlled. -Increase lisinopril to 20mg daily -Check BP at home and bring readings to f/u Palpitations -Placing 48 hour monitor today -TSH normal per pt. -Bigeminy intraoperatively per notes. Pre-op Clearance -Due to concerning symptoms would hold off on surgery until further testing is completed. She will f/u after testing complete to review results. A total time of 45 minutes was spent by addressing the current illness, reviewing records (prior imaging, lab work, etc), and formulating a plan. The patient is agreeable to the plan and all pertinent questions were answered. Rosa Elena Henderson NP 03/14/2021. I have reviewed Ms. Mai's nuclear stress test that is normal. No further cardiac testing is indicated prior to her surgery. Ischemia has been ruled out as a potential cause for her SOA. Unfortunately it seems she will not be able to get a sleep study prior to planned surgery but she likely doeshave ADIEL so this should be considered when she has surgery. RCRI class I risk. She will f/u with Cardiology in 3 months and hopefully by then she will have had her sleep study and started treatment. Rosa Elena Henderson NP documented in this encounter Plan of Treatment Scheduled Referrals Name Type Priority Associated Diagnoses Order Schedule Ambulatory referral to Sleep Medicine Outpatient Referral Routine Abnormal echocardiogram Shortness of breath 1 Occurrences starting 03/10/2021 until 09/10/2021 documented as of this encounter Procedures Procedure Name Priority Date/Time Associated Diagnosis Comments NM MYOCARDIAL SPECT REGADENOSON STRESS (MULTI STUDY) Routine 03/12/2021 12:22 PM EDT Abnormal echocardiogram Shortness of breath documented in this encounter Results * NM MYOCARDIAL SPECT REGADENOSON STRESS (MULTI STUDY) (03/12/2021 12:22 PM EDT) Target HR 145 bpm MUSE Resting HR 70 bpm MUSE Peak HR 96 bpm MUSE Baseline Systolic BP 162.0 mmHg MUSE Baseline Diastolic BP 104.0 mmHg MUSE Anatomical Region Laterality Modality Nuclear Medicine Narrative 03/13/2021 6:41 PM EDT ?This is a normal nuclear stress test. ?Stress ECG: No ischemic ST segment changes occurred with stress. ?Perfusion: SPECT images demonstrate normal myocardial perfusion. There is no defect located in the myocardium. ?Function: Gated SPECT images demonstrate normal systolic function. Regional wall motion is normal. LV wall thickening appears concordantly normal. Upper-normal left ventricular cavity size. ?LVEF: 60 - 64%. ?There is a previous examination/report available for comparison or correlation, echocardiography from 02/14/2021. There is no change. Technical Details A one-day protocol was followed. 10.6 mCi of Tc-99m sestamibi were injected intravenously at rest. After a waiting period of 45-60 minutes, SPECT imaging of the heart was performed in the sitting upright position with three-dimensional tomographic reconstructions. 0.4 mg of regadenoson was infused over 10-12 seconds followed by 33.1 mCi of Tc-99m sestamibi injected intravenously. After a waiting period of 60-90 minutes, post-stress SPECT imaging of the heart was performed in the sitting upright and supine positions with three-dimensional tomographic reconstructions. Gated SPECT data were obtained to calculate left ventricular volumes and ejection fraction post-stress. Motion correction was not applied to the rest and/or post-stress acquisitions. Stress Findings A pharmacological stress test was performed. The test was performed using regadenoson. The patient experienced level 6 out of 10 chest pressure beginning after regadenoson injection ending after regadenoson injection. The patient experienced no other symptoms during the stress test. The patient reached the end of the planned protocol. Stress ECG Baseline ECG: The baseline ECG shows normal sinus rhythm and normal axis. Ectopy noted on baseline ECG was occasional premature atrial contractions. Baseline ECG shows no ST segment deviation. Stress and Recovery ECG: No ischemic ST segment changes occurred. An occasional premature atrial contraction presented during stress. Arrhythmias during recovery were occasional premature atrial contractions. ECG Conclusion: No ischemic ST segment changes occurred with stress. Study Impression There is no significant patient motion noted. The SPECT images demonstrate an upper-normal left ventricular cavity with an estimated left ventricular end- diastolic volume of 117 mL (normal: <149 mL for males, < 102 mL for females). There is no stress-induced transient ischemic dilation (TID) of the left ventricular cavity. SPECT images demonstrate normal myocardial perfusion. There is no defect located in the myocardium. The gated SPECT images demonstrate normal systolic function. Regional wall motion is normal. LV wall thickening appears concordantly normal. The calculated post-stress LVEF is 60 - 64%. Nuclear Conclusion This is a normal nuclear stress test. There is a previous examination/report available for comparison or correlation, echocardiography from 02/14/2021. There is no change. [employer] VEHICLE FARE COLLECTOR CV STRESS PROCEDURES Fin al Result * Adult Holter Monitor > 48hrs - 7 days (03/10/2021 1:56 PM EDT) BSA 2.76 m2 JESSE ZYMED Anatomical Region Laterality Modality Other Narrative 03/18/2021 1:01 PM EDT THE MONITOR WAS WORN FOR 44 HOURS. THE PREDOMINANT RHYTHM WAS SINUS, WITH SINUS BRADYCARDIA AND SINUS TACHYCARDIA. RATES RANGED FROM 53/MIN TO 126/MIN. 1.) ATRIAL ECTOPY INCLUDED PREMATURE ATRIAL COMPLEXES, ATRIAL COUPLETS, ATRIAL BIGEMINY AND ATRIAL TRIGEMINY. 2.) 3 ATRIAL RUNS WERE NOTED. THE LONGEST RUN WAS 3 BEATS AND THE FASTEST RATE WAS 185/MIN. 3.) RARE PREMATURE VENTRICULAR COMPLEXES WERE NOTED. THE PATIENT RETURNED THE SYMPTOM DIARY WITH NUMEROUS ENTRIES. THE FOLLOWING EVENTS SHOWED ECTOPY. 1.) D1 11:26AM FLUTTER THE STRIP SHOWED SINUS RHYTHM WITH A SINGLE PREMATURE VENTRICULAR COMPLEX. 2.) D1 12:14AM FLUTTER THE STRIP SHOWED SINUS RHTHM WITH A SINGLE PREMATURE ATRIAL COMPLEX. 3.) D2 4:50AM CHEST PRESSURE THE STRIP SHOWED SINUS RHYTHM WITH ATRIAL BIGEMINY. Agree with findings symptomatic ectopy Rosa Elena L Fishs Eddy VEHICLE FARE COLLECTOR CV CARDIAC SERVICES PROC EDURES Final Result documented in this encounter Visit Diagnoses Diagnosis Abnormal echocardiogram- Primary Nonspecific (abnormal) findings on radiological and other examination of other intrathoracic organs Shortness of breath Palpitations Essential hypertension Unspecified essential hypertension Class 3 severe obesity due to excess calories with serious comorbidity and body mass index (BMI) of 50.0 to 59.9 in adult ([facility]) Precordial pain Abnormal echocardiogram Nonspecific (abnormal) findings on radiological and other examination of other intrathoracic organs Shortness of breath Palpitations documented in this encounter Additional Health Concerns Assessment Noted Time A fall risk assessment has been complete d for the patient 03/10/2021 12:33 PM EDT documented as of this encounter Care Teams Drafter Structural Relationship Specialty Start Date End Date Ralph Dunne MD [address] [place] [address] PCP - General 12/13/20 documented as of this encounter
--- OUTSIDE RECORDS SUMMARY | 2024-06-23 07:44 | XMS_ITS | Encounter Summary ---
Author Organization [facility] Address [address] [place] [address] Care Team Providers Care Decorator Hand Name Role Phone Ralph Dunne MD Primary Care Provider [phone] Encounter Details Date Type Department Care Team (Latest Contact Info) Description 03/20/2021 Travel Social History Tobacco Use Types Packs/Day [...] documented as of this encounter Care Teams Decorator Hand Relationship Specialty Start Date End Date Ralph Dunne MD [address] [facility] [place] [address] PCP - General 12/13/20 documented as of this encounter
--- OUTSIDE RECORDS SUMMARY | 2024-06-23 07:44 | XMS_ITS | Encounter Summary ---
Author Organization Address [address] [place] [address] Care Team Providers Care Medical Records Field Technician Name Role Phone Ralph Dunne MD Primary Care Provider [phone] Reason for Referral * Cardiac Stress Testing (Routine) - Closed Specialty Diagnoses / Procedures Referred By Prakash morejon Referred To Contact Cardiology Diagnoses Abnormal echocardiogram Shortness of breath Palpitations Procedures Adult Holter Monitor > 48hrs - 7 days Rosa Elena Henderson APRN [address] [place] [address] Phone: tel: fax: Referral ID Status Reason Start Date Expiration Date Visits Re quested Visits Authorized [id number] Closed 03/10/2021 09/06/2021 1 1 Reason for Visit * Cardiac Stress Testing (Routine) - Closed Specialty Diagnoses / Procedures Referred By Contac darleen Referred To Contact Cardiology Diagnoses Abnormal echocardiogram Shortness of breath Palpitations Procedures Adult Holter Monitor > 48hrs - 7 days Rosa Elena Henderson RETAIL SALES ASSOCIATE [address] [place] [address] Phone: tel: fax: Referral ID Status Reason Start Date Expiration Date Visits Re quested Visits Authorized [id number] Closed 03/10/2021 09/06/2021 1 1 Encounter Details Date Type Department Care Team (Latest Contact Info) Description 03/10/2021 1:31 PM EDT - 03/10/2021 11:59 PM EDT Hospital Encounter Medical Office Building Cardiac Diagnostic Testing Medical Office Building Echo Lab [address] [facility], [address] [place] [address] Abnormal echocardiogram; Shortness of breath; Palpitations Discharge Disposition: Home or Self Care Social [...] have Coronavirus / COVID-19? No / Unsure 03/17/2021 1:48 PM EDT documented as of this encounter Medications at Time of Discharge cholecalciferol (Vitamin D-3) 250 MCG (73860 UT) capsule Take 10,000 Units by mouth every 30 (thirty) days. cyanocobalamin (Vitamin B-12) 1000 MCG/ML injection inject 1 milliliter by intramuscular route every week for 4 weeks then once a month for 5 months 1 DULoxetine (Cymbalta) [address] capsule Take 30 mg by mouth 1 (one) time each day. 0 ergocalciferol (Vitamin D-2) 1.25 MG (36104 UT) capsule take 1 capsule by oral [...] a day for 7 days. 21 capsule 08/20/03/28/20 21 diclofenac (Cataflam) 50 MG tablet Take 1 tablet (50 mg total) by mouth 3 (three) times a day for 7 days. 21 tablet 1 03/28/20 21 HYDROcodone-acetami nophen ([place]) 5-325 MG tablet Take 1 tablet by mouth every 4 (four) hours if needed for severe pain for up to 3 days. 18 tablet 03/24/20 21 lisinopril 20 MG tablet Take 1 tablet (20 mg total) by mouth 1 (one) time each day. 30 tablet 3 1 05/27/20 21 documented as of this encounter Plan of Treatment Not on file documented as of this encounter Procedures Procedure Name Priority Date/Time Associated Diagnosis Comments ADULT HOLTER MONITOR > 48 HRS-7 DAYS Routine 03/10/2021 1:56 PM EDT Abnormal echocardiogram Shortness of breath Palpitations documented in this encounter Results * Adult Holter Monitor > 48hrs - 7 days (03/10/2021 1:56 PM EDT) BSA 2.76 m2 JESSE YonesED Anatomical Region Laterality Modality Other Narrative 03/18/2021 [...] ATRIAL BIGEMINY. Agree with findings symptomatic ectopy us Rosa Elena Henderson APRN CV CARDIAC SERVICES PROC EDURES Final Result documented in this encounter Visit Diagnoses Diagnosis Abnormal echocardiogram Nonspecific (abnormal) findings on radiological and other examination of other intrathoracic organs Shortness of breath Palpitations documented in this encounter Additional Health Concerns Assessment Noted Time A fall risk assessment has been complete d for the patient 03/10/2021 12:33 PM EDT documented as of this encounter Care Teams Medical Records Field Technician Relationship Specialty Start Date End Date Ralph Dunne MD [address] [place] [address] PCP - General 12/13/20 documented as of this encounter
--- OUTSIDE RECORDS SUMMARY | 2024-06-23 07:44 | XMS_ITS | Encounter Summary ---
Author Organization [facility] Address [address] [place] [address] Care Team Providers Care Traffic And Transport Planner Name Role Phone Ralph Dunne MD Primary Care Provider [phone] Encounter Details Date Type Department Care Team (Latest Contact Info) Description 03/17/2021 Travel Social History Tobacco Use Types Packs/Day [...] documented as of this encounter Care Teams Traffic And Transport Planner Relationship Specialty Start Date End Date Ralph Dunne MD [address] [facility] [place] [address] PCP - General 12/13/20 documented as of this encounter
--- OUTSIDE RECORDS SUMMARY | 2024-06-23 07:44 | XMS_ITS | Encounter Summary ---
Author Organization [facility] Address [address] [place] [address] Care Team Providers Care Educational Program Director Name Role Phone Ralph Dunne MD Primary Care Provider [phone] Encounter Details Date Type Department Care Team (Latest Contact Info) Description 03/12/2021 Travel Social History Tobacco Use Types Packs/Day [...] documented as of this encounter Care Teams Educational Program Director Relationship Specialty Start Date End Date Ralph Dunne MD [address] [facility] [place] [address] PCP - General 12/13/20 documented as of this encounter
--- OUTSIDE RECORDS SUMMARY | 2024-06-23 07:44 | XMS_ITS | Encounter Summary ---
Author Organization Healthcare Address [address] [place] [address] Care Team Providers Care Furnace Erector Name Role Phone Ralph Dunne MD Primary Care Provider [phone] Reason for Referral * Other Medical (Routine) - Closed Specialty Diagnoses / Procedures Referred By Prakash morejon Referred To Contact Sleep Medicine Diagnoses Shortness of breath ADIEL (obstructive sleep apnea) Excessive daytime sleepiness Obesity hypoventilation syndrome (CMS/HCC) Procedures Adult Sleep Study Overnight Polysomnography Jet Braga MD [address] [facility] [address] [place] [address] Phone: tel: fax: Referral ID Status Reason Start Date Expiration Date V isits Requested Visits Authorized [id number] Closed Specialty Services Required 04/08/2021 10/05/2021 1 1 Reason for Visit * Reason Comments Consult * Consultation (Routine) - Closed Specialty Diagnoses / Procedures Referred By Prakash morejon Referred To Contact Sleep Medicine Diagnoses Abnormal echocardiogram Shortness of breath Rosa Elena Henderson, HOG [facility] [address] [place] [address] Phone: tel: fax: [facility] Sleep [facility] [address] [facility], [address]th [place] [address] Phone: tel: Referral ID Status Reason Start Date Expiration Date V isits Requested Visits Authorized [id number] Closed Specialty Services Required 03/10/2021 09/06/2021 1 1 Encounter Details Date Type Department Care Team (Late st Contact Info) Description 04/08/2021 10:00 AM EDT Consult [facility] Sleep [facility] [address] [place] [address] Jet Braga MD [address] [place] [address] ADIEL (obstructive sleep apnea) (Primary Dx); Abnormal echocardiogram; Shortness of breath; Excessive daytime sleepiness; Obesity hypoventilation syndrome (CMS/HCC) Social History Tobacco Use Types Packs/Day Years [...] have Coronavirus / COVID-19? No / Unsure 04/08/2021 9:35 AM EDT documented as of this encounter Last Filed Vital Signs Vital Sign Reading Time Taken Comments Blood Pressure 130/100 04/08/2021 9:48 AM EDT Pulse - - Temperature - - Respiratory Rate - - Oxygen Saturation - - Inhaled Oxygen Concentration - - Weight 157 kg (346 lb) 04/08/2021 9:48 AM EDT Height 175.3 cm (5' 9 ) 04/08/2021 9:48 AM EDT Body Mass Index 51.1 04/08/2021 9:48 AM EDT documented in this encounter Miscellaneous Notes * Progress Notes - Jet Braga MD - 04/08/2021 10:00 AM EDT Subjective Tele health new patient evaluation due to COVID-19 pandemic. Patient lives in [facility]. Patient Verification Patient identity has been confirmed using name and date of ? Yes Authorizations and Agreements/Telemedicine Consent sent and consent confirmed? Yes Patient Location: Patient's Home Patient confirms they are physically located in [place]? Yes If the patient is not physically located in [place], the provider has confirmed with Legal thatthe provider is authorized to provide services in patient's stated location? Yes Provider Location: HealthCare Facility Audio and video or audio only? Audio and video Total visit time: [address] Ralph Dunne MD, I had the pleasure of seeing Florencia Huber Pau at the [facility] with/for Consult. Visit Type: New patient Evaluation for sleep-related breathing disorder which includes obstructive sleep apnea but possiblyof obesity hypoventilation syndrome with morbid obesity. HPI 50 years old female who has described recent surgery for thyroid isthmus nodule which does not show any evidence of malignancy done in mid March of 2021 but had event full anesthesia are induction in January when patient developed bradycardia with hypotension and surgery had to be canceled and cardiac evaluation was done after January episode before surgery could be completed. Patient did have cardiac stress test which was nuclear which was normal done on March 10, 2021. Patient also had 24 hour Holter monitor done showing short runs of SVT and frequent PACs. EKG shows normal sinus rhythm with left axis deviation and PACs. Patient's echocardiogram on February 14, 2021 showed normal left ventricular systolic function and ejection fraction of more than 55%. Normal left ventricular diastolic function and normal right ventricular size as well as function with possibly normal right ventricular systolic pressure. Due to labile blood pressure patient was advised to get sleep evaluation done. Last week patient's blood pressure was noted to be 170/109 after surgery and then follow-up 139/100 mmHg. Patient is currently on lisinopril 20 mg q.day but not on any beta blockers. Post anesthesia procedure patient did have on oxygen blood gases which showed pH 7.41 pCO2 48 PO2 of 140 and bicarb of 30. Room air blood gases showed pH 7.37 pCO2 of 52 PO2 59 O2 saturation 91% bicarb of 30 on February 14, 2021. Venous CO2 on December 2019 showed 29 with a BUN of 11 creatinine of 0.65 with hemoglobin ranging from 13.4-14.7 showing no evidence of polycythemia. Patient does describe history of loud habitual snoring but she lives by herself but she has woken herself with gasping breaths but no witnessed apnea since no one sleeps in the same bedroom. She doesdescribe severe excessive daytime sleepiness with ESS score of 20/24. She also describes nonrestorative sleep with daytime fatigue. She denies any near miss accidents but does have drowsy driving formore than [address] and sometimes has to pull her car on the side to make herself rash when there is long distance driving. She does describe very fragmented sleep awakening several times at nightincluding restroom 2-4 times a night and able to go back to sleep. Patient denies any nocturnal pains awakening and denies any morning headaches but has describe foggy feeling at times when she wakesup in the morning after nonrestorative sleep despite 7 hours of bedtime. She denies any nocturnal cough awakenings nor any nocturnal GERD symptoms. She has describe night sweats without any hot flashes but she does have hysterectomy with oophorectomy done in past. She denies any history of restless leg syndrome nor any nocturnal PLM disease as described by patient. Patient's intermediate teacher recommended for sleep evaluation. No history of seizures and no strong family history of obstructive sleep apnea but both parents have a history of hypertension and they have not been evaluated for sleep-related breathing disorder. Medical comorbidities includes morbid obesity with BMI of 51, labile hypertension and still poorly controlled blood pressure despite KARISSA-inhibitor. Occasional GERD symptoms but does not require regular medication. She does have history of fibromyalgia with rheumatoid arthritis which is being treated with drug therapy with duloxetine as well as Lodine and Xeljanz therapy. She does have moderate caffeine intake including last caffeine even close to bedtime and whenever she wakes up she does tend to drink caffeinated soft drink. She drinks 1-2 L a day. She denies any tobacco or alcohol use. Patient has never had a sleep evaluation done in past nor any sleep studies. Past Medical History: Diagnosis Date ??? Allergy [...] Refill ??? cholecalciferol (Vitamin D-3) 250 MCG (70575 UT) capsule Take 10,000 Units by mouth every 30 (thirty) days. ??? DULoxetine (Cymbalta) [address] capsule [...] time each day. 30 tablet 3 ??? ondansetron ODT (Zofran ODT) 4 MG disintegrating tablet Take 1 tablet (4 mg total) by mouth every 8 (eight) hours if needed for nausea or vomiting for up to 10 doses. 10 tablet 0 ??? Xeljanz XR 11 MG tablet sustained-release 24 hour No current facility-administered medications for this visit. All medications have been reviewed today. No Known Allergies There is no immunization history on file for this patient. The following portions of the chart were reviewed this encounter and updated as appropriate: Review of anesthesia records as well as auto laryngology records from recent surgery that patient had in March of 2021 was done. ROS Review of Systems Review of systems includes neurological evaluation which did not show any significant neurologic symptoms or signs. No previous history of TIA nor chronic headaches. Patient denies any dysphagia nor aspirations. No change in voice post thyroid isthmus surgery on March 29, 2021. Thyroid nodule was believed to be multi nodular goiter rather than cancer or adenoma. Patient denies any change in bowel habit nor any GERD like symptoms except occasionally. She does have history of fibromyalgia with multiple musculoskeletal pains but does not do much of regular exercises nor stretch exercises nor water aerobics. She does describe chronic lower extremity edema but no previous history of DVT or PTE. Rest of review of systems was unremarkable. Objective Visit Vitals BP (!) 130/100 Pulse rate: 68 per minute with frequent PACs. EKG on 02/14/2021 had shown normal sinus rhythm with left axis deviation with frequent PACs. Height and Weight Height: 175.3 cm (5' 9 ) Weight: 157 kg (346 lb) BSA (Calculated - sq m): 2.76 sq meters BMI (Calculated): 51.07 Weight in (lb) to have BMI = 25: 168.9 Cable Sleepiness Scale Sitting and reading: High chance of dozing Watching TV: Moderate chance of dozing Sitting, inactive in a public place (e.g. a theatre or a meeting): Moderate chance of dozing As a passenger in a car for an hour without a break: High chance of dozing Lying down to rest in the afternoon when circumstances permit: High chance of dozing Sitting and talking to someone: Moderate chance of dozing Sitting quietly after a lunch without alcohol: High chance of dozing In a car, while stopped for a few minutes in traffic: Moderate chance of dozing Total score: 20 Physical exam Physical Exam Patient is alert awake and not in distress and very pleasant individual on tele health visit. Eye exam: Wears eyeglasses. External ocular movements normal with LIZBETH a. Nasal passages: Patent nostrils with normal nasal mucosa nasal turbinates. Oral cavity: MS 3 oropharynx with normal size uvula. No tonsillar hypertrophy with redundancy of the posterior soft palate and crowding of oropharyngeal structures noted. Own teeth with 3 mm anterior teeth overbite noted. Anterior neck exam: Short thick neck with submandibular excess fat. Lower neck anterior scar noted from recent surgery but healed up well. Normal voice noted. Extremities: 1+ to 2+ pitting lower extremity edema noted with no tremors no nail bed cyanosis nor clubbing. Test data from recent past: Echocardiogram dated 02/14/2021 showed normal left and right ventricular size and function with normal left ventricular ejection fraction. Normal right ventricular systolic pressure estimated. 24 hour Holter on March 10, 2021 shows short runs of SVT with frequent PACs. Occasional PVCs were noted. Nuclear stress test on March 10, 2021 shows normal perfusion and normal left ventricular systolic function. Assessment/Plan: Problem List Items Addressed This Visit Respiratory Dyspnea Other Visit Diagnoses Abnormal echocardiogram 1. Moderate to high probability for obstructive sleep apnea and possibly severe with excessive daytime sleepiness and nonrestorative sleep with daytime fatigue affecting quality of life. 2. Highly suspected obesity hypoventilation syndrome with increase in venous CO2 but also arterial blood gases showing hypoxemia and hypercapnia on room air recently done. 3. Cardiac dysrhythmias which includes occasional PVCs but frequent PACs and short runs of SVT. 4. History of rheumatoid arthritis 5. History of fibromyalgia syndrome with chronic pains 6. Chronic lower extremity edema possibly due to chronic venous insufficiency. 7. Essential hypertension, labile blood pressure control. Plan and suggest: 1. Patient would benefit from polysomnogram with end-tidal CO2 monitoring and possibly a split night study if significant sleep-related breathing disorder including increase in end-tidal CO2 from awake to about 8-10 mm increase would be beneficial. Patient may get better just with CPAP but if higher pressures are needed BiPAP should be considered which would assist both with obesity hypoventilation as well as severe obstructive sleep apnea. May use humidity during this titration. 2. Patient was educated about need for in Sleep Lab study versus home sleep study and patient wouldbenefit from in Sleep Lab study due to cardiac dysrhythmias, obesity hypoventilation with hypoxemiaand hypercapnia with need for possible titration. 3. Decreasing caffeine amounts was also recommended due to fibromyalgia chronic pains but also avoiding caffeine within 6 hours of bedtime to reduce disturb sleep. 4. Stretches including walking exercises and water aerobics would benefit her due to chronic pains that she has from fibromyalgia syndrome as well as rheumatoid arthritis. This is to prevent her fromgetting into more progressive disability and poor quality of life. Patient was educated about her possible diagnosis but also some of the treatment options in future. 5. Weight loss and exercises are important too. Discussion Summary: Patient understood the need for in Sleep Lab study as well as what are the possibilities and patient agrees for this study to be completed and then given treatment options after that. Counseling Documentation: The patient was counseled regarding cpap education, risks and benefit of treatment options, risk factor reductions and instructions for management. Reviewed data card download and the importance of compliance with therapy. Education provided was verbal counseling.Additional time was spent in care co ordination including 15. The total time of encounter was 30 minutes. . documented in this encounter Plan of Treatment Scheduled Orders Name Type Priority Associated Diagnoses Orde r Schedule Adult Sleep Study Overnight Polysomnography Sleep Center Routine Shortness of breath ADIEL (obstructive sleep apnea) Excessive daytime sleepiness Obesity hypoventilation syndrome (CMS/HCC) Ordered: 04/08/2021 documented as of this encounter Visit Diagnoses Diagnosis ADIEL (obstructive sleep apnea)- Primary Obstructive sleep apnea (adult) (pediatric) Abnormal echocardiogram Nonspecific (abnormal) findings on radiological and other examination of other intrathoracic organs Shortness of breath Excessive daytime sleepiness Obesity hypoventilation syndrome (CMS/HCC) Obesity hypoventilation syndrome documented in this encounter Additional Health Concerns Assessment Noted Time A fall risk assessment has been complete d for the patient 04/08/2021 9:49 AM EDT documented as of this encounter Care Teams Furnace Erector Relationship Specialty Start Date End Date Ralph Dunne MD [address] [place] [address] PCP - General 12/13/20 documented as of this encounter
--- OUTSIDE RECORDS SUMMARY | 2024-06-23 07:44 | XMS_ITS | Encounter Summary ---
Author Organization [facility] Address [address] [place] [address] Care Team Providers Care Wireworker Supervisor Name Role Phone Ralph Dunne MD Primary Care Provider [phone] Encounter Details Date Type Department Care Team (Latest Contact Info) Description 04/08/2021 Travel Social History Tobacco Use Types Packs/Day [...] documented as of this encounter Care Teams Wireworker Supervisor Relationship Specialty Start Date End Date Ralph Dunne MD [address] [place] [address] PCP - General 12/13/20 documented as of this encounter
--- OUTSIDE RECORDS SUMMARY | 2024-06-23 07:44 | XMS_ITS | Encounter Summary ---
Author Organization Healthcare Address [address] [place] [place] [id number] Care Team Providers Care Director Of Channel Marketing Name Role Phone Ralph Dunne MD Primary Care Provider [phone] Encounter Details Date Type Department Care Team (Late st Contact Info) Description 07/07/2021 Outside Procedure [facility] [address] [place] [address] Jet Braga MD [address] [place] [address] ADIEL (obstructive sleep apnea) (Primary Dx); Nocturnal hypoxemia; Obesity hypoventilation syndrome (CMS/HCC); Dyspnea on exertion; Excessive daytime sleepiness; Fibromyalgia Social History Tobacco Use Types Packs/Day Years [...] as of this encounter Miscellaneous Notes * Progress Notes - Jet Braga MD - 07/07/2021 9:15 AM EST Voicemail left for patient to call back. APAP to be prescribed. New mask fit and 7/16 CM APAP Rx to be sent. documented in this encounter Plan of Treatment Not on file documented as of this encounter Visit Diagnoses Diagnosis ADIEL (obstructive sleep apnea)- Primary Obstructive sleep apnea (adult) (pediatric) Nocturnal hypoxemia Obesity hypoventilation syndrome (CMS/HCC) Obesity hypoventilation syndrome Dyspnea on exertion Other dyspnea and respiratory abnormality Excessive daytime sleepiness Fibromyalgia Unspecified myalgia and myositis documented in this encounter Additional Health Concerns Assessment Noted Time A fall risk assessment has been complete d for the patient 07/01/2021 7:45 PM EST documented as of this encounter Care Teams Director Of Channel Marketing Relationship Specialty Start Date End Date Ralph Dunne MD [address] [place] [id number] PCP - General 12/13/20 documented as of this encounter
--- OUTSIDE RECORDS SUMMARY | 2024-06-23 07:44 | XMS_ITS | Encounter Summary ---
Author Organization [facility] Address [address] [place] [address] Care Team Providers Care Technician Semiconductor Development Name Role Phone Ralph Dunne MD Primary Care Provider [phone] Encounter Details Date Type Department Care Team (Latest Contact Info) Description 03/21/2021 Travel Social History Tobacco Use Types Packs/Day [...] documented as of this encounter Care Teams Technician Semiconductor Development Relationship Specialty Start Date End Date Ralph Dunne MD [address] [facility] [place] [address] PCP - General 12/13/20 documented as of this encounter
--- OUTSIDE RECORDS SUMMARY | 2024-06-23 07:44 | XMS_ITS | Encounter Summary ---
Author Organization [facility] Address [address] [place] [address] Care Team Providers Care Engraver Block Name Role Phone Ralph Dunne MD Primary Care Provider [phone] Reason for Visit * Reason Onset Date Comments HCN - Patient Message 02/20/2021 Encounter Details Date Type Department Care Team ([facility] st Contact Info) Description 02/20/2021 Telephone PFE SCHEDULING [address] [phone] Amber Pickett, DO [address] [phone] HCN - Patient Message Social History Tobacco Use Types Packs/Day Years [...] encounter Miscellaneous Notes * Telephone Encounter - Kasey Mcclure Nitesh - 02/20/2021 12:44 PM EDT Patient Phone Message Reason for Call: ENT - Dr. Oquendo's office requesting a cardiac clearance visit prior to surgery scheduled for 03/21. Best contact number and optimal time of day to reach caller: CB to patient at [phone] Note: Please do not reply to this message. Follow-up communication and further actions as a result of this message need to be communicated with the patient directly, if the patient is not active onMyChart. If the patient is active on MyChart, they will receive notification of the communication/outcome via [email or web address]. documented in this encounter Plan of Treatment Not on file documented as of this encounter Visit Diagnoses Not on filedocumented in this encounter Care Teams Engraver Block Relationship Specialty Start Date End Date Ralph Dunne MD [address] [place] [address] PCP - General 12/13/20 documented as of this encounter
--- OUTSIDE RECORDS SUMMARY | 2024-06-23 07:44 | XMS_ITS | Encounter Summary ---
Author Organization Healthcare Address [address] [place] [address] Care Team Providers Care Housing Project Manager Name Role Phone Ralph Dunne MD Primary Care Provider [phone] Reason for Visit * Imaging (Routine) - Closed Specialty Diagnoses / Procedures Referred By Contac t Referred To Contact Diagnoses Abnormal echocardiogram Shortness of breath Procedures NM Myocardial Perfusion Stress Test Rosa Elena Henderson, ANDRA [address] [place] [address] Phone: tel: fax: [facility]ATIONS [address] [place] [address] Phone: tel: Referral ID Status Reason Start Date Expiration Date Visits Re quested Visits Authorized [id number] Closed 03/10/2021 09/06/2021 1 1 Encounter Details Date Type Department Care Team (Latest Contact Info) Description 03/12/2021 9:38 AM EDT - 03/12/2021 11:59 PM EDT Hospital Encounter Cardiac Imaging [address] [place] [phone] Discharge Disposition: Home or Self Care Social [...] Sign Reading Time Taken Comments Blood Pressure 162/104 03/12/2021 10:59 AM EDT Pulse 70 03/12/2021 10:59 AM EDT Temperature - - Respiratory Rate - - Oxygen Saturation - - Inhaled Oxygen Concentration - - Weight - - Height - - Body Mass Index - - documented in this encounter Medications at Time of Discharge cholecalciferol (Vitamin D-3) 250 MCG (74028 UT) capsule Take 10,000 Units by mouth every 30 (thirty) days. cyanocobalamin (Vitamin B-12) 1000 MCG/ML injection inject 1 milliliter by intramuscular route every week for 4 weeks then once a month for 5 months 1 DULoxetine (Cymbalta) [address] capsule Take 30 mg by mouth 1 (one) time each day. 0 ergocalciferol (Vitamin D-2) 1.25 MG (96846 UT) capsule take 1 capsule by oral [...] 21 tablet 1 03/28/20 21 HYDROcodone-acetami nophen ([place]) 5-325 MG tablet Take 1 tablet by [...] Diagnoses Not on filedocumented in this encounter Administered Medications Inactive Administered Medications - up to 3 most recent administrations Medication Order MAR Action Action Date Dose Rate Site regadenoson (Lexiscan) injection 0.4 mg 0.4 mg, Intravenous, Once, 1 dose, On Wed03/12/21 at 1100, Routine Given 03/12/2021 10:53 AM EDT 0.4 mg documented in this encounter Additional Health Concerns Assessment Noted Time A fall risk assessment has been complete d for the patient 03/10/2021 12:33 PM EDT documented as of this encounter Care Teams Housing Project Manager Relationship Specialty Start Date End Date Ralph Dunne MD [address] [place] [address] PCP - General 12/13/20 documented as of this encounter
--- OUTSIDE RECORDS SUMMARY | 2024-06-23 07:44 | XMS_ITS | Encounter Summary ---
Author Organization [facility] Address [address] [place] [address] Care Team Providers Care Gun Stocker Name Role Phone Ralph Dunne MD Primary Care Provider [phone] Reason for Visit * Auth/Cert Specialty Diagnoses / Procedures Referred By Prakash morejon Referred To Contact Diagnoses Thyroid nodule Thyroid nodule [E04.1] Procedures [place] THYROID LOBECTOMY,UNILAT [place] REMOVE BENIGN THYROID LESION RT or LT Thyroidectomy, Isthmectomy Hector Oquendo MD [address] [facility] [address] [place] [address] Phone: tel: fax: [facility] [address] [place] [address] Phone: tel: Referral ID Status Reason Start Date Expiration Date Visits Re quested Visits Authorized [id number] 1 1 Encounter Details Date Type Department Care Team (Late st Contact Info) Description 03/21/2021 9:47 AM EDT Anesthesia Event [facility] [address] [place] [address] Colby Jalloh MD [address] [place] [address] Chacho Thompson DO [address] [place] [address] Anesthesia Record Procedure Summary Procedure Name Responsible [...] acknowledgement of understanding. 1200 An Stop Meds Name Total propofol (Diprivan) injection 10 mg/mL 2 00 mg succinylcholine (Anectine) injection 20 mg/mL 100 mg fentaNYL (Sublimaze) injection 50 mcg/mL 50 mcg ePHEDrine injection prefilled syringe 5 mg/mL 15 mg lidocaine PF (Xylocaine-MPF) 2% 5 mL ondansetron (Zofran) injection 2 mg/mL 4 mg ceFAZolin (Ancef) vial 1 g 3 g glycopyrrolate (Robinul) injection 0.2 m g/mL 0.2 mcg phenylephrine (Jagdish-Synephrine) prefilled syringe 1 mg/10 mL 400 mcg remifentanil (Ultiva) 2 mg in sodium chl oride 0.9 % 50 mL infusion 2.04 mg naloxone (Narcan) injection 0.4 mg/mL 0. 08 mg lactated Ringer's infusion 700 mL sodium chloride 0.9 % infusion 0 mL * Agents Name O2 N2O Air Sevoflurane Isoflurane Desflurane Inspired Desflurane Inspired Isoflurane Inspired Sevoflurane N2O Inspired N2O * Blood No blood administrations on file. Lines, Drains, and Airways Type Details Placement Removal Wound 03/21/21; 1031; N; Y es; Incision; Throat; Steri strips to sugical incision 03/21/21 1031 by Crispin Esparza RN Peripheral IV Placement Date: 03/03 ; Placement Time: 09; Catheter Size: 18 G; Orientation: Right; Location: Antecubital; Site Prep: Chlorhexidine ; Local Anesth: Injectable, Gerry; Technique: Anatomical landmarks; Inserted by: Zane Martins; Insertion Attempts: 2; Patient Tolerance: Tolerated well; Removal Date: 03/21/21; Removal Time: 1719 03/21/21 0906 by Kyra Dobson RN 03/21/21 1719 by Coral La RN Arterial Line Placement Date: 03/03 ; Placement Time: 1000 (created via procedure documentation); Size: 20 G; Orientation: Right; Location: Radial; Inserted by: Resident; Securement: Taped; Patient Tolerance: Tolerated well; Removal Date: 03/21/21; Removal Time: 1347; Removal Reason: Per protocol 03/21/21 1000 by [...] AM EDT documented as of this encounter Miscellaneous Notes * Addendum Note - Colby Jalloh MD - 04/02/2021 11:42 AM EDT Addendum created 04/02/21 1142 by Colby Jalloh MD Attestation recorded in Intraprocedure, Care Plan modified, Flowsheet accepted, Intraprocedure Attestations filed * Anesthesia Postprocedure Evaluation - Colby Jalloh MD - 03/21/2021 12:07 PM EDT Patient: Florencia Mai Anesthesia Type: No value filed. Vitals Value Taken Time BP 156/102 03/21/21 1205 Temp 37.1 03/21/21 1207 Pulse 91 03/21/21 1206 Resp 25 03/21/21 1206 SpO2 95 % 03/21/21 1206 Vitals shown include unvalidated device data. Anesthesia Post Evaluation Patient location during evaluation: PACU Patient participation: complete - patient participated Level of consciousness: awake Pain management: adequate (pain score 0-3) Airway patency: natural airway Cardiovascular status: acceptable and hypertensive (Patient given 5mg Labetalol in immediate post operative period for hypertension) Respiratory status: acceptable and face mask Hydration status: acceptable No complications documented. * Anesthesia Procedure Notes - Chacho Thompson DO - 03/21/2021 10:32 AM EDT Associated Order(s): Arterial Line Arterial Line: Date/Time: 03/21/2021 10:00 AM An arterial line was placed in the pre-op for the following indication(s): continuous blood pressure monitoring and blood sampling needed. A 20 gauge (size), 1 and 3/4 inch (length), Arrow (type) catheter was placed, Seldinger technique used , into the Right radial artery, secured by tape. Events: patient tolerated procedure well with no complications. Staffing Performed: Resident Resident: Chacho Thompson DO Cosigned by Colby Jalloh MD at 03/21/2021 12:57 PM EDT * Anesthesia Procedure Notes - Chacho Thompson DO - 03/21/2021 10:31 AM EDT Associated Order(s): Airway Airway Date/Time: 03/21/2021 10:02 AM Urgency: elective Airway not difficult General Information and Staff Patient location during procedure: OR Resident: Chacho Thompson DO Performed: Resident Indications and Patient Condition Indications for airway management: anesthesia Spontaneous Ventilation: absent Preoxygenated: yes Patient position: sniffing Mask difficulty assessment: 0 - not attempted Final Airway Details Final airway type: endotracheal airway Successful airway: ETT and NIM tube Cuffed: yes Successful intubation technique: direct laryngoscopy Facilitating devices/methods: cricoid pressure and intubating stylet Endotracheal tube insertion site: oral Blade: Jolanta Blade size: #3 ETT size (mm): 7.0 Cormack-Lehane Classification: grade I - full view of glottis Placement verified by: chest auscultation and capnometry Measured from: lips (Sensor line directly visualized at vocal cords ) Number of attempts at approach: 1 Cosigned by Colby Jalloh MD at 03/21/2021 12:57 PM EDT * Anesthesia Preprocedure Evaluation - Colby Jalloh MD - 03/17/2021 3:08 PM EDT Patient: Florencia Mai Procedure Information Date/Time: 03/21/21 1000 Procedure: RT or LT Thyroidectomy, Isthmectomy (Bilateral ) Location: [facility] Surgeons: Hector Oquendo MD 50y F with thyroid nodule, original case aborted due to hypotension and hypoxia, now rescheduled for thyroidectomy after extensive cardiopulmonary work up. Relevant Problems Anesthesia Last GA 01/2021 - case aborted after induction of anesthesia secondary to hypoxia and hypotension - never had issues with GA before this event Airway: MAC 3 Grade 1 view 7.0 OETT PACU Note: Intraoperatively the patient developed hypoxia likely due to derecruitment from her coughing on thetube. We were able to restore saturations with recruitment and deepening of the anesthetic. We had issues with the bp cuff likely due to movement as well as her body, ETCO2 was in the mid30s throughout and she had a palpable radial pulse. Ephedrine and phenylephrine boluses were given emperically and anesthetic was lightened emperically to treat any potential hypotension and arterial line was placed to give a more accurate blood pressure. Art line revealed low bp which was treated aggressively with IVF, vasopressin and low dose epinephrine boluses (5mcg at a time) with improvement but not to t he point that I was comfortable continuing the case. After discussion with ENT surgeons I decided to abort the procedure and awaken the patient. On emergence bp restored without further need for vasopressors, patient awakend and follwed commands and was extubated uneventfully to face tent. In the PACU she is alert and oriented x3, follows all commands, moves face and all extremities to command, denies weakness/numbness, and has a good mental status, understands what happened. I explained to herwhat happened in the OR and that we will have cardiology evaluate her prior to discharge to see if we can get an explination as to what happened. Her airway pressures were never high and she never had a rash so I do not think this was anaphylaxis. She received IVF bolus, so I do not think she was simply dry. I suspect some possible pulmonary htn from obesity/hypoventilation. (+) History of anesthesia complications (+) ADIEL (obstructive sleep apnea) (likely ADIEL, upcoming sleep study) (-) Malignant hyperthermia (-) PONV (postoperative nausea and vomiting) Cardio ECHO 02/14/2021 ??? Left??Ventricle: Left ventricle size is normal. Normal wall thickness. Severely increased ventricular mass. The EF by visual approximation is greater than 55%. Normal diastolic function. Normal left ventricular filling pressure. ??? Right??Ventricle: Right ventricle size is normal. Normal systolic function. ??? Pericardium: No pericardial effusion. ??? No significant valvular stenosis or regurgitation ??? No previoust study for comparison Stress test 03/10/2021 ??? This is a normal nuclear stress test. ??? Stress ECG: No ischemic ST segment changes occurred with stress. ??? Perfusion: SPECT images demonstrate normal myocardial perfusion. There is no defect located in the myocardium. ??? Function: Gated SPECT images demonstrate normal systolic function. Regional wall motion is normal. LV wall thickening appears concordantly normal. Upper- normal left ventricular cavity size. ??? LVEF: 60 - 64%. ??? There is a previous examination/report available for comparison or correlation, echocardiography from 02/14/2021. There is no change. Holter monitor Bigem[place] with no significant ST changes Last Cardiology note 03/14/2021. I have reviewed Ms. Mai's nuclear [...] she has surgery. RCRI class I risk. ?? She will f/u with Cardiology in 3 months and hopefully by then she will have had her sleep study and started treatment. ?? Rosa Elena Henderson NP (+) Dyspnea (can walk 10ft without getting short of breath, this is her baseline and has been this way for several years) (+) HTN (hypertension) (+) Peripheral edema (chronic lower extremity edema for 10-12yrs, has been stable) (-) Angina pectoris (CMS/HCC) (-) CAD (coronary artery disease) (-) CHF (congestive heart failure) (CMS/HCC) (-) Dysrhythmias (-) High cholesterol (-) History of coronary artery bypass graft (-) MD (myocardial infarction) (CMS/HCC) (-) Pacemaker Endo (+) Thyroid nodule (-) Diabetes mellitus type 1 (CMS/HCC) (-) Diabetes mellitus, type 2 (CMS/HCC) (-) Hyperthyroidism (-) Hypothyroidism GI (+) Gastroesophageal reflux disease without esophagitis (rarely symptomatic, controlled with diet) (+) Obesity /Renal (within normal limits) (-) Liver disease (-) Renal disease Neuro/Psych (within normal limits) (-) CVA (cerebral vascular accident) ([facility]) (-) Seizures ([facility]) (-) TIA (transient ischemic attack) Pulmonary (within normal limits) (-) Asthma (-) Chronic obstructive pulmonary disease (CMS/HCC) (-) Upper respiratory infection Other (+) Anxiety (+) Fibromyalgia (+) Rheumatoid arthritis ([facility]) (-) Blood dyscrasia syndrome Clinical information reviewed: Discussed this case with Dr. Rice. Held Lisinopril for 2 days prior to surgery due to previous episode of hypotension. Allergies Surg Hx NPO Status Past Medical History: Diagnosis Date ??? 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 All questions addressed. Rationale reviewed. Patient understands options (including no intervention), prefers general anesthesia. Physical Exam Airway Mallampati: I Mouth opening: normal Upper lip bite test: II Cardiovascular Rhythm: regular Rate: normal (+) peripheral edema Comments: Bilateral lower extremity edema Dental - normal exam Pulmonary Breath sounds clear to auscultation Neurological Oriented: normal to time, normal to person and normal to place Skin Musculoskeletal Extremities Anesthesia Plan ASA 3 Anesthesia technique(s) discussed with the patient/family: General Anesthesia plan agreed upon was: general Anesthetic plan and risks discussed with patient and significant other. Plan discussed with resident. Additional Equipment Requests documented in this encounter Plan of Treatment Not on file documented as of this encounter Procedures Procedure Name Priority Date/Time Associated Diagnosis Comments PB ANESTHESIA PLACEHOLDER Routine 03/21/2021 10:02 AM EDT [place] AN ELECTIVE ENDOTRACHEAL AIRWAY Routine 03/21/2021 10:02 AM EDT ANESTHESIA ARTERIAL LINE PLACEMENT Routine 03/21/2021 10:00 AM EDT documented in this encounter Results * [place] AN ELECTIVE ENDOTRACHEAL AIRWAY, PB ANESTHESIA PLACEHOLDER (03/21/2021 10:02 AM EDT) Narrative Colby Jalloh MD - 03/21/2021 10:02 AM EDT Chacho Thompson DO ? 03/21/2021 10:32 AM Airway Date/Time: 03/21/2021 10:02 AM Urgency: elective Airway not difficult General Information and Staff Patient location during procedure: OR Resident: Chacho Thompson DO Performed: Resident Indications and Patient Condition Indications for airway management: anesthesia Spontaneous Ventilation: absent Preoxygenated: yes Patient position: sniffing Mask difficulty assessment: 0 - not attempted Final Airway Details Final airway type: endotracheal airway Successful airway: ETT and NIM tube Cuffed: yes Successful intubation technique: direct laryngoscopy Facilitating devices/methods: cricoid pressure and intubating stylet Endotracheal tube insertion site: oral Blade: Jolanta Blade size: #3 ETT size (mm): 7.0 Cormack-Lehane Classification: grade I - full view of glottis Placement verified by: chest auscultation and capnometry Measured from: lips (Sensor line directly visualized at vocal cords ) Number of attempts at approach: 1 Colby Jalloh MD ANESTHESIA ORDERABLES Final Result * PB ANESTHESIA NON-TIMED PROCEDURE PLACEHOLDER (03/21/2021 10:00 AM EDT) Colby Morley MD - 03/21/2021 10:00 AM EDT Chacho Thompson, ? 03/21/2021 10:33 AM Arterial Line: Date/Time: 03/21/2021 10:00 AM An arterial line was placed in the pre-op for the following indication(s): continuous blood pressure monitoring and blood sampling needed. A 20 gauge (size), 1 and 3/4 inch (length), Arrow (type) catheter was placed, Seldinger technique used , into the Right radial artery, secured by tape. Events: patient tolerated procedure well with no complications. Staffing Performed: Resident Resident: Chacho Thompson DO Colby Jalloh MD ANESTHESIA ORDERABLES Final Result documented in this encounter Visit Diagnoses Not on filedocumented in this encounter Administered Medications Inactive Administered Medications - up to 3 most recent administrations Medication Order MAR Action Action Date Dose Rate Site ceFAZolin (Ancef) injection Intravenous, As needed, Starting on Wed03/21/21 at 1002, Until Wed03/21/21 at 1207, Routine, Anesthesia Intraprocedure Given 03/21/2021 10:24 AM EDT 3 g ePHEDrine Sulfate prefilled syringe Intravenous, As needed, Starting on Wed03/21/21 at 1014, Until Wed03/21/21 at 1207, Routine, Anesthesia Intraprocedure Given 03/21/2021 10:20 AM EDT 10 mg Given 03/21/2021 10:14 AM EDT 5 mg fentaNYL (Sublimaze) injection Intravenous, As needed, Starting on Wed03/21/21 at 1201, Until Wed03/21/21 at 1209, Routine, Anesthesia Intraprocedure Given 03/21/2021 12:01 PM EDT 50 mcg glycopyrrolate (Robinul) injection Intravenous, As needed, Starting on Wed03/21/21 at 1027, Until Wed03/21/21 at 1207, Routine, Anesthesia Intraprocedure Given 03/21/2021 10:27 AM EDT 0. 2 mcg lactated Ringer's infusion 100 mL/hr, Intravenous, Once, 1 dose, On Wed03/21/21 at 0945, Routine New Bag 03/21/2021 9:47 AM EDT lidocaine PF (Xylocaine) 2 % injection Intravenous, As needed, Starting on Wed03/21/21 at 1001, Until Wed03/21/21 at 1207, Routine, Anesthesia Intraprocedure Given 03/21/2021 10:01 AM EDT 5 mL naloxone (Narcan) injection Intravenous, As needed, Starting on Wed03/21/21 at 1138, Until Wed03/21/21 at 1215, Routine, Anesthesia Intraprocedure Given 03/21/2021 11:38 AM EDT 0. 08 mg ondansetron (Zofran) injection Intravenous, As needed, Starting on Wed03/21/21 at 1102, Until Wed03/21/21 at 1207, Routine, Anesthesia Intraprocedure Given 03/21/2021 11:02 AM EDT 4 mg phenylephrine in NS (Jagdish-Synephrine) 100 mcg/mL prefilled syringe Intravenous, As needed, Starting on Wed03/21/21 at 1024, Until Wed03/21/21 at 1207, Routine, Anesthesia Intraprocedure Given 03/21/2021 11:22 AM EDT 10 0 mcg Given 03/21/2021 11:16 AM EDT 100 mcg Given 03/21/2021 11:05 AM EDT 100 mcg propofol (Diprivan) injection Intravenous, As needed, Starting on Wed03/21/21 at 1001, Until Wed03/21/21 at 1207, Routine, Anesthesia Intraprocedure Given 03/21/2021 10:01 AM EDT 200 mg remifentanil (Ultiva) 2 mg in sodium chloride 0.9 % 50 mL infusion Intravenous, Continuous PRN, Starting on Wed03/21/21 at 1035, Until Wed03/21/21 at 1206, Routine Restarted 03/21/2021 11:36 AM EDT 0.1 mcg/kg/min 24.539 mL/hr Rate/Dose Change 03/21/2021 11:24 AM EDT 0.1 mcg/kg/min 24 .539 mL/hr New Bag 03/21/2021 10:35 AM EDT 0.15 mcg/kg/min 36.808 mL/hr sodium chloride 0.9 % infusion Intravenous, Continuous PRN, Starting on Wed03/21/21 at 1004, Until Wed03/21/21 at 1206, Routine New Bag 03/21/2021 10:04 AM EDT 70 mL/hr succinylcholine (Anectine) injection Intravenous, As needed, Starting on Wed03/21/21 at 1001, Until Wed03/21/21 at 1207, Routine, Anesthesia Intraprocedure Given 03/21/2021 10:01 AM EDT 100 mg documented in this encounter Additional Health Concerns Assessment Noted Time A fall risk assessment has been complete d for the patient 03/10/2021 12:33 PM EDT documented as of this encounter Care Teams Gun Stocker Relationship Specialty Start Date End Date Ralph Dunne MD [address] [place] [id number] PCP - General 12/13/20 documented as of this encounter
--- OUTSIDE RECORDS SUMMARY | 2024-06-23 07:44 | XMS_ITS | Encounter Summary ---
Author Organization Healthcare Address [address] [place] [address] Care Team Providers Care Price Clerk Name Role Phone Ralph Dunne MD Primary Care Provider [phone] Reason for Visit * Other Medical (Routine) - Closed Specialty Diagnoses / Procedures Referred By Prakash morejon Referred To Contact Sleep Medicine Diagnoses Shortness of breath ADIEL (obstructive sleep apnea) Excessive daytime sleepiness Obesity hypoventilation syndrome (CMS/HCC) Procedures Adult Sleep Study Overnight Polysomnography Jte Braga MD [address] [place] [address] Phone: tel: fax: Referral ID Status Reason Start Date Expiration Date V isits Requested Visits Authorized [id number] Closed Specialty Services Required 04/08/2021 10/05/2021 1 1 Encounter Details Date Type Department Care Team (Late st Contact Info) Description 07/01/2021 8:00 PM EST Office Visit [facility] [address] [facility] [place] [address] Sebas Gimenez Snoring (Primary Dx) Social History Tobacco Use Types [...] encounter Miscellaneous Notes * Progress Notes - Lisa Gimenez MA - 07/01/2021 8:00 PM EST Billing encounter only documented in this encounter Plan of Treatment Scheduled Orders Name Type Priority Associated Diagnoses Orde r Schedule Adult Sleep Study Overnight Polysomnography Sleep Center Routine Shortness of breath ADIEL (obstructive sleep apnea) Excessive daytime sleepiness Obesity hypoventilation syndrome (CMS/HCC) Ordered: 04/08/2021 documented as of this encounter Visit Diagnoses Diagnosis Snoring- Primary Other dyspnea and respiratory abnormality documented in this encounter Additional Health Concerns Assessment Noted Time A fall risk assessment has been complete d for the patient 07/01/2021 7:45 PM EST documented as of this encounter Care Teams Price Clerk Relationship Specialty Start Date End Date Ralph Dunne MD [address] [place] [id number] PCP - General 12/13/20 documented as of this encounter
--- OUTSIDE RECORDS SUMMARY | 2024-06-23 07:44 | XMS_ITS | Encounter Summary ---
Author Organization Healthcare Address [address] [place] [address] Care Team Providers Care Machine Maintenance Servicer Name Role Phone Ralph Dunne MD Primary Care Provider [phone] Reason for Visit * Reason Comments Obstructive Sleep Apnea f/u results; Encounter Details Date Type Department Care Team (Late st Contact Info) Description 09/08/2021 2:00 PM EST Office Visit [facility] [address] [facility], [address]th [place] [address] Jet Braga MD [address] [place] [address] Social History Tobacco Use Types [...] PM EST documented as of this encounter Last Filed Vital Signs Vital Sign Reading Time Taken Comments Blood Pressure 135/94 09/08/2021 1:09 PM EST Pulse 72 09/08/2021 1:09 PM EST Temperature - - Respiratory Rate - - Oxygen Saturation 94% 09/08/2021 1:09 PM EST Inhaled Oxygen Concentration - - Weight 158 kg (348 lb 5.2 oz) 09/08/2021 1:09 PM EST Height 175.3 cm (5' 9 ) 09/08/2021 1:09 PM EST Body Mass Index 51.44 09/08/2021 1:09 PM EST documented in this encounter Miscellaneous Notes * Progress Notes - Jet Braga MD - 09/08/2021 2:00 PM EST Subjective F2F SLEEP FU visit. Dear Dr. Ralph Dunne MD, I had the pleasure of seeing Florencia Mai at the [facility] with/for Obstructive Sleep Apnea (f/u results; ). Visit Type: Established patient HPI 50 years old female who has [...] mask fit with heated humidity for comfort and will monitor compliance and outcomes. Patient apparently was referred to [facility] [place] but they do not cover the insurance that she has so patient was referred by them to [facility] who covers her insurance. Patient is now ready to start her CPAP therapy after discussion of treatment options which obstructive sleep apnea that she has with poor quality of sleep and excessive daytime sleepiness auto CPAP therapy would be ideal treatment of choice for her. Past Medical History: Diagnosis Date ??? Allergy [...] Refill ??? cholecalciferol (Vitamin D-3) 250 MCG (92638 UT) capsule Take 10,000 Units by mouth every 30 (thirty) days. ??? cyanocobalamin (Vitamin B-12) 1000 MCG/ML injection inject 1 milliliter by intramuscular route every week for 4 weeks then once a month for 5 months ??? DULoxetine (Cymbalta) [address] capsule Take 30 mg by mouth 1 (one) time each day. ??? ergocalciferol (Vitamin D-2) 1.25 MG (18566 UT) capsule take 1 capsule by oral [...] Administered Date(s) Administered ??? Sheri SARS-CoV-2 Vaccination 10/09/2020 The following portions of the chart were reviewed this encounter and updated as appropriate: ENT FU 04/10/21: IMPRESSION: 1-s/p excision of the nodule a thyroid isthmus, 03/21/2021. No evidence of cancer. 2-allergic rhinitis with postnasal drip 3-GERD 4-fibromyalgia 5-osteoarthritis 6-rheumatoid arthritis 7. Cardiac arrhythmias, no recurrence. ROS Review of Systems As per HPI. Objective Visit Vitals BP (!) 135/94 Pulse 72 Height and Weight Height: 175.3 cm (5' 9 ) Weight: 158 kg (348 lb 5.2 oz) BSA (Calculated - sq m): 2.77 sq meters BMI (Calculated): 51.42 Weight in (lb) to have BMI = 25: 168.9 Oxygen Therapy SpO2: 94 % RA [place] Sleepiness Scale Sitting and reading: Moderate chance of dozing Watching TV: Moderate chance of dozing Sitting, inactive in a public place (e.g. a theatre or a meeting): Slight chance of dozing As a passenger in a car for an hour without a break: Slight chance of dozing Lying down to rest in the afternoon when circumstances permit: High chance of dozing Sitting and talking to someone: Slight chance of dozing Sitting quietly after a lunch without alcohol: High chance of dozing In a car, while stopped for a few minutes in traffic: Slight chance of dozing Total score: 14 Physical exam Physical Exam TELERADIOLOGIST: Patent nostrils. Normal NM. OC: MS4 OP. Low large long uvula. No OB. Short thick neck. Sub-mandibular excess fat. Thoracic exam: Adequate BS bilat. CVS: RR Normal HS. PA: Truncal obesity. No significant edema. Assessment/Plan: Impression: 1. Moderate to high probability for obstructive sleep apnea and possibly severe with excessive daytime sleepiness and nonrestorative sleep with daytime fatigue affecting quality of life. Moderate to severe OSAH documented on PSG 07/07/21. 2. Highly suspected obesity hypoventilation syndrome with increase in venous CO2 but also arterial blood gases showing hypoxemia and hypercapnia on room air recently done. 3. Cardiac dysrhythmias which includes occasional PVCs but frequent PACs and short runs of SVT. No recent recurrence. 4. History of rheumatoid arthritis, but no symptoms flare up. High Risk for difficult intubation ifneck spines stiffness develops. 5. History of fibromyalgia syndrome with chronic pains 6. Chronic lower extremity edema possibly due to chronic venous insufficiency. 7. Essential hypertension, labile blood pressure control. Plan and suggest: 1. Sleep PAP Supplies (Order ID: [id number]) Order Date: 07/07/2021 Diagnosis: ADIEL (obstructive sleep apnea) (G47.33) Obesity hypoventilation syndrome (CMS/HCC) (E66.2) Nocturnal hypoxemia (G47.34) Quantity: 1 Comments: DME: [employer] Document Preparation, [place], [place]. New mask fit and New APAP set up for OSAH : PSG done at Sleep center. APAP 7/16 CM with Heated Humidity. RAMP: 5 CM for 15 min. Please monitor needs and compliance at 1 week, 1 month and 2 months. ?? The [id number] evaluation was completed by: Jet Braga MD The face to face evaluation was performed on: 07/02/2021 ?? Electronically signed by: Jet Braga MD ??2. [facility] who covers her [employer] insurance, that she will only get her CPAP in anotehr 4- 6 weeks. 3. She was advised to call back again and see if she could get it early. FU in 3 months advised, hopefully in 60-90 days post CPAP initiation. Discussion Summary: She is ready to get started on CPAP therapy for her obstructive sleep apnea. Counseling Documentation: The patient was counseled regarding cpap education, DME education, diagnostic results, risks and benefit of treatment options, instructions for management and importance of compliance with treatment.Reviewed data card download and the importance of compliance with therapy. Education provided was verbal counseling.Additional time was spent in care coordination including medical record review. Thetotal time of encounter was 20 minutes. . documented in this encounter Plan of Treatment Not on file documented as of this encounter Visit Diagnoses Not on filedocumented in this encounter Additional Health Concerns Assessment Noted Time A fall risk assessment has been complete d for the patient 09/08/2021 1:11 PM EST documented as of this encounter Care Teams Machine Maintenance Servicer Relationship Specialty Start Date End Date Ralph Dunne MD [address] [place] [id number] PCP - General 12/13/20 documented as of this encounter
--- OUTSIDE RECORDS SUMMARY | 2024-06-23 07:44 | XMS_ITS | Encounter Summary ---
Author Organization [facility] Address [address] [place] [address] Care Team Providers Care Science Consultant Name Role Phone Ralph Dunne MD Primary Care Provider [phone] Reason for Visit * Reason Onset Date Comments HCN - Patient Message 03/14/2021 Encounter Details Date Type Department Care Team ([facility] st Contact Info) Description 03/14/2021 Telephone PFE SCHEDULING [address] [place] [address] Rosa Elena Henderson, SALVAGE WORKER [address] [place] [address] HCN - Patient Message Social History Tobacco [...] encounter Miscellaneous Notes * Telephone Encounter - Lalit Kleinhilda Parry - 03/14/2021 11:04 AM EDT Patient Phone Message Reason for Call: Pt returning call to schedule appointment with Rosa Elena Henderson. Best contact number and optimal time of day to reach caller: [phone] Note: Please do not reply to this message. Follow-up communication and further actions as a result of this message need to be communicated with the patient directly, if the patient is not active onMyChart. If the patient is active on MyChart, they will receive notification of the communication/outcome via MyChart. * Telephone Encounter - Kasey Mcclure - 03/14/2021 10:50 AM EDT Patient Phone Message Reason for Call: Berry pt Patient states provider wanted to see her before surgery on 03/21. Please call to schedule Best contact number and optimal time of day to reach caller: [phone] Note: Please do not reply to this message. Follow-up communication and further actions as a result of this message need to be communicated with the patient directly, if the patient is not active onMyChart. If the patient is active on MyChart, they will receive notification of the communication/outcome via MyChart. documented in this encounter Plan of Treatment Not on file documented as of this encounter Visit Diagnoses Not on filedocumented in this encounter Additional Health Concerns Assessment Noted Time A fall risk assessment has been complete d for the patient 03/10/2021 12:33 PM EDT documented as of this encounter Care Teams Science Consultant Relationship Specialty Start Date End Date Ralph Dunne MD [address] [place] [id number] PCP - General 12/13/20 documented as of this encounter
--- OUTSIDE RECORDS SUMMARY | 2024-06-23 07:44 | XMS_ITS | Encounter Summary ---
Author Organization [facility] Address [address] [place] [address] Care Team Providers Care Extractor And Wringer Operator Name Role Phone Ralph Dunne MD Primary Care Provider [phone] Reason for Visit * Reason Onset Date Comments Med Refill 05/27/2021 Encounter Details Date Type Department Care Team ([facility] st Contact Info) Description 05/27/2021 Refill [facility] [address] [facility], [address] [place] [id number] Karla Pascal Social History Tobacco Use Types Packs/Day Years [...] on file Sexual Orientation Not on file documented as of this encounter Plan of Treatment Not on file documented as of this encounter Visit Diagnoses Not on filedocumented in this encounter Additional Health Concerns Assessment Noted Time A fall risk assessment has been complete d for the patient 04/08/2021 9:49 AM EDT documented as of this encounter Care Teams Extractor And Wringer Operator Relationship Specialty Start Date End Date Ralph Dunne MD [address] [place] [address] PCP - General 12/13/20 documented as of this encounter
--- OUTSIDE RECORDS SUMMARY | 2024-06-23 07:44 | XMS_ITS | Encounter Summary ---
Author Organization [facility] Address [address] [place] [address] Care Team Providers Care Earth Mover Name Role Phone Ralph Dunne MD Primary Care Provider [phone] Reason for Visit * Auth/Cert Specialty Diagnoses / Procedures Referred By Prakash morejon Referred To Contact Diagnoses Thyroid nodule Thyroid nodule [E04.1] Procedures AK THYROID LOBECTOMY,UNILAT AK REMOVE BENIGN THYROID LESION RT or LT Thyroidectomy, Isthmectomy Hector Oquendo MD [address] [address] Phone: tel: fax: [facility] [address] [place] [address] Phone: tel: Referral ID Status Reason Start Date Expiration Date Visits Re quested Visits Authorized [id number] 1 Encounter Details Date Type Department Care Team (Late st Contact Info) Description 03/21/2021 8:08 AM EDT - 03/21/2021 6:00 PM EDT Hospital Encounter [facility] [address] [place] [address] Hector Oquendo MD [address] [address] Thyroid nodule Discharge Disposition: Home or Self Care Social [...] Sign Reading Time Taken Comments Blood Pressure 140/92 03/21/2021 2:30 PM EDT Pulse 100 03/21/2021 1:45 PM EDT Temperature 37.1 ??C (98.8 ??F) 03/21/2021 11:50 AM E DT Respiratory Rate 20 03/21/2021 1:45 PM EDT Oxygen Saturation 94% 03/21/2021 1:45 PM EDT Inhaled Oxygen Concentration - - Weight 157 kg (346 lb 2 oz) 03/21/2021 11:50 AM EDT Height 175.3 cm (5' 9 ) 03/21/2021 11:50 AM EDT Body Mass Index 51.11 03/21/2021 11:50 AM EDT documented in this encounter Discharge Instructions * Attachments The following attachments cannot be sent through Care Everywhere. * Thyroidectomy Discharge Instructions ([place]) (Khmer) documented in this encounter Medications at Time of Discharge cholecalciferol (Vitamin D-3) 250 MCG (01090 UT) capsule Take 10,000 Units by mouth every 30 (thirty) days. cyanocobalamin (Vitamin B-12) 1000 MCG/ML injection inject 1 milliliter by intramuscular route every week for 4 weeks then once a month for 5 months 1 DULoxetine (Cymbalta) [address] capsule Take 30 mg by mouth 1 (one) time each day. 0 ergocalciferol (Vitamin D-2) 1.25 MG (32961 UT) capsule take 1 capsule by oral [...] 21 tablet 1 03/28/20 21 HYDROcodone-acetami nophen ([place]) 5-325 MG tablet Take 1 tablet by [...] RN - 03/21/2021 10:38 AM EDT No jonathan per . January. Family contacted at 1032. [...] trachea. The nodule was grasped with a Bola and was retracted inferiorly and using dissection [...] entire procedure. Hector Oquendo MD MS FACS Wire Technician Head & Neck Oncology Rhinology & Skull [...] procedure. ? Hector Oquendo MD MS FACS Wire Technician Head & Neck Oncology Rhinology & Skull Base Surgery Cosigned by Hector Oquendo MD at 03/21/2021 12:18 PM EDT Associated attestation - Hector Oquendo MD - 03/21/2021 12:18 PM EDT I saw and evaluated the patient with the resident/fellow. I discussed the case with the resident/fellow and agree with the findings and plan as documented. Hector Oquendo MD MS FACS Wire Technician Head & Neck Oncology Rhinology & Skull [...] AM EDT) Case Report Surgical Pathology ?Case: [id number] ? Authorizing Provider: ??Hector Oquendo MD ? [...] Ora Rico MD 03/25/2021 2:02 PM EDT [facility] Note: A resident was involved in the service. I attest I examined the relevant preparations for the specimens and confirmed the diagnosis or interpretation. 03/25/2021 2:02 PM EDT [facility] Tissue Thyroid structure / Unknown 03/21/2021 11:13 AM EDT 03/21/2021 11:53 AM EDT Comment:Pre-op diagnosis: Thyroid nodule [E04.1] us Hector Oquendo MD LAB PATHOLOGY ORDERABLES Final R esult [facility] [address] [place], [place] [id number] documented in this encounter Visit Diagnoses Diagnosis [...] Given 03/21/2021 9:16 AM EDT 50 mL ondansetron (Zofran) injection 4 mg 4 mg, [...] Paige Palacio RN) lidocaine-EPINEPHrine (Xylocaine W/EPI) 1 %-1:[id number] injection (CANCELED) As needed, Starting on Wed03/21/21 [...] documented as of this encounter Care Teams Earth Mover Relationship Specialty Start Date End Date Ralph Dunne MD [address] [place] [phone] PCP - General 12/13/20 documented as of this encounter
--- OUTSIDE RECORDS SUMMARY | 2024-06-23 07:44 | XMS_ITS | Encounter Summary ---
Author Organization [facility] Address [address] [place] [address] Care Team Providers Care Chicken Vaccinator Name Role Phone Ralph Dunne MD Primary Care Provider [phone] Encounter Details Date Type Department Care Team (Latest Contact Info) Description 03/10/2021 Travel Social History Tobacco Use Types Packs/Day [...] have Coronavirus / COVID-19? No / Unsure 03/10/2021 11:54 AM EDT documented as of this encounter Plan of Treatment Not on file documented as of this encounter Visit Diagnoses Not on filedocumented in this encounter Additional Health Concerns Assessment Noted Time A fall risk assessment has been complete d for the patient 03/10/2021 12:33 PM EDT documented as of this encounter Care Teams Chicken Vaccinator Relationship Specialty Start Date End Date Ralph Dunne MD [address] [facility] [place] [address] PCP - General 12/13/20 documented as of this encounter
--- NOTE | 2024-06-23 07:45 | XR_ITS ---
FINAL REPORT CLINICAL HISTORY: Low back pain COMPARISON: None FINDINGS: LUMBOSACRAL SPINE SERIES Five views of the lumbosacral spine were obtained. There is no fracture present. There is no malalignment. There are no significant degenerative changes. IMPRESSION: No acute process. Reviewed, Interpreted and Dictated by Sid Calles MD Transcribed by Delma Hunter Authenticated and [facility]
--- NOTE | 2024-06-23 07:45 | XR_ITS ---
FINAL REPORT CLINICAL HISTORY: .pain starts in L hip and radiates down to knee COMPARISON: None FINDINGS: Two views of the left femur were obtained. There is no acute fracture or dislocation. The joint spaces are well preserved. There is no acute soft tissue abnormality. IMPRESSION: No acute abnormality identified. Reviewed, Interpreted and Dictated by Sid Calles MD Transcribed by Delma Hunter Authenticated and [facility]
--- NOTE | 2024-06-23 07:45 | XR_ITS ---
FINAL REPORT CLINICAL HISTORY: LT HIP AND THIGH PAIN COMPARISON: None FINDINGS: LEFT HIP: Two views of the left hip with an AP view of the pelvis demonstrate no acute fracture or dislocation. The joint spaces are preserved. There is minimal osteophyte formation at the acetabular margin. The visualized bony structures are well aligned. No soft tissue abnormality is seen. IMPRESSION: No acute bony abnormality. Reviewed, Interpreted and Dictated by Sid Calles MD Transcribed by Delma Hunter Authenticated and [facility]
--- OUTSIDE RECORDS SUMMARY | 2024-06-23 07:45 | XMS_ITS | Clinical Summary ---
Author Organization [facility] Address [address] [place] [address] Care Team Providers Care Seeing Eye Dog Trainer Name Role Phone Franko Velasquez MD Primary Care Provider [phone] Allergies Active Allergy Reactions Criticality Noted Date Comments Sulfa Antibiotics Other (See Comments) Low 04/10/20 24 Made pink eye worse Medications Diclofenac Sodium (VOLTAREN) 1 % gel gel Apply 4 g topically to the appropriate area as directed 4 (Four) Times a Day As Needed. Active Fexofenadine-Ps eudoephedrine (BESSY-D 12 HOUR PO) Take 1 tablet by mouth 2 (Two) Times a Day. Active lisinopril-hydr ochlorothiazide (PRINZIDE,ZESTO RETIC) 20-25 MG per tablet Take 1 tablet by mouth Daily. 4 Active etodolac (LODINE) 400 MG tabletIndicatio ns:Rheumatoid arthritis involving multiple sites with positive rheumatoid factor,High risk medication use Take 1 tablet by mouth 2 (Two) Times a Day As Needed (joint pain). 180 tablet 1 4 Active DULoxetine (CYMBALTA) 60 MG capsuleIndicati ons:Rheumatoid arthritis involving multiple sites with positive rheumatoid factor,High risk medication use Take 1 capsule by mouth Daily. 90 capsule 1 4 Active Tofacitinib Citrate ER (Xeljanz XR) 11 MG tablet sustained-relea se 24 hour Take 1 tablet by mouth Daily. 30 tablet 2 4 Active Active Problems Problem Noted Date Diagnosed Date High risk medication use 04/10/2024 Assessment & Plan (04/10/2024 11:18 AM EDT): Xeljanz Hepatitis panel - 06/29/2023 QuantiFERON - 06/29/2023 Well tolerated and effective. Continue labs CBC CMP every 3 months for monitoring on Xeljanz. Intermittent cholesterol check with Xeljanz. Xeljanz has the risk of lymphopenia, neutropenia, anemia, elevation of liver enzymes, elevation of lipids, serious infection, GI perforations, viral reactivation,TB, malignancies, and renal abnormalities. Live vaccines should not be taken with this. Regular monitoring is required and compliance with this is imperative. This was discussed at length. 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 Cymbalta has been helpful. She has more fibromyalgia pain lately. Meds well tolerated. Refill provided. Exercise encouraged. Diagnosed with sleep apnea. She does not like her CPAP machine. She used it for a long time. Risk and benefits of SNRIs discussed including but not limited to worsening depression, suicidal ideation, nausea, constipation History of thyroid nodule 04/10/2024 Rheumatoid arthritis involvi ng multiple sites with positive rheumatoid factor 04/02/2024 Assessment & Plan (04/10/2024 2:51 PM EDT): +RF 17; shoulder, wrist hand pains started aug 2013 father with RA- from stroke 2019 prior plaquenil 10.15.14-4.17 prior mtx 2.16 Current: Xeljanz XR 7.16, etodolac, duloxetine. Low disease activity. Swollen joint count 0. Tender joint count 0 Good prognosis. RA in remission with Xeljanz XR. Continue Xeljanz 11 mg daily She has new job, so we will prior authorize Xeljanz through her new insurance. If we need to change medicines the options were Humira, Enbrel, Otezla or Cosentyx. She has no contraindications to TNFi. Continue labs CBC CMP sed rate CRP every 3 months for monitoring. Monitor QTB yearly. labs ordered as below Check lipids intermittently Continue duloxetine and etodolac prn. No signs of toxicity of medication. Well tolerated. Follow up in 3 month. S/P sacrocolpopexy 12/20/2019 Morbid obesity 12/20/2019 Hypertension 12/19/2019 Encounters Date Type Department Care Team Description 04/10/2024 3:00 PM EDT Lab [facility] [address] [facility] [address] [place] [address] Rheumatoid arthritis involving multiple sites with positive rheumatoid factor; High risk medication use 04/10/2024 2:15 PM EDT Office Visit [facility] [address] [facility] [address] [place] [address] Lamberto Vang MD Rheumatoid arthritis involving multiple sites with positive rheumatoid factor (Primary Dx); High risk medication use; Immunosuppression due to drug therapy; Fibromyalgia; History of thyroid nodule 04/10/2024 Telephone [facility] [address] [facility] [address] [place] [address] Lamberto Vang MD from Last 3 Months Family History Medical History Relation Name Comments Rheum arthritis Father Relation Name Status Comments Father Social History Tobacco Use Types Packs/Day Years Used Date Smoking Tobacco: Never Smokeless Tobacco: Never Tobacco Cessation:Counseling Given: Not Answered Alcohol Use Standard Drinks/Week Comments Not Currently 0 (1 standard drink = 0.6 oz pur e alcohol) ONCE/YR [place] Abuse Screen Answer Date Recorded Unsafe at Home or Work/School Not on file Feels Threatened by Someone? Not on file 04/2023 Does Anyone Keep You from Co ntacting Others or Doint Things Outside the Home? Not on file 05/10/2023 Physical Sign of Abuse Present Not on file 1 Housing Stability Answer Date Recorded Current Living Arrangements Not on file 04/2023 Potentially Unsafe Housing Conditions Not on leida e 05/10/2023 Family and Community Support Answer Omar e Recorded Help with Day-to-Day Activities Not on file 05/10/2023 Lonely or Isolated Not on file 05/10/2023 Employment Answer Date Recorded Do you want help finding or keeping work or a alvarez b? Not on file 05/10/2023 Disabilities Answer Date Recorded Concentrating, Remembering, or Making Decisions Difficulty Not on file 05/10/2023 Doing Errands Independently Difficulty Not on fi le 05/10/2023 Education Answer Date Recorded Help with school or training? Not on file Preferred Language Not on file 05/10/2023 Comments No Sex and Gender Information Value Date Recorded Sex Assigned at Not on file Legal Sex Female 10:27 AM EDT Gender Identity Not on file Sexual Orientation Not on file Last Filed Vital Signs Vital Sign Reading Time Taken Comments Blood Pressure 128/78 04/10/2024 2:25 PM EDT Pulse 83 04/10/2024 2:25 PM EDT Temperature 36.9 ??C (98.4 ??F) 04/10/2024 2:25 PM ED T Respiratory Rate 18 12/20/2019 12:10 PM EDT Oxygen Saturation 94% 12/20/2019 12:10 PM EDT Inhaled Oxygen Concentration - - Weight 158 kg (348 lb 6.4 oz) 04/10/2024 2:25 PM EDT Height 175.3 cm (5' 9 ) 04/10/2024 2:25 PM EDT Body Mass Index 51.45 04/10/2024 2:25 PM EDT Plan of Treatment Upcoming Encounters Date Type Department Care Team (Late st Contact Info) Description 07/10/2024 3:15 PM EST Office Visit [facility] [address] [facility] [address] [place] [phone] Stuart White APRN [address] [facility] [address] [place], [place] [id number] Health Maintenance Due Date Last Done Comments Annual Gynecologic Pelvic and Breast Exam 1970 BMI FOLLOWUP 1970 COLOGUARD 1970 COLON CANCER SCREENING 5 YEA R SIGMOIDOSCOPY 1970 COLONOSCOPY 1970 [address] CANCER SCREENING 1970 CT COLONOGRAPHY 1970 FECAL OCCULT BLOOD TEST 1970 FIT Testing (1 year) 1970 Pneumococcal Vaccine 0-64 (1 of 2 - PCV) 1976 MAMMOGRAM 2010 ANNUAL PHYSICAL 12/14/2019 HEPATITIS C SCREENING 12/14/2019 PAP SMEAR 12/14/2019 INFLUENZA VACCINE 03/02/2024 COVID-19 Vaccine ( season) 04/02/202412/2021, 10/09/2020 TDAP/TD VACCINES (2 - Td or Tdap) 11/14/2033 024 ZOSTER VACCINE Completed 02/09/2024, 10/21/2023 Medical Devices Implanted Type Area Color Room Attendant Device Identifier Shelf Expiration Date Model / Serial / Lot Kt Dev Position Vag Upsylon Mesh - [id number] Implanted:Qty : 1 on 12/19/2019 by Herve Sanabria Jr., MD at [facility] Implant N/A: [employer] 03/01/2022 [id number] / / [id number] Procedures Procedure Name Priority Date/Time Associated Diagnosis Comments QUANTIFERON-TB GOLD PLUS Routine 04/10/2024 2:58 PM EDT Rheumatoid arthritis involving multiple sites with positive rheumatoid factor High risk medication use SEDIMENTATION RATE Routine 04/10/2024 2: 58 PM EDT Rheumatoid arthritis involving multiple sites with positive rheumatoid factor High risk medication use C-REACTIVE PROTEIN Routine 04/10/2024 2: 58 PM EDT Rheumatoid arthritis involving multiple sites with positive rheumatoid factor High risk medication use COMPREHENSIVE METABOLIC PANEL Routine 04/10/2024 2:58 PM EDT Rheumatoid arthritis involving multiple sites with positive rheumatoid factor High risk medication use CBC WITH AUTO DIFFERENTIAL Routine 04/10/2024 2:58 PM EDT Rheumatoid arthritis involving multiple sites with positive rheumatoid factor High risk medication use QUANTIFERON-TB GOLD PLUS (LI-HEP) Routine 04/10/2024 2:58 PM EDT Rheumatoid arthritis involving multiple sites with positive rheumatoid factor High risk medication use SCANNED - LABS Routine 04/02/2024 3:32 PM EDT from Last 3 Months Results * QuantiFERON-TB Gold Plus (04/10/2024 2:58 PM EDT) [facility] QuantiFERON Criteria Comment 04/13/2024 9:14 AM EDT [facility] Comment: QuantiFERON-TB Gold Plus is a qualitative indirect test for M tuberculosis infection (including disease) and is intended for use in conjunction with risk assessment, radiography, and other medical and diagnostic evaluations. The QuantiFERON-TB Gold Plus result is determined by subtracting the Nil value from either TB antigen (Ag) value. The Mitogen tube serves as a control for the test. QUANTIFERON TB1 AG VALUE 0.01 IU/mL 04/13/2024 9:14 AM EDT [facility] QUANTIFERON TB2 AG VALUE 0.01 IU/mL 04/13/2024 9:14 AM EDT [facility] QuantiFERON Nil Value 0.01 IU/mL 04/13/2024 9:14 AM EDT [facility] QuantiFERON Mitogen Value >10.00 IU/mL 04/13/2024 9:14 AM EDT [facility] Blood Venipuncture / Unknown 04/10/2024 2:58 PM EDT 04/10/2024 2:58 PM EDT Narrative [facility] - 04/13/2024 9:14 AM EDT Performed at: ??01 - [address] ??[id number] Manager Reading: Jesus Reyes PhD, Phone: ??[phone] Lamberto Vang MD LAB BLOOD ORDERABLES Final Result [facility] [address] [place] [address] * QuantiFERON-TB Gold Plus (04/10/2024 2:58 PM EDT) [facility] QuantiFERON Incubation Incubation performed. 04/13/2024 9:14 AM EDT [facility] QUANTIFERON-TB GOLD PLUS Negative Negative 04/13/2024 9:14 AM EDT [facility] Comment: No response to M tuberculosis antigens detected. Infection with M tuberculosis is unlikely, but high risk individuals should be considered for additional testing (ATS/IDSA/CDC Clinical Practice Guidelines, 2017). The reference range is an Antigen minus Nil result of <0.35 IU/mL. Chemiluminescence immunoassay methodology Blood Venipuncture / Unknown 04/10/2024 2:58 PM EDT 04/10/2024 2:58 PM EDT Narrative [facility] - 04/13/2024 9:14 AM EDT Performed at: ??01 - [address] ??[id number] Manager Reading: Jesus Reyes PhD, Phone: ??[phone] Lamberto Vang MD LAB BLOOD ORDERABLES Final Result [facility] [address] [place] [id number], * CBC Auto Differential (04/10/2024 2:58 PM EDT) WBC 4.93 3.40 - 10.80 10*3/mm3 04/10/2024 11:54 PM EDT [facility] RBC 4.72 3.77 - 5.28 10*6/mm3 04/10/2024 11:54 PM EDT [facility] Hemoglobin 13.6 12.0 - 15.9 g/dL 04/10/2024 11:54 PM EDT [facility] Hematocrit 41.2 34.0 - 46.6 % 04/10/2024 11:54 PM EDT [facility] MCV 87.3 79.0 - 97.0 fL 04/10/2024 11:54 PM EDT [facility] MCH 28.8 26.6 - 33.0 pg 04/10/2024 11:54 PM EDT [facility] MCHC 33.0 31.5 - 35.7 g/dL 04/10/2024 11:54 PM EDT [facility] RDW 13.0 12.3 - 15.4 % 04/10/2024 11:54 PM EDT [facility] RDW-SD 41.3 37.0 - 54.0 fl 04/10/2024 11:54 PM [facility] MPV 8.6 6.0 - 12.0 fL 04/10/2024 11:54 PM T [facility] Platelets 369 140 - 450 10*3/mm3 04/10/2024 11:54 PM [facility] Neutrophil % 65.6 42.7 - 76.0 % 04/10/2024 11:54 PM T [facility] Lymphocyte % 24.5 19.6 - 45.3 % 04/10/2024 11:54 PM [facility] Monocyte % 6.5 5.0 - 12.0 % 04/10/2024 11:54 PM [facility] Eosinophil % 2.8 0.3 - 6.2 % 04/10/2024 11:54 PM [facility] Basophil % 0.4 0.0 - 1.5 % 04/10/2024 11:54 PM [facility] Immature Grans % 0.2 0.0 - 0.5 % 04/10/2024 11:54 PM [facility] Neutrophils, Absolute 3.23 1.70 - 7.00 10*3/mm3 04/10/2024 11:54 PM [facility] Lymphocytes, Absolute 1.21 0.70 - 3.10 10*3/mm3 04/10/2024 11:54 PM [facility] Monocytes, Absolute 0.32 0.10 - 0.90 10*3/mm3 04/10/2024 11:54 PM [facility] Eosinophils, Absolute 0.14 0.00 - 0.40 10*3/mm3 04/10/2024 11:54 PM T [facility] Basophils, Absolute 0.02 0.00 - 0.20 10*3/mm3 04/10/2024 11:54 PM [facility] Immature Grans, Absolute 0.01 0.00 - 0.05 10*3/mm3 04/10/2024 11:54 PM T [facility] nRBC 0.0 0.0 - 0.2 /100 WBC 04/10/2024 11:54 PM EDT [facility] Blood Venipuncture / Unknown 04/10/2024 2:58 PM EDT 04/10/2024 2:58 PM EDT us Lamberto Vang MD LAB BLOOD ORDERABLES Final Result Performing Organization Address City/[facility]/ZIP Co de Phone Number [facility]
[address] [place] [address], [place] [phone] * Sedimentation Rate (04/10/2024 2:58 PM EDT) Sed Rate 9 0 - 30 mm/hr 04/11/2024 12:06 AM EDT [facility] Blood Venipuncture / Unknown 04/10/2024 2:58 PM EDT 04/10/2024 2:58 PM EDT us Lamberto Vang MD LAB BLOOD ORDERABLES Final Result Performing Organization Address [facility] Co de Phone Number [facility]
[address] [place] [address], * (ABNORMAL) C-reactive Protein (04/10/2024 2:58 PM EDT) C-Reactive Protein 0.69(H) 0.00 - 0.50 mg/dL 04/11/2024 12:18 AM EDT [facility] Blood Venipuncture / Unknown 04/10/2024 2:58 PM EDT 04/10/2024 2:58 PM EDT us Lamberto Vang MD LAB BLOOD ORDERABLES Final Result Performing Organization Address City/[facility] Co de Phone Number [facility]
[address] [place] [phone], * (ABNORMAL) Comprehensive Metabolic Panel (04/10/2024 2:58 PM EDT) Glucose 109(H) 65 - 99 mg/dL 04/11/2024 12:18 AM [facility] BUN 17 6 - 20 mg/dL 04/11/2024 12:18 AM [facility] Creatinine 0.85 0.57 - 1.00 mg/dL 04/11/2024 12:18 AM [facility] Sodium 141 136 - 145 mmol/L 04/11/2024 12:18 AM [facility] Potassium 2.9(L) 3.5 - 5.2 mmol/L 04/11/2024 12:18 AM [facility] Chloride 100 98 - 107 mmol/L 04/11/2024 12:18 AM [facility] CO2 30.8(H) 22.0 - 29.0 mmol/L 04/11/2024 12:18 AM [facility] Calcium 9.2 8.6 - 10.5 mg/dL 04/11/2024 12:18 AM [facility] Total Protein 6.9 6.0 - 8.5 g/dL 04/11/2024 12:18 AM [facility] Albumin 4.1 3.5 - 5.2 g/dL 04/11/2024 12:18 AM [facility] ALT (SGPT) 25 1 - 33 U/L 04/11/2024 12:18 AM [facility] AST (SGOT) 24 1 - 32 U/L 04/11/2024 12:18 AM [facility] Alkaline Phosphatase 64 39 - 117 U/L 04/11/2024 12:18 AM [facility] Total Bilirubin 0.3 0.0 - 1.2 mg/dL 04/11/2024 12:18 AM [facility] Globulin 2.8 gm/dL 04/11/2024 12:18 AM [facility] A/G Ratio 1.5 g/dL 04/11/2024 12:18 AM EDT [facility] BUN/Creatinine Ratio 20.0 7.0 - 25.0 04/11/2024 12:18 AM EDT [facility] Anion Gap 10.2 5.0 - 15.0 mmol/L 04/11/2024 12:18 AM EDT [facility] eGFR 82.0 >60.0 mL/min/1.7 3 04/11/2024 12:18 AM EDT [facility] Blood Venipuncture / Unknown 04/10/2024 2:58 PM EDT 04/10/2024 2:58 PM EDT Narrative [facility] - 04/11/2024 12:18 AM EDT GFR Normal >60 Chronic Kidney Disease <60 Kidney Failure <15 Lamberto Vang MD LAB BLOOD ORDERABLES Final Result [facility]
[address] [place] [address], * LABS SCANNED (04/02/2024 3:32 PM EDT) Destiney Ramon MD LAB BLOOD ORDERABLES Lesia l Result from Last 3 Months Insurance Advance Directives * CPR (Attempt to Resuscitate) (Latest Code Status on File) Date Activated Date Inactivated Comments 12/19/2019 4:56 PM 12/20/2019 8:02 PM Question Answer Comments Code Status (Patient has no pulse and is not breathing): CPR (Attempt to Resuscitate) Medical Interventions (Patie nt has pulse or is breathing): Full Level Of Support Discussed With: Patient Care Teams Seeing Eye Dog Trainer Relationship Specialty Start Date End Date Franko Velasquez MD [address] [facility] [address] [facility] [address] [place] [address] PCP - General Adolescent Medicine 04/10/24
--- OUTSIDE RECORDS SUMMARY | 2024-06-23 07:45 | XMS_ITS | Encounter Summary ---
[facility] Address [address] [place] [address] Care Team Providers Care [facility] Manager Name Role Phone Betsey Bonner APRN Primary Care Provider [phone] Reason for Visit * Auth/Cert Specialty Diagnoses / Procedures Referred By Prakash morejon Referred To Contact Diagnoses Other female genital prolapse Procedures NV LAPAROSCOPY, SURG, COLPOPEXY ROBOTIC SACROCOLPOPEXY Referral ID Status Reason Start Date Expiration Date Visits Re quested Visits Authorized [id number] 1 1 Encounter Details Date Type Department Care Team ([facility] st Contact Info) Description 12/19/2019 1:49 PM EDT - 12/19/2019 3:53 PM EDT Surgery [facility] OR [address] [place] [address] Herve Marshall Jr., MD [address] [facility] [address] [place] [address] ROBOTIC SACROCOLPOPEXY WITH RIGHT URETERAL LYSIS Social History Tobacco Use Types Packs/Day Years Used Date Smoking Tobacco: Never Smokeless Tobacco: Never Alcohol Use Standard Drinks/Week Comments Not Currently 0 (1 standard drink = 0.6 oz pur e alcohol) ONCE/YR CATRACHITO Comments No Sex and Gender Information Value Date Recorded Sex Assigned at Not on file Legal Sex Female 10:27 AM EDT Gender Identity Not on file Sexual Orientation Not on file documented as of this encounter Last Filed Vital Signs Vital Sign Reading Time Taken Comments Blood Pressure 141/93 12/19/2019 12:13 PM EDT Pulse 77 12/19/2019 12:13 PM EDT Temperature 36.6 ??C (97.9 ??F) 12/19/2019 12:13 PM E DT Respiratory Rate 18 12/19/2019 12:13 PM EDT Oxygen Saturation 96% 12/19/2019 12:13 PM EDT Inhaled Oxygen Concentration - - Weight - - Height - - Body Mass Index - - documented in this encounter Discharge Summaries * Boo Ag MD - 12/20/2019 11:40 AM EDT Patient Name: Florencia Mai : 1970 DOS: 12/20/2019 Attending: Herve Marshall Jr* Primary Care Provider: Betsey Bonner APRN Date of Admission:.12/19/2019 11:25 AM Date of Discharge: 12/20/2019 Discharge Diagnosis: S/P sacrocolpopexy Hypertension Morbid obesity (CMS/HCC) Hospital Course At admit: Patient is a pleasant 49 y.o. female presented for scheduled surgery by Dr. Daniele Hawk She has been diagnosed with vaginal prolapse after reporting a bulge about 4 months ago. She has previously had a hysterectomy about 20 years ago. Further work-up showed her to have urgency incontinence. She has history of rheumatoid arthritis for which she is being followed by Dr. Lamberto Vang. Seen preoperatively, doing fairly well. No complaints of fever chills nausea or vomiting. No shortness breath or chest pain. No history of coronary artery disease. She has arthralgias related to rheumatoid arthritis despite being on medication. Patient underwent robotic sacrocolpopexy with right ureteral lysis by Dr. Daniele Hawk under generalanesthesia and a block. She tolerated surgery well and was admitted for further management. After Admit: She was provided pain medication as needed for pain control. Risks and benefits of opiate medications discussed with patient. She received DVT prophylaxis with subcutaneous Lovenox as well as mechanicals. She used an IS for atelectasis prophylaxis. She was able to void spontaneously post catheter removal. She was provided a bowel regimen and was encouraged to ambulate postop day 1 which she did. Home medications were resumed as appropriate, and labs were monitored and remained fairly stable. With the progress she has made, she is ready for DC home today. Discussed with patient regarding plan and she shows understanding and agreement. Procedures Performed Procedure(s): ROBOTIC SACROCOLPOPEXY WITH RIGHT URETERAL LYSIS Pertinent Test Results: I reviewed the patient's new clinical results. Results from last 7 days Lab Units 12/20/19 0802 12/17/19 0942 WBC 10*3/mm3 6.07 4.53 HEMOGLOBIN g/dL 13.4 14.7 HEMATOCRIT % 43.1 45.4 PLATELETS 10*3/mm3 321 324 Results from last 7 days Lab Units 12/20/19 0802 12/17/19 0942 SODIUM mmol/L 143 144 POTASSIUM mmol/L 3.8 3.7 CHLORIDE mmol/L 104 102 CO2 mmol/L 29.0 29.0 BUN mg/dL 11 12 CREATININE mg/dL 0.65 0.76 CALCIUM mg/dL 8.4* 9.3 GLUCOSE mg/dL 101* 95 I reviewed the patient's new imaging including images and reports. Discharge Assessment: Visit Vitals BP 133/81 (BP Location: Right arm) Pulse 67 Temp 97.8 ??F (36.6 ??C) (Oral) Resp 18 Ht 175.3 cm (69.02 ) Wt (!) 154 kg (338 lb 13.6 oz) SpO2 94% No BMI 50.02 kg/m?? Temp (24hrs), Av.1 ??F (36.7 ??C), Min:97.8 ??F (36.6 ??C), Max:98.3 ??F (36.8 ??C) General Appearance: Alert, cooperative, in no acute distress Lungs: Clear to auscultation,respirations regular, even and unlabored Heart: Regular rhythm and normal rate, normal S1 and S2 Abdomen: Soft, benign, clean incisions. Extremities: Moves all extremities well, no edema, no cyanosis, no redness Pulses: Pulses palpable and equal bilaterally Skin: No bleeding, bruising or rash Discharge Disposition: Home Discharge Medications New Medications Instructions Start Date docusate sodium 100 MG capsule 100 mg, Oral, 2 Times Daily PRN HYDROcodone-acetaminophen 7.5-325 MG per tablet Commonly known as: [place] 1 tablet, Oral, Every 6 Hours PRN nitrofurantoin (macrocrystal-monohydrate) 100 MG capsule Commonly known as: Macrobid 100 mg, Oral, 2 Times Daily polyethylene glycol 17 g packet Commonly known as: MIRALAX 17 g, Oral, Daily Changes to Medications Instructions Start Date etodolac 400 MG tablet Commonly known as: LODINE What changed: ?? when to take this ?? These instructions start on December 22, 2019. If you are unsure what to do until then, ask your doctor or other care provider. 400 mg, Oral, 2 Times Daily, INSTRUCTED TO STOP 7 DAYS PRIOR TO SURGERY PER DR MARSHALL. STOPPED. Start Date: December 22, 2019 Tofacitinib Citrate ER 11 MG tablet sustained-release 24 hour Commonly known as: Xeljanz XR What changed: These instructions start on December 22, 2019. If you are unsure what to do until then, ask your doctor or other care provider. 11 mg, Oral, Daily Start Date: December 22, 2019 Continue These Medications Instructions Start Date DULoxetine 30 MG capsule Commonly known as: CYMBALTA 30 mg, Oral, Daily Discharge Diet: Diet Instructions Diet as tolerated Activity at Discharge: Activity Instructions Activity as tolerated No pushing pulling or lifting over 10 pounds Follow-up Appointments Dr. Daniele Hawk per his orders Boo Ag MD 12/20/19 17:28 documented in this encounter Discharge Instructions * Discharge Instr - Activity* Iqra Hernandez RN - 12/20/2019 2:50 PM EDT Activity as tolerated * Discharge Instr - Diet* Iqra Hernandez RN - 12/20/2019 2:50 PM EDT Diet as tolerated * Attachments The following attachments cannot be sent through Care Everywhere. * Sacrocolpopexy (Polish) * Docusate capsules (Polish) * Nitrofurantoin tablets or capsules (Polish) * Polyethylene Glycol powder (Polish) * Acetaminophen; Hydrocodone tablets or capsules (Polish) documented in this encounter Medications at Time of Discharge docusate sodium 100 MG capsule Take 100 mg by mouth 2 (Two) Times a Day As Needed for Constipation. 12/20/2019 4 DULoxetine (CYMBALTA) 30 MG capsule Take 2 capsules by mouth Daily. 4 etodolac (LODINE) 400 MG tablet Take 1 tablet by mouth 2 (Two) Times a Day. INSTRUCTED TO STOP 7 DAYS PRIOR TO SURGERY PER DR MARSHALL. STOPPED. 12/22/2019 4 HYDROcodone-acetami nophen ([place]) 7.5-325 MG per tabletIndications:S /P sacrocolpopexy Take 1 tablet by mouth Every 6 (Six) Hours As Needed for Moderate Pain . 12/20/2019 4 nitrofurantoin, macrocrystal-monohy drate, (Macrobid) 100 MG capsule Take 1 capsule by mouth 2 (Two) Times a Day. 12/20/2019 4 polyethylene glycol (MIRALAX) 17 g packet Take 17 g by mouth Daily. 12/20/2019 4 Tofacitinib Citrate ER (Xeljanz XR) 11 MG tablet sustained-release 24 hour Take 1 tablet by mouth Daily. 12/22/2019 4 documented as of this encounter Progress Notes * Sweetie Sultana RN - 12/20/2019 12:25 PM EDT Discharge Planning Assessment [facility] Patient Name: Florencia Mai Today's Date: 12/20/2019 Admit Date: 12/19/2019 Discharge Needs Assessment Row Name 12/20/19 1222 Living Environment Lives With child(rika), adult;parent(s) pt resides in [facility] Name(s) of Who Lives With Patient son- Bill and Father- Popeye Current Living Arrangements home/apartment/condo Primary Care Provided by self Provides Primary Care For no one Family Caregiver if Needed child(rika), adult Family Caregiver Names son Bill and sangita Tripathi Quality of Family Relationships helpful;involved;supportive Able to Return to Prior Arrangements yes Resource/Environmental Concerns Resource/Environmental Concerns none Transition Planning Patient/Family Anticipates Transition to home with family Patient/Family Anticipated Services at Transition none Transportation Anticipated family or friend will provide Discharge Needs Assessment Readmission Within the Last 30 Days no previous admission in last 30 days Concerns to be Addressed denies needs/concerns at this time;discharge planning Equipment Currently Used at Home none Anticipated Changes Related to Illness none Equipment Needed After Discharge none Provided Post Acute Provider List? N/A Discharge Plan Row Name 12/20/19 1223 Plan Plan home Provided Post Acute Provider Quality & Resource List? N/A Patient/Family in Agreement with Plan yes Plan Comments CM spoke with pt at bedside. Pt resides in [facility] with her son Bill (29 yo) and her father Popeye. Pt is independent of adls and denies use of DME. Pt is not current with homehealth or outpatient services at this time. Pt plans to return home and denies needs at this time. Final Discharge Disposition Code 01 - home or self-care Destination Coordination has not been started for this encounter. Durable Medical Equipment Coordination has not been started for this encounter. Dialysis/Infusion Coordination has not been started for this encounter. Home Medical Care Coordination has not been started for this encounter. Therapy Coordination has not been started for this encounter. Community Resources Coordination has not been started for this encounter. 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 Pt has prescription drug coverage and denies issues obtaining or affording current medications. Psychosocial No documentation. Abuse/Neglect No documentation. Legal No documentation. Substance Abuse No documentation. Patient Forms No documentation. Sweetie Sultana RN * Herve Marshall Jr., MD - 12/20/2019 6:58 AM EDT Doing well this morning Pain well controlled Abdomen benign, obese, incisions look good Villar catheter is been removed Remove vaginal packing Ambulate Home later today documented in this encounter H&P Notes * Boo Ag MD - 12/19/2019 4:14 PM EDT Admission [facility] Patient Name: Florencia Mai : 1970 DOS: 12/19/2019 Attending: Herve Marshall Jr* Primary Care Provider: Betsey Bonner APRN Patient Care Team: Betsey Bonner APRN as PCP - General (Family Medicine) Lamberto Vang MD as Consulting Physician (Rheumatology) Chief complaint: Vaginal prolapse Subjective Patient is a pleasant 49 y.o. female presented for scheduled surgery by Dr. Daniele Hawk She has been diagnosed with vaginal prolapse after reporting a bulge about 4 months ago. She has previously had a hysterectomy about 20 years ago. Further work-up showed her to have urgency incontinence. She has history of rheumatoid arthritis for which she is being followed by Dr. Lamberto Vang. Seen preoperatively, doing fairly well. No complaints of fever chills nausea or vomiting. No shortness breath or chest pain. No history of coronary artery disease. She has arthralgias related to rheumatoid arthritis despite being on medication. Allergies: No Known Allergies Medications Prior to Admission Medication Sig Dispense Refill Last Dose ??? DULoxetine (CYMBALTA) 30 MG capsule Take 30 mg by mouth Daily. 12/18/2019 at Unknown time ??? Tofacitinib Citrate ER (Xeljanz XR) 11 MG tablet sustained-release 24 hour Take 11 mg by mouth Daily. 12/18/2019 at Unknown time ??? etodolac (LODINE) 400 MG tablet Take 400 mg by mouth 2 (Two) Times a Day. INSTRUCTED TO STOP 7 DAYS PRIOR TO SURGERY PER DR MARSHALL. STOPPED. 12/12/2019 History: Past Medical History: Diagnosis Date ??? IBS (irritable bowel syndrome) ??? PNA (pneumonia) ??? Prolapse of intestine BOWEL, BLADDER, VAGINAL WALL PROLAPSE ??? RA (rheumatoid arthritis) (CMS/HCC) ??? Wears glasses Past Surgical History: Procedure Laterality Date ??? APPENDECTOMY ??? BUNIONECTOMY Bilateral BIG TOES ??? CHOLECYSTECTOMY ??? COLONOSCOPY ??? HYSTERECTOMY PARTIAL ??? INCISION AND DRAINAGE OF WOUND POST APPENDECTOMY ??? SALPINGO OOPHORECTOMY History reviewed. No pertinent family history. Social History Tobacco Use ??? Smoking status: Never Smoker ??? Smokeless tobacco: Never Used Substance Use Topics ??? Alcohol use: Not Currently Comment: ONCE/YR CATRACHITO ??? Drug use: Never Lives at home with her father and her son. Review of Systems Pertinent items are noted in HPI, all other systems reviewed and negative Vital Signs BP 127/82 Pulse 77 Temp 98 ??F (36.7 ??C) (Temporal) Resp 16 SpO2 93% No Physical Exam: General Appearance: Alert, cooperative, in no acute distress Head: Normocephalic, without obvious abnormality, atraumatic Eyes: Lids and lashes normal, conjunctivae and sclerae normal, no icterus, no pallor, corneas clear Ears: Ears appear intact with no abnormalities noted Throat: No oral lesions, no thrush, oral mucosa moist Neck: No adenopathy, supple, trachea midline, no thyromegaly Lungs: Clear to auscultation,respirations regular, even and unlabored Heart: Regular rhythm and normal rate, normal S1 and S2, no murmur, no gallop Abdomen: Soft, nontender nondistended. Obese. Genitalia: Deferred Extremities: Moves all extremities well, no edema, no cyanosis, no redness Pulses: Pulses palpable and equal bilaterally Skin: No bleeding, bruising or rash Neurologic: Cranial nerves 2 - 12 grossly intact, no gross motor deficit. Results from last 7 days Lab Units 12/17/19 0942 WBC 10*3/mm3 4.53 HEMOGLOBIN g/dL 14.7 HEMATOCRIT % 45.4 PLATELETS 10*3/mm3 324 Results from last 7 days Lab Units 12/17/19 0942 SODIUM mmol/L 144 POTASSIUM mmol/L 3.7 CHLORIDE mmol/L 102 CO2 mmol/L 29.0 BUN mg/dL 12 CREATININE mg/dL 0.76 CALCIUM mg/dL 9.3 GLUCOSE mg/dL 95 No results found for: HGBA1C Assessment and Plan: Vaginal prolapse Hypertension Plan Postoperative care will include Admit for further management. 1. Ambulation, encouraged , starting in a.m. 2. Pain control-prns 3. IS-encourage 4. DVT proph- Mechanicals and Lovenox SQ. 5. Bowel regimen 6. Resume home medications as appropriate. 7. Monitor post-op labs and path. 8. Clear liquid diet, advance as tolerated. 10.Discharge planning. For home, likely postop day 1, pending tolerance of p.o. diet, spontaneous voiding, and ambulation. Sravanthi disclaimer: Part of this encounter note is an electronic manager technical/translation of spoken language to printed text. The electronic translation of spoken language may permit erroneous, or at times, nonsensicalwords or phrases to be inadvertently transcribed; Although I have reviewed the note for such errors, some may still exist. Boo Ag MD 12/19/19 16:14 * Kerri Mason, DRAPERY INSPECTOR - 12/19/2019 12:32 PM EDT Pre-Op H&P Florencia Mayo Mai [id number] 1970 Chief complaint: Vaginal prolapse HPI: 10/09/19 office visit: Patient is in today for evaluation of vaginal prolapse. She is pleasant 49-year-old female with a history of a bulge at the opening of the vagina that she noticed approximately 2months ago. She has mild pelvic pressure. She describes mixed urinary incontinence. Urgency incontinence is worse than her stress incontinence. She does not wear pads. She does a moderate amount of li fting at work. She denies a history of urinary tract infections. She did have a hysterectomy 20 years ago. Urodynamics demonstrates urgency incontinence at capacity. No stress urinary pessary in place 12/19/19: Here today to undergo robotic-assisted laparoscopic Sacral colpopexy Review of Systems: General ROS: negative for chills, fever or skin lesions; No changes since last office visit. Neg for recent sick exposure Cardiovascular ROS: no chest pain or dyspnea on exertion Respiratory ROS: no cough, shortness of breath, or wheezing. +Snores. 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 Discussed with pt for further follow up with PCP. ? ADIEL Allergies: No Known Allergies Home Meds: No current facility-administered medications on file prior to encounter. No current outpatient medications on file prior to encounter. PMH: Past Medical History: Diagnosis Date ??? IBS (irritable bowel syndrome) ??? PNA (pneumonia) ??? Prolapse of intestine BOWEL, BLADDER, VAGINAL WALL PROLAPSE ??? RA (rheumatoid arthritis) (CMS/HCC) ??? Wears glasses PSH: Past Surgical History: Procedure Laterality Date ??? APPENDECTOMY ??? BUNIONECTOMY Bilateral BIG TOES ??? CHOLECYSTECTOMY ??? COLONOSCOPY ??? HYSTERECTOMY PARTIAL ??? INCISION AND DRAINAGE OF WOUND POST APPENDECTOMY ??? SALPINGO OOPHORECTOMY Social History: Tobacco: Social History Tobacco Use Smoking Status Never Smoker Smokeless Tobacco Never Used Alcohol: Social History Substance and Sexual Activity Alcohol Use Not Currently Comment: ONCE/YR CATRACHITO Vitals: BP 141/93 (BP Location: Right arm, Patient Position: Sitting) Pulse 77 Temp 97.9 ??F (36.6 ??C)(Temporal) Resp 18 SpO2 96% No Physical Exam: General Appearance: Alert, cooperative, no distress, appears stated age Head: Normocephalic, without obvious abnormality, atraumatic Lungs: Clear to auscultation bilaterally, respirations unlabored Heart: Regular rate and rhythm, S1 and S2 normal, no murmur, rub or gallop Abdomen: Soft, nontender. +bowel sounds Breast Exam: deferred Genitalia: deferred Extremities: Extremities normal, atraumatic, no cyanosis or edema Skin: Skin color, texture, turgor normal, no rashes or lesions Neurologic: Grossly intact Results Review LABS: Lab Results Component Value Date WBC 4.53 12/17/2019 HGB 14.7 12/17/2019 HCT 45.4 12/17/2019 MCV 88.2 12/17/2019 PLT 324 12/17/2019 GLUCOSE 95 12/17/2019 BUN 12 12/17/2019 CREATININE 0.76 12/17/2019 EGFRIFNONA 81 12/17/2019 NA 144 12/17/2019 K 3.7 12/17/2019 CL 102 12/17/2019 CO2 29.0 12/17/2019 CALCIUM 9.3 12/17/2019 RADIOLOGY: Imaging Results (Last 72 Hours) No results found for the last 72 hours. I reviewed the patient's new clinical results. Cancer Staging (if applicable) Cancer Patient: __ yes _x_no __unknown; If yes, clinical stage T:__ N:__M:__, stage group or __N/A Impression/Plan: 1. Vaginal vault prolapse ??? robotic sacrocolpopexy w/mesh insertion (SURG) 2. Urge incontinence of urine Discussion Note Long discussion with the patient robotic-assisted laparoscopic Sacral colpopexy. We talked about potential risks of the procedure procedure including the use of pelvic mesh. Patient understands this and wishes to proceed. Kerri Mason APRN 12/19/2019 12:33 Cosigned by Herve Marshall Jr., MD at 12/19/2019 2:16 PM EDT Associated attestation - Herve Marshall Jr., MD - 12/19/2019 2:16 PM EDT agree documented in this encounter Nursing Notes * Iqra Hernandez RN - 12/20/2019 4:45 PM EDT Problem: Patient Care Overview Goal: Plan of Care Review Flowsheets Taken 12/20/2019 1644 Progress: improving Outcome Summary: Pt ambulating and using IS. Tolerating diet and passing gas. VSS, room air. Discharge home today. Taken 12/20/2019 0850 Plan of Care Reviewed With: patient * Iqra Hernandez RN - 12/20/2019 9:40 AM EDT Pt's daughter Sheryl called nurses station. Updated her on the pt's current status and plan, and hopeful discharge later today. * Vandana Canas RN - 12/20/2019 3:24 AM EDT Patient's VSS, UOP adequate. Pain being controlled with PO & IV pain medication. No c/o nausea.Vaginal packing in place. SCD's in place. Chewing gum, using IS as directed. Bedrest until AM. Tolerating clear liquid diet. 2L NC while sleeping. NSR on telemetry. documented in this encounter OR Notes * Op Note - Herve Marshall Jr., MD - 12/19/2019 2:47 PM EDT SACROCOLPOPEXY LAPAROSCOPIC WITH DAVINCI ROBOT Procedure Note Florencia Mai 12/19/2019 Pre-op Diagnosis: Vaginal prolapse Post-op Diagnosis: Vaginal prolapse Procedure/CPT?? Codes: Procedure(s): ROBOTIC SACROCOLPOPEXY WITH RIGHT URETERoLYSIS Surgeon(s): Herve Marshall Jr., MD Anesthesia: General with Block Staff: Metal Fabricator Helper: Selena Hilliard RN Scrub Person: Liane Garcia Brandie Salon Professional: Helen Webb PCT Still Pump Operator: Carlos Pate PA Estimated Blood Loss: <500ml Urine Voided: * No values recorded between 12/19/2019 2:27 PM and 12/19/2019 3:47 PM * Specimens: None Drains: Urethral Catheter Silicone 16 Fr. (Active) Findings: Vaginal prolapse with difficult to identify right ureter necessitating right ureteral lysis to avoid injury to the ureter during our sacrocolpopexy dissection. Complications: None History: 49-year-old female with symptomatic vaginal prolapse. She wishes to proceed with surgical repair understanding the options for management of symptomatic vaginal prolapse. She wishes to proceed with robotic assisted laparoscopic sacrocolpopexy understanding the risks and benefits therein and giving her full consent. Operative Report: After consent is obtained the patient's brought to the operating suite where she is placed in the supine position. Anesthesia is induced without difficulty. She is placed in dorsolithotomy position padding all pressure points. When she was sterilely prepped and draped in normal fashion a Veress needle technique was used at the umbilicus to create pneumoperitoneum. Because of herprevious midline incisions we entered the abdomen in the left lower quadrant using a Visiport 8 mm.There were some omental adhesions in the midline that were taken down sharply. Under direct vision then the remainder of the robotic and refinery operator assistant trochars were placed. The patient was placed in steep Trendelenburg position and the robot is docked. There were some adhesions to the sigmoid colon in the pelvis that were easily taken down sharply and then the sigmoid colon and bowels were reflected out of the pelvis easily. We identified the sacral promontory and opened our posterior peritoneum overlying the anterior spinal ligament. At this point we had not identified our right ureter and thus w e performed ureteral lysis down to the level of the ureterovesical junction. Identifying her ureterwe isolated the ureter so that we would not incorporate this into our sacrocolpopexy dissection. Weperformed extensive ureteral lysis from just above the vessels down to the ureterovesical junction.At this point a vaginal retractor was placed in the vagina identifying the apex of the vagina. We were able to dissect in the space posterior to the bladder anterior to the vagina without difficulty.We fashioned our Y mesh to fit the apex of the vagina and the anterior limb was secured to the anterior vagina at the apex using Fertile- Michael suture. Posterior limb was secured to the posterior vagina atthe apex using Oratec suture. Single arm of the mesh was then secured to the anterior spinal ligament taking care not to injure her ureter which was easily seen thanks to her ureteral lysis using Fertile-Michael suture. Excess mesh was excised. We then extraperitonealizing the mesh by closing her posterior peritoneum carefully to not include our ureter in the closure. This was performed using a V lock suture. Once our mesh was air extra peritonealized robot is undocked and under laparoscopic guidance we removed all of our trochars. Vaginal pack with estrogen cream was placed into the vagina. Anesthesia was reversed. Our incisions were irrigated and closed subcutaneously using 3-0 Vicryl and skin using Dermabond. Patient was taken the recovery room in stable condition. Herve Marshall Jr., MD Date: 12/19/2019 Time: 15:47 documented in this encounter Plan of Treatment Upcoming Encounters Date Type Department Care Team (Late st Contact Info) Description 07/10/2024 3:15 PM EST Office Visit [facility]Y [address] [facility] [address] [place] [address] Stuart White APRN [address] [facility] [address] [place] [address] documented as of this encounter Procedures Procedure Name Priority Date/Time Associated Diagnosis Comments CBC WITH AUTO DIFFERENTIAL Routine 12/20/2019 8:02 AM EDT CBC AND DIFFERENTIAL Routine 12/20/2019 8:02 AM EDT BASIC METABOLIC PANEL Routine 12/20/2019 8:02 AM EDT SACROCOLPOPEXY LAPAROSCOPIC WITH DAVINCI ROBOT 12/19/2019 2:12 PM EDT Special Needs * SCANNED - TELEMETRY 12/19/2019 documented in this encounter Results * (ABNORMAL) CBC Auto Differential (12/20/2019 8:02 AM EDT) WBC 6.07 3.40 - 10.80 10*3/mm3 12/20/2019 8:50 AM EDT [facility] RBC 4.78 3.77 - 5.28 10*6/mm3 12/20/2019 8:50 AM EDT [facility] Hemoglobin 13.4 12.0 - 15.9 g/dL 12/20/2019 8:50 AM EDT [facility] Hematocrit 43.1 34.0 - 46.6 % 12/20/2019 8:50 AM EDT [facility] MCV 90.2 79.0 - 97.0 fL 12/20/2019 8:50 AM EDT [facility] MCH 28.0 26.6 - 33.0 pg 12/20/2019 8:50 AM EDT [facility] MCHC 31.1(L) 31.5 - 35.7 g/dL 12/20/2019 8:50 AM EDT [facility] RDW 12.8 12.3 - 15.4 % 12/20/2019 8:50 AM [facility] RDW-SD 42.1 37.0 - 54.0 fl 12/20/2019 8:50 AM [facility] MPV 8.6 6.0 - 12.0 fL 12/20/2019 8:50 AM [facility] Platelets 321 140 - 450 10*3/mm3 12/20/2019 8:50 AM [facility] Neutrophil % 79.3(H) 42.7 - 76.0 % 12/20/2019 8:50 AM [facility] Lymphocyte % 11.0(L) 19.6 - 45.3 % 12/20/2019 8:50 AM [facility] Monocyte % 5.9 5.0 - 12.0 % 12/20/2019 8:50 AM [facility] Eosinophil % 3.1 0.3 - 6.2 % 12/20/2019 8:50 AM [facility] Basophil % 0.2 0.0 - 1.5 % 12/20/2019 8:50 AM [facility] Immature Grans % 0.5 0.0 - 0.5 % 12/20/2019 8:50 AM [facility] Neutrophils, Absolute 4.81 1.70 - 7.00 10*3/mm3 12/20/2019 8:50 AM [facility] Lymphocytes, Absolute 0.67(L) 0.70 - 3.10 10*3/mm3 12/20/2019 8:50 AM [facility] Monocytes, Absolute 0.36 0.10 - 0.90 10*3/mm3 12/20/2019 8:50 AM [facility] Eosinophils, Absolute 0.19 0.00 - 0.40 10*3/mm3 12/20/2019 8:50 AM [facility] Basophils, Absolute 0.01 0.00 - 0.20 10*3/mm3 12/20/2019 8:50 AM [facility] Immature Grans, Absolute 0.03 0.00 - 0.05 10*3/mm3 12/20/2019 8:50 AM EDT [facility] nRBC 0.0 0.0 - 0.2 /100 WBC 12/20/2019 8:50 AM EDT [facility] Blood Venipuncture / Unknown 12/20/2019 8:02 AM EDT 12/20/2019 8:37 AM EDT Boo Ag MD LAB BLOOD ORDERABLES Final Result [facility]
[address] [place] [address], * (ABNORMAL) Basic Metabolic Panel (12/20/2019 8:02 AM EDT) Glucose 101(H) 65 - 99 mg/dL 12/20/2019 9:13 AM EDT [facility] BUN 11 6 - 20 mg/dL 12/20/2019 9:13 AM EDT [facility] Creatinine 0.65 0.57 - 1.00 mg/dL 12/20/2019 9:13 AM EDT [facility] Sodium 143 136 - 145 mmol/L 12/20/2019 9:13 AM EDT [facility] Potassium 3.8 3.5 - 5.2 mmol/L 12/20/2019 9:13 AM EDT [facility] Chloride 104 98 - 107 mmol/L 12/20/2019 9:13 AM EDT [facility] CO2 29.0 22.0 - 29.0 mmol/L 12/20/2019 9:13 AM EDT [facility] Calcium 8.4(L) 8.6 - 10.5 mg/dL 12/20/2019 9:13 AM EDT [facility] eGFR Non Amer 97 >60 mL/min/1.7 3 12/20/2019 9:13 AM EDT [facility] BUN/Creatinine Ratio 16.9 7.0 - 25.0 12/20/2019 9:13 AM EDT [facility] Anion Gap 10.0 5.0 - 15.0 mmol/L 12/20/2019 9:13 AM EDT [facility] Blood Venipuncture / Unknown 12/20/2019 8:02 AM EDT 12/20/2019 8:37 AM EDT Narrative [facility] - 12/20/2019 9:13 AM EDT GFR Normal >60 Chronic Kidney Disease <60 Kidney Failure <15 oBo Ag MD LAB BLOOD ORDERABLES Final Result [facility]
[address] [place] [address], * SCANNED - TELEMETRY (12/19/2019) Anatomical Region Laterality Modality Other [facility] ECG ORDERABLES Final Result * XR Chest PA & Lateral (12/17/2019 10:33 AM EDT) Anatomical Region Laterality Modality Body, Chest N/A Radiographic Anne ging 12/17/2019 10:3 8 AM EDT Impressions 12/18/2019 10:57 AM EDT Pulmonary venous hypertension and evidence of old granulomatous disease. D: ??12/17/2019 E: ??12/18/2019 ?? This report was finalized on 12/18/2019 10:[address] Bartolome Walter MD. Narrative 12/18/2019 10:57 AM EDT EXAMINATION: XR CHEST PA AND LATERAL- 12/17/2019 INDICATION: Pre-Op Evaluation; [id number] (primary) hypertension COMPARISON: NONE FINDINGS: Heart shadow is in the upper range of normal size. Vasculature appears cephalized but there is no evidence of overt pulmonary edema. Lungs are moderately well-expanded and appear grossly clear. Lateral view shows a few granulomatous calcifications in the anterior chest. Procedure Note Bartolome Walter MD - 12/18/2019 EXAMINATION: XR CHEST PA AND LATERAL- 12/17/2019 INDICATION: Pre-Op Evaluation; [id number] (primary) hypertension COMPARISON: NONE FINDINGS: Heart shadow is in the upper range of normal size. Vasculature appears cephalized but there is no evidence of overt pulmonary edema. Lungs are moderately well-expanded and appear grossly clear. Lateral view shows a few granulomatous calcifications in the anterior chest. IMPRESSION: Pulmonary venous hypertension and evidence of old granulomatous disease. E: 12/18/2019 This report was finalized on 12/18/2019 10:[address] Bartolome Walter MD. Herve Marshall Jr., MD IMG DIAGNOSTIC IMAG ING ORDERABLES Final Result * (ABNORMAL) Urinalysis without microscopic (no culture) - Urine, Clean Catch (12/17/2019 9:42 AM EDT) Color, UA Yellow Yellow, Straw 12/17/2019 10:11 AM EDT [facility] Appearance, UA Clear Clear 12/17/2019 10:11 AM EDT [facility] pH, UA 8.0 5.0 - 8.0 12/17/2019 10:11 AM EDT [facility] Specific [place], UA 1.012 1.001 - 1.030 12/17/2019 10:11 AM EDT [facility] Glucose, UA Negative Negative 12/17/2019 10:11 AM EDT [facility] Ketones, UA Negative Negative 12/17/2019 10:11 AM EDT [facility] Bilirubin, UA Negative Negative 12/17/2019 10:11 AM EDT [facility] Blood, UA Negative Negative 12/17/2019 10:11 AM EDT [facility] Protein, UA Negative Negative 12/17/2019 10:11 AM EDT [facility] Leuk Esterase, UA Moderate (2+)(A) Negative 12/17/2019 10:11 AM EDT [facility] Nitrite, UA Negative Negative 12/17/2019 10:11 AM EDT [facility] Urobilinogen, UA 0.2 E.U./dL 0.2 - 1.0 E.U./dL 12/17/2019 10:11 AM EDT [facility] Urine Urine specimen collection, clean catch / Unknown Collection / Unknown 12/17/2019 9:42 AM EDT 12/17/2019 10:07 AM EDT Herve Marshall Jr., MD URINE ORDERABLES Fi nal Result [facility]
[address] [place] [address], * Basic Metabolic Panel (12/17/2019 9:42 AM EDT) Glucose 95 65 - 99 mg/dL 12/17/2019 10:14 AM EDT [facility] BUN 12 6 - 20 mg/dL 12/17/2019 10:14 AM EDT [facility] Creatinine 0.76 0.57 - 1.00 mg/dL 12/17/2019 10:14 AM EDT [facility] Sodium 144 136 - 145 mmol/L 12/17/2019 10:14 AM EDT [facility] Potassium 3.7 3.5 - 5.2 mmol/L 12/17/2019 10:14 AM EDT [facility] Chloride 102 98 - 107 mmol/L 12/17/2019 10:14 AM EDT [facility] CO2 29.0 22.0 - 29.0 mmol/L 12/17/2019 10:14 AM EDT [facility] Calcium 9.3 8.6 - 10.5 mg/dL 12/17/2019 10:14 AM EDT [facility] eGFR Non Amer 81 >60 mL/min/1.7 3 12/17/2019 10:14 AM EDT [facility] BUN/Creatinine Ratio 15.8 7.0 - 25.0 12/17/2019 10:14 AM EDT [facility] Anion Gap 13.0 5.0 - 15.0 mmol/L 12/17/2019 10:14 AM EDT [facility] Blood Venipuncture / Unknown 12/17/2019 9:42 AM EDT 12/17/2019 9:50 AM EDT [facility] - 12/17/2019 10:14 AM EDT GFR Normal >60 Chronic Kidney Disease <60 Kidney Failure <15 Herve Marshall Jr., MD LAB BLOOD ORDERABLE S Final Result [facility]
[address] [place] [address], * CBC (No Diff) (12/17/2019 9:42 AM EDT) WBC 4.53 3.40 - 10.80 10*3/mm3 12/17/2019 10:10 AM EDT [facility] RBC 5.15 3.77 - 5.28 10*6/mm3 12/17/2019 10:10 AM EDT [facility] Hemoglobin 14.7 12.0 - 15.9 g/dL 12/17/2019 10:10 AM EDT [facility] Hematocrit 45.4 34.0 - 46.6 % 12/17/2019 10:10 AM EDT [facility] MCV 88.2 79.0 - 97.0 fL 12/17/2019 10:10 AM EDT [facility] MCH 28.5 26.6 - 33.0 pg 12/17/2019 10:10 AM EDT [facility] MCHC 32.4 31.5 - 35.7 g/dL 12/17/2019 10:10 AM EDT [facility] RDW 12.8 12.3 - 15.4 % 12/17/2019 10:10 AM EDT [facility] RDW-SD 41.2 37.0 - 54.0 fl 12/17/2019 10:10 AM EDT [facility] MPV 8.5 6.0 - 12.0 fL 12/17/2019 10:10 AM EDT [facility] Platelets 324 140 - 450 10*3/mm3 12/17/2019 10:10 AM EDT [facility] Blood Venipuncture / Unknown 12/17/2019 9:42 AM EDT 12/17/2019 9:50 AM EDT Herve Marshall Jr., MD LAB BLOOD ORDERABLE S Final Result [facility]
[address] [place] [address], documented in this encounter Visit Diagnoses Not on filedocumented in this encounter Admitting Diagnoses Diagnosis Hypertension Unspecified essential hypertension documented in this encounter Administered Medications Inactive Administered Medications - up to 3 most recent administrations Medication Order MAR Action Action Date Dose Rate Site acetaminophen (TYLENOL) 160 MG/5ML solution 650 mg 650 mg, Oral, Every 6 Hours Scheduled, First dose on Wed12/19/19 at 1800, For 48 hours acetaminophen (TYLENOL) suppository 650 mg 650 mg, Rectal, Every 6 Hours Scheduled, First dose on Wed12/19/19 at 1800, For 48 hours acetaminophen (TYLENOL) tablet 1,000 mg 1,000 mg, Oral, Once, On Wed12/19/19 at 1147, For 1 dose, Do not exceed 4 grams of acetaminophen in a 24 hr period. If given for pain, use the following pain scale: Mild Pain = Pain Score of 1-3, CPOT 1-2 Moderate Pain = Pain Score of 4-6, CPOT 3-4 Severe Pain = Pain Score of 7-10, CPOT 5-8 Given 12/19/2019 12:36 PM EDT 1,000 mg acetaminophen (TYLENOL) tablet 650 mg 650 mg, Oral, Every 6 Hours Scheduled, First dose on Wed12/19/19 at 1800, For 48 hours, Indications: PainIndications:Pain Given 12/20/2019 1:00 PM EDT 650 mg Given 12/20/2019 4:39 AM EDT 650 mg Given 12/19/2019 11:49 PM EDT 650 mg ceFOXitin (MEFOXIN) 2 g/50 mL 0.9% NS IVPB (MBP) 2 g, Intravenous, Administer over 30 Minutes, Every 8 Hours, First dose on Wed12/19/19 at 2200, For 2 doses, Caution: Look alike/sound alike drug alert. Break seal and mix to activiate vial before use., Indications: Surgical ProphylaxisIndications:Surgical Prophylaxis Given 12/20/2019 4:39 AM EDT 2 g Given 12/19/2019 8:39 PM EDT 2 g conjugated estrogens (PREMARIN) vaginal cream As Needed, Starting on Wed12/19/19 at 1550 Given 12/19/2019 3:50 PM EDT 1 g docusate sodium (COLACE) capsule 100 mg 100 mg, Oral, 2 Times Daily PRN, Constipation, Starting on Wed12/19/19 at 1656, Swallow whole. Do not open, crush, or chew capsule. Given 12/19/2019 8:36 PM EDT 100 mg DULoxetine (CYMBALTA) DR capsule 30 mg 30 mg, Oral, Daily, First dose on Wed12/19/19 at 1554, Caution: Look alike/sound alike drug alert Do not crush or chew capsule. Given 12/20/2019 8:50 AM EDT 30 mg Given 12/19/2019 6:00 PM EDT 30 mg enoxaparin (LOVENOX) syringe 40 mg 40 mg, Subcutaneous, Daily, First dose on Wed12/20/19 at 0900, Give subcutaneous in abdomen only. Do not massage site after injection., Indications: VTE ProphylaxisIndications:VTE Prophylaxis Given 12/20/2019 8:50 AM EDT 40 mg Right Lower Abdomen famotidine (PEPCID) tablet 20 mg 20 mg, Oral, 60 Minutes Pre-Op, Starting on Wed12/19/19 at 1145 Given 12/19/2019 12:36 PM EDT 20 mg fentaNYL citrate (PF) (SUBLIMAZE) injection 50 mcg 50 mcg, Intravenous, Every 5 Minutes PRN, Moderate Pain, Starting on Wed12/19/19 at 1553, For 5 doses, If given for pain, use the following pain scale: Mild Pain = Pain Score of 1-3, CPOT 1-2 Moderate Pain = Pain Score of 4-6, CPOT 3-4 Severe Pain = Pain Score of 7-10, CPOT 5-8 Given 12/19/2019 4:45 PM EDT 50 mcg Given 12/19/2019 4:30 PM EDT 50 mcg gabapentin (NEURONTIN) capsule 100 mg 100 mg, Oral, 3 Times Daily, First dose on Wed12/19/19 at 1658, For 48 hours, {ELICEO} Given 12/20/2019 8:50 AM EDT 100 mg Given 12/19/2019 8:35 PM EDT 100 mg Given 12/19/2019 6:01 PM EDT 100 mg gabapentin (NEURONTIN) capsule 600 mg 600 mg, Oral, Once, On Wed12/19/19 at 1147, For 1 dose, {ELICEO} Given 12/19/2019 12:36 PM EDT 600 mg HYDROmorphone (DILAUDID) injection 0.5 mg 0.5 mg, Intravenous, Every 2 Hours PRN, Severe Pain, Starting on Wed12/19/19 at 1656, For 10 days, {ELICEO} Caution: Look alike/sound alike drug alert If given for pain, use the following pain scale: Mild Pain = Pain Score of 1-3, CPOT 1-2 Moderate Pain = Pain Score of 4-6, CPOT 3-4 Severe Pain = Pain Score of 7-10, CPOT 5-8 Given 12/19/2019 11:49 PM EDT 0.5 mg Given 12/19/2019 6:01 PM EDT 0.5 mg lactated ringers infusion 9 mL/hr, Intravenous, Continuous PRN, Start Prior to Surgery, Starting on Wed12/19/19 at 1145 New Bag 12/19/2019 3:32 PM EDT Currently Infusing 12/19/2019 2:24 PM EDT New Bag 12/19/2019 12:35 PM EDT 9 mL/hr 9 mL/hr lidocaine PF 1% (XYLOCAINE) injection 0.5 mL 0.5 mL, Injection, Once As Needed, IV Start, Starting on Wed12/19/19 at 1145, For 1 dose Given 12/19/2019 12:35 PM EDT 0.2 mL meloxicam (MOBIC) tablet 15 mg 15 mg, Oral, Once, On Wed12/19/19 at 1147, For 1 dose, Do not give if CrCl < 15 mL/min If given for pain, use the following pain scale: Mild Pain = Pain Score of 1-3, CPOT 1-2 Moderate Pain = Pain Score of 4-6, CPOT 3-4 Severe Pain = Pain Score of 7-10, CPOT 5-8 Given 12/19/2019 12:36 PM EDT 15 mg naloxone (NARCAN) injection 0.1 mg 0.1 mg, Intravenous, Every 5 Minutes PRN, Respiratory Depression, Starting on Wed12/19/19 at 1656, If respiratory rate is less than 8 breaths/minute or patient is difficult to arouse stop any narcotics and contact physician. Administer slow IV push. Repeat as ordered until patient's respiratory rate is greater than 12 breaths/minute. ondansetron (ZOFRAN) injection 4 mg 4 mg, Intravenous, Every 6 Hours PRN, Nausea, Vomiting, Starting on Wed12/19/19 at 1656, Give Zofran first. Give Phenergan if Zofran not effective. Then if Phenergan not effective, give metoclopramide. ondansetron (ZOFRAN) tablet 4 mg 4 mg, Oral, Every 6 Hours PRN, Nausea, Vomiting, Starting on Wed12/19/19 at 1656, Give Zofran first. Give Phenergan if Zofran not effective. Then if Phenergan not effective, give metoclopramide. oxyCODONE (ROXICODONE) immediate release tablet 5 mg 5 mg, Oral, Every 4 Hours PRN, Moderate Pain, Starting on Wed12/19/19 at 1656, For 10 days, {ELICEO} If given for pain, use the following pain scale: Mild Pain = Pain Score of 1-3, CPOT 1-2 Moderate Pain = Pain Score of 4-6, CPOT 3-4 Severe Pain = Pain Score of 7-10, CPOT 5-8 Given 12/20/2019 2:13 PM EDT 5 mg Given 12/20/2019 8:50 AM EDT 5 mg Given 12/20/2019 4:48 AM EDT 5 mg pantoprazole (PROTONIX) EC tablet 40 mg 40 mg, Oral, Every Living Nurse, First dose on Wed12/20/19 at 0600, Swallow whole; do not crush, split, or chew. Given 12/20/2019 4:40 AM EDT 40 mg Scopolamine (TRANSDERM-SCOP) 1.5 MG/3DAYS patch 1 patch 1 patch, Transdermal, Administer over 72 Hours, Continuous, Starting on Wed12/19/19 at 1147, For 72 hours, DO NOT apply if patient age is > 65 years or history of glaucoma {BKC} Medication Applied 12/19/2019 12:36 PM EDT 1 patch Behind Left Ear sodium chloride 0.9 % solution As Needed, Starting on Wed12/19/19 at 1447 Given 12/19/2019 2:47 PM EDT 1,000 mL Abdominal Cavity sodium chloride 0.9 % with KCl 20 mEq/L infusion 100 mL/hr, Intravenous, Continuous, Starting on Wed12/19/19 at 1658 New Bag 12/20/2019 4:41 AM EDT 100 mL/hr 100 mL/hr Currently Infusing 12/20/2019 4:30 AM EDT 100 mL/hr 100 m L/hr Currently Infusing 12/20/2019 2:24 AM EDT 100 mL/hr 100 m L/hr sterile water irrigation solution As Needed, Starting on Wed12/19/19 at 1447 Given 12/19/2019 2:47 P M EDT 1,000 mL Tofacitinib Citrate ER (XELJANZ) extended release tablet 11 mg -- PATIENT SUPPLIED MEDICATION 11 mg, Oral, Daily, First dose on Wed12/19/19 at 2000, Drug Name: Tofacitinib Citrate ER (Xeljanz XR) Given 12/20/2019 8:50 AM EDT 11 mg Given 12/19/2019 7:23 PM EDT 11 mg documented in this encounter Active and Recently Administered Medications Times are shown in EDT. Scheduled Medication Order 12/18/2019 12/19/2019 12/20/2019 acetaminophen (TYLENOL) 160 MG/5ML solution 650 mg(Linked Group 1) 650 mg, Oral, Every 6 Hours Scheduled, First dose on Wed12/19/19 at 1800, For 48 hours 1800 (Not Given: See Alt - Provider: Maddy Martinez RN)2349 (Not Given: See Alt - Provider: Vandana Canas RN) 0439 (Not Given: See Alt - Provider: Vandana Canas RN)0600 (Not Given: See Alt - Provider: Vandana Canas RN)1300 (Not Given: See Alt - Provider: Iqra Hernandez RN) acetaminophen (TYLENOL) suppository 650 mg(Linked Group 1) 650 mg, Rectal, Every 6 Hours Scheduled, First dose on Wed12/19/19 at 1800, For 48 hours 1800 (Not Given: See Alt - Provider: Maddy Martinez RN)2349 (Not Given: See Alt - Provider: Vandana Canas RN) 0439 (Not Given: See Alt - Provider: Vandana Canas RN)0600 (Not Given: See Alt - Provider: Vandana Canas RN)1300 (Not Given: See Alt - Provider: Iqra Hernandez RN) acetaminophen (TYLENOL) tablet 1,000 mg (COMPLETED) 1,000 mg, Oral, Once, On Wed12/19/19 at 1147, For 1 dose, Do not exceed 4 grams of acetaminophen in a 24 hr period. If given for pain, use the following pain scale: Mild Pain = Pain Score of 1-3, CPOT 1-2 Moderate Pain = Pain Score of 4-6, CPOT 3-4 Severe Pain = Pain Score of 7-10, CPOT 5-8 1236 (Given - Provider: Tanya Aguirre RN) acetaminophen (TYLENOL) tablet 650 mg(Linked Group 1) 650 mg, Oral, Every 6 Hours Scheduled, First dose on Wed12/19/19 at 1800, For 48 hours, Indications: Pain 1800 (Given - Provider: Maddy Martinez RN)2349 (Given - Provider: Vandana Canas RN) 0439 (Given - Provider: Vandana Canas RN)0600 (Canceled Entry - Provider: Vandana Canas RN)1300 (Given - Provider: Iqra Hernandez RN) ceFOXitin (MEFOXIN) 2 g/50 mL 0.9% NS IVPB (MBP) (COMPLETED) 2 g, Intravenous, Administer over 30 Minutes, Once, On Wed12/19/19 at 1151, For 1 dose, Caution: Look alike/sound alike drug alert. Break seal and mix to activiate vial before use., Indications: Surgical Prophylaxis 1432 (Given - Provider: Ck Andrea CRNA) ceFOXitin (MEFOXIN) 2 g/50 mL 0.9% NS IVPB (MBP) (COMPLETED) 2 g, Intravenous, Administer over 30 Minutes, Every 8 Hours, First dose on Wed12/19/19 at 2200, For 2 doses, Caution: Look alike/sound alike drug alert. Break seal and mix to activiate vial before use., Indications: Surgical Prophylaxis 2038 (Given - Provider: Vandana Canas, RN)2315 (Canceled Entry - Provider: Vandana Canas RN - Comment: already given) 0439 (Given - Provider: Vandana Canas, RN)0600 (Canceled Entry - Provider: Vandana Canas RN) DULoxetine (CYMBALTA) DR capsule 30 mg 30 mg, Oral, Daily, First dose on Wed12/19/19 at 1554, Caution: Look alike/sound alike drug alert Do not crush or chew capsule. 1800 (Given - Provider: Maddy Martinez RN) 0850 (Given - Provider: Iqra Hernandez, RN) enoxaparin (LOVENOX) syringe 40 mg 40 mg, Subcutaneous, Daily, First dose on Wed12/20/19 at 0900, Give subcutaneous in abdomen only. Do not massage site after injection., Indications: VTE Prophylaxis 0850 (Given - Provid er: Iqra Hernandez RN) famotidine (PEPCID) tablet 20 mg (CANCELED) 20 mg, Oral, 60 Minutes Pre-Op, Starting on Wed12/19/19 at 1145 1236 (Given - Provider: Tanya Aguirre, BRIANDA) gabapentin (NEURONTIN) capsule 100 mg 100 mg, Oral, 3 Times Daily, First dose on Wed12/19/19 at 1658, For 48 hours, {ELICEO} 1801 (Given - Provider: Maddy Martinez RN)2035 (Given - Provider: Vandana Canas, BRIANDA) 0850 (Given - Provider: Iqra Hernandez, BRIANDA)1600 (Due) gabapentin (NEURONTIN) capsule 600 mg (COMPLETED) 600 mg, Oral, Once, On Wed12/19/19 at 1147, For 1 dose, {ELICEO} 1236 (Given - Provider: Tanya Aguirre, BRIANDA) meloxicam (MOBIC) tablet 15 mg (COMPLETED) 15 mg, Oral, Once, On Wed12/19/19 at 1147, For 1 dose, Do not give if CrCl < 15 mL/min If given for pain, use the following pain scale: Mild Pain = Pain Score of 1-3, CPOT 1-2 Moderate Pain = Pain Score of 4-6, CPOT 3-4 Severe Pain = Pain Score of 7-10, CPOT 5-8 1236 (Given - Provider: Tanya Aguirre, RN) pantoprazole (PROTONIX) EC tablet 40 mg 40 mg, Oral, Every Living Nurse, First dose on Wed12/20/19 at 0600, Swallow whole; do not crush, split, or chew. 0440 (Given - Provid er: Vandana Canas, BRIANDA)0600 (Canceled Entry - Provider: Vandana Canas, BRIANDA) Tofacitinib Citrate ER (XELJANZ) extended release tablet 11 mg -- PATIENT SUPPLIED MEDICATION 11 mg, Oral, Daily, First dose on Wed12/19/19 at 2000, Drug Name: Tofacitinib Citrate ER (Xeljanz XR) 1923 (Given - Provider: Maddy Martinez RN) 0850 (Given - Provider: Iqra Hernandez RN) Continuous Medication Order 12/18/2019 12/19/2019 12/20/2019 Scopolamine (TRANSDERM-SCOP) 1.5 MG/3DAYS patch 1 patch 1 patch, Transdermal, Administer over 72 Hours, Continuous, Starting on Wed12/19/19 at 1147, For 72 hours, DO NOT apply if patient age is > 65 years or history of glaucoma {BKC} 1236 (Medication Applied - Provider: Tanya Aguirre, BRIANDA) 1757 (Due: Medication Removed - Provider: Automatic Discharge Provider - Comment: Time automatically adjusted from order being discontinued) sodium chloride 0.9 % with KCl 20 mEq/L infusion 100 mL/hr, Intravenous, Continuous, Starting on Wed12/19/19 at 1658 1800 (New Bag - Provider: Maddy Martinez RN)202 (Currently Infusing - Provider: Vandana Canas, BRIANDA)2315 (Currently Infusing - Provider: Vandana Canas, BRIANDA) 0224 (Currently Infusing - Provider: Vandana Canas, RN)0430 (Currently Infusing - Provider: Vandana Canas, RN)0441 (New Bag - Provider: Vandana Canas, BRIANDA)0642 (Transferred to External Facility - Provider: Vandana Canas RN) PRN Medication Order 12/18/2019 12/19/2019 12/20/2019 conjugated estrogens (PREMARIN) vaginal cream (CANCELED) As Needed, Starting on Wed12/19/19 at 1550 1550 (Given - Provider: Herve Marshall Jr., MD - Comment: vagina) docusate sodium (COLACE) capsule 100 mg 100 mg, Oral, 2 Times Daily PRN, Constipation, Starting on Wed12/19/19 at 1656, Swallow whole. Do not open, crush, or chew capsule. 2035 (Given - Provider: Vandana Canas RN) fentaNYL citrate (PF) (SUBLIMAZE) injection 50 mcg (CANCELED) 50 mcg, Intravenous, Every 5 Minutes PRN, Moderate Pain, Starting on Wed12/19/19 at 1553, For 5 doses, If given for pain, use the following pain scale: Mild Pain = Pain Score of 1-3, CPOT 1-2 Moderate Pain = Pain Score of 4-6, CPOT 3-4 Severe Pain = Pain Score of 7-10, CPOT 5-8 1630 (Given - Provider: Aguilar Wynne RN)1645 (Given - Provider: Aguilar Wynne RN) HYDROmorphone (DILAUDID) injection 0.5 mg(Linked Group 2) 0.5 mg, Intravenous, Every 2 Hours PRN, Severe Pain, Starting on Wed12/19/19 at 1656, For 10 days, {ELICEO} Caution: Look alike/sound alike drug alert If given for pain, use the following pain scale: Mild Pain = Pain Score of 1-3, CPOT 1-2 Moderate Pain = Pain Score of 4-6, CPOT 3-4 Severe Pain = Pain Score of 7-10, CPOT 5-8 1801 (Given - Provider: Maddy Martinez RN)3779 (Given - Provider: Vandana Canas RN) lactated ringers infusion 9 mL/hr, Intravenous, Continuous PRN, Start Prior to Surgery, Starting on Wed12/19/19 at 1145 1235 (New Bag - Provider: Tanya Aguirre RN)1424 (Currently Infusing - Provider: Ck Andrea CRNA)1532 (New Bag - Provider: Ck Andrea CRNA)1547 (Anesthesia Volume Adjustment - Provider: Ck Andrea CRNA)1935 (Stopped - Provider: Vandana Canas RN) lidocaine PF 1% (XYLOCAINE) injection 0.5 mL (COMPLETED) 0.5 mL, Injection, Once As Needed, IV Start, Starting on Wed12/19/19 at 1145, For 1 dose 1235 (Given - Provider: Tanya Aguirre RN) naloxone (NARCAN) injection 0.1 mg(Linked Group 2) 0.1 mg, Intravenous, Every 5 Minutes PRN, Respiratory Depression, Starting on Wed12/19/19 at 1656, If respiratory rate is less than 8 breaths/minute or patient is difficult to arouse stop any narcotics and contact physician. Administer slow IV push. Repeat as ordered until patient's respiratory rate is greater than 12 breaths/minute. ondansetron (ZOFRAN) injection 4 mg(Linked Group 3) 4 mg, Intravenous, Every 6 Hours PRN, Nausea, Vomiting, Starting on Wed12/19/19 at 1656, Give Zofran first. Give Phenergan if Zofran not effective. Then if Phenergan not effective, give metoclopramide. ondansetron (ZOFRAN) tablet 4 mg(Linked Group 3) 4 mg, Oral, Every 6 Hours PRN, Nausea, Vomiting, Starting on Wed12/19/19 at 1656, Give Zofran first. Give Phenergan if Zofran not effective. Then if Phenergan not effective, give metoclopramide. oxyCODONE (ROXICODONE) immediate release tablet 5 mg 5 mg, Oral, Every 4 Hours PRN, Moderate Pain, Starting on Wed12/19/19 at 1656, For 10 days, {ELICEO} If given for pain, use the following pain scale: Mild Pain = Pain Score of 1-3, CPOT 1-2 Moderate Pain = Pain Score of 4-6, CPOT 3-4 Severe Pain = Pain Score of 7-10, CPOT 5-8 2037 (Given - Provider: Vandana Canas RN) 0448 (Given - Provider: Vandana Canas RN)0850 (Given - Provider: Iqra Hernandez RN)1413 (Given - Provider: Iqra Hernandez RN) sodium chloride 0.9 % solution (CANCELED) As Needed, Starting on Wed12/19/19 at 1447 1447 (Given - Provider: Herve Marshall Jr., MD) sterile water irrigation solution (CANCELED) As Needed, Starting on Wed12/19/19 at 1447 1447 (Given - Provider: Herve Marshall Jr., MD) Linked Groups Order Group 1: acetaminophen (TYLENOL) tablet 650 mgJump to med 650 mg, Oral, Every 6 Hours Scheduled, First dose on Wed12/19/19 at 1800, For 48 hours, Indications: Pain Or acetaminophen (TYLENOL) 160 MG/5ML solution 650 mgJump to med 650 mg, Oral, Every 6 Hours Scheduled, First dose on Wed12/19/19 at 1800, For 48 hours Or acetaminophen (TYLENOL) suppository 650 mgJump to med 650 mg, Rectal, Every 6 Hours Scheduled, First dose on Wed12/19/19 at 1800, For 48 hours Group 2: HYDROmorphone (DILAUDID) injection 0.5 mgJump to med 0.5 mg, Intravenous, Every 2 Hours PRN, Severe Pain, Starting on Wed12/19/19 at 1656, For 10 days, {ELICEO} Caution: Look alike/sound alike drug alert If given for pain, use the following pain scale: Mild Pain = Pain Score of 1-3, CPOT 1-2 Moderate Pain = Pain Score of 4-6, CPOT 3-4 Severe Pain = Pain Score of 7-10, CPOT 5-8 And naloxone (NARCAN) injection 0.1 mgJump to med 0.1 mg, Intravenous, Every 5 Minutes PRN, Respiratory Depression, Starting on Wed12/19/19 at 1656, If respiratory rate is less than 8 breaths/minute or patient is difficult to arouse stop any narcotics and contact physician. Administer slow IV push. Repeat as ordered until patient's respiratory rate is greater than 12 breaths/minute. Group 3: ondansetron (ZOFRAN) tablet 4 mgJump to med 4 mg, Oral, Every 6 Hours PRN, Nausea, Vomiting, Starting on Wed12/19/19 at 1656, Give Zofran first. Give Phenergan if Zofran not effective. Then if Phenergan not effective, give metoclopramide. Or ondansetron (ZOFRAN) injection 4 mgJump to med 4 mg, Intravenous, Every 6 Hours PRN, Nausea, Vomiting, Starting on Wed12/19/19 at 1656, Give Zofran first. Give Phenergan if Zofran not effective. Then if Phenergan not effective, give metoclopramide. documented in this encounter Care Teams Aquatic Centre Manager Relationship Specialty Start Date End Date Betsey Bonner, ANDRA PCP - General Family Medicine 12/17/19 07/05/22 documented as of this encounter
--- OUTSIDE RECORDS SUMMARY | 2024-06-23 07:45 | XMS_ITS | Encounter Summary ---
Author Organization [facility] Address [address] [place] [address] Care Team Providers Care Seo Associate Name Role Phone Ralph Dunne MD Primary Care Provider [phone] Encounter Details Date Type Department Care Team (Latest Contact Info) Description 02/11/2021 Travel Social History Tobacco Use Types Packs/Day Years Used Date Smoking Tobacco: Never Smokeless Tobacco: Never Alcohol Use Standard Drinks/Week Comments Yes 0 (1 standard drink = 0.6 oz pur e alcohol) very rare Comments Unknown Sex and Gender Information Value Date Recorded Sex Assigned at Not on file Legal Sex Female 8:58 PM EDT Gender Identity Not on file Sexual Orientation Not on file COVID-19 Exposure Response Date Recorded In the last month, have you been in contact with someone who was confirmed or suspected to have Coronavirus / COVID-19? No / Unsure 02/11/2021 9:34 AM EDT documented as of this encounter Plan of Treatment Not on file documented as of this encounter Visit Diagnoses Not on filedocumented in this encounter Care Teams Seo Associate Relationship Specialty Start Date End Date Ralph Dunne MD [address] [place] [address] PCP - General 12/13/20 documented as of this encounter
--- OUTSIDE RECORDS SUMMARY | 2024-06-23 07:45 | XMS_ITS | Encounter Summary ---
Author Organization [facility] Address [address] [place] [address] Care Team Providers Care General Accounting Clerk Name Role Phone Betsey Bonner APRN Primary Care Provider [phone] Reason for Visit * Auth/Cert Specialty Diagnoses / Procedures Referred By Prakash morejon Referred To Contact Diagnoses Other female genital prolapse Procedures NM LAPAROSCOPY, SURG, COLPOPEXY ROBOTIC SACROCOLPOPEXY Referral ID Status Reason Start Date Expiration Date Visits Re quested Visits Authorized [id number] 1 1 Encounter Details Date Type Department Care Team ([facility] Contact Info) Description 12/19/2019 2:27 PM EDT Anesthesia Event [facility] OR [address] [place] [address] Amanda Vuong MD [address] [place] [address] Harshad Robins MD [address] [place] [address] Anesthesia Record Procedure Summary Procedure Name Responsible Anesthesiologist Anesthesia Start Time Anesthesia Stop Time ROBOTIC SACROCOLPOPEXY WITH RIGHT URETERAL LYSIS (Abdomen) Amanda Vuong MD 12/19/19 1427 12/19/19 1603 Events Date Time Event Comment 12/19/2019 1250 1424 AN Equip Check 1427 An Start Data 1427 An Start The patient was reevaluated immediately before moderate or deep sedation use and before anesthesia induction. 1432 An Induction 1435 Block Placed 1435 An Intubation 1557 An Extubation 1558 an stop data 1603 Handoff to RN The following has been completed: 1. Identification of Patient, hernandez family member(s) or patient surrogate 2. Identification of the responsible Practitioner (primary service) 3. Discussion of the pertinent/attainable medical history 4. Discussion of the surgical/procedure course (procedure, reason for surgery, procedure performed) 5. Intraoperative anesthetic management and issue/concerns to include things such as airway, hemodynamics, narcotic, sedation level and paralytic management and intravenous fluids/blood products and urine output during the procedure 6. Expectations/Plans for the early post-procedure period to include things such as anticipated course (anticipatory guidance), complications, need for laboratory or ECG and medication administration 7. Opportunity for questions and acknowledgment of understanding of report from the receiving PACU/ICU team 1603 An Stop Meds Name Total lidocaine PF (XYLOCAINE) local injection 1% 50 mg propofol (DIPRIVAN) injection 300 mg propofol (DIPRIVAN) 10 mg/ml 272.82 mg Rocuronium 50 mg/5mL 50 mg neostigmine injection 10 mg/10 mL 3 mg glycopyrrolate (ROBINUL) injection 0.4 m g/2 mL 0.6 mg ondansetron 2 mg/mL 4 mg ePHEDrine injection 5 mg ceFOXitin (MEFOXIN) 2 g/50 mL 0.9% NS IV PB (MBP) 2 g esmolol (BREVIBLOC) injection 100 mg/10 mL 20 mg bupivacaine PF (MARCAINE) 0.25 % injecti on 60 mL dexamethasone sodium phosphate injection 10 mg lactated ringers infusion 1,400 mL * Agents Name O2 Desflurane * Blood No blood administrations on file. Lines, Drains, and Airways Type Details Placement Removal Wound 12/19/19; Right; abdomen; Incision 12/19/19 0000 by Selena Hilliard RN Wound 12/19/19; 1548; vagi na; Incision 12/19/19 1548 by Selena Hilliard RN Urethral Catheter Placement Date: 12/19/19; Inserted by: JIMMIE VILCHIS UNDER SUPERVISION OF DR MARSHALL; Type: Silicone; Size: 16 Fr.; Balloon Size: 10 mL; Urine Returned: Yes; Removal Date: 12/20/19; Removal Time: 0506; Removal Reason: Per order 12/19/19 0000 by Selena Hilliard RN 12/20/19 0506 by Vandana Canas RN Peripheral IV Placement Date: 12/19/19; Placement Time: 1235; Change Due: 12/23/19; Catheter Size: 20 G; Orientation: Left; Location: Antecubital; Site Prep: Chlorhexidine; Local Anes: Injectable; Technique: Anatomical landmarks; Inserted by: carlotta monge rn, arleth parks rn, marco swain rn; Insertion Attempts: 3; Patient Tolerance: Tolerated well; Removal Date: 12/20/19; Removal Time: 1633 12/19/19 1235 by Arleth Parks RN 12/20/19 1633 by Iqra Hernandez RN ETT Placement Date: 12/19/19; Placement Time: 1435 (created via procedure documentation); Tube Size: 7.5 mm; Blade Size: 2; Location: Oral; Removal Date: 12/19/19; Removal Time: 1557 12/19/19 1435 by Ck Andrea CRNA 12/19/19 1557 by Ck Andrea CRNA documented in this encounter Social History Tobacco [...] on file documented as of this encounter OR Notes * Anesthesia Postprocedure Evaluation - Ck Andrea CRNA - 12/19/2019 4:03 PM EDT Patient: Florencia Mai Procedure Summary Date: 12/19/19 Room / Location: [facility] [address] [place] [address] [facility] Anesthesia Start: 1426 Anesthesia Stop: Procedure: ROBOTIC SACROCOLPOPEXY WITH RIGHT URETERAL LYSIS (N/A Abdomen) Diagnosis: Surgeon: Herve Marshall Jr., MD Provider: Amanda Vuong MD Anesthesia Type: general with block ASA Status: 3 Anesthesia Type: general with block Vitals Vitals Value Taken Time BP 127/82 12/19/2019 4:00 PM Temp 98 ??F (36.7 ??C) 12/19/2019 4:00 PM Pulse 77 12/19/2019 4:01 PM Resp 16 12/19/2019 4:00 PM SpO2 93 % 12/19/2019 4:01 PM Post Anesthesia Care and Evaluation Patient location during evaluation: PACU Patient participation: complete - patient participated Level of consciousness: awake Pain score: 0 Pain management: adequate Airway patency: patent Anesthetic complications: No anesthetic complications PONV Status: none Cardiovascular status: acceptable and stable Respiratory status: nasal cannula, unassisted, acceptable and spontaneous ventilation Hydration status: acceptable * Anesthesia Procedure Notes - Ck Andrea CRNA - 12/19/2019 2:50 PM EDT Associated Order(s): Peripheral Block Peripheral Block Patient reassessed immediately prior to procedure Patient location during procedure: OR Reason for block: at surgeon's request and post-op pain management Performed by Anesthesiologist: Harshad Robins MD Preanesthetic Checklist Completed: patient identified, site marked, surgical consent, pre-op evaluation, timeout performed,IV checked, risks and benefits discussed and monitors and equipment checked Prep: Pt Position: supine Sterile barriers:cap, gloves, sterile barriers and mask Prep: ChloraPrep Patient monitoring: blood pressure monitoring, continuous pulse oximetry and EKG Procedure Sedation:yes Performed under: general Guidance:ultrasound guided Images:still images obtained, printed/placed on chart Laterality:Bilateral Block Type:TAP Injection Technique:single-shot Needle Type:short-bevel and echogenic Needle Gauge:20 G Resistance on Injection: none Medications Used: dexamethasone sodium phosphate injection, 4 mg bupivacaine PF (MARCAINE) 0.25 % injection, 60 mL Med admintered at 12/19/2019 2:35 PM Medications Comment:Block Injection: LA dose divided between Right and Left block Post Assessment Injection Assessment: negative aspiration for heme, incremental injection and no paresthesia on injection Patient Tolerance:comfortable throughout block Complications:no Additional Notes Under Ultrasound guidance, a BBraun 4inch 360 degree needle was advanced with Normal Saline hydro dissection of tissue. The Internal Oblique and Transversus Abdominus muscles where visualized. At or before the aponeurosis of Internal Oblique, local anesthetic spread was visualized in the Transversus Abdominus Plane. Injection was made incrementally with aspiration every 5 mls. There was no intravascular injection, injection pressure was normal, there was no neural injection, and the procedure was completed without difficulty. Thank You. * Anesthesia Procedure Notes - kC Andrea CRNA - 12/19/2019 2:49 PM EDT Associated Order(s): Airway Airway Urgency: elective Date/Time: 12/19/2019 2:35 PM Airway not difficult General Information and Staff Patient location during procedure: OR PUTTY AND PATCH WORKER: Ck Andrea CRNA Indications and Patient Condition Indications for airway management: airway protection Preoxygenated: yes MILS maintained throughout Mask difficulty assessment: 1 - vent by mask Final Airway Details Final airway type: endotracheal airway Successful airway: ETT Cuffed: yes Successful intubation technique: direct laryngoscopy Endotracheal tube insertion site: oral Blade: Petersen Blade size: 2 ETT size (mm): 7.5 Cormack-Lehane Classification: grade I - full view of glottis Placement verified by: chest auscultation and capnometry Cuff volume (mL): 8 Measured from: lips ETT/EBT to lips (cm): 21 Number of attempts at approach: 1 Assessment: lips, teeth, and gum same as pre-op and atraumatic intubation Additional Comments Negative epigastric sounds, Breath sound equal bilaterally with symmetric chest rise and fall * Anesthesia Preprocedure Evaluation - Harshad Robins MD - 12/19/2019 12:38 PM EDT Anesthesia Evaluation Patient summary reviewed and Nursing notes reviewed NPO Solid Status: > 8 hours NPO Liquid Status: > 2 hours Airway Mallampati: II TM distance: >3 FB Neck ROM: full No difficulty expected Dental Pulmonary (+) pneumonia , (-) COPD, asthma, shortness of breath, recent URI, sleep apnea, not a smoker Cardiovascular (-) hypertension, past NH, dysrhythmias, angina, hyperlipidemia Neuro/Psych (-) seizures, CVA GI/Hepatic/Renal/Endo (-) liver disease, no renal disease, diabetes, no thyroid disorder Musculoskeletal Abdominal 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 Plan discussed with PUTTY AND PATCH WORKER. documented in this encounter Plan of Treatment Upcoming Encounters Date Type Department Care Team (Late st Contact Info) Description 07/10/2024 3:15 PM EST Office Visit [facility] [address] [facility] [address] [place] [id number] Stuart White APRN [address] [facility] [address] [place] [address] documented as of this encounter Procedures Procedure Name Priority Date/Time Associated Diagnosis Comments ANESTHESIA PERIPHERAL BLOCK Routine 12/19/2019 2:50 PM EDT ANESTHESIA INTUBATION Routine 12/19/2019 2:49 PM EDT documented in this encounter Results * Peripheral Block (12/19/2019 2:50 PM EDT) Narrative Ck Andrea CRNA - 12/19/2019 2:50 PM EDT Ck Andrea CRNA ? 12/19/2019 ??2:50 PM Peripheral Block Patient reassessed immediately prior to procedure Patient location during procedure: OR Reason for block: at surgeon's request and post-op pain management Performed by Anesthesiologist: Harshad Robins MD Preanesthetic Checklist Completed: patient identified, site marked, surgical consent, pre-op evaluation, timeout performed, IV checked, risks and benefits discussed and monitors and equipment checked Prep: Pt Position: supine Sterile barriers:cap, gloves, sterile barriers and mask Prep: ChloraPrep Patient monitoring: blood pressure monitoring, continuous pulse oximetry and EKG Procedure Sedation:yes Performed under: general Guidance:ultrasound guided Images:still images obtained, printed/placed on chart Laterality:Bilateral Block Type:TAP Injection Technique:single-shot Needle Type:short-bevel and echogenic Needle Gauge:20 G Resistance on Injection: none Medications Used: dexamethasone sodium phosphate injection, 4 mg bupivacaine PF (MARCAINE) 0.25 % injection, 60 mL Med admintered at 12/19/2019 2:35 PM Medications Comment:Block Injection: ??LA dose divided between Right and Left block Post Assessment Injection Assessment: negative aspiration for heme, incremental injection and no paresthesia on injection Patient Tolerance:comfortable throughout block Complications:no Additional Notes ??Under Ultrasound guidance, a BBraun 4inch 360 degree needle was advanced with Normal Saline hydro dissection of tissue. ??The Internal Oblique and Transversus Abdominus muscles where visualized. ??At or before the aponeurosis of Internal Oblique, local anesthetic spread was visualized in the Transversus Abdominus Plane. Injection was made incrementally with aspiration every 5 mls. ??There was no ??intravascular injection, ??injection pressure was normal, there was no neural injection, and the procedure was completed without difficulty. ??Thank You. us Harshad Robins MD ANESTHESIA ORDERABLES Final Res ult * BH AN ETT AIRWAY (12/19/2019 2:49 PM EDT) Narrative Ck Andrea CRNA - 12/19/2019 2:49 PM EDT Ck Andrea CRNA ? 12/19/2019 ??2:51 PM Airway Urgency: elective Date/Time: 12/19/2019 2:35 PM Airway not difficult General Information and Staff Patient location during procedure: OR PUTTY AND PATCH WORKER: Ck Andrea CRNA Indications and Patient Condition Indications for airway management: airway protection Preoxygenated: yes MILS maintained throughout Mask difficulty assessment: 1 - vent by mask Final Airway Details Final airway type: endotracheal airway Successful airway: ETT Cuffed: yes Successful intubation technique: direct laryngoscopy Endotracheal tube insertion site: oral Blade: Petersen Blade size: 2 ETT size (mm): 7.5 Cormack-Lehane Classification: grade I - full view of glottis Placement verified by: chest auscultation and capnometry Cuff volume (mL): 8 Measured from: lips ETT/EBT ??to lips (cm): 21 Number of attempts at approach: 1 Assessment: lips, teeth, and gum same as pre-op and atraumatic intubation Additional Comments Negative epigastric sounds, Breath sound equal bilaterally with symmetric chest rise and fall Harshad Robins MD ANESTHESIA ORDERABLES Edited Re sult - Final documented in this encounter Visit Diagnoses Not on filedocumented in this encounter Administered Medications Inactive Administered Medications - up to 3 most recent administrations Medication Order MAR Action Action Date Dose Rate Site bupivacaine (PF) (MARCAINE) 0.25 % injection Injection, Starting on Wed12/19/19 at 1435 Given 12/19/2019 2:35 PM EDT 60 mL ceFOXitin (MEFOXIN) 2 g/50 mL 0.9% NS IVPB (MBP) 2 g, Intravenous, Administer over 30 Minutes, Once, On Wed12/19/19 at 1151, For 1 dose, Caution: Look alike/sound alike drug alert. Break seal and mix to activiate vial before use., Indications: Surgical ProphylaxisIndications:Surgical Prophylaxis Given 12/19/2019 2:32 PM EDT 2 g dexamethasone sodium phosphate injection Starting on Wed12/19/19 at 1435 Given 12/19/2019 2:35 PM EDT 4 mg Given 12/19/2019 2:32 PM EDT 6 mg ePHEDrine injection Intravenous, As Needed, Starting on Wed12/19/19 at 1517 Given 12/19/2019 3:17 PM EDT 5 mg esmolol (BREVIBLOC) injection As Needed, Starting on Wed12/19/19 at 1432 Given 12/19/2019 2:32 PM EDT 2 0 mg glycopyrrolate (ROBINUL) injection Intravenous, As Needed, Starting on Wed12/19/19 at 1506 Given 12/19/2019 3:46 PM EDT 0.4 mg Given 12/19/2019 3:06 PM EDT 0.2 mg lactated ringers infusion 9 mL/hr, Intravenous, Continuous PRN, Start Prior to Surgery, Starting on Wed12/19/19 at 1145 New Bag 12/19/2019 3:32 PM EDT Currently Infusing 12/19/2019 2:24 PM EDT New Bag 12/19/2019 12:35 PM EDT 9 mL/hr 9 mL/hr lidocaine PF 1% (XYLOCAINE) injection As Needed, Starting on Wed12/19/19 at 1432 Given 12/19/2019 2:32 PM EDT 50 mg neostigmine injection Intravenous, As Needed, Starting on Wed12/19/19 at 1546 Given 12/19/2019 3:46 PM EDT 3 mg ondansetron (ZOFRAN) injection Intravenous, As Needed, Starting on Wed12/19/19 at 1546 Given 12/19/2019 3:46 PM EDT 4 mg Propofol (DIPRIVAN) injection Continuous PRN, Starting on Wed12/19/19 at 1432 New Bag 12/19/2019 2:32 PM EDT 25 mcg/kg/min 23.1 mL/hr Propofol (DIPRIVAN) injection Intravenous, As Needed, Starting on Wed12/19/19 at 1432 Given 12/19/2019 2:32 PM EDT 300 mg rocuronium (ZEMURON) injection Intravenous, As Needed, Starting on Wed12/19/19 at 1432 Given 12/19/2019 2:32 PM EDT 50 mg documented in this encounter Care Teams General Accounting Clerk Relationship Specialty Start Date End Date Betsey Bonner APRN PCP - General Family Medicine 12/17/19 07/05/22 documented as of this encounter
--- OUTSIDE RECORDS SUMMARY | 2024-06-23 07:45 | XMS_ITS | Encounter Summary ---
Author Organization [facility] Address [address] [place] [address] Care Team Providers Care Video Games Mechanic Name Role Phone Ralph Dunne MD Primary Care Provider [phone] Reason for Visit * Auth/Cert Specialty Diagnoses / Procedures Referred By Prakash t Referred To Contact Diagnoses Thyroid nodule Thyroid nodule Procedures [place] THYROID LOBECTOMY,UNILAT [place] REMOVE BENIGN THYROID LESION BILATERAL THYROIDECTOMY, ISTHMECTOMY Hector Oquendo MD [address] [address] Phone: tel: fax: [facility] [address] [place] [phone] Phone: tel: Referral ID Status Reason Start Date Expiration Date Visits Re quested Visits Authorized [id number] 1 1 Encounter Details Date Type Department Care Team (Late st Contact Info) Description 02/14/2021 5:31 AM EDT - 02/14/2021 6:30 PM EDT Hospital Encounter [facility] [address] [place] [id number] Hector Oquendo MD [address] [address] Thyroid nodule Discharge Disposition: Home [...] Sign Reading Time Taken Comments Blood Pressure 133/93 02/14/2021 4:00 PM EDT Pulse 92 02/14/2021 4:00 PM EDT Temperature 36.5 ??C (97.7 ??F) 02/14/2021 9:20 AM ED T Respiratory Rate 19 02/14/2021 4:00 PM EDT Oxygen Saturation 91% 02/14/2021 4:00 PM EDT Inhaled Oxygen Concentration - - Weight 154 kg (340 lb) 02/14/2021 3:00 PM EDT Height 175.3 cm (5' 9 ) 02/14/2021 3:00 PM EDT Body Mass Index 50.21 02/14/2021 3:00 PM EDT documented in this encounter Medications at Time of Discharge cholecalciferol (Vitamin D-3) 250 MCG (69818 UT) capsule Take 10,000 Units by mouth every 30 (thirty) days. cyanocobalamin (Vitamin B-12) 1000 MCG/ML injection inject 1 milliliter by intramuscular route every week for 4 weeks then once a month for 5 months 01/15/2021 DULoxetine (Cymbalta) [address] capsule Take 30 mg by mouth 1 (one) time each day. 07/31/2020 ergocalciferol (Vitamin D-2) 1.25 MG (37223 UT) capsule take 1 capsule by oral [...] listed below who initially presented to the [facility] today for scheduled thyroidectomy. During the [...] Bigeminy with no significant ST changes. ASSESSMENT/PLAN Florencia Mai is a 50 y.o. female who initially presented to the [facility] today forplanned thyroidectomy. 1. Intraoperative hypotension [...] Fellow, PGY-4, Department of Cardiovascular Medicine Pager: [phone] Cosigned by Varun Cabezas MD at 02/15/2021 5:41 AM EDT Associated attestation - aVrun Cabezas MD - 02/15/2021 5:41 AM EDT [...] Agree with above assessment and evaluation from resident/SOFTWARE DEVELOPER MANAGER. * Op Note - Hector Oquendo MD - 02/14/2021 7:30 AM EDT Procedure canceled by Anesthesia. Hector Oquendo MD MS FACS Continuous Loft Operator Head & Neck Oncology Rhinology & Skull [...] procedure. ? Hector Oquendo MD MS FACS Continuous Loft Operator Head & Neck Oncology Rhinology & Skull [...] card, photo ID, along with power of finance attorney, guardianship or advanced directives if applicable [...] end-d topher 0.8 cm/s JESSE ISCV PA [place](ACCEL) 63.3 mmHg JESSE ISCV LV MASS(C)D 202.1 g JESSE ISCV PA acc time 0.0 sec JESSE ISCV LV Lat e' Velocity 8.0 cm/s JESSE ISCV LV Sept e' Topher 7.0 cm/s JESSE ISCV RAP [id number] 00 mmHg JESSE ISCV PA accel 35.0 ms JESSE ISCV Ao Root Diam 39.0 cm JESSE ISCV Ao Sinus Diam 39.0 mm JESSE ISCV Asc Ao Diam 33.0 mm JESSE ISCV Lat E/e' 9.4 JESSE ISCV Sep E/e' 10.8 JESSE ISCV Avg E/e' [id number] 000 JESSE ISCV LV mass 202.0 g [...] captured. Overall the study quality was adequate. us Hector Oquendo MD CV ECHO PROCEDURES Final Result * (ABNORMAL) Blood gas panel, arterial (02/14/2021 9:49 AM EDT) pH, Arterial 7.37 7.35 - 7.45 LAB HEMATOLOGY METHOD 02/14/2021 10:19 AM EDT [facility] pCO2, Arterial 52(H) 32 - 45 mmHg LAB HEMATOLOGY METHOD 02/14/2021 10:19 AM EDT [facility] pO2, Arterial 59(LL) 83 - 108 mmHg LAB HEMATOLOGY METHOD 02/14/2021 10:19 AM EDT [facility] SO2, Measured, Arterial 91(L) 94 - 98 % LAB HEMATOLOGY METHOD 02/14/2021 10:19 AM EDT [facility] Base Excess, Arterial 3.1(H) -2 - 3 mmol/L LAB HEMATOLOGY METHOD 02/14/2021 10:19 AM EDT [facility] Bicarbonate, Calculated, Arterial 30(H) 22 - 26 mmol/L LAB HEMATOLOGY METHOD 02/14/2021 10:19 AM EDT [facility] Hematocrit, Whole Blood 43.3 34.0 - 45.0 % LAB HEMATOLOGY METHOD 02/14/2021 10:19 AM EDT [facility] Sodium, Whole Blood 143 136 - 145 mmol/L LAB HEMATOLOGY METHOD 02/14/2021 10:19 AM EDT [facility] Potassium, Whole Blood 3.3(L) 3.6 - 4.9 mmol/L LAB HEMATOLOGY METHOD 02/14/2021 10:19 AM EDT [facility] Chloride, Whole Blood 104 97 - 107 mmol/L LAB HEMATOLOGY METHOD 02/14/2021 10:19 AM EDT [facility] Glucose, Whole Blood 141(H) 74 - 99 mg/dL LAB HEMATOLOGY METHOD 02/14/2021 10:19 AM EDT [facility] Ionized Calcium, Whole Blood 4.5(L) 4.6 - 5.1 mg/dL LAB HEMATOLOGY METHOD 02/14/2021 10:19 AM EDT [facility] Lactate, Arterial, Whole Blood 1.0 0.5 - 1.6 mmol/L LAB HEMATOLOGY METHOD 02/14/2021 10:19 AM EDT [facility] Blood Arterial blood specimen / Unknown Arterial Puncture / Unknown 02/14/2021 9:49 AM EDT 02/14/2021 10:15 AM EDT us Isac Casillas [facility] LAB BLOOD ORDERABLES Fi nal Result [facility] [address] [place] [id number] * (ABNORMAL) Blood gas panel, arterial (02/14/2021 8:40 AM EDT) pH, Arterial 7.41 7.35 - 7.45 LAB HEMATOLOGY METHOD 02/14/2021 8:58 AM EDT [facility] pCO2, Arterial 48(H) 32 - 45 mmHg LAB HEMATOLOGY METHOD 02/14/2021 8:58 AM EDT [facility] pO2, Arterial 140(H) 83 - 108 mmHg LAB HEMATOLOGY METHOD 02/14/2021 8:58 AM EDT [facility] SO2, Measured, Arterial 100(H) 94 - 98 % LAB HEMATOLOGY METHOD 02/14/2021 8:58 AM EDT [facility] Base Excess, Arterial 4.7(H) -2 - 3 mmol/L LAB HEMATOLOGY METHOD 02/14/2021 8:58 AM EDT [facility] Bicarbonate, Calculated, Arterial 30(H) 22 - 26 mmol/L LAB HEMATOLOGY METHOD 02/14/2021 8:58 AM EDT [facility] Hematocrit, Whole Blood 38.5 34.0 - 45.0 % LAB HEMATOLOGY METHOD 02/14/2021 8:58 AM EDT [facility] Sodium, Whole Blood 142 136 - 145 mmol/L LAB HEMATOLOGY METHOD 02/14/2021 8:58 AM EDT [facility] Potassium, Whole Blood 3.2(L) 3.6 - 4.9 mmol/L LAB HEMATOLOGY METHOD 02/14/2021 8:58 AM EDT [facility] Chloride, Whole Blood 106 97 - 107 mmol/L LAB HEMATOLOGY METHOD 02/14/2021 8:58 AM EDT [facility] Glucose, Whole Blood 122(H) 74 - 99 mg/dL LAB HEMATOLOGY METHOD 02/14/2021 8:58 AM EDT [facility] Ionized Calcium, Whole Blood 4.4(L) 4.6 - 5.1 mg/dL LAB HEMATOLOGY METHOD 02/14/2021 8:58 AM EDT [facility] Lactate, Arterial, Whole Blood 1.3 0.5 - 1.6 mmol/L LAB HEMATOLOGY METHOD 02/14/2021 8:58 AM EDT [facility] Blood Arterial blood specimen / Unknown Arterial Puncture / Unknown 02/14/2021 8:40 AM EDT 02/14/2021 8:56 AM EDT Comment:Pre-op diagnosis: Thyroid nodule us Hector Oquendo MD LAB BLOOD ORDERABLES Final Resul t [facility] [address] [place] [id number] * ECG Adult (02/14/2021 7:17 AM EDT) EKG DIAGNOSIS CLASS Abnormal MUSE ECG Ventricular Rate 67 BPM MUSE ECG Atrial Rate 67 BPM MUSE ECG [place] Interval 144 ms MUSE ECG QRSD Interval 110 ms MUSE ECG QT Interval 458 ms MUSE ECG QTC Interval 483 ms MUSE ECG P Backus 35 degrees MUSE ECG R Backus -1 degrees MUSE ECG T Wave Backus 19 degrees MUSE ECG Diagnosis Sinus rhythm MUSE ECG Diagnosis with MUSE ECG Diagnosis premature atrial complexes MUSE ECG Diagnosis in a pattern of bigeminy MUSE ECG Diagnosis Abnormal ECG MUSE ECG Diagnosis Confirmed by Byron De Dios ([id number]) on 02/14/2021 12:29:59 PM MUSE ECG 02/14/2021 7:17 AM EDT 02/14/2021 12:29 PM EDT Sterling Carrasquillo DO ECG ORDERABLES Final Result MUSE ECG documented in this encounter Visit Diagnoses Diagnosis Thyroid nodule Nontoxic uninodular goiter HTN (hypertension) Unspecified essential hypertension Obesity Obesity, unspecified documented in this encounter Administered Medications Inactive [...] vomiting documented in this encounter Care Teams Video Games Mechanic Relationship Specialty Start Date End Date Ralph Dunne MD [address] [place] [address] PCP - General 12/13/20 documented as of this encounter
--- OUTSIDE RECORDS SUMMARY | 2024-06-23 07:45 | XMS_ITS | Encounter Summary ---
Author Organization [facility] Address [address] [place] [address] Care Team Providers Care Car Whacker Name Role Phone Betsey Bonner APRN Primary Care Provider [phone] Encounter Details Date Type Department Care Team ([facility] Contact Info) Description 12/20/2019 Readmission Management [facility] [address] [place] [phone] Betsey Holden RN Social History Tobacco Use Types Packs/Day Years [...] on file documented as of this encounter Miscellaneous Notes * Outreach Note - Betsey Holden RN - 12/20/2019 8:51 PM CDT Prep Survey Responses [facility] patient discharged from? [place] Is LACE score < 7 ? Yes Eligibility Readm Mgmt Discharge diagnosis S/P sacrocolpopexy for vaginal prolapse COVID-19 Test Status Negative Does the patient have one of the following disease processes/diagnoses(primary or secondary)? General Surgery Does the patient have Home health ordered? No Is there a DME ordered? No Prep survey completed? Yes Betsey Holden RN documented in this encounter Plan of Treatment Upcoming Encounters Date Type Department Care Team ([facility] st Contact Info) Description 07/10/2024 3:15 PM EST Office Visit [facility] RHEUMATOLOGY [address] [facility] [address] [place] [address] Stuart White APRN [address] [facility] [address] [place] [address] documented as of this encounter Visit Diagnoses Not on filedocumented in this encounter Care Teams Car Whacker Relationship Specialty Start Date End Date Betsey Bonner, DRAINAGE ENGINEER PCP - General Family Medicine 12/17/19 07/05/22 documented as of this encounter
--- OUTSIDE RECORDS SUMMARY | 2024-06-23 07:45 | XMS_ITS | Encounter Summary ---
Author Organization [facility] Address [address] [place] [address] Care Team Providers Care Executive Vice President Business Development Name Role Phone Franko Velasquez MD Primary Care Provider [phone] Reason for Visit * Reason Comments Rheumatoid Arthritis Encounter Details Date Type Department Care Team ([facility] st Contact Info) Description 04/10/2024 2:15 PM EDT Office Visit [facility] RHEUMATOLOGY [address] [phone] Lamberto Vang MD [address] [facility] [place] [address] [place], [place] [id number] Rheumatoid arthritis involving multiple sites with positive rheumatoid factor (Primary Dx); High risk medication use; Immunosuppression due to drug therapy; Fibromyalgia; History of thyroid nodule Social History Tobacco Use Types Packs/Day Years [...] 04/10/2024 2:25 PM ED T Respiratory Rate - - Oxygen Saturation - - Inhaled Oxygen Concentration - - Weight 158 kg (348 lb 6.4 oz) 04/10/2024 2:25 PM EDT Height 175.3 cm (5' 9 ) 04/10/2024 2:25 PM EDT Body Mass Index 51.45 04/10/2024 2:25 PM EDT documented in this encounter Progress Notes * Lamberto Vang MD - 04/10/2024 2:15 PM EDTAssociated Problem(s): Rheumatoid arthritis involving multiple sites with positive rheumatoid factor +RF 17; shoulder, wrist hand pains started [...] Well tolerated. Follow up in 3 month. * Lamberto Vang MD - 04/10/2024 2:15 PM EDTAssociated Problem(s): High risk medication use Xeljanz Hepatitis panel - 06/29/2023 QuantiFERON - [...] is imperative. This was discussed at length. * Lamberto Vang MD - 04/10/2024 2:15 PM EDTAssociated Problem(s): Fibromyalgia Current: Duloxetine, Etodolac prior lyrica-intolerant. Cymbalta has been helpful. She has more fibromyalgia pain lately. Meds well tolerated. Refill provided. Exercise encouraged. Diagnosed with sleep apnea. She does not like her CPAP machine. She used it for a long time. Risk and benefits of SNRIs discussed including but not limited to worsening depression, suicidal ideation, nausea, constipation * Lamberto Vang MD - 04/10/2024 2:15 PM EDT Images from the original note were not included. Office Follow Up Date: 04/10/2024 Patient Name: Florencia Mai Date of : 1970 Referring Physician: No ref. provider found Chief Complaint: Chief Complaint Patient presents with Rheumatoid Arthritis History of Present Illness: Florencia Mai is a 53 y.o. female who is here today for follow up on rheumatoid arthritis, fibromyalgia, OA. She continues on Xeljanz for rheumatoid arthritis. This is well tolerated and very effective. No rheumatoid arthritis flares. No swollen joints. No serious infection. No side effects. She has chronic knee pain related to osteoarthritis. PRN NSAID is somewhat helpful. She has fibromyalgia and often aches all over in the muscles. Duloxetine is of some help. She lost her father to a CVA 05/07/2020 She lost her job June 18, 2023 and now has a new job. She needs new prior authorization Xeljanzwith new insurance Subjective Review of Systems: Review of Systems Constitutional: Positive for fatigue. Negative for chills, fever and unexpected weight loss. HENT: Positive for sinus pressure. Negative for mouth sores and sore throat. Eyes: Negative for pain and redness. Respiratory: Positive for shortness of breath. Cardiovascular: Positive for chest pain. Gastrointestinal: Negative for abdominal pain, blood in stool, diarrhea, nausea, vomiting and GERD. Endocrine: Negative for polydipsia and polyuria. Genitourinary: Negative for dysuria, genital sores and hematuria. Musculoskeletal: Positive for arthralgias, joint swelling and myalgias. Negative for neck pain and neck stiffness. Skin: Negative for rash and bruise. Allergic/Immunologic: Negative for immunocompromised state. Neurological: Negative for seizures, weakness, numbness and memory problem. Hematological: Negative for adenopathy. Does not bruise/bleed easily. Psychiatric/Behavioral: Negative for depressed mood. The patient is nervous/anxious. Medications: Current Outpatient Medications: Diclofenac Sodium (VOLTAREN) 1 % gel gel, Apply 4 g topically to the appropriate area as directed 4(Four) Times a Day As Needed., Disp: , Rfl: DULoxetine (CYMBALTA) 60 MG capsule, Take 1 capsule by mouth Daily., Disp: 90 capsule, Rfl: 1 etodolac (LODINE) 400 MG tablet, Take 1 tablet by mouth 2 (Two) Times a Day As Needed (joint pain)., Disp: 180 tablet, Rfl: 1 Fexofenadine-Pseudoephedrine (BESSY-D 12 HOUR PO), Take 1 tablet by mouth 2 (Two) Times a Day., Disp: , Rfl: lisinopril-hydrochlorothiazide (PRINZIDE,ZESTORETIC) 20-25 MG per tablet, Take 1 tablet by mouth Daily., Disp: , Rfl: Tofacitinib Citrate ER (Xeljanz XR) 11 MG tablet sustained-release 24 hour, Take 1 tablet by mouth Daily., Disp: , Rfl: Allergies: Allergies Allergen Reactions Sulfa Antibiotics Other (See Comments) Made pink eye worse I have reviewed and updated the patient's chief complaint, history of present illness, review of systems, past medical history, surgical history, family history, social history, medications and allergy list as appropriate. Objective Vital Signs: Vitals: 04/10/24 1425 BP: 128/78 BP Location: Right arm Comment: Wrist Patient Position: Sitting Cuff Size: Adult Pulse: 83 Temp: 98.4 ??F (36.9 ??C) Weight: (!) 158 kg (348 lb 6.4 oz) Height: 175.3 cm (69 ) PainSc: 9 Body mass index is 51.45 kg/m??. Physical Exam: Physical Exam MUSCULOSKELETAL: No peripheral synovitis + crepitus knees Myofascial tenderness above and below the waist. No rheumatoid nodules or tophi. No joint deformity. No dactylitis. No pitting of the nails. Complete joint exam was performed including the MCPs, PIPs, DIPs of the hands, wrists, elbows, shoulders, hips, knees and ankles. No soft tissue swelling or tenderness is present except as above. General: The patient is well-developed and well nourished. Cooperative, alert and oriented. Affect is normal. Hydration appears normal. HEENT: Normocephalic and atraumatic. No notable alopecia. Lids and conjunctiva are normal. Pupils are equal and sclera are clear. Oropharynx is clear NECK neck is supple without adenopathy, masses or thyromegaly. CARDIOVASCULAR: Regular rate and rhythm. No murmurs, rubs or gallops LUNGS: Effort is normal. Lungs are clear bilateral ABDOMEN: Not examined EXTREMITIES: Peripheral pulses are intact. No clubbing. SKIN: No rashes. No subcutaneous nodules. No digital ulcers. No sclerodactyly. NEUROLOGIC: Gait is normal. Strength testing is normal. No focal neurologic deficits Results Review: Labs: Lab Results Component Value Date GLUCOSE 141 (H) 02/14/2021 BUN 11 12/20/2019 CREATININE 0.65 12/20/2019 BCR 16.9 12/20/2019 K 3.3 (L) 02/14/2021 CO2 29.0 12/20/2019 CALCIUM 8.4 (L) 12/20/2019 Lab Results Component Value Date WBC 6.07 12/20/2019 HGB 13.4 12/20/2019 HCT 43.1 12/20/2019 MCV 90.2 12/20/2019 PLT 321 12/20/2019 No results found for: SEDRATE No results found for: CRP No results found for: QUANTIFERO , QUANTITB1 , QUANTITB2 , QUANTIFERN , QUANTIFERM , QUANTITBGLDP No results found for: RF No results found for: HEPBSAG , HEPAIGM , HEPBIGMCORE , HEPCVIRUSABY Procedures Assessment / Plan Assessment & Plan Rheumatoid arthritis involving multiple sites with positive rheumatoid factor +RF 17; shoulder, wrist hand pains started [...] Well tolerated. Follow up in 3 month. High risk medication use Xeljanz Hepatitis panel - 06/29/2023 QuantiFERON - [...] at length. Immunosuppression due to drug therapy Fibromyalgia Current: Duloxetine, Etodolac prior lyrica-intolerant. Cymbalta has been helpful. She has more fibromyalgia pain lately. Meds well tolerated. Refill provided. Exercise encouraged. Diagnosed with sleep apnea. She does not like her CPAP machine. She used it for a long time. Risk and benefits of SNRIs discussed including but not limited to worsening depression, suicidal ideation, nausea, constipation History of thyroid nodule Orders Placed This Encounter Procedures QuantiFERON-TB Gold Plus CBC Auto Differential Comprehensive Metabolic Panel C-reactive Protein Sedimentation Rate New Medications Ordered This Visit Medications etodolac (LODINE) 400 MG tablet Sig: Take 1 tablet by mouth 2 (Two) Times a Day As Needed (joint pain). Dispense: 180 tablet Refill: 1 DULoxetine (CYMBALTA) 60 MG capsule Sig: Take 1 capsule by mouth Daily. Dispense: 90 capsule Refill: 1 Follow Up: Return in about 3 months (around 07/10/2024). Lamberto Vang MD [facility] [place] documented in this encounter Plan of Treatment Upcoming Encounters Date Type Department Care Team (Late st Contact Info) Description 07/10/2024 3:15 PM EST Office Visit [facility] RHEUMATOLOGY [address] [facility] [address] [place] [phone] Stuart White APRN [address] [facility] [address] [place], [place] [id number] documented as of this encounter Results * Sedimentation Rate (04/10/2024 2:58 PM EDT) Sed Rate 9 0 - 30 mm/hr 04/11/2024 12:06 AM EDT [facility] Blood Venipuncture / Unknown 04/10/2024 2:58 PM EDT 04/10/2024 2:58 PM EDT us Lamberto Vang MD LAB BLOOD ORDERABLES Final Result Performing Organization Address City/[facility]/ZIP Co de Phone Number [facility]
[address] [place] [address], * (ABNORMAL) C-reactive Protein (04/10/2024 2:58 PM EDT) C-Reactive Protein 0.69(H) 0.00 - 0.50 mg/dL 04/11/2024 12:18 AM EDT [facility] Blood Venipuncture / Unknown 04/10/2024 2:58 PM EDT 04/10/2024 2:58 PM EDT us Lamberto Vang MD LAB BLOOD ORDERABLES Final Result Performing Organization Address City/[facility]/ZIP Co de Phone Number [facility]
[address] [place] [address], * (ABNORMAL) Comprehensive Metabolic Panel (04/10/2024 2:58 PM EDT) Glucose 109(H) 65 - 99 mg/dL 04/11/2024 12:18 AM EDT [facility] BUN 17 6 - 20 mg/dL 04/11/2024 12:18 AM EDT [facility] Creatinine 0.85 0.57 - 1.00 mg/dL 04/11/2024 12:18 AM EDT [facility] Sodium 141 136 - 145 mmol/L 04/11/2024 12:18 AM EDT [facility] Potassium 2.9(L) 3.5 - 5.2 mmol/L 04/11/2024 12:18 AM EDT [facility] Chloride 100 98 - 107 mmol/L 04/11/2024 12:18 AM [facility] CO2 30.8(H) 22.0 - 29.0 mmol/L 04/11/2024 12:18 AM [facility] Calcium 9.2 8.6 - 10.5 mg/dL 04/11/2024 12:18 AM [facility] Total Protein 6.9 6.0 - 8.5 g/dL 04/11/2024 12:18 AM [facility] Albumin 4.1 3.5 - 5.2 g/dL 04/11/2024 12:18 AM [facility] ALT (SGPT) 25 1 - 33 U/L 04/11/2024 12:18 AM [facility] AST (SGOT) 24 1 - 32 U/L 04/11/2024 12:18 AM [facility] Alkaline Phosphatase 64 39 - 117 U/L 04/11/2024 12:18 AM [facility] Total Bilirubin 0.3 0.0 - 1.2 mg/dL 04/11/2024 12:18 AM [facility] Globulin 2.8 gm/dL 04/11/2024 12:18 AM [facility] A/G Ratio 1.5 g/dL 04/11/2024 12:18 AM [facility] BUN/Creatinine Ratio 20.0 7.0 - 25.0 04/11/2024 12:18 AM [facility] Anion Gap 10.2 5.0 - 15.0 mmol/L 04/11/2024 12:18 AM [facility] eGFR 82.0 >60.0 mL/min/1.7 3 04/11/2024 12:18 AM [facility] Blood Venipuncture / Unknown 04/10/2024 2:58 PM EDT 04/10/2024 2:58 PM [facility] - 04/11/2024 12:18 AM EDT GFR Normal >60 Chronic Kidney Disease <60 Kidney Failure <15 Lamberto Vang MD LAB BLOOD ORDERABLES Final Result [facility]
[address] [place] [address], * CBC Auto Differential (04/10/2024 2:58 PM EDT) WBC 4.93 3.40 - 10.80 10*3/mm3 04/10/2024 11:54 PM EDT [facility] RBC 4.72 3.77 - 5.28 10*6/mm3 04/10/2024 11:54 PM EDT [facility] Hemoglobin 13.6 12.0 - 15.9 g/dL 04/10/2024 11:54 PM EDT [facility] Hematocrit 41.2 34.0 - 46.6 % 04/10/2024 11:54 PM EDT [facility] MCV 87.3 79.0 - 97.0 fL 04/10/2024 11:54 PM EDT [facility] MCH 28.8 26.6 - 33.0 pg 04/10/2024 11:54 PM EDT [facility] MCHC 33.0 31.5 - 35.7 g/dL 04/10/2024 11:54 PM EDT [facility] RDW 13.0 12.3 - 15.4 % 04/10/2024 11:54 PM EDT [facility] RDW-SD 41.3 37.0 - 54.0 fl 04/10/2024 11:54 PM EDT [facility] MPV 8.6 6.0 - 12.0 fL 04/10/2024 11:54 PM EDT [facility] Platelets 369 140 - 450 10*3/mm3 04/10/2024 11:54 PM EDT [facility] Neutrophil % 65.6 42.7 - 76.0 % 04/10/2024 11:54 PM EDT [facility] Lymphocyte % 24.5 19.6 - 45.3 % 04/10/2024 11:54 PM EDT [facility] Monocyte % 6.5 5.0 - 12.0 % 04/10/2024 11:54 PM EDT [facility] Eosinophil % 2.8 0.3 - 6.2 % 04/10/2024 11:54 PM EDT [facility] Basophil % 0.4 0.0 - 1.5 % 04/10/2024 11:54 PM EDT [facility] Immature Grans % 0.2 0.0 - 0.5 % 04/10/2024 11:54 PM EDT [facility] Neutrophils, Absolute 3.23 1.70 - 7.00 10*3/mm3 04/10/2024 11:54 PM EDT [facility] Lymphocytes, Absolute 1.21 0.70 - 3.10 10*3/mm3 04/10/2024 11:54 PM EDT [facility] Monocytes, Absolute 0.32 0.10 - 0.90 10*3/mm3 04/10/2024 11:54 PM EDT [facility] Eosinophils, Absolute 0.14 0.00 - 0.40 10*3/mm3 04/10/2024 11:54 PM EDT [facility] Basophils, Absolute 0.02 0.00 - 0.20 10*3/mm3 04/10/2024 11:54 PM EDT [facility] Immature Grans, Absolute 0.01 0.00 - 0.05 10*3/mm3 04/10/2024 11:54 PM EDT [facility] nRBC 0.0 0.0 - 0.2 /100 WBC 04/10/2024 11:54 PM EDT [facility] Blood Venipuncture / Unknown 04/10/2024 2:58 PM EDT 04/10/2024 2:58 PM EDT us Lamberto Vang MD LAB BLOOD ORDERABLES Final Result [facility]
[address] [place] [address], [place] [phone] * QuantiFERON-TB Gold Plus (04/10/2024 2:58 PM EDT) QuantiFERON Incubation Incubation performed. 04/13/2024 9:14 AM [...] 9:14 AM EDT Performed at: ??01 - [address] ??[id number] Termite Treater Helper: Jesus Reyes PhD, Phone: ??[phone] Lamberto Vang MD LAB BLOOD ORDERABLES Final Result [facility] [address] [place] [id number], documented in this encounter Visit Diagnoses Diagnosis Rheumatoid arthritis involving multiple sites with positive rheumatoid factor- Primary High risk medication use Immunosuppression due to drug therapy Fibromyalgia Unspecified myalgia and myositis History of thyroid nodule documented in this encounter Care Teams Executive Vice President Business Development Relationship Specialty Start Date End Date Franko Velasquez MD [address] [facility] [address] [place] [address] PCP - General Adolescent Medicine 04/10/24 documented as of this encounter
--- OUTSIDE RECORDS SUMMARY | 2024-06-23 07:45 | XMS_ITS | Encounter Summary ---
Author Organization [facility] Address [address] [place] [address] Care Team Providers Care Blocking Machine Tender Name Role Phone Ralph Dunne MD Primary Care Provider [phone] Reason for Visit * Auth/Cert Specialty Diagnoses / Procedures Referred By Prakash t Referred To Contact Diagnoses Thyroid nodule Thyroid nodule Procedures PA THYROID LOBECTOMY,UNILAT PA REMOVE BENIGN THYROID LESION BILATERAL THYROIDECTOMY, ISTHMECTOMY Hector Oquendo MD [address] [facility] [address] [place] [address] Phone: tel: fax: [facility] [address] [place] [address] Phone: tel: Referral ID Status Reason Start Date Expiration Date Visits Re quested Visits Authorized [id number] 1 1 Encounter Details Date Type Department Care Team (Late st Contact Info) Description 02/14/2021 7:28 AM EDT Anesthesia Event [facility] [address] [place] [id number] Sterling Carrasquillo DO [address] [place] [id number] Anesthesia Record Procedure Summary Procedure Name Responsible Anesthesiologist Anesthesia Start Time Anesthesia Stop Time BILATERAL THYROIDECTOMY, ISTHMECTOMY (Bilateral: Neck) Sterling Carrasquillo DO 02/14/21 0728 02/14/21 0953 Events Date Time Event Comment 02/14/2021 0728 An Start 0730 An Start Data 0730 In Room 0736 An Induction The patient was reevaluated immediately before moderate or deep sedation use and before anesthesia induction. 0739 An Intubation 0747 an wang now 0810 An Patient Move Inaccurate B P 0819 Ino Moving patient from bed to stretcher and back to clean patient. Unable to get accurate BP due to patient movement. Likely complicated due to body habitus as well. Decision made to place arterial line for patient saferty 0908 An Extubation 0914 Out of Room 0919 an stop data 0953 An Stop Meds Name Total ePHEDrine injection prefilled syringe 5 mg/mL 55 mg propofol (Diprivan) injection 10 mg/mL 2 00 mg succinylcholine (Anectine) injection 20 mg/mL 120 mg midazolam (Versed) injection 1 mg/mL 2 m g phenylephrine (Jagdish-Synephrine) prefilled syringe 1 mg/10 mL 200 mcg vasopressin (Vasostrict) injection 20 Un its/mL 4 Units lidocaine PF (Xylocaine-MPF) 2% 5 mL remifentanil (Ultiva) injection 2 mg 2.1 9 mg EPINEPHrine PF (Adrenalin) injection 1 m g/mL 20 mcg glycopyrrolate (Robinul) injection 0.2 m g/mL 0.2 mcg lactated Ringer's infusion 1,400 mL * Agents Name O2 N2O Air Sevoflurane Isoflurane Desflurane Inspired Desflurane Inspired Isoflurane Inspired Sevoflurane N2O Inspired N2O * Blood No blood administrations on file. Lines, Drains, and Airways Type Details Placement Removal ETT Placement Date: 01/30 01/20; Placement Time: 0739 (created via procedure documentation); Mask Ventilation: 1; Technique: Direct laryngoscopy; Type: ETT - single; Single Lumen Tube Size: 7 mm; Cuffed: Yes; Laryngoscope: Jolanta; Blade Size: 3; Location: Oral; Grade View: Grade I; Insertion Attempts: 1; Placement Verification: Auscultation, Capnometry; Placed by: OLIVIA; Removal Date: 02/14/21; Removal Time: 0910 (removed in OR) 02/14/21 0739 by Isac Casillas CRNA 02/14/21 0910 by Jacky Mendoza Urethral Catheter Placement Date: 01/30 01/20; Placement Time: 0800; Inserted by: Valeriano Hunter RN (Placed per anesthesia and MD. After patient voided twice on bed after indution. Moved patient to stretcher cleaned bed and repostitioned on table for procedure.); Existing LDA Placed by: Other (Comment); Type: Single lumen, Temperature probe; Size: 16 Fr.; Balloon Size: 10 mL; Urine Returned: Yes; Removal Date: 02/14/21; Removal Time: 0856; Removal Reason: Per order 02/14/21 0800 by Rosa Elena Hunter RN 02/14/21 0856 by Rosa Elena Hunter RN Arterial Line Placement Date: 01/30 01/20; Placement Time: 0827; Orientation: Left; Location: Radial; Site Prep: Chlorhexidine ; Technique: Ultrasound guidance; Inserted by: OLIVIA Casillas; Insertion Attempts: 1; Securement: Adhesive closure strips; Patient Tolerance: Tolerated well; Removal Date: 02/14/21; Removal Time: 1800; Removal Reason: Per protocol 02/14/21 0827 by Isac Casillas CRNA 02/14/21 1800 by Crispin Wright RN Peripheral IV Placement Date: 01/30 01/20; Placement Time: 0846; Catheter Size: 18 G; Orientation: Left; Location: Foot; Site Prep: Alcohol; Technique: Anatomical landmarks; Inserted by: Foreign; Insertion Attempts: 1; Removal Date: 02/14/21; Removal Time: 1800; Removal Reason: Per protocol 02/14/21 0846 by Isac Casillas CRNA 02/14/21 1800 by Crispin Wright RN Peripheral IV Placement Date: 01/30 01/20; Placement Time: 0849; Catheter Size: 20 G; Orientation: Left; Location: Antecubital; Site Prep: Alcohol; Technique: Anatomical landmarks; Inserted by: Vinny; Insertion Attempts: 1; Removal Date: 02/14/21; Removal Time: 1800; Removal Reason: Per protocol 02/14/21 0849 by Isac Casillas CRNA 02/14/21 1800 by Crispin Wright RN Peripheral IV Placement Date: 01/30 01/20; Placement Time: 0900; Catheter Size: 20 G; Orientation: Right; Location: Antecubital; Inserted by: DEE; Removal Date: 02/14/21; Removal Time: 1800; Removal Reason: Per protocol 02/14/21 0900 by Jacky Mendoza 02/14/21 1800 by Crispin Wright RN documented in this encounter Social History Tobacco [...] of this encounter Miscellaneous Notes * Anesthesia Postprocedure Evaluation - Sterling Carrasquillo - 02/14/2021 9:51 AM EDT Patient: Florencia Mai Anesthesia Type: general Vitals Value Taken Time BP 151/99 02/14/21 0931 Temp 36.4 02/14/21 0951 Pulse 91 02/14/21 0949 Resp 27 02/14/21 0949 SpO2 94 % 02/14/21 0949 Vitals shown include unvalidated device data. Anesthesia Post Evaluation Patient location during evaluation: PACU Patient participation: complete - patient participated Level of consciousness: baseline and awake Pain management: adequate (pain score 0-3) Airway patency: natural airway Cardiovascular status: acceptable and hemodynamically stable Respiratory status: acceptable, spontaneous ventilation, nonlabored ventilation and face mask Hydration status: acceptable Comments: Intraoperatively the patient developed hypoxia likely due to derecruitment from her coughing on the tube. We were able to restore saturations with [...] a time) with improvement but not to the point that I was comfortable continuing the case. After discussion with ENT surgeons Idecided to abort the procedure and awaken the patient. On emergence bp restored without further need for vasopressors, patient awakend and follwed commands and was extubated uneventfully to face tent. In the PACU she is alert and oriented x3, follows all commands, moves face and all extremities to command, denies weakness/numbness, and has a good mental status, understands what happened. I explained to her what happened in the OR and that we will have cardiology evaluate her prior to discharge to see if we can get an explination as to what happened. Her airway pressures were never high and she never had a rash so I do not think this was anaphylaxis. She received IVF bolus, so I do not thinkshe was simply dry. I suspect some possible pulmonary htn from obesity/hypoventilation. I think cardiology evaluation and echo are warrented. Patient is in stable and good condition in the pacu and will be monitored. If she remains stable and cardiology workup is unremarkable, she can be discharged home later this evening. Patient A&O in PACU, moving all extremities with equal bilateral strength. Patient informed on anesthetic progression of care and complications regarding patient response to anesthesia. No complications documented. * Anesthesia Procedure Notes - Isac Casillas CRNA - 02/14/2021 9:31 AM EDTAssociated Order(s): Airway Airway Date/Time: 02/14/2021 7:39 AM Urgency: elective Airway not difficult General Information and Staff Patient location during procedure: OR Performed: OLIVIA Indications and Patient Condition Indications for airway management: anesthesia Spontaneous Ventilation: absent Preoxygenated: yes Patient position: sniffing Mask difficulty assessment: 1 - vent by [...] by: chest auscultation and capnometry Measured from: teeth ETT to teeth (cm): 23 Number of attempts at approach: 1 * Anesthesia Preprocedure Evaluation - Sterling Carrasquillo - 02/14/2021 7:16 AM EDT Patient: Florencia Mai presents with thyroid nodule 3cm for a thyroidectomy. Procedure Information Date/Time: 02/14/21729 Procedure: BILATERAL THYROIDECTOMY, ISTHMECTOMY (Bilateral Neck) Location: [facility] [place] Surgeons: Hector Oquendo MD Relevant Problems Anesthesia (-) History of anesthesia complications Cardio (+) HTN (hypertension) (-) Angina pectoris (CMS/HCC) (-) CAD (coronary artery disease) (-) Dyspnea Endo (+) Thyroid nodule (-) Hyperthyroidism (-) Hypothyroidism GI (+) Gastroesophageal reflux disease without esophagitis (+) Obesity /Renal (within normal limits) Neuro/Psych (within normal limits) Pulmonary (within normal limits) Clinical information reviewed: Med Hx RA GERD Tobacco denies Allergies NKDA Surg Hx multiple, no neck surgeries Fam Hx Soc Hx OB Status NPO Status Date of Last Liquid: 02/13/21 Time of Last Liquid: 2299 Date of Last Solid: 02/13/21 Time of Last Solid: 193 Time of Last Void: 0531 Physical Exam Airway Mallampati: I Mouth opening: normal TM distance: >3 FB Cardiovascular - normal exam Dental Pulmonary - normal exam Neurological Skin Musculoskeletal Extremities Anesthesia Plan ASA 3 Anesthesia technique(s) discussed with the patient/family: General Anesthesia plan agreed upon was: general Post operative pain planned: discuss with surgical team Induction planned: intravenous Airway management planned: general endotracheal Premedication planned: midazolam Anesthetic plan and risks discussed with patient. Use of blood products discussed with patient who. Plan discussed with ESTATE MANAGER. Additional Equipment Requests documented in this encounter Plan of Treatment Not on file documented as of this encounter Procedures Procedure Name Priority Date/Time Associated Diagnosis Comments PB ANESTHESIA PLACEHOLDER Routine 02/14/2021 7:39 AM EDT PA AN ELECTIVE ENDOTRACHEAL AIRWAY Routine 02/14/2021 7:39 AM EDT documented in this encounter Results * PA AN ELECTIVE ENDOTRACHEAL AIRWAY, PB ANESTHESIA PLACEHOLDER (02/14/2021 7:39 AM EDT) Narrative Isac Casillas CRNA - 02/14/2021 7:39 AM EDT Isac Casillas CRNA ? 02/14/2021 ??9:31 AM Airway Date/Time: 02/14/2021 7:39 AM Urgency: elective Airway not difficult General Information and Staff Patient location during procedure: OR Performed: ESTATE MANAGER Indications and Patient Condition Indications for airway management: anesthesia Spontaneous Ventilation: absent Preoxygenated: yes Patient position: sniffing Mask difficulty assessment: 1 - vent by [...] by: chest auscultation and capnometry Measured from: teeth ETT to teeth (cm): 23 Number of attempts at approach: 1 Sterling Carrasquillo DO ANESTHESIA ORDERABLES Final Re sult documented in this encounter Visit Diagnoses Not on filedocumented in this encounter Administered Medications Inactive Administered Medications - up to 3 most recent administrations Medication Order MAR Action Action Date Dose Rate Site ePHEDrine Sulfate prefilled syringe Intravenous, As needed, Starting on Wed02/14/21 at 0836, Until Wed02/14/21 at 0953, Routine, Anesthesia Intraprocedure Given 02/14/2021 8:36 AM EDT 5 mg Given 02/14/2021 8:26 AM EDT 10 mg Given 02/14/2021 8:15 AM EDT 10 mg EPINEPHrine (Adrenalin) injection Intramuscular, As needed, Starting on Wed02/14/21 at 0826, Until Wed02/14/21 at 0953, Routine, Anesthesia Intraprocedure Given 02/14/2021 8:43 AM EDT 5 mcg Given 02/14/2021 8:38 AM EDT 5 mcg Given 02/14/2021 8:33 AM EDT 5 mcg glycopyrrolate (Robinul) injection Intravenous, As needed, Starting on Wed02/14/21 at 0816, Until Wed02/14/21 at 1017, Routine, Anesthesia Intraprocedure Given 02/14/2021 8:16 AM EDT 0.2 mcg lactated Ringer's infusion Intravenous, Continuous PRN, Starting on Wed02/14/21 at 0728, Until Wed02/14/21 at 0953, Routine New Bag 02/14/2021 8:34 AM EDT New Bag 02/14/2021 7:28 AM EDT lidocaine PF (Xylocaine) 2 % injection Intravenous, As needed, Starting on Wed02/14/21 at 0736, Until Wed02/14/21 at 0953, Routine, Anesthesia Intraprocedure Given 02/14/2021 7:36 AM EDT 5 mL midazolam (Versed) injection Intravenous, As needed, Starting on Wed02/14/21 at 0728, Until Wed02/14/21 at 0953, Routine, Anesthesia Intraprocedure Given 02/14/2021 7:28 AM EDT 2 mg phenylephrine in NS (Jagdish-Synephrine) 100 mcg/mL prefilled syringe Intravenous, As needed, Starting on Wed02/14/21 at 0758, Until Wed02/14/21 at 0953, Routine, Anesthesia Intraprocedure Given 02/14/2021 8:06 AM EDT 100 mcg Given 02/14/2021 7:58 AM EDT 100 mcg propofol (Diprivan) injection Intravenous, As needed, Starting on Wed02/14/21 at 0736, Until Wed02/14/21 at 0953, Routine, Anesthesia Intraprocedure Given 02/14/2021 7:36 AM EDT 200 mg remifentanil (Ultiva) injection Intravenous, Continuous PRN, Starting on Wed02/14/21 at 0747, Until Wed02/14/21 at 0953, Routine, Anesthesia Intraprocedure Rate/Dose Change 02/14/2021 8:21 AM EDT 0.2 mcg/kg/min 1.85 mL/hr Rate/Dose Change 02/14/2021 8:15 AM EDT 0.3 mcg/kg/min 2.7 76 mL/hr Rate/Dose Change 02/14/2021 8:10 AM EDT 0.4 mcg/kg/min 3.7 01 mL/hr succinylcholine (Anectine) injection Intravenous, As needed, Starting on Wed02/14/21 at 0738, Until Wed02/14/21 at 0953, Routine, Anesthesia Intraprocedure Given 02/14/2021 7:38 AM EDT 120 mg vasopressin (Vasostrict) injection Intravenous, As needed, Starting on Wed02/14/21 at 0837, Until Wed02/14/21 at 0953, Routine, Anesthesia Intraprocedure Given 02/14/2021 8:44 AM EDT 1 Units Given 02/14/2021 8:37 AM EDT 1 Units Given 02/14/2021 8:28 AM EDT 1 Units documented in this encounter Care Teams Blocking Machine Tender Relationship Specialty Start Date End Date Ralph Dunne MD [address] [place]ack[place] [id number] PCP - General 12/13/20 documented as of this encounter
--- OUTSIDE RECORDS SUMMARY | 2024-06-23 07:45 | XMS_ITS | Encounter Summary ---
Author Organization Healthcare Address [address] [place] [address] Care Team Providers Care Cleaning Matron Name Role Phone Unavailable Primary Care Provider Unavailabl e Encounter Details Date Type Department Care Team (Late st Contact Info) Description 12/03/2020 Abstract MD Clinic Otol[facility]ology [address] [place] [address] Hector Oquendo MD [address] [place] [address] Social History Tobacco Use Types Packs/Day Years Used Date Smoking Tobacco: Never Alcohol Use Standard Drinks/Week Comments Yes 0 (1 standard drink = 0.6 oz pur e alcohol) Comments Unknown Sex and Gender Information Value Date Recorded Sex Assigned at Not on file Legal Sex Female 8:58 PM EDT Gender Identity Not on file Sexual Orientation Not on file documented as of this encounter Last Filed Vital Signs Vital Sign Reading Time Taken Comments Blood Pressure 142/93 11/04/2020 3:43 PM EDT Pulse 70 11/04/2020 3:43 PM EDT Temperature - - Respiratory Rate - - Oxygen Saturation - - Inhaled Oxygen Concentration - - Weight 150 kg (329 lb 15.8 oz) 11/04/2020 3:43 P M EDT Height 175.3 cm (5' 9 ) 11/04/2020 3:43 PM EDT Body Mass Index 48.73 11/04/2020 3:43 PM EDT documented in this encounter Plan of Treatment Not on file documented as of this encounter Visit Diagnoses Not on filedocumented in this encounter
--- OUTSIDE RECORDS SUMMARY | 2024-06-23 07:45 | XMS_ITS | Encounter Summary ---
Author Organization Healthcare Address [address] [place] [address] Care Team Providers Care Parts Classifier Name Role Phone Ralph Dunne MD Primary Care Provider [phone] Encounter Details Date Type Department Care Team (Late st Contact Info) Description 01/06/2021 4:30 PM EDT [facility] Visit [facility] [address] [place] [address] Hector Oquendo MD [address] [place] [address] Thyroid nodule (Primary Dx); Gastroesophageal reflux disease without esophagitis; PND (post-nasal drip) Social History Tobacco Use Types Packs/Day Years [...] have Coronavirus / COVID-19? No / Unsure 01/06/2021 4:02 PM EDT documented as of this encounter Last Filed Vital Signs Vital Sign Reading Time Taken Comments Blood Pressure 142/86 01/06/2021 4:34 PM EDT Pulse 76 01/06/2021 4:34 PM EDT Temperature - - Respiratory Rate - - Oxygen Saturation - - Inhaled Oxygen Concentration - - Weight 151 kg (333 lb) 01/06/2021 4:34 PM EDT Height 175.3 cm (5' 9 ) 01/06/2021 4:34 PM EDT Body Mass Index 49.18 01/06/2021 4:34 PM EDT documented in this encounter Miscellaneous Notes * Progress Notes - Hector Oquendo MD - 01/06/2021 4:30 PM EDT Ms. Mai is a very pleasant 50 year-old patient who is returning to the clinic today for follow-up. She was last seen in my clinic on November 04, 2020 and recommended an ultrasound-guided biopsy of her thyroid nodule. ?? She 1st noticed an anterior lower [...] is also partially helping with herpostnasal drip. The patient's complete review of system from 01/06/21 was performed today All systems were negative except for those mentioned [...] agree with the interpretation. ?? Allergies: No known drug allergies Past medical history: As in history of present illness Past surgical history: bilateral Bunionectomy, appendectomy, abdominal surgery, cholecystectomy andexcision of left neck cyst Family history: reviewed and consistent with colon cancer in her mother and Crohn's disease in her father Social history: The patient does not smoke, drink or use any illicit drugs ?? PHYSICAL EXAMINATION: General: she is a healthy-appearing 50-year-old patient, alert and oriented x3, in no [...] cm thyroid nodule, located in the isthmus It is nontender to palpation and ascends with swallowing. ?? Respiratory: chest is symmetrical, breathing comfortably without effort ?? PROCEDURE PERFORMED: Fiberoptic Flexible Laryngoscopy. INDICATION: Preoperative evaluation of the thyroid prior to thyroidectomy DESCRIPTION OF PROCEDURE: After getting the verbal consent, I sprayed bilateral nasal cavities with lidocaine 4% and Jagdish-Synephrine 1/100,000. I examined both nasal after obtaining adequate decongestion. Septum is midline. Sinonasal cavities: Clear without any suspicious lesions. No pus or polyps. Nasopharynx was clean without any suspicious lesions. Fossae of Rosenmuller: Clear bilaterally without any lesions. Base of tongue was normal. Vallecula is symmetrical without any suspicious lesions. Hypopharynx: no suspicious lesions are noted. Pyriform sinuses, post-cricoid, lateral pharyngeal renae, posterior pharyngeal wall: are unremarkable. Endolarynx was normal. VC mobility is normal. She has a posterior laryngitis most likely due to GERD with interarytenoid pachydermia. ?? IMPRESSION: 1-3 cm thyroid nodule, in the isthmus, TR 2 2-allergic rhinitis with postnasal drip 3-GERD 4-fibromyalgia 5-osteoarthritis 6-rheumatoid arthritis ?? RECOMMENDATIONS: I discussed those findings with the patient. We discussed different recommendations such as observation and repeat ultrasound in 1 year. The patient is irritated because of the nodule and has anterior neck pain discomfort and would like the nodule removed. We discussed surgery in length that include isthmectomy versus a thyroid lobectomy. The patient understood the plan very well and would like to proceed with surgery. All the risks of the surgery were [...] already on my schedule for the procedure. Hector Oquendo MD MS FACS Electrical Worker Head & Neck Oncology Rhinology & Skull Base Surgery documented in this encounter Plan of Treatment Not on file documented as of this encounter Visit Diagnoses Diagnosis Thyroid nodule- Primary Nontoxic uninodular goiter Gastroesophageal reflux disease without esophagitis Esophageal reflux PND (post-nasal drip) Postnasal drip documented in this encounter Care Teams Parts Classifier Relationship Specialty Start Date End Date Ralph Dunne MD [address] [place]ack[place] [id number] PCP - General 12/13/20 documented as of this encounter
--- OUTSIDE RECORDS SUMMARY | 2024-06-23 07:45 | XMS_ITS | Encounter Summary ---
Author Organization [facility] Address [address] [place] [address] Care Team Providers Care Customer Development Manager Name Role Phone Ralph Dunne MD Primary Care Provider [phone] Encounter Details Date Type Department Care Team (Latest Contact Info) Description 02/13/2021 Travel Social History Tobacco Use Types Packs/Day [...] on filedocumented in this encounter Care Teams Customer Development Manager Relationship Specialty Start Date End Date Ralph Dunne MD [address] [place] [address] PCP - General 12/13/20 documented as of this encounter
--- OUTSIDE RECORDS SUMMARY | 2024-06-23 07:45 | XMS_ITS | Encounter Summary ---
Author Organization [facility] Address [address] [place] [address] Care Team Providers Care Tower Switch Operator Name Role Phone Betsey Bonner APRN Primary Care Provider [phone] Reason for Referral * (Routine) - Closed Specialty Diagnoses / Procedures Referred By Contac t Referred To Contact Radiology Diagnoses Hypertension, unspecified type Procedures Chest X-Ray PA & Lateral Herve Marshall Jr., MD [address] [facility] [address] [place] [address] Phone: tel: fax: Referral ID Status Reason Start Date Expiration Date Visits Re quested Visits Authorized [id number] Closed 12/17/2019 12/16/2020 1 1 Reason for Visit * Auth/Cert Specialty Diagnoses / Procedures Referred By Contac t Referred To Contact Diagnoses Other female genital prolapse Procedures WI LAPAROSCOPY, SURG, COLPOPEXY ROBOTIC SACROCOLPOPEXY Referral ID Status Reason Start Date Expiration Date Visits Re quested Visits Authorized [id number] 1 1 Encounter Details Date Type Department Care Team (Late st Contact Info) Description 12/19/2019 11:25 AM EDT - 12/20/2019 5:57 PM EDT Hospital Encounter [facility] [address]F [address] [place] [id number] Herve Marshall Jr., MD [address] [facility] [address] [place] [id number] S/P sacrocolpopexy (Primary Dx); Hypertension, unspecified type Discharge Disposition: Home or Self Care Social [...] Sign Reading Time Taken Comments Blood Pressure 133/81 12/20/2019 12:10 PM EDT Pulse 67 12/20/2019 3:00 PM EDT Temperature 36.6 ??C (97.8 ??F) 12/20/2019 12:10 PM E DT Respiratory Rate 18 12/20/2019 12:10 PM EDT Oxygen Saturation 94% 12/20/2019 12:10 PM EDT Inhaled Oxygen Concentration - - Weight 154 kg (338 lb 13.6 oz) 12/19/2019 4:45 P M EDT Height 175.3 cm (5' 9.02 ) 12/19/2019 4:45 PM ED T Body Mass Index 50.02 12/19/2019 4:45 PM EDT documented in this encounter Discharge Summaries * [...] 7.5-325 MG per tablet Commonly known as: Columbia 1 tablet, Oral, Every 6 Hours PRN [...] lifting over 10 pounds Follow-up Appointments Dr. Marshall Jr per his orders Boo Ag MD 12/20/19 17:28 documented in this encounter Discharge Instructions * Discharge Instr - Activity* Iqra Hernandez RN - 12/20/2019 2:50 PM EDT Activity as tolerated * Discharge Instr - Diet* Iqra Hernandez RN - 12/20/2019 2:50 PM EDT Diet as tolerated * Attachments The following attachments cannot be sent through Care Everywhere. * Sacrocolpopexy (Greek) * Docusate capsules (Greek) * Nitrofurantoin tablets or capsules (Greek) * Polyethylene Glycol powder (Greek) * Acetaminophen; Hydrocodone tablets or capsules (Greek) documented in this encounter Medications at Time [...] DR MARSHALL. STOPPED. 12/22/2019 4 HYDROcodone-acetami nophen (Columbia) 7.5-325 MG per tabletIndications:S /P sacrocolpopexy Take [...] 12/20/2019 12:25 PM EDT Discharge Planning Assessment [facility] Patient Name: Florencia Mai Today's Date: 12/20/2019 Admit Date: 12/19/2019 Discharge Needs Assessment Row Name 12/20/19 1222 Living Environment Lives With child(rika), adult;parent(s) pt resides in [facility] Name(s) of Who Lives With Patient son- [...] with pt at bedside. 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 The electronic translation of spoken language may permit erroneous, or at times, nonsensicalwords or phrases to be inadvertently transcribed; Although I have reviewed the note for such errors, some may still exist. Boo Ag MD 12/19/19 16:14 * Kerri Mason APRN - 12/19/2019 12:32 PM EDT Pre-Op H&P Florencia Mayo Knighter [phone] [id number] Chief complaint: Vaginal prolapse HPI: 10/09/19 [...] Plan of Care Review Flowsheets Taken 12/20/2019 [id number] Progress: improving Outcome Summary: Pt ambulating and [...] Jr., MD Anesthesia: General with Block Staff: Prompt Care Rn: Selena Hilliard RN Scrub Person: Liane Garcia Brandie Hand Bunch Maker: Helen Webb PCT Bell Person: Carlos Pate PA Estimated Blood Loss: <500ml [...] then the remainder of the robotic and senior office assistant trochars were placed. The patient was [...] the anterior vagina at the apex using Hoyt- Michael suture. Posterior limb was secured to the posterior vagina atthe apex using Oratec suture. Single arm of the mesh was then secured to the anterior spinal ligament taking care not to injure her ureter which was easily seen thanks to her ureteral lysis using Hoyt-Michael suture. Excess mesh was excised. We then [...] Description 07/10/2024 3:15 PM EST Office Visit [facility]OLOGY [address] [facility] [address] [place] [phone] Stuart Whtie APRN [address] [facility] [address] [place] [address] documented as of this encounter Procedures Procedure [...] 3.40 - 10.80 10*3/mm3 [facility] RBC 4.78 3.77 - 5.28 10*6/mm3 12/20/2019 8:50 [facility] Hemoglobin 13.4 12.0 - 15.9 g/dL 12/20/2019 8:[facility] Hematocrit 43.1 34.0 - 46.6 % 12/20/2019 8:50 AM EDT [facility] MCV 90.2 79.0 - 97.0 fL 12/20/2019 8:50 AM EDT [facility] MCH 28.0 26.6 - 33.0 pg 12/20/2019 8:50 AM [facility] MCHC 31.1(L) 31.5 - 35.7 g/dL 12/20/2019 8:50 AM [facility] RDW 12.8 12.3 - 15.4 % 12/20/2019 8:50 AM [facility] RDW-SD 42.1 37.0 - 54.0 fl 12/20/2019 8:50 AM [facility] MPV 8.6 6.0 - 12.0 fL 12/20/2019 8:50 AM [facility] Platelets 321 140 - 450 10*3/mm3 12/20/2019 8:50 AM [facility] Neutrophil % 79.3(H) 42.7 - 76.0 % 12/20/2019 8:50 [facility] Lymphocyte % 11.0(L) 19.6 - 45.3 % 12/20/2019 8:50 [facility] Monocyte % 5.9 5.0 - 12.0 % 12/20/2019 8:50 [facility] Eosinophil % 3.1 0.3 - 6.2 % 12/20/2019 8:50 [facility] Basophil % 0.2 0.0 - 1.5 % 12/20/2019 8:50 AM EDT [facility] Immature Grans % 0.5 0.0 - 0.5 % 12/20/2019 8:50 AM EDT [facility] Neutrophils, Absolute 4.81 1.70 - 7.00 10*3/mm3 12/20/2019 8:50 AM EDT [facility] Lymphocytes, Absolute 0.67(L) 0.70 - 3.10 10*3/mm3 12/20/2019 8:50 AM EDT [facility] Monocytes, Absolute 0.36 0.10 - 0.90 10*3/mm3 12/20/2019 8:50 AM EDT [facility] Eosinophils, Absolute 0.19 0.00 - 0.40 10*3/mm3 12/20/2019 8:50 AM EDT [facility] Basophils, Absolute 0.01 0.00 - 0.20 10*3/mm3 12/20/2019 8:50 AM EDT [facility] Immature Grans, Absolute 0.03 0.00 - 0.05 10*3/mm3 12/20/2019 8:50 AM EDT [facility] nRBC 0.0 0.0 - 0.2 /100 WBC 12/20/2019 8:50 AM EDT [facility] Blood Venipuncture / Unknown 12/20/2019 8:02 AM EDT 12/20/2019 8:37 AM EDT Boo Ag MD LAB BLOOD ORDERABLES Final Result [facility]
[address] [place] [address], * (ABNORMAL) Basic Metabolic Panel (12/20/2019 8:02 AM EDT) [facility] Glucose 101(H) 65 - 99 mg/dL 12/20/2019 9:13 AM EDT [facility] BUN 11 6 - 20 mg/dL 12/20/2019 9:13 AM EDT [facility] Creatinine 0.65 0.57 - 1.00 mg/dL 12/20/2019 9:13 AM EDT [facility] Sodium 143 136 - 145 mmol/L 12/20/2019 9:13 AM EDT [facility] Potassium 3.8 3.5 - 5.2 mmol/L 12/20/2019 9:13 AM EDT [facility] Chloride 104 98 - 107 mmol/L 12/20/2019 9:13 AM EDT [facility] CO2 29.0 22.0 - 29.0 mmol/L 12/20/2019 9:13 AM EDT [facility] Calcium 8.4(L) 8.6 - 10.5 mg/dL 12/20/2019 9:13 AM EDT [facility] eGFR Non Amer 97 >60 mL/min/1.7 3 12/20/2019 9:13 AM EDT [facility] BUN/Creatinine Ratio 16.9 7.0 - 25.0 12/20/2019 9:13 AM EDT [facility] Anion Gap 10.0 5.0 - 15.0 mmol/L 12/20/2019 9:13 AM EDT [facility] Blood Venipuncture / Unknown 12/20/2019 8:02 AM EDT 12/20/2019 8:37 AM EDT Narrative [facility] - 12/20/2019 9:13 AM EDT GFR Normal >60 Chronic Kidney Disease <60 Kidney Failure <15 Boo Ag MD LAB BLOOD ORDERABLES Final Result [facility]
[address] [place] [address], * SCANNED - TELEMETRY (12/19/2019) Anatomical Region Laterality Modality Other [facility] Onbase ECG ORDERABLES Final Result * XR Chest [...] PA AND LATERAL- 12/17/2019 INDICATION: Pre-Op Evaluation; B11-[id number] (primary) hypertension COMPARISON: NONE FINDINGS: Heart shadow is in the upper range of normal size. Vasculature appears cephalized but there is no evidence of overt pulmonary edema. Lungs are moderately well-expanded and appear grossly clear. Lateral view shows a few granulomatous calcifications in the anterior chest. Procedure Note Bartolome Walter MD - 12/18/2019 EXAMINATION: XR CHEST PA AND LATERAL- 12/17/2019 INDICATION: Pre-Op Evaluation; W46-[id number] (primary) hypertension COMPARISON: NONE FINDINGS: Heart shadow [...] Yellow Yellow, Straw 12/17/2019 10:11 AM EDT [facility] Appearance, UA Clear Clear 12/17/2019 10:11 AM EDT [facility] pH, UA 8.0 5.0 - 8.0 12/17/2019 10:11 [facility] Specific [place], UA 1.012 1.001 - 1.030 12/17/2019 10:11 AM EDT [facility] Glucose, UA Negative Negative 12/17/2019 10:11 AM EDT [facility] Ketones, UA Negative Negative 12/17/2019 10:11 AM EDT [facility] Bilirubin, UA Negative Negative 12/17/2019 10:11 AM EDT [facility] Blood, UA Negative Negative 12/17/2019 10:11 AM EDT [facility] Protein, UA Negative Negative 12/17/2019 10:11 AM EDT [facility] Leuk Esterase, UA Moderate (2+)(A) Negative 12/17/2019 10:11 AM EDT [facility] Nitrite, UA Negative Negative 12/17/2019 10:11 AM EDT [facility] Urobilinogen, UA 0.2 E.U./dL 0.2 - 1.0 E.U./dL 12/17/2019 10:11 AM EDT [facility] Urine Urine specimen collection, clean catch / Unknown Collection / Unknown 12/17/2019 9:42 AM EDT 12/17/2019 10:07 AM EDT Herve Marshall Jr., MD URINE ORDERABLES Fi nal Result [facility]
[address] [place] [address], * Basic Metabolic Panel (12/17/2019 9:42 AM EDT) Glucose 95 65 - 99 mg/dL 12/17/2019 10:14 AM EDT [facility] BUN 12 6 - 20 mg/dL 12/17/2019 10:14 AM EDT [facility] Creatinine 0.76 0.57 - 1.00 mg/dL 12/17/2019 10:14 AM EDT [facility] Sodium 144 136 - 145 mmol/L 12/17/2019 10:14 AM EDT [facility] Potassium 3.7 3.5 - 5.2 mmol/L 12/17/2019 10:14 AM EDT [facility] Chloride 102 98 - 107 mmol/L 12/17/2019 10:14 AM EDT [facility] CO2 29.0 22.0 - 29.0 mmol/L 12/17/2019 10:14 AM EDT [facility] Calcium 9.3 8.6 - 10.5 mg/dL 12/17/2019 10:14 AM EDT [facility] eGFR Non Amer 81 >60 mL/min/1.7 3 12/17/2019 10:14 AM EDT [facility] BUN/Creatinine Ratio 15.8 7.0 - 25.0 12/17/2019 10:14 AM EDT [facility] Anion Gap 13.0 5.0 - 15.0 mmol/L 12/17/2019 10:14 AM EDT [facility] Blood Venipuncture / Unknown 12/17/2019 9:42 AM EDT 12/17/2019 9:50 AM EDT Narrative [facility] - 12/17/2019 10:14 AM EDT GFR Normal >60 Chronic Kidney Disease <60 Kidney Failure <15 Herve Marshall Jr., MD LAB BLOOD ORDERABLE S Final Result [facility]
[address] [place] [address], * CBC (No Diff) (12/17/2019 9:42 AM EDT) WBC 4.53 3.40 - 10.80 10*3/mm3 12/17/2019 10:10 AM EDT [facility] RBC 5.15 3.77 - 5.28 10*6/mm3 12/17/2019 10:10 AM EDT [facility] Hemoglobin 14.7 12.0 - 15.9 g/dL 12/17/2019 10:10 AM EDT [facility] Hematocrit 45.4 34.0 - 46.6 % 12/17/2019 10:10 AM EDT [facility] MCV 88.2 79.0 - 97.0 fL 12/17/2019 10:10 AM EDT [facility] MCH 28.5 26.6 - 33.0 pg 12/17/2019 10:10 AM EDT [facility] MCHC 32.4 31.5 - 35.7 g/dL 12/17/2019 10:10 AM EDT [facility] RDW 12.8 12.3 - 15.4 % 12/17/2019 10:10 AM EDT [facility] RDW-SD 41.2 37.0 - 54.0 fl 12/17/2019 10:10 AM EDT [facility] MPV 8.5 6.0 - 12.0 fL 12/17/2019 10:10 AM EDT [facility] Platelets 324 140 - 450 10*3/mm3 12/17/2019 10:10 AM EDT [facility] Blood Venipuncture / Unknown 12/17/2019 9:42 AM EDT 12/17/2019 9:50 AM EDT Herve Marshall Jr., MD LAB BLOOD ORDERABLE S Final Result [facility]
[address] [place] [address], documented in this encounter Visit Diagnoses Diagnosis S/P sacrocolpopexy- Primary Hypertension, unspecified type S/P sacrocolpopexy Hypertension Unspecified essential hypertension Morbid obesity Hypertension, unspecified type documented in this encounter Admitting Diagnoses Diagnosis Hypertension [...] Given 12/19/2019 8:39 PM EDT 2 g docusate sodium (COLACE) capsule 100 mg [...] tablet 40 mg 40 mg, Oral, Every Self Pay Specialist, First dose on Wed12/20/19 at 0600, Swallow [...] Behind Left Ear sodium chloride 0.9 % with KCl 20 mEq/L infusion 100 mL/hr, Intravenous, Continuous, Starting on Wed12/19/19 at 1658 New Bag 12/20/2019 4:41 AM EDT 100 mL/hr 100 mL/hr Currently Infusing 12/20/2019 4:30 AM EDT 100 mL/hr 100 m L/hr Currently Infusing 12/20/2019 2:24 AM EDT 100 mL/hr 100 m L/hr Tofacitinib Citrate ER (XELJANZ) extended release tablet 11 mg -- PATIENT SUPPLIED MEDICATION 11 mg, Oral, Daily, First dose on Wed12/19/19 at 2000, Drug Name: Tofacitinib Citrate ER (Xeljanz XR) Given 12/20/2019 8:50 AM EDT 11 mg Given 12/19/2019 7:23 PM EDT 11 mg documented in this encounter Active and Recently Administered Medications Times are shown in EDT. Scheduled Medication Order 12/18/2019 12/19/201912/1912/20/2019 acetaminophen (TYLENOL) 160 MG/5ML solution 650 mg(Linked [...] Canas RN)1300 (Given - Provider: Iqra Hernandez BRIANDA) ceFOXitin (MEFOXIN) 2 g/50 mL 0.9% NS [...] Surgical Prophylaxis 2038 (Given - Provider: Vandana Canas RN)2315 (Canceled Entry - Provider: Vandana Canas RN - Comment: already given) 0439 (Given - Provider: Vandana Canas RN)0600 (Canceled Entry - Provider: Vandana Canas RN) DULoxetine (CYMBALTA) DR capsule 30 mg 30 mg, Oral, Daily, First dose on Wed12/19/19 at 1554, Caution: Look alike/sound alike drug alert Do not crush or chew capsule. 1800 (Given - Provider: Maddy Martinez RN) 0850 (Given - Provider: Iqra Hernandez, BRIANDA) enoxaparin (LOVENOX) syringe 40 mg 40 mg, Subcutaneous, Daily, First dose on Wed12/20/19 at 0900, Give subcutaneous in abdomen only. Do not massage site after injection., Indications: VTE Prophylaxis 0850 (Given - Provid er: Iqra Hernandez RN) famotidine (PEPCID) tablet 20 mg (CANCELED) 20 mg, Oral, 60 Minutes Pre-Op, Starting on Wed12/19/19 at 1145 1236 (Given - Provider: Tanya Aguirre RN) gabapentin (NEURONTIN) capsule 100 mg 100 mg, Oral, 3 Times Daily, First dose on Wed12/19/19 at 1658, For 48 hours, {ELICEO} 1801 (Given - Provider: Maddy Martinez RN)2034 (Given - Provider: Vandana Canas RN) 0850 (Given - Provider: Iqra Hernandez, RN)1600 (Due) gabapentin (NEURONTIN) capsule 600 mg (COMPLETED) [...] 5-8 1236 (Given - Provider: Tanya Aguirre, BRIANDA) pantoprazole (PROTONIX) EC tablet 40 mg 40 mg, Oral, Every Self Pay Specialist, First dose on Wed12/20/19 at 0600, Swallow whole; do not crush, split, or chew. 0440 (Given - Provid er: Vandana Canas RN)0600 (Canceled Entry - Provider: Vandana Canas RN) Tofacitinib Citrate ER (XELJANZ) extended release tablet 11 mg -- PATIENT SUPPLIED MEDICATION 11 mg, Oral, Daily, First dose on Wed12/19/19 at 2000, Drug Name: Tofacitinib Citrate ER (Xeljanz XR) 1923 (Given - Provider: Maddy Martinez RN) 0850 (Given - Provider: Iqra Hernandez, RN) Continuous Medication Order 12/18/2019 12/19/2019 12/20/2019 [...] 1800 (New Bag - Provider: Maddy Martinez RN)2021 (Currently Infusing - Provider: Vandana Canas RN)2315 (Currently Infusing - Provider: Vandana Canas RN) 0224 (Currently Infusing - Provider: Vandana Canas, BRIANDA)0430 (Currently Infusing - Provider: Vandana Canas RN)0441 (New Bag - Provider: Vandana Canas RN)0642 (Transferred to External Facility - Provider: Vandana Canas RN) PRN Medication Order 12/18/2019 12/19/2019 12/20/2019 conjugated estrogens (PREMARIN) vaginal cream (CANCELED) As Needed, Starting on Wed12/19/19 at 1550 1550 (Given - Provider: Herve Marshlal Jr., MD - Comment: vagina) docusate sodium [...] 5-8 1801 (Given - Provider: Maddy Martinez RN)2349 (Given - Provider: Vandana Canas, BRIANDA) lactated ringers infusion 9 mL/hr, Intravenous, Continuous [...] = Pain Score of 7-10, CPOT 5-8 2038 (Given - Provider: Vandana Canas RN) 0448 [...] metoclopramide. documented in this encounter Care Teams Tower Switch Operator Relationship Specialty Start Date End Date Betsey Bonner, SR. PAYROLL PROCESSOR PCP - General Family Medicine 12/17/19 07/05/22 documented as of this encounter
--- OUTSIDE RECORDS SUMMARY | 2024-06-23 07:45 | XMS_ITS | Encounter Summary ---
Author Organization [facility] Address [address] [place] [address] Care Team Providers Care Iron Guardrail Installer Name Role Phone Ralph Dunne MD Primary Care Provider [phone] Encounter Details Date Type Department Care Team (Late st Contact Info) Description 02/04/2021 Orders Only [facility] [address] [place] [address] Lea Snider, [facility] Encounter for preprocedure screening laboratory testing for [...] encounter Results * SARS CoV-2/COVID-19 by PCR (02/10/2021 3:37 PM EDT) SARS CoV-2/COVID-1 9 RNA PCR Result Not Detected Not Detected 02/11/2021 1:28 AM EDT [facility] Swab Oropharyngeal structure / Unknown Non-blood Collection / Unknown 02/10/2021 3:37 PM EDT 02/10/2021 3:37 PM EDT Narrative [facility] - 02/11/2021 1:28 AM EDT This assay is for in vitro diagnostic use under FDA emergency use authorization only. Negative results do not preclude infection with the SARS CoV-2 virus and should not be the sole basis of a patient treatment/management or public health decision. Follow up testing should be performed according to the current CDC recommendations. This test was performed using the [employer] SARS CoV-2 assay, a PCR-based method. The limit of detection (LoD) for this assay is 40 genome equivalents/mL. Negative results should be considered presumptive and do not preclude current or future infection obtained through community transmission or other exposures. Negative results must be considered in the context of an individual's recent exposures, history, presence of clinical signs and symptoms consistent with COVID-19. us Hector Oquendo MD LAB MICROBIOLOGY - GENERAL ORDER ANGELES Final Result [facility] [address] [place] [address] documented in this encounter Visit Diagnoses Diagnosis Encounter for preprocedure screening laboratory testing for COVID-19- Primary documented in this encounter Care Teams Iron Guardrail Installer Relationship Specialty Start Date End Date Ralph Dunne MD [address] [place] [id number] PCP - General 12/13/20 documented as of this encounter
--- OUTSIDE RECORDS SUMMARY | 2024-06-23 07:45 | XMS_ITS | Encounter Summary ---
Author Organization [facility] Address [address] [place] [address] Care Team Providers Care Brand Marketing Specialist Name Role Phone Franko Velasquez MD Primary Care Provider [phone] Encounter Details Date Type Department Care Team ([facility] Contact Info) Description 04/10/2024 Telephone [facility] RHEUMATOLOGY [address] [address] Lamberto Vang MD [address] [facility] [address] [place], [place] [id number] Social History Tobacco Use Types Packs/Day Years [...] on file documented as of this encounter Progress Notes * Chilo Shannon PharmD - 04/11/2024 7:42 AM EDTAddended by: CHILO SHANNON on: 04/11/2024 07:42 AM Modules accepted: Orders documented in this encounter Miscellaneous Notes * Telephone Encounter - Chilo Shannon PharmD - 04/11/2024 7:42 AM EDT Images from the original note were not included. Specialty Pharmacy Patient Management Program Per Protocol Prescription Order/Refill Patient currently fills medications at [facility] and is enrolled in an Rheumatology Patient Management Program. Requested Prescriptions Pending Prescriptions Disp Refills Tofacitinib Citrate ER (Xeljanz XR) 11 MG tablet sustained-release 24 hour 30 tablet 2 Sig: Take 1 tablet by mouth Daily. Prescription orders above were sent to the pharmacy per Collaborative Care Agreement Protocol. * Telephone Encounter - Jen Agustin Delivery Assistant - 04/11/2024 7:35 AM EDT Please send Xeljanz 11mg XR to pt preferred pharmacy. Pt has to fill at [facility] specialty * Telephone Encounter - Jen Agustin Delivery Assistant - 04/11/2024 7:33 AM EDT Xeljanz PA approved. * Telephone Encounter - Lamberto Vang MD - 04/10/2024 2:46 PM EDT Prior auth xeljanz for RA. she has new insurance. failed mtx and multiple other meds for RA. see my note for details on prior meds documented in this encounter Plan of Treatment Upcoming Encounters Date Type Department Care Team (Late st Contact Info) Description 07/10/2024 3:15 PM EST Office Visit [facility] RHEUMATOLOGY [address] [facility] [address] [place] [address] Stuart White APRN 3000 [facility] [address] [place] [address] documented as of this encounter Visit Diagnoses Not on filedocumented in this encounter Care Teams Brand Marketing Specialist Relationship Specialty Start Date End Date Franko Velasquez MD [address] [facility] [address] [facility] [address] [place] [address] PCP - General Adolescent Medicine 04/10/24 documented as of this encounter
--- OUTSIDE RECORDS SUMMARY | 2024-06-23 07:45 | XMS_ITS | Encounter Summary ---
Author Organization [facility] yste Address [address] [place] [address] Care Team Providers Care Bilingual Social Worker Name Role Phone Franko Velasquez MD Primary Care Provider [phone] Encounter Details Date Type Department Care Team ([facility] Contact Info) Description 04/10/2024 3:00 PM EDT Lab [facility] [place] [address] [place] [address] Rheumatoid arthritis involving multiple sites with positive rheumatoid factor; High risk medication use Social History Tobacco Use Types Packs/Day Years [...] as of this encounter Plan of Treatment Upcoming Encounters Date Type Department Care Team (Late st Contact Info) Description 07/10/2024 3:15 PM EST Office Visit [facility] RHEUMATOLOGY [address] [facility] [address] [place] [address] Stuart White APRN [address] [facility] [address] [place] [address] documented as of this encounter Procedures Procedure [...] positive rheumatoid factor High risk medication use documented in this encounter Results * QuantiFERON-TB Gold Plus (04/10/2024 2:58 PM EDT) [facility] QuantiFERON Criteria Comment 04/13/2024 9:14 AM EDT [facility] Comment: QuantiFERON-TB Gold Plus is a [...] Value 0.01 IU/mL 04/13/2024 9:14 AM EDT [facility] QuantiFERON Mitogen Value >10.00 IU/mL 04/13/2024 9:14 AM EDT [facility] Blood Venipuncture / Unknown 04/10/2024 2:58 PM EDT 04/10/2024 2:58 PM EDT Narrative [facility] - 04/13/2024 9:14 AM EDT Performed at: ??01 - [address] ??[id number] Edging Supervisor: Jesus Reyes PhD, Phone: ??[phone] us Lamberto Vang MD LAB BLOOD ORDERABLES Final Result [facility] [address] [place] [address], * Sedimentation Rate (04/10/2024 2:58 PM EDT) [facility] Sed Rate 9 0 - 30 mm/hr 04/11/2024 12:06 AM EDT [facility] Blood Venipuncture / Unknown 04/10/2024 2:58 PM EDT 04/10/2024 2:58 PM EDT us Lamberto Vang MD LAB BLOOD ORDERABLES Final Result Performing Organization Address City/[facility]/ZIP Co de Phone Number [facility]
[address] [place] [address], * (ABNORMAL) C-reactive Protein (04/10/2024 2:58 PM EDT) Pathologist [facility] C-Reactive Protein 0.69(H) 0.00 - 0.50 mg/dL 04/11/2024 12:18 AM EDT [facility] Blood Venipuncture / Unknown 04/10/2024 2:58 PM EDT 04/10/2024 2:58 PM EDT Lamberto Vang MD LAB BLOOD ORDERABLES Final Result Performing Organization Address [facility] Co de Phone Number [facility]
[address] [place] [address], * (ABNORMAL) Comprehensive Metabolic Panel (04/10/2024 2:58 PM EDT) Pathologist [facility] Glucose 109(H) 65 - 99 mg/dL 04/11/2024 12:18 AM EDT [facility] BUN 17 6 - 20 mg/dL 04/11/2024 12:18 AM EDT [facility] Creatinine 0.85 0.57 - 1.00 mg/dL 04/11/2024 12:18 AM EDT [facility] Sodium 141 136 - 145 mmol/L 04/11/2024 12:18 AM EDT [facility] Potassium 2.9(L) 3.5 - 5.2 mmol/L 04/11/2024 12:18 AM EDT [facility] Chloride 100 98 - 107 mmol/L 04/11/2024 12:18 AM EDT [facility] CO2 30.8(H) 22.0 - 29.0 mmol/L 04/11/2024 12:18 AM EDT [facility] Calcium 9.2 8.6 - 10.5 mg/dL 04/11/2024 12:18 AM [facility] Total Protein 6.9 6.0 - 8.5 g/dL 04/11/2024 12:18 AM [facility] Albumin 4.1 3.5 - 5.2 g/dL 04/11/2024 12:18 AM [facility] ALT (SGPT) 25 1 - 33 U/L 04/11/2024 12:18 AM [facility] AST (SGOT) 24 1 - 32 U/L 04/11/2024 12:18 AM [facility] Alkaline Phosphatase 64 39 - 117 U/L 04/11/2024 12:18 AM [facility] Total Bilirubin 0.3 0.0 - 1.2 mg/dL 04/11/2024 12:18 AM [facility] Globulin 2.8 gm/dL 04/11/2024 12:18 AM [facility] A/G Ratio 1.5 g/dL 04/11/2024 12:18 AM [facility] BUN/Creatinine Ratio 20.0 7.0 - 25.0 04/11/2024 12:18 AM [facility] Anion Gap 10.2 5.0 - 15.0 mmol/L 04/11/2024 12:18 AM [facility] eGFR 82.0 >60.0 mL/min/1.7 3 04/11/2024 12:18 AM [facility] Blood Venipuncture / Unknown 04/10/2024 2:58 PM EDT 04/10/2024 2:58 PM T Narrative [facility] - 04/11/2024 12:18 AM EDT GFR Normal >60 Chronic Kidney Disease <60 Kidney Failure <15 Lamberto Vang MD LAB BLOOD ORDERABLES Final Result [facility]
[address] [place] [address], * CBC Auto Differential (04/10/2024 2:58 PM EDT) [facility] WBC 4.93 3.40 - 10.80 10*3/mm3 04/10/2024 11:54 PM EDT [facility] RBC 4.72 3.77 - 5.28 10*6/mm3 04/10/2024 11:54 PM EDT [facility] Hemoglobin 13.6 12.0 - 15.9 g/dL 04/10/2024 11:54 PM EDT [facility] Hematocrit 41.2 34.0 - 46.6 % 04/10/2024 11:54 PM EDT [facility] MCV 87.3 79.0 - 97.0 fL 04/10/2024 11:54 PM EDT [facility] MCH 28.8 26.6 - 33.0 pg 04/10/2024 11:54 PM EDT [facility] MCHC 33.0 31.5 - 35.7 g/dL 04/10/2024 11:54 PM EDT [facility] RDW 13.0 12.3 - 15.4 % 04/10/2024 11:54 PM EDT [facility] RDW-SD 41.3 37.0 - 54.0 fl 04/10/2024 11:54 PM EDT [facility] MPV 8.6 6.0 - 12.0 fL 04/10/2024 11:54 PM EDT [facility] Platelets 369 140 - 450 10*3/mm3 04/10/2024 11:54 PM EDT [facility] Neutrophil % 65.6 42.7 - 76.0 % 04/10/2024 11:54 PM EDT [facility] Lymphocyte % 24.5 19.6 - 45.3 % 04/10/2024 11:54 PM EDT [facility] Monocyte % 6.5 5.0 - 12.0 % 04/10/2024 11:54 PM EDT [facility] Eosinophil % 2.8 0.3 - 6.2 % 04/10/2024 11:54 PM EDT [facility] Basophil % 0.4 0.0 - 1.5 % 04/10/2024 11:54 PM EDT [facility] Immature Grans % 0.2 0.0 - 0.5 % 04/10/2024 11:54 PM EDT [facility] Neutrophils, Absolute 3.23 1.70 - 7.00 10*3/mm3 04/10/2024 11:54 PM EDT [facility] Lymphocytes, Absolute 1.21 0.70 - 3.10 10*3/mm3 04/10/2024 11:54 PM EDT [facility] Monocytes, Absolute 0.32 0.10 - 0.90 10*3/mm3 04/10/2024 11:54 PM EDT [facility] Eosinophils, Absolute 0.14 0.00 - 0.40 10*3/mm3 04/10/2024 11:54 PM EDT [facility] Basophils, Absolute 0.02 0.00 - 0.20 10*3/mm3 04/10/2024 11:54 PM EDT [facility] Immature Grans, Absolute 0.01 0.00 - 0.05 10*3/mm3 04/10/2024 11:54 PM EDT [facility] nRBC 0.0 0.0 - 0.2 /100 WBC 04/10/2024 11:54 PM EDT [facility] Blood Venipuncture / Unknown 04/10/2024 2:58 PM EDT 04/10/2024 2:58 PM EDT us Lamberto Vang MD LAB BLOOD ORDERABLES Final Result [facility]
[address] [place] [address], * QuantiFERON-TB Gold Plus (04/10/2024 2:58 PM EDT) [facility] QuantiFERON Incubation Incubation performed. 04/13/2024 9:14 [...] 9:14 AM EDT Performed at: ??01 - [facility] [address] ??[id number] Edging Supervisor: Jesus Reyes PhD, Phone: ??[phone] us Lamberto Vang MD LAB BLOOD ORDERABLES Final Result [facility] [address] [place] [address], documented in this encounter Visit Diagnoses Diagnosis Rheumatoid arthritis involving multiple sites with positive rheumatoid factor High risk medication use documented in this encounter Care Teams Bilingual Social Worker Relationship Specialty Start Date End Date Franko Velasquez MD [address] [facility] [address] [place] [address] PCP - General Adolescent Medicine 04/10/24 documented as of this encounter
--- OUTSIDE RECORDS SUMMARY | 2024-06-23 07:45 | XMS_ITS | Encounter Summary ---
Author Organization Healthcare Address [address] [place] [address] Care Team Providers Care Fruit Buying Grader Name Role Phone Unavailable Primary Care Provider Unavailabl e Encounter Details Date Type Department Care Team (Late st Contact Info) Description 12/03/2020 Abstract [facility] [address], [address] [place] [address] Hector Oquendo MD [address] [place] [address] Social History Tobacco Use Types [...]
--- OUTSIDE RECORDS SUMMARY | 2024-06-23 07:45 | XMS_ITS | Encounter Summary ---
Author Organization [facility] Address [address] [place] [address] Care Team Providers Care Nurse Gynecology Name Role Phone Ralph Dunne MD Primary Care Provider [phone] Encounter Details Date Type Department Care Team (Latest Contact Info) Description 02/10/2021 Travel Social History Tobacco Use Types Packs/Day [...] or suspected to have Coronavirus / COVID-19? Unable to assess 02/10/2021 7:24 AM EDT documented as of this encounter Plan of Treatment Not on file documented as of this encounter Visit Diagnoses Not on filedocumented in this encounter Care Teams Nurse Gynecology Relationship Specialty Start Date End Date Ralph Dunne MD [address] [place] [id number] PCP - General 12/13/20 documented as of this encounter
--- OUTSIDE RECORDS SUMMARY | 2024-06-23 07:45 | XMS_ITS | Encounter Summary ---
Author Organization Healthcare Address [address] [place] [address] Care Team Providers Care Tool Polisher Name Role Phone Unavailable Primary Care Provider Unavailabl e Encounter Details Date Type Department Care Team (Late st Contact Info) Description 12/03/2020 Abstract [facility] [address] [place] [address] Hector Oquendo MD [address] [place] [address] Social History Tobacco Use Types [...]
--- OUTSIDE RECORDS SUMMARY | 2024-06-23 07:45 | XMS_ITS | Encounter Summary ---
Author Organization [facility] Address [address] [place] [address] Care Team Providers Care Plastic Maker Name Role Phone Ralph Dunne MD Primary Care Provider [phone] Encounter Details Date Type Department Care Team (Latest Contact Info) Description 01/06/2021 Travel Social History Tobacco Use Types Packs/Day [...] on filedocumented in this encounter Care Teams Plastic Maker Relationship Specialty Start Date End Date Ralph Dunne MD [address] [place] [address] PCP - General 12/13/20 documented as of this encounter
--- OUTSIDE RECORDS SUMMARY | 2024-06-23 07:45 | XMS_ITS | Encounter Summary ---
[facility] Address [address] [place] [address] Care Team Providers Care Optometric Technologist Name Role Phone Ralph Dunne MD Primary Care Provider [phone] Reason for Visit * Diagnostic Imaging (Emergency) - Closed Specialty Diagnoses / Procedures Referred By Prakash morejon Referred To Contact Radiology Diagnoses Retained magnetic intraocular foreign body, unspecified laterality Procedures XR Facial Bones < 3 View Jigar Vu MD [address] [place] [address] Phone: tel: fax: Referral ID Status Reason Start Date Expiration Date Visits Re quested Visits Authorized [id number] Closed 07/06/2022 07/06/2023 1 1 Encounter Details Date Type Department Care Team ([facility] Contact Info) Description 07/06/2022 1:45 PM EST - 07/06/2022 11:59 PM EST Hospital Encounter [facility] XRAY AT [address] [place] [id number] Jigar Vu MD [address] [place] [address] Discharge Disposition: Home or Self Care Social [...] on file documented as of this encounter Medications at [...] DR MARSHALL. STOPPED. 12/22/2019 4 HYDROcodone-acetami nophen ([place]) 7.5-325 MG per tabletIndications:S /P sacrocolpopexy Take [...] 12/22/2019 4 documented as of this encounter Plan of Treatment Upcoming Encounters Date Type Department Care Team (Late st Contact Info) Description 07/10/2024 3:15 PM EST Office Visit [facility] RHEUMATOLOGY [address] [facility] [address] [place] [address] Stuart White APRN [address] [facility] [address] [place] [address] documented as of this encounter Procedures Procedure Name Priority Date/Time Associated Diagnosis Comments XR FACIAL BONES < 3 VW STAT 07/06/2022 2:05 PM EST Retained magnetic intraocular foreign body, unspecified laterality documented in this encounter Results * XR Facial Bones < 3 View (07/06/2022 2:05 PM EST) Anatomical Region Laterality Modality Head and Neck N/A Radiographic Anne ging 07/06/2022 2:12 PM EST Impressions 07/06/2022 2:13 PM EST No evidence of radiopaque foreign body. This report was finalized on 07/06/2022 2:13 PM by Neto Jean. Narrative 07/06/2022 2:13 PM EST DATE OF EXAM: 07/06/2022 1:55 PM PROCEDURE: XR FACIAL BONES < 3 VW- INDICATIONS: H44.609; H44.609-Unspecified retained (old) intraocular foreign body, magnetic, unspecified eye COMPARISON: No comparisons available. TECHNIQUE: One to three radiographic views of the face were obtained. FINDINGS: No evidence of radiopaque foreign body within the face or head. Metallic dental hardware is seen. Paranasal sinuses are grossly clear. No evidence of large displaced fracture. Procedure Note Neto Jean MD - 07/06/2022 DATE OF EXAM: 07/06/2022 1:55 PM PROCEDURE: XR FACIAL BONES < 3 VW- INDICATIONS: H44.609; H44.609-Unspecified retained (old) intraocular foreign body, magnetic, unspecified eye COMPARISON: No comparisons available. TECHNIQUE: One to three radiographic views of the face were obtained. FINDINGS: No evidence of radiopaque foreign body within the face or head. Metallic dental hardware is seen. Paranasal sinuses are grossly clear. No evidence of large displaced fracture. IMPRESSION: No evidence of radiopaque foreign body. This report was finalized on 07/06/2022 2:13 PM by Neto Jean. us Jigar Vu MD IMG DIAGNOSTIC IMAGING ORDERA BLES Final Result documented in this encounter Visit Diagnoses Not on filedocumented in this encounter Care Teams Optometric Technologist Relationship Specialty Start Date End Date Ralph Dunne MD [address] [place] [address] PCP - General Family Medicine 07/06/22 04/09/24 documented as of this encounter
--- OUTSIDE RECORDS SUMMARY | 2024-06-23 07:46 | XMS_ITS | Encounter Summary ---
Author Organization [facility] Address [address] [place] [address] Care Team Providers Care Converting Technician Name Role Phone Betsey Bonner APRN Primary Care Provider [phone] Reason for Referral * (Routine) - Closed Specialty Diagnoses / Procedures Referred By Contac t Referred To Contact Radiology Diagnoses Hypertension, unspecified type Procedures Chest X-Ray PA & Lateral Herve Sanabria Jr., MD [address] [place] [address] Phone: tel: fax: Referral ID Status Reason Start Date Expiration Date Visits Re quested Visits Authorized [id number] Closed 12/17/2019 12/16/2020 1 1 Reason for Visit * (Routine) - Closed Specialty Diagnoses / Procedures Referred By Contac t Referred To Contact Radiology Diagnoses Hypertension, unspecified type Procedures Chest X-Ray PA & Lateral Herve Sanabria Jr., MD [address] [place] [address] Phone: tel: fax: Referral ID Status Reason Start Date Expiration Date Visits Re quested Visits Authorized [id number] Closed 12/17/2019 12/16/2020 1 1 Encounter Details Date Type Department Care Team ([facility] st Contact Info) Description 12/17/2019 10:29 AM EDT - 12/17/2019 11:59 PM EDT Hospital Encounter [facility] XRAY [address] [place] [id number] Herve Sanabria Jr., MD [address] [facility] [address] [place] [id number] Hypertension, unspecified type Discharge Disposition: Home or [...] 4 etodolac (LODINE) 400 MG tablet Take 400 mg by mouth 2 (Two) Times a Day. INSTRUCTED TO STOP 7 DAYS PRIOR TO SURGERY PER DR SANABRIA. STOPPED. 0 etodolac (LODINE) 400 MG tablet Take 1 tablet by mouth 2 (Two) Times a Day. INSTRUCTED TO STOP 7 DAYS PRIOR TO SURGERY PER DR SANABRIA. STOPPED. 12/22/2019 4 HYDROcodone-acetami nophen ([place]) 7.5-325 MG per tabletIndications:S /P sacrocolpopexy Take [...] hour Take 11 mg by mouth Daily. 0 Tofacitinib Citrate ER (Xeljanz XR) 11 MG tablet sustained-release 24 hour Take 1 tablet by mouth Daily. 12/22/2019 4 documented as of this encounter Plan of Treatment Upcoming Encounters Date Type Department Care Team (Late st Contact Info) Description 07/10/2024 3:15 PM EST Office Visit [facility] RHEUMATOLOGY [address] [facility] [address] [place] [address] Stuart White APRN [address] [facility] [address] [place] [address] documented as of this encounter Procedures Procedure Name Priority Date/Time Associated Diagnosis Comments XR CHEST PA AND LATERAL Routine 12/17/2019 10:33 AM EDT Hypertension, unspecified type documented in this encounter Results * XR Chest PA & Lateral (12/17/2019 [...] PA AND LATERAL- 12/17/2019 INDICATION: Pre-Op Evaluation; [id number] (primary) hypertension COMPARISON: NONE FINDINGS: Heart shadow is in the upper range of normal size. Vasculature appears cephalized but there is no evidence of overt pulmonary edema. Lungs are moderately well-expanded and appear grossly clear. Lateral view shows a few granulomatous calcifications in the anterior chest. Procedure Note Bartolome Walter MD - 12/18/2019 EXAMINATION: XR CHEST PA AND LATERAL- 12/17/2019 INDICATION: Pre-Op Evaluation; [id number] (primary) hypertension COMPARISON: NONE FINDINGS: Heart shadow [...] AM by Dr. Bartolome Walter MD. Herve Sanabria Jr., MD IMG DIAGNOSTIC IMAG ING ORDERABLES Final Result documented in this encounter Visit Diagnoses Diagnosis Hypertension, unspecified type documented in this encounter Additional Health Concerns Infection Onset Date Last Indicated Resolved Time COVID Screen (preop/placement) 12/17/2019 12/17/2019 12/18/2019 3:16 PM EDT documented as of this encounter Care Teams Converting Technician Relationship Specialty Start Date End Date Betsey Bonner APRN PCP - General Family Medicine 12/17/19 07/05/22 documented as of this encounter
--- OUTSIDE RECORDS SUMMARY | 2024-06-23 07:46 | XMS_ITS | Encounter Summary ---
[facility] Address [address] [place] [id number] Care Team Providers Care Cause Analyst Name Role Phone Betsey Bonner APRN Primary Care Provider [phone] Encounter Details Date Type Department Care Team (Late Contact Info) Description 12/17/2019 9:30 AM EDT Office Visit [facility] COVID19 PREADMISSION TESTING [address] [place] [phone] Social History Tobacco Use Types Packs/Day Years [...] Upcoming Encounters Date Type Department Care Team ([facility] Contact Info) Description 07/10/2024 3:15 PM EST Office Visit [facility] RHEUM[facility]OLOGY [address] [facility] [address] [place] [phone] Stuart White APRN [address] [facility] [address] [place], [place] [id number] documented as of this encounter Procedures Procedure Name Priority Date/Time Associated Diagnosis Comments COVID PRE-OP / PRE-PROCEDURE SCREENING ORDER (NO ISOLATION) Routine 12/17/2019 6:58 AM EDT ZZZCOVID-19 PCR, [facility], [facility] IN [facility] VIRAL TRANSPORT MEDIA/ORAL SWISH 24-30 HR TAT Routine 12/17/2019 6:58 AM EDT documented in this encounter Results * CORONAVIRUS (COVID-19),RT-PCR,[facility], [facility] SALINE [facility] - Swab, Nasopharynx (12/17/2019 6:58 AM EDT) [facility] Reference Lab Report 12/18/2019 3:16 PM EDT [facility] Comment:See scanned report COVID19 Not Detected Not Detected - Ref. Range 12/18/2019 3:16 PM EDT [facility] Swab Nasopharyngeal structure / Unknown Collection / Unknown 12/17/2019 6:58 AM EDT 12/17/2019 12:21 PM EDT Jhon Villegas MD MICROBIOLOGY - GENERAL ORDERA BLES Final Result [facility] documented in this encounter Visit Diagnoses Not on filedocumented in this encounter Additional Health Concerns Infection Onset Date Last Indicated Resolved Time COVID Screen (preop/placement) 12/17/2019 12/17/2019 12/18/2019 3:16 PM EDT documented as of this encounter Care Teams Cause Analyst Relationship Specialty Start Date End Date Betsey Bonner APRN PCP - General Family Medicine 12/17/19 07/05/22 documented as of this encounter
--- OUTSIDE RECORDS SUMMARY | 2024-06-23 07:46 | XMS_ITS ---
Author Organization [facility] Address [address] [place] [address] Care Team Providers Care Environmental Conservation Officer Name Role Phone Franko Velasquez MD Primary Care Provider [phone] Rheumatology Status:Disenrolled (Closed) Start date:04/10/2024 Enrollment date:04/10/2024 End date:04/10/2024 Close reason:No payer access Linked medications:Tofacitinib Citrate (Active) Linked problems:Rheumatoid arthritis involving multiple sites with positive rheumatoid factor (Active) Continued Care and Services Coordination
--- OUTSIDE RECORDS SUMMARY | 2024-06-23 07:46 | XMS_ITS ---
Author Organization [facility] Address [address] [place] [address] Care Team Providers Care Commercial Engineer Name Role Phone Franko Velasquez MD Primary Care Provider [phone] Rheumatology Status:Disenrolled (Closed) Start date:04/10/2024 Enrollment date:04/10/2024 End date:04/10/2024 Close reason:No payer access Linked medications:Tofacitinib Citrate (Active) Linked problems:Rheumatoid arthritis involving multiple sites with positive rheumatoid factor (Active) Continued Care and Services Coordination
--- OUTSIDE RECORDS SUMMARY | 2024-06-23 07:46 | XMS_ITS ---
Author Organization [facility] Address [address] [place] [address] Care Team Providers Care Windmill Technician Name Role Phone Franko Velasquez MD Primary Care Provider [phone] Rheumatology - External Fill Status:Enrolled (Active) Start date:04/10/2024 Enrollment date:04/10/2024 Current support & services provided:Benefits Investigation, External Pharmacy Dispensing Linked medications:Tofacitinib Citrate (Active) Linked problems:Rheumatoid arthritis involving multiple sites with positive rheumatoid factor (Active) Continued Care and Services Coordination
== END 2024-06-23 23:59 | disposition home or self-care (01) ==
LOC: RAD 07:41
PROVIDERS: PCP Internal Medicine Adolescent Medicine; Visit Provider Internal Medicine Adolescent Medicine
DX: M25.552 Pain in left hip (principal); M79.652 Pain in left thigh
CPT/HCPCS: 72110; 73502; 73552

== ENCOUNTER 2024-07-11 07:02 | Outpatient (CLI) | payer OTHER, SELFPAY ==
[2024-07-11 07:07] LABS: MANUAL DIFFERENTIAL MANUAL DIFFERENTIAL (MANUAL DIFF)
[2024-07-11 07:27] LABS: Basophils % 0.8 % (0.1-2.0); Eosinophils # 0.1 K/mm3 (0.0-0.4); Eosinophils % 2.7 % (0.1-12.0); Hematocrit 43.7 % (37.0-47.0); Hemoglobin 14.5 g/dL (12.2-16.2); Lymphocytes # 0.9 K/mm3 (0.7-4.5); Lymphocytes % 21.5 % (10-50); Mean Corpuscular HGB Conc 33.1 g/dL (31.8-35.4); Mean Corpuscular Volume 87.9 fl (81-99); Mean Platelet Volume 6.7 fl (7.4-10.4); Monocytes # 0.2 K/mm3 (0.1-1.0); Monocytes % 5.9 % (1.7-9.3); Neutrophils # 2.8 K/mm3 (1.8-7.8); Neutrophils % 69.1 % (37.0-80.0); Platelet Count 341 K/mm3 (142-424); Red Blood Count 4.98 M/mm3 (4.20-5.40); Red Cell Distribution Width 14.3 % (11.5-17.5)
[2024-07-11 08:16] LABS: Albumin Level 3.9 g/dl (3.5-5.0); Chloride 108 mmol/L (98-107); Potassium 3.4 mmoL/L (3.5-5.1); Sodium 140 mmol/L (136-145)
[2024-07-11 08:19] LABS: Alanine Aminotransferase 27 U/L (12-78); Albumin/Globulin Ratio 1.8 (1.1-1.8); Alkaline Phosphatase 69 U/L (38-126); Anion Gap 7.4 mEq/L (5-15); Aspartate Amino Transferase 28 U/L (14-36); Bilirubin,Total 0.4 mg/dl (0.2-1.3); Blood Urea Nitrogen 17 mg/dl (7-17); Carbon Dioxide 28 mmol/L (22.0-30.0); Estimated Glomerular Filt Rate 52 ml/min (>60); GFR (African American) 63 ML/MIN (>60); Globulin 2.2 g/dL (1.3-3.2); Total Protein,Serum 6.1 g/dl (6.3-8.2)
[2024-07-11 08:20] LABS: Calcium 9.1 mg/dl (8.4-10.2); Glucose 95 mg/dl (74-100)
[2024-07-11 08:25] LABS: C-Reactive Protein 5.6 mg/L (0-4)
[2024-07-11 10:22] LABS: Eosinophils % 1 % (0-3); Lymphocytes % 21 % (10-50); Monocytes % 3 % (2-9); Neutrophils % 75 % (42-76); Total Cells Counted 100
[2024-07-11 10:23] LABS: Platelet Estimate Normal; RBC Morphology Normal
[2024-07-11 10:30] LABS: Erythrocyte Sedimentation Rate 5 mm/hr (0-30)
== END 2024-07-11 23:59 | disposition home or self-care (01) ==
LOC: LAB 07:03
PROVIDERS: PCP Internal Medicine Adolescent Medicine; Visit Provider Nurse Practitioner Family
DX: M05.79 Rheumatoid arthritis with rheumatoid factor of multiple sites without organ or systems involvement (principal); Z79.899 Other long term (current) drug therapy
CPT/HCPCS: 36415; 80053; 85007; 85014; 85018; 85048; 85049; 85651; 86140

== ENCOUNTER 2024-09-20 13:32 | Outpatient (CLI) | payer OTHER, SELFPAY ==
--- NOTE | 2024-09-20 13:35 | XR_ITS ---
FINAL REPORT CLINICAL HISTORY: lt knee pain FINDINGS: AP, lateral and oblique views of the left knee were obtained. There is no prior exam for comparison. There is no acute osseous abnormality of the left knee. There is tricompartment degenerative joint disease. The soft tissues are normal. There is no joint effusion. IMPRESSION: Tricompartment degenerative joint disease. Reviewed, Interpreted and Dictated by Alexa Rivera MD Transcribed by Hawa Stanford Authenticated and [facility]
== END 2024-09-20 23:59 | disposition home or self-care (01) ==
LOC: RAD 13:33
PROVIDERS: PCP Internal Medicine Adolescent Medicine; Visit Provider Physician Assistant
DX: M25.562 Pain in left knee (principal)
CPT/HCPCS: 73562

== ENCOUNTER 2024-12-06 13:49 | Outpatient (CLI) | payer OTHER, SELFPAY ==
--- NOTE | 2024-12-06 13:51 | XR_ITS ---
FINAL REPORT CLINICAL HISTORY: right knee pain FINDINGS: AP, lateral and oblique views of the right knee were obtained. There is no prior exam for comparison. There is no acute osseous abnormality of the right knee. There is mild degenerative joint disease. The soft tissues are normal. There is a small joint effusion. IMPRESSION: No acute osseous abnormality of the right knee. Mild degenerative changes and small joint effusion. Reviewed, Interpreted and Dictated by Alexa Rivera MD Transcribed by Delma Hunter Authenticated and [facility]
--- OUTSIDE RECORDS SUMMARY | 2024-12-06 13:51 | XMS_ITS | Data Portability ---
Author Organization LAURA JYOTI G[facility]do [place] [facility] Address [address] [place] [address] Care Team Providers Care Ep Technologist Name Role Phone OTILIO JC Primary Care Provider [phone] Assessment No assessment recorded. Plan of Treatment Reminders Order Date Submit Date Provider Last Modified By Organization Details Last Modified Time Details Appointments None recorded. Lab urinalysi s, dipstick 2019 020 [facility], [address], [place], [address], 0 16:35:36 urinalysi s, dipstick, auto 2019 020 [facility], [address], [place], [address], 0 07:39:23 urinalysi s, dipstick, auto 2019 020 [facility], [address], [place], [address], 0 16:41:39 urinalysi s, dipstick, auto 2019 020 [facility] With [facility], [address], [place], [address], 0 12:05:40 Referral None recorded. Procedures urodynami c testing, complex (PROC) 2019 020 [email or web address] [facility], [address], [place], [address], 0 13:16:47 Surgeries robotic sacrocolp opexy w/mesh insertion (SURG) 2019 020 [facility] Scheduling, [address], [place], [address], 0 12:30:52 Imaging None recorded. Medication Orders None recorded. Patient TargetsNo targets recorded. Patient Instructions Encounter Date Encounter Id Patient Instructions Last Modified By Organization Details Last Modified Time 08/30/2019 [id number] bladder training : care instructions [email or web address] Not available 08/30/2019 12:05:40 kegel exercises: care instructions [email or web address] Not available 08/30/2019 12:05:40 Stress Incontinence: Care Instructions [email or web address] Not available 08/30/2019 12:05:40 Urge Incontinence: Care Instructions [email or web address] Not available 08/30/2019 12:05:40 At a long discussion today with the patient in regards to her pelvic prolapse. We talked about treatment options including observation, pessary, and surgical therapy. She is interested in surgical therapy and I think she would be best suited for colpopexy. We will need to better characterize for urinary incontinence using urodynamics with pessary prior to considering surgery. I also talked to her about her obesity being a risk factor for recurrence after surgery. [email or web address] Not available 08/30/2019 12:06:20 10/09/2019 [id number] Urge Incontinence: Care Instructions [email or web address] Not available 10/09/2019 16:41:39 Long discussion with the patient robotic-assisted laparoscopic Sacral colpopexy. We talked about potential risks of the procedure procedure including the use of pelvic mesh. Patient understands this and wishes to proceed. [email or web address] Not available 10/09/2019 16:42:40 01/04/2020 [id number] learning about healthy weight tslabaugh Not available 01/08/2020 07:39:23 Patient has recovered well from surgery. She will limit her activity for the next few weeks. We'll see her back in 3 months for vaginal exam tslabaugh Not available 01/08/2020 07:39:36 04/15/2020 [id number] learning about healthy weight tslabaugh Not available 04/15/2020 16:35:37 Patient has a good result from surgery for pelvic prolapse. She'll follow up yearly basis tslabaugh Not available 04/15/2020 12:07:12 Reason for Referral None Reported. Results Created Date Observation Date Name Description Value Unit Range Abnormal Flag Note LastModifiedBy Organization Detail LastModifiedTime 04/15/2004/15/2020 urina lysis , dipst ick Unknown Analyte Yellow Not Available [facility] With [address], [place], [address], 04/15/2020 12:15:43 04/15/2004/15/2020 urina lysis , dipst ick Unknown Analyte Clear Not Available [facility] With [address], [place], [address], 04/15/2020 12:15:43 04/15/20 20 04/15/2020 urina lysis , dipst ick Unknown Analyte 1.010 Not Available [facility] With [address], [place], [address], 04/15/2020 12:15:43 04/15/2004/15/2020 urina lysis , dipst ick Unknown Analyte 1.003 - 1.035 Not Available [facility] [address], [place], [address], 04/15/2020 12:15:43 04/15/20 20 04/15/2020 urina lysis , dipst ick Unknown Analyte 7.0 Not Available [facility] [address], [place], [address], 04/15/2020 12:15:43 04/15/20 20 04/15/2020 urina lysis , dipst ick Unknown Analyte 5.0 - 8.0 Not Available [facility] [address], [place], [address], 04/15/2020 12:15:43 04/15/2004/15/2020 urina lysis , dipst ick Unknown Analyte 25 Ignacio/ul Trace Not Available [facility] [address], [place], [address], 04/15/2020 12:15:43 04/15/2004/15/2020 urina lysis , dipst ick Unknown Analyte Negati ve Not Available [facility] [address], [place], [address], 04/15/2020 12:15:43 04/15/20 20 04/15/2020 urina lysis , dipst ick Unknown Analyte Negati ve Not Available [facility] [address], [place], [address], 04/15/2020 12:15:43 04/15/2004/15/2020 urina lysis , dipst ick Unknown Analyte Negati ve Not Available [facility] [address], [place], [address], 04/15/2020 12:15:43 04/15/2004/15/2020 urina lysis , dipst ick Unknown Analyte Negati ve Not Available [facility] [address], [place], [address], 04/15/2020 12:15:43 04/15/2004/15/2020 urina lysis , dipst ick Unknown Analyte Negati ve - Trace Not Available [facility] [address], [place], [address], 04/15/2020 12:15:43 04/15/2004/15/2020 urina lysis , dipst ick Unknown Analyte Normal Not Available [facility] [address], [place], [address], 04/15/2020 12:15:43 04/15/2004/15/2020 urina lysis , dipst ick Unknown Analyte Normal Not Available [facility] [address], [place], [address], 04/15/2020 12:15:43 04/15/2004/15/2020 urina lysis , dipst ick Unknown Analyte Negati ve Not Available [facility] [address], [place], [address], 04/15/2020 12:15:43 04/15/2004/15/2020 urina lysis , dipst ick Unknown Analyte Negati ve Not Available [facility] [address], [place], [address], 04/15/2020 12:15:43 04/15/2004/15/2020 urina lysis , dipst ick Unknown Analyte Normal Not Available [facility] [address], [place], [address], 04/15/2020 12:15:43 04/15/20 20 04/15/2020 urina lysis , dipst ick Unknown Analyte Normal - 1mg/dl Not Available [facility] [address], [place], [address], 04/15/2020 12:15:43 04/15/2004/15/2020 urina lysis , dipst ick Unknown Analyte 3 mg/dl (++) Not Available [facility] [address], [place], [address], 04/15/2020 12:15:43 04/15/2004/15/2020 urina lysis , dipst ick Unknown Analyte Negati ve Not Available [facility] [address], [place], [address], 04/15/2020 12:15:43 04/15/20 20 04/15/2020 urina lysis , dipst ick Unknown Analyte Negati ve Not Available [facility] [address], [place], [address], 04/15/2020 12:15:43 04/15/2004/15/2020 urina lysis , dipst ick Unknown Analyte Negati ve Not Available [facility] [address], [place], [address], 04/15/2020 12:15:43 04/15/20 20 04/15/2020 urina lysis , dipst ick Unknown Analyte Clean Catch Not Available [facility] [address], [place], [address], 04/15/2020 12:15:43 04/15/20 20 04/15/2020 urina lysis , dipst ick Unknown Analyte Automa mary Not Available [facility] [address], [place], [address], 04/15/2020 12:15:43 01/04/2001/04/2020 urina lysis , dipst ick, auto Unknown Analyte Straw Not Available [facility] [address], [place], [address], 01/04/2020 14:41:55 01/04/2001/04/2020 urina lysis , dipst ick, auto Unknown Analyte Clear Not Available [facility] [address] [facility] [address], [place], [address], 01/04/2020 14:41:55 01/04/20 20 01/04/2020 urina lysis , dipst ick, auto Unknown Analyte 1.010 Not Available [facility] [address] [facility] [address], [place], [address], 01/04/2020 14:41:55 01/04/2001/04/2020 urina lysis , dipst ick, auto Unknown Analyte 1.003 - 1.035 Not Available [facility] [address], [place], [address], 01/04/2020 14:41:55 01/04/2001/04/2020 urina lysis , dipst ick, auto Unknown Analyte 7.0 Not Available [facility] [address], [place], [address], 01/04/2020 14:41:55 01/04/20 20 01/04/2020 urina lysis , dipst ick, auto Unknown Analyte 5.0 - 8.0 Not Available [facility] [address], [place], [address], 01/04/2020 14:41:55 01/04/20 20 01/04/2020 urina lysis , dipst ick, auto Unknown Analyte 500 Ignacio/ul (++) Not Available [facility] [address] [facility] [address], [place], [address], 01/04/2020 14:41:55 01/04/20 20 01/04/2020 urina lysis , dipst ick, auto Unknown Analyte Negati ve Not Available [facility] [address], [place], [address], 01/04/2020 14:41:55 01/04/20 20 01/04/2020 urina lysis , dipst ick, auto Unknown Analyte Negati ve Not Available [facility] [address], [place], [address], 01/04/2020 14:41:55 01/04/20 20 01/04/2020 urina lysis , dipst ick, auto Unknown Analyte Negati ve Not Available [facility] [address] [facility] [address], [place], [address], 01/04/2020 14:41:55 01/04/20 20 01/04/2020 urina lysis , dipst ick, auto Unknown Analyte Negtiv e Not Available [facility] [address], [place], [address], 01/04/2020 14:41:55 01/04/20 20 01/04/2020 urina lysis , dipst ick, auto Unknown Analyte Negati ve - Trace Not Available [facility] [address], [place], [address], 01/04/2020 14:41:55 01/04/20 20 01/04/2020 urina lysis , dipst ick, auto Unknown Analyte Normal Not Available [facility] [address], [place], [address], 01/04/2020 14:41:55 01/04/20 20 01/04/2020 urina lysis , dipst ick, auto Unknown Analyte Normal Not Available [facility] [address], [place], [address], 01/04/2020 14:41:55 01/04/20 20 01/04/2020 urina lysis , dipst ick, auto Unknown Analyte Negati ve Not Available [facility] [address], [place], [address], 01/04/2020 14:41:55 01/04/2001/04/2020 urina lysis , dipst ick, auto Unknown Analyte Negati ve Not Available [facility] [address], [place], [address], 01/04/2020 14:41:55 01/04/20 20 01/04/2020 urina lysis , dipst ick, auto Unknown Analyte Normal Not Available [facility] [address], [place], [address], 01/04/2020 14:41:55 01/04/20 20 01/04/2020 urina lysis , dipst ick, auto Unknown Analyte Normal - 1mg/dl Not Available [facility] [address], [place], [address], 01/04/2020 14:41:55 01/04/20 20 01/04/2020 urina lysis , dipst ick, auto Unknown Analyte 3 mg/dl (++) Not Available [facility] [address], [place], [address], 01/04/2020 14:41:55 01/04/20 20 01/04/2020 urina lysis , dipst ick, auto Unknown Analyte Negati ve Not Available [facility] [address], [place], [address], 01/04/2020 14:41:55 01/04/20 20 01/04/2020 urina lysis , dipst ick, auto Unknown Analyte Negati ve Not Available [facility] [address], [place], [address], 01/04/2020 14:41:55 01/04/20 20 01/04/2020 urina lysis , dipst ick, auto Unknown Analyte Negati ve Not Available [facility] [address], [place], [address], 01/04/2020 14:41:55 01/04/20 20 01/04/2020 urina lysis , dipst ick, auto Unknown Analyte Clean Catch Not Available [facility] [address], [place], [address], 01/04/2020 14:41:55 01/04/20 20 01/04/2020 urina lysis , dipst ick, auto Unknown Analyte Automa mary Not Available [facility] [address], [place], [address], 01/04/2020 14:41:55 10/09/19 20 10/09/2019 urina lysis , dipst ick, auto Unknown Analyte Yellow Not Available [facility] [place] [address], [place], [address], 10/09/2019 16:08:59 10/09/19 20 10/09/2019 urina lysis , dipst ick, auto Unknown Analyte Clear Not Available [facility] [address], [place], [address], 10/09/2019 16:08:59 10/09/19 20 10/09/2019 urina lysis , dipst ick, auto Unknown Analyte 1.020 Not Available [facility] [address], [place], [address], 10/09/2019 16:08:59 10/09/19 20 10/09/2019 urina lysis , dipst ick, auto Unknown Analyte 1.003 - 1.035 Not Available [facility] [address], [place], [address], 10/09/2019 16:08:59 10/09/19 20 10/09/2019 urina lysis , dipst ick, auto Unknown Analyte 6.5 Not Available [facility] [place] [facility] [place] [address], [place], [address], 10/09/2019 16:08:59 10/09/19 20 10/09/2019 urina lysis , dipst ick, auto Unknown Analyte 5.0 - 8.0 Not Available [facility] [place] [facility] [place] [address] [facility] [address], [place], [address], 10/09/2019 16:08:59 10/09/19 20 10/09/2019 urina lysis , dipst ick, auto Unknown Analyte 500 Ignacio/ul (++) Not Available [facility] With [place] [address], [place], [address], 10/09/2019 16:08:59 10/09/19 20 10/09/2019 urina lysis , dipst ick, auto Unknown Analyte Negati ve Not Available [facility] [place] [address] [facility] [address], [place], [address], 10/09/2019 16:08:59 10/09/19 20 10/09/2019 urina lysis , dipst ick, auto Unknown Analyte Negati ve Not Available [facility] [place] [address] [facility] [address], [place], [address], 10/09/2019 16:08:59 10/09/19 20 10/09/2019 urina lysis , dipst ick, auto Unknown Analyte Negati ve Not Available [facility] [place] [facility] [place] [address] [facility] [address], [place], [address], 10/09/2019 16:08:59 10/09/19 20 10/09/2019 urina lysis , dipst ick, auto Unknown Analyte Negtiv e Not Available [facility] [place] [facility] [place] [address], [place], [address], 10/09/2019 16:08:59 10/09/19 20 10/09/2019 urina lysis , dipst ick, auto Unknown Analyte Negati ve - Trace Not Available [facility] [place] [facility] [place] [address], [place], [address], 10/09/2019 16:08:59 10/09/19 20 10/09/2019 urina lysis , dipst ick, auto Unknown Analyte Normal Not Available [facility] [place] [address], [place], [address], 10/09/2019 16:08:59 10/09/19 20 10/09/2019 urina lysis , dipst ick, auto Unknown Analyte Normal Not Available [facility] [place] [address], [place], [address], 10/09/2019 16:08:59 10/09/19 20 10/09/2019 urina lysis , dipst ick, auto Unknown Analyte Negati ve Not Available [facility] [place] [facility] [place] [address], [place], [address], 10/09/2019 16:08:59 10/09/19 20 10/09/2019 urina lysis , dipst ick, auto Unknown Analyte Negati ve Not Available [facility] [place] [facility] [place] [address] [facility] [address], [place], [address], 10/09/2019 16:08:59 10/09/19 20 10/09/2019 urina lysis , dipst ick, auto Unknown Analyte Normal Not Available [facility] [place] [facility] [address], [place], [address], 10/09/2019 16:08:59 10/09/19 20 10/09/2019 urina lysis , dipst ick, auto Unknown Analyte Normal - 1mg/dl Not Available [facility] With [place] [address], [place], [address], 10/09/2019 16:08:59 10/09/19 20 10/09/2019 urina lysis , dipst ick, auto Unknown Analyte Negati ve Not Available [facility] With [place] [address], [place], [address], 10/09/2019 16:08:59 10/09/19 20 10/09/2019 urina lysis , dipst ick, auto Unknown Analyte Negati ve Not Available [facility] With [place] [address], [place], [address], 10/09/2019 16:08:59 10/09/19 20 10/09/2019 urina lysis , dipst ick, auto Unknown Analyte Negati ve Not Available [facility] [address], [place], [address], 10/09/2019 16:08:59 10/09/19 20 10/09/2019 urina lysis , dipst ick, auto Unknown Analyte Negati ve Not Available [facility] [address], [place], [address], 10/09/2019 16:08:59 10/09/19 20 10/09/2019 urina lysis , dipst ick, auto Unknown Analyte Clean Catch Not Available [facility] [address], [place], [address], 10/09/2019 16:08:59 10/09/19 20 10/09/2019 urina lysis , dipst ick, auto Unknown Analyte Automa mary Not Available [facility] [address], [place], [address], 10/09/2019 16:08:59 08/30/19 20 08/30/2019 urina lysis , dipst ick, auto Unknown Analyte Yellow Not Available [facility] With [address], [place], [address], 08/30/2019 11:47:20 08/30/19 20 08/30/2019 urina lysis , dipst ick, auto Unknown Analyte Clear Not Available [facility] [place] [address], [place], [address], 08/30/2019 11:47:20 08/30/19 20 08/30/2019 urina lysis , dipst ick, auto Unknown Analyte 1.015 Not Available [facility] [place] [address], [place], [address], 08/30/2019 11:47:20 08/30/19 20 08/30/2019 urina lysis , dipst ick, auto Unknown Analyte 1.003 - 1.035 Not Available [facility] [place] [address], [place], [address], 08/30/2019 11:47:20 08/30/19 20 08/30/2019 urina lysis , dipst ick, auto Unknown Analyte 6.5 Not Available [facility] With [address], [place], [address], 08/30/2019 11:47:20 08/30/19 20 08/30/2019 urina lysis , dipst ick, auto Unknown Analyte 5.0 - 8.0 Not Available [facility] With [address], [place], [address], 08/30/2019 11:47:20 08/30/19 20 08/30/2019 urina lysis , dipst ick, auto Unknown Analyte Negati ve Not Available [facility] With [place] [address], [place], [address], 08/30/2019 11:47:20 08/30/19 20 08/30/2019 urina lysis , dipst ick, auto Unknown Analyte Negati ve Not Available [facility] With [place] [address], [place], [address], 08/30/2019 11:47:20 08/30/19 20 08/30/2019 urina lysis , dipst ick, auto Unknown Analyte Negati ve Not Available [facility] [place] [address], [place], [address], 08/30/2019 11:47:20 08/30/19 20 08/30/2019 urina lysis , dipst ick, auto Unknown Analyte Negati ve Not Available [facility] [place] [address], [place], [address], 08/30/2019 11:47:20 08/30/19 20 08/30/2019 urina lysis , dipst ick, auto Unknown Analyte Negtiv e Not Available [facility] [address] [place], [place], [address], 08/30/2019 11:47:20 08/30/19 20 08/30/2019 urina lysis , dipst ick, auto Unknown Analyte Negati ve - Trace Not Available [facility] With [address] [place], [place], [address], 08/30/2019 11:47:20 08/30/19 20 08/30/2019 urina lysis , dipst ick, auto Unknown Analyte Normal Not Available [facility] With [address] [place], [place], [address], 08/30/2019 11:47:20 08/30/19 20 08/30/2019 urina lysis , dipst ick, auto Unknown Analyte Normal Not Available [facility] With [address] [place], [place], [address], 08/30/2019 11:47:20 08/30/19 20 08/30/2019 urina lysis , dipst ick, auto Unknown Analyte Negati ve Not Available [facility] With [address] [place], [place], [address], 08/30/2019 11:47:20 08/30/19 20 08/30/2019 urina lysis , dipst ick, auto Unknown Analyte Negati ve Not Available [facility] [place] [address], [place], [address], 08/30/2019 11:47:20 08/30/19 20 08/30/2019 urina lysis , dipst ick, auto Unknown Analyte Normal Not Available [facility] With [address] [place], [place], [address], 08/30/2019 11:47:20 08/30/19 20 08/30/2019 urina lysis , dipst ick, auto Unknown Analyte Normal - 1mg/dl Not Available [facility] With [address] [place] [place], [place], [address], 08/30/2019 11:47:20 08/30/19 20 08/30/2019 urina lysis , dipst ick, auto Unknown Analyte Negati ve Not Available [facility] [place] [address], [place], [address], 08/30/2019 11:47:20 08/30/19 20 08/30/2019 urina lysis , dipst ick, auto Unknown Analyte Negati ve Not Available [facility] [place] [address], [place], [address], 08/30/2019 11:47:20 08/30/19 20 08/30/2019 urina lysis , dipst ick, auto Unknown Analyte Trace Not Available [facility] [place] [address], [place], [address], 08/30/2019 11:47:20 08/30/19 20 08/30/2019 urina lysis , dipst ick, auto Unknown Analyte Negati ve Not Available [facility] [place] [address], [place], [address], 08/30/2019 11:47:20 08/30/19 20 08/30/2019 urina lysis , dipst ick, auto Unknown Analyte Clean Catch Not Available [facility] With [address] [place], [place], [address], 08/30/2019 11:47:20 08/30/19 20 08/30/2019 urina lysis , dipst ick, auto Unknown Analyte Automa mary Not Available [facility] [place] [facility] [address], [place], [address], 08/30/2019 11:47:20 12/18/19 20 12/17/2019 XR, chest , 2 view No observ ation record ed. [facility] [address], [place], [address], 12/18/2019 11:51:53 Result Notes None recorded. 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 Procedures Surgical History Date Name Laterality Status Provider Name and Address Organization Details Recorded Time ROBOTIC SACROCOLPOPEXY W/MESH INSERTION (SURG) completed Not Available [facility] 01/12/2020 12:30:52 020 Uroflowmetry; Complex completed Alina [facility] 09/06/2019 14:47:59 020 Urodynamics Interpretation completed NICOLE MARSHALL JR, MD [address] [place], [address], [facility] 09/06/2019 18:20:11 020 Urodynamics completed [facility] 09/06/2019 14:51:46 020 Post Void Residual; Ultrasound completed Iqra Holloway [facility] 08/30/2019 11:45:53 Tonsillectomy completed Iqra Amie [facility] 08/30/2019 11:40:05 Cholecystectomy completed Iqra Amie [facility] 08/30/2019 11:40:56 Partial Hysterectomy completed Iqra Amie [facility] 08/30/2019 11:41:08 excision of bunion completed Colby lyle [facility] 08/30/2019 11:41:26 Imaging Results Imaging Date Name Status LastModified by Organiz ation Details LastModified Time 12/17/2019 XR, chest, 2 view completed [facility] [address] [facility], [place], [address], 12/18/2019 11:51:53 Procedure Notes None recorded. Medical Equipment None Reported. Allergies No known drug allergies Medications Name Sig Start Date Stop Date Status Note LastModified by Organization Details LastModified Time diclofenac sodium active Not Available Not Available Not Available Xeljanz XR active Not Available Not Av ailable Not Available Vitals Date Recorded Body height Body mass index (BMI) Body weight Provider Name and Address Organization Details Last Updated DateTime 08/30/2019 175.26 cm 47.7 kg/m2 332355.34 [facility]/30/[facility] 11:36:53 Date Recorded Body height Body mass index (BMI) Body weight Provider Name and Address Organization Details Last Updated DateTime 09/06/2019 175.26 cm 47.7 kg/m2 454823.34 g Alina Guerrero [facility] 09/06/2019 14:46:30 Date Recorded Body height Body mass index (BMI) Body weight Provider Name and Address Organization Details Last Updated DateTime 10/09/2019 175.26 cm 47.7 kg/m2 027257.34 g Wayne Sosa [facility] 10/09/2019 16:08:21 Date Recorded Body height Body mass index (BMI) Body weight Provider Name and Address Organization Details Last Updated DateTime 01/04/2020 175.26 cm 49.2 kg/m2 711879.26 g Socorro Macario [facility] 01/04/2020 14:41:18 Date Recorded Body height Body mass index (BMI) Body weight Provider Name and Address Organization Details Last Updated DateTime 04/15/2020 175.26 cm 49.2 kg/m2 123577.26 g Deseriee Lakewood [facility] 04/15/2020 12:14:59 Social History Question Answer Notes LastModified by Organizat ion Details LastModified Time Tobacco Smoking Status Never Smoker Iqra Holloway null, [facility] 08/30/2019 11:39:46 What Is Your Level Of Alcohol Consumption? None Information not available 08/30/2019 How Much Tobacco Do You Chew? None Information not available 08/30/2019 Marital Status samara Informat ion not available 08/30/2019 How Much Tobacco Do You Smoke? No [email or web address] Information not available 01/04/2020 Sex: Unknown Functional Status None recorded. Mental Status None recorded. Family History Relationship Description Onset Age of this Age Resolved Age Notes LastModified by Organization Details LastModified Time Father No current problems or disability samara Not available 11:39:37 Mother No current problems or disability samara Not available 11:39:37 Medical History Condition Response Anemia Y Arthritis Y Hypertension Y Gynecological HistoryNo gynecological history recorded. Obstetrics History GPAL:G 0 P 0 0 0 0 Past Encounters Encounter ID Performer Location Encounter Start Date Encounter Closed Date Diagnosis/Indication Diagnosis SNOMED-CT Code Diagnosis ICD10 Code Diagnosis Note [id number] NICOLE MARSHALL JR, MD [facility] [address] [place] [address] 08/30/2019 10:46:29 08/31/2019 11:36:17 Vaginal vault prolapse 160797751 N81.89 Mixed urin tai incontinence 966613488 N39.46 [id number] NICOLE MARSHALL JR, MD [facility] [address] [facility] [place] [address] 09/06/2019 09:21:43 09/06/2019 10:59:36 Mixed urinary incontinence 488599379 N39.46 [id number] NICOLE MARSHALL JR, MD [facility] [address] [facility] [place] [address] 10/09/2019 15:55:52 10/10/2019 14:08:46 Vaginal vault prolapse 548023034 N81.89 Urge incon tinence of urine 53753877 N39.41 [id number] MD ELZBIETA WATERS JR, [facility] [address] [place] [address] 01/04/2020 14:15:12 01/04/2020 14:49:45 Vaginal vault prolapse 384695383 N81.89 [id number] MD ELZBIETA WATERS JR, [facility] [address] [place] [address] 04/15/2020 11:25:18 04/15/2020 12:00:10 Vaginal vault prolapse 478010208 N81.89 Health Concerns Section Related Observation LastModified by Organization Detai ls LastModified Time None Recorded Concern Status LastModified by Organization Details LastModified Time None Recorded Advance Directives Directive None Recorded Payers Insurance Date Sequence Insurance Name Policy Number Policy Lock Covered Member ID Lock Member ID Guarantor Name 09/02/2021 1 [facility] [id number] Florencia Mai [id number] Florencia Mai 12/09/2020 PAYMENT PLAN Florencia Mai Notes Date Note Type Note Provider Name and Address Organization Details Recorded Time 08/30/2019 text/html Patient is in to day for evaluation of vaginal prolapse. She is pleasant 49-year-old female with a history of a bulge at the opening of the vagina that she noticed approximately 2 months ago. She has mild pelvic pressure. She describes mixed urinary incontinence. Urgency incontinence is worse than her stress incontinence. She does not wear pads. She does a moderate amount of lifting at work. She denies a history of urinary tract infections. She did have a hysterectomy 20 years ago. NICOLE MARSHALL JR, MD [address] [place] [address], [phone], [facility] 08/30/2019 12:07:04 10/09/2019 text/html Patient is in to day for evaluation of vaginal prolapse. She is pleasant 49-year-old female with a history of a bulge at the opening of the vagina that she noticed approximately 2 months ago. She has mild pelvic pressure. She describes mixed urinary incontinence. Urgency incontinence is worse than her stress incontinence. She does not wear pads. She does a moderate amount of lifting at work. She denies a history of urinary tract infections. She did have a hysterectomy 20 years ago. Urodynamics demonstrates urgency incontinence at capacity. No stress urinary pessary in place NICOLE MARSHALL JR, MD [address] [place] [address], [address], [facility] 10/09/2019 16:43:05 01/04/2020 text/html Patient is in to day for follow-up of vaginal prolapse. She underwent robotic-assisted laparoscopic sacral colpopexy December 19, 2019. She is recovered uneventfully. She denies recurrent prolapse. She denies any lower urinary tract symptoms. NICOLE MARSHALL JR, MD [address] [place] [address], [phone], [facility] 01/08/2020 07:39:57 04/15/2020 text/html Patient is in to day for follow-up of vaginal prolapse. She underwent robotic-assisted laparoscopic sacral colpopexy December 19, 2019. She is recovered uneventfully. She denies recurrent prolapse. She denies any lower urinary tract symptoms. NICOLE MARSHALL JR, MD [address] [place] [address], [address], [facility] 04/15/2020 16:35:57 OBGyn Episode No OBEpisode recorded.
== END 2024-12-06 23:59 | disposition home or self-care (01) ==
LOC: RAD 13:49
PROVIDERS: PCP Internal Medicine Adolescent Medicine; Visit Provider Physician Assistant
DX: M25.561 Pain in right knee (principal)
CPT/HCPCS: 73562

== ENCOUNTER 2024-12-08 07:23 | Outpatient (CLI) | payer OTHER, SELFPAY ==
--- OUTSIDE RECORDS SUMMARY | 2024-12-08 07:25 | XMS_ITS | Data Portability ---
Author Organization LAURA JYOTI Giraldo CRUMP CLOSED Address [address] [facility] [address] [place] [address] Care Team Providers Care Applications Administrator Name Role Phone OTILIO JC Primary Care Provider Assessment No assessment recorded. Plan of Treatment Reminders Order Date Submit Date Provider Last Modified By Organization Details Last Modified Time Details Appointments None recorded. Lab urinalysi s, dipstick 2019 020 [facility], [address], [place], [address], 0 16:35:36 urinalysi s, dipstick, auto 2019 020 [facility], [address], [address], [place], [address], 0 07:39:23 urinalysi s, dipstick, auto 2019 020 [facility] With [facility], [address], [place], [address], 0 16:41:39 urinalysi s, dipstick, auto 2019 020 [facility] With [facility], [address], [place], [address], 0 12:05:40 Referral None recorded. Procedures urodynami c testing, complex (PROC) 2019 020 [email or web address] [facility] With [facility], [address], [address], [place], [address], 0 13:16:47 Surgeries robotic sacrocolp opexy w/mesh insertion (SURG) 2019 020 [facility], [address], [place], [address], 0 12:30:52 Imaging None recorded. Medication Orders None recorded. Patient TargetsNo targets recorded. Patient Instructions Encounter Date Encounter Id Patient Instructions Last Modified By Organization Details Last Modified Time 08/30/2019 [id number] bladder training : care instructions tslabaugh Not [...] surgery. [email or web address] Not available 08/30/2019 12:06:20 10/09/2019 [id number] Urge Incontinence: Care Instructions [email or web address] Not available 10/09/2019 16:41:39 Long discussion with the patient robotic-assisted laparoscopic Sacral colpopexy. We talked about potential risks of the procedure procedure including the use of pelvic mesh. Patient understands this and wishes to proceed. [email or web address] Not available 10/09/2019 16:42:40 01/04/2020 [id number] learning about healthy weight tslabaugh Not available 01/08/2020 07:39:23 Patient has recovered well from surgery. She will limit her activity for the next few weeks. We'll see her back in 3 months for vaginal exam tslabaugh Not available 01/08/2020 07:39:36 04/15/2020 [id number] learning about healthy weight tslabaugh Not available 04/15/2020 16:35:37 Patient has a good result from surgery for pelvic prolapse. She'll follow up yearly basis tslabaugh Not available 04/15/2020 12:07:12 Reason for Referral None Reported. Results Created Date Observation Date Name Description Value Unit Range Abnormal Flag Note LastModifiedBy Organization Detail LastModifiedTime 04/15/2004/15/2020 urina lysis , dipst ick Unknown Analyte Yellow Not Available [facility] With [address], [place], [address], 04/15/2020 12:15:43 04/15/2004/15/2020 urina lysis , dipst ick Unknown Analyte Clear Not Available [facility] With [address], [place], [address], 04/15/2020 12:15:43 04/15/20 20 04/15/2020 urina lysis , dipst ick Unknown Analyte 1.010 Not Available [facility] With [address], [place], [address], 04/15/2020 12:15:43 04/15/2004/15/2020 urina lysis , dipst ick Unknown Analyte 1.003 - 1.035 Not Available [facility] [address], [place], [address], 04/15/2020 12:15:43 04/15/20 20 04/15/2020 urina lysis , dipst ick Unknown Analyte 7.0 Not Available [facility] [address], [place], [address], 04/15/2020 12:15:43 04/15/20 20 04/15/2020 urina lysis , dipst ick Unknown Analyte 5.0 - 8.0 Not Available [facility] [address], [place], [address], 04/15/2020 12:15:43 04/15/2004/15/2020 urina lysis , dipst ick Unknown Analyte 25 Ignacio/ul Trace Not Available [facility] [address], [place], [address], 04/15/2020 12:15:43 04/15/2004/15/2020 urina lysis , dipst ick Unknown Analyte Negati ve Not Available [facility] [address], [place], [address], 04/15/2020 12:15:43 04/15/20 20 04/15/2020 urina lysis , dipst ick Unknown Analyte Negati ve Not Available [facility] [address], [place], [address], 04/15/2020 12:15:43 04/15/2004/15/2020 urina lysis , dipst ick Unknown Analyte Negati ve Not Available [facility] [address], [place], [address], 04/15/2020 12:15:43 04/15/2004/15/2020 urina lysis , dipst ick Unknown Analyte Negati ve Not Available [facility] [address], [place], [address], 04/15/2020 12:15:43 04/15/2004/15/2020 urina lysis , dipst ick Unknown Analyte Negati ve - Trace Not Available [facility] [address], [place], [address], 04/15/2020 12:15:43 04/15/2004/15/2020 urina lysis , dipst ick Unknown Analyte Normal Not Available [facility] [address], [place], [address], 04/15/2020 12:15:43 04/15/2004/15/2020 urina lysis , dipst ick Unknown Analyte Normal Not Available [facility] [address], [place], [address], 04/15/2020 12:15:43 04/15/2004/15/2020 urina lysis , dipst ick Unknown Analyte Negati ve Not Available [facility] [address], [place], [address], 04/15/2020 12:15:43 04/15/2004/15/2020 urina lysis , dipst ick Unknown Analyte Negati ve Not Available [facility] [address], [place], [address], 04/15/2020 12:15:43 04/15/2004/15/2020 urina lysis , dipst ick Unknown Analyte Normal Not Available [facility] [address], [place], [address], 04/15/2020 12:15:43 04/15/20 20 04/15/2020 urina lysis , dipst ick Unknown Analyte Normal - 1mg/dl Not Available [facility] [address], [place], [address], 04/15/2020 12:15:43 04/15/2004/15/2020 urina lysis , dipst ick Unknown Analyte 3 mg/dl (++) Not Available [facility] [address], [place], [address], 04/15/2020 12:15:43 04/15/2004/15/2020 urina lysis , dipst ick Unknown Analyte Negati ve Not Available [facility] [address], [place], [address], 04/15/2020 12:15:43 04/15/20 20 04/15/2020 urina lysis , dipst ick Unknown Analyte Negati ve Not Available [facility] [address], [place], [address], 04/15/2020 12:15:43 04/15/2004/15/2020 urina lysis , dipst ick Unknown Analyte Negati ve Not Available [facility] [address], [place], [address], 04/15/2020 12:15:43 04/15/20 20 04/15/2020 urina lysis , dipst ick Unknown Analyte Clean Catch Not Available [facility] [address], [place], [address], 04/15/2020 12:15:43 04/15/20 20 04/15/2020 urina lysis , dipst ick Unknown Analyte Automa mary Not Available [facility] [address], [place], [address], 04/15/2020 12:15:43 01/04/2001/04/2020 urina lysis , dipst ick, auto Unknown Analyte Straw Not Available [facility] [address], [place], [address], 01/04/2020 14:41:55 01/04/2001/04/2020 urina lysis , dipst ick, auto Unknown Analyte Clear Not Available [facility] [address] [facility] [address], [place], [address], 01/04/2020 14:41:55 01/04/20 20 01/04/2020 urina lysis , dipst ick, auto Unknown Analyte 1.010 Not Available [facility] [address] [facility] [address], [place], [address], 01/04/2020 14:41:55 01/04/2001/04/2020 urina lysis , dipst ick, auto Unknown Analyte 1.003 - 1.035 Not Available [facility] [address], [place], [address], 01/04/2020 14:41:55 01/04/2001/04/2020 urina lysis , dipst ick, auto Unknown Analyte 7.0 Not Available [facility] [address], [place], [address], 01/04/2020 14:41:55 01/04/20 20 01/04/2020 urina lysis , dipst ick, auto Unknown Analyte 5.0 - 8.0 Not Available [facility] [address], [place], [address], 01/04/2020 14:41:55 01/04/20 20 01/04/2020 urina lysis , dipst ick, auto Unknown Analyte 500 Ignacio/ul (++) Not Available [facility] [address] [facility] [address], [place], [address], 01/04/2020 14:41:55 01/04/20 20 01/04/2020 urina lysis , dipst ick, auto Unknown Analyte Negati ve Not Available [facility] [address], [place], [address], 01/04/2020 14:41:55 01/04/20 20 01/04/2020 urina lysis , dipst ick, auto Unknown Analyte Negati ve Not Available [facility] [address], [place], [address], 01/04/2020 14:41:55 01/04/20 20 01/04/2020 urina lysis , dipst ick, auto Unknown Analyte Negati ve Not Available [facility] [address] [facility] [address], [place], [address], 01/04/2020 14:41:55 01/04/20 20 01/04/2020 urina lysis , dipst ick, auto Unknown Analyte Negtiv e Not Available [facility] [address], [place], [address], 01/04/2020 14:41:55 01/04/20 20 01/04/2020 urina lysis , dipst ick, auto Unknown Analyte Negati ve - Trace Not Available [facility] [address], [place], [address], 01/04/2020 14:41:55 01/04/20 20 01/04/2020 urina lysis , dipst ick, auto Unknown Analyte Normal Not Available [facility] [address], [place], [address], 01/04/2020 14:41:55 01/04/20 20 01/04/2020 urina lysis , dipst ick, auto Unknown Analyte Normal Not Available [facility] [address], [place], [address], 01/04/2020 14:41:55 01/04/20 20 01/04/2020 urina lysis , dipst ick, auto Unknown Analyte Negati ve Not Available [facility] [address], [place], [address], 01/04/2020 14:41:55 01/04/2001/04/2020 urina lysis , dipst ick, auto Unknown Analyte Negati ve Not Available [facility] [address], [place], [address], 01/04/2020 14:41:55 01/04/20 20 01/04/2020 urina lysis , dipst ick, auto Unknown Analyte Normal Not Available [facility] [address], [place], [address], 01/04/2020 14:41:55 01/04/20 20 01/04/2020 urina lysis , dipst ick, auto Unknown Analyte Normal - 1mg/dl Not Available [facility] [address], [place], [address], 01/04/2020 14:41:55 01/04/20 20 01/04/2020 urina lysis , dipst ick, auto Unknown Analyte 3 mg/dl (++) Not Available [facility] [address], [place], [address], 01/04/2020 14:41:55 01/04/20 20 01/04/2020 urina lysis , dipst ick, auto Unknown Analyte Negati ve Not Available [facility] [address], [place], [address], 01/04/2020 14:41:55 01/04/20 20 01/04/2020 urina lysis , dipst ick, auto Unknown Analyte Negati ve Not Available [facility] [address], [place], [address], 01/04/2020 14:41:55 01/04/20 20 01/04/2020 urina lysis , dipst ick, auto Unknown Analyte Negati ve Not Available [facility] [address], [place], [address], 01/04/2020 14:41:55 01/04/20 20 01/04/2020 urina lysis , dipst ick, auto Unknown Analyte Clean Catch Not Available formerly [facility] [address], [place], [address], 01/04/2020 14:41:55 01/04/20 20 01/04/2020 urina lysis , dipst ick, auto Unknown Analyte Automa mary Not Available [facility] [address], [place], [address], 01/04/2020 14:41:55 10/09/19 20 10/09/2019 urina lysis , dipst ick, auto Unknown Analyte Yellow Not Available [facility] [place] [address], [place], [address], 10/09/2019 16:08:59 10/09/19 20 10/09/2019 urina lysis , dipst ick, auto Unknown Analyte Clear Not Available [facility] With [facility] [address], [place], [address], 10/09/2019 16:08:59 10/09/19 20 10/09/2019 urina lysis , dipst ick, auto Unknown Analyte 1.020 Not Available [facility] [address], [place], [address], 10/09/2019 16:08:59 10/09/19 20 10/09/2019 urina lysis , dipst ick, auto Unknown Analyte 1.003 - 1.035 Not Available [facility] With [facility] [address], [place], [address], 10/09/2019 16:08:59 10/09/19 20 10/09/2019 urina lysis , dipst ick, auto Unknown Analyte 6.5 Not Available [facility] [place] [address], [place], [address], 10/09/2019 16:08:59 10/09/19 20 10/09/2019 urina lysis , dipst ick, auto Unknown Analyte 5.0 - 8.0 Not Available [facility] [place] [facility] [place] [address] [facility] [address], [place], [address], 10/09/2019 16:08:59 10/09/19 20 10/09/2019 urina lysis , dipst ick, auto Unknown Analyte 500 Ignacio/ul (++) Not Available [facility] [place] [address], [place], [address], 10/09/2019 16:08:59 10/09/19 20 10/09/2019 urina lysis , dipst ick, auto Unknown Analyte Negati ve Not Available [facility] [place] [address] [facility] [address], [place], [address], 10/09/2019 16:08:59 10/09/19 20 10/09/2019 urina lysis , dipst ick, auto Unknown Analyte Negati ve Not Available [facility] [place] [address] [facility] [address], [place], [address], 10/09/2019 16:08:59 10/09/19 20 10/09/2019 urina lysis , dipst ick, auto Unknown Analyte Negati ve Not Available formerly [facility] [place] [facility] [place] [address] [facility] [address], [place], [address], 10/09/2019 16:08:59 10/09/19 20 10/09/2019 urina lysis , dipst ick, auto Unknown Analyte Negtiv e Not Available formerly [facility] [place] [facility] [place] [address], [place], [address], 10/09/2019 16:08:59 10/09/19 20 10/09/2019 urina lysis , dipst ick, auto Unknown Analyte Negati ve - Trace Not Available [facility] [place] [facility] [place] [address], [place], [address], 10/09/2019 16:08:59 10/09/19 20 10/09/2019 urina lysis , dipst ick, auto Unknown Analyte Normal Not Available [facility] With [place] [address], [place], [address], 10/09/2019 16:08:59 10/09/19 20 10/09/2019 urina lysis , dipst ick, auto Unknown Analyte Normal Not Available [facility] With [place] [address], [place], [address], 10/09/2019 16:08:59 10/09/19 20 10/09/2019 urina lysis , dipst ick, auto Unknown Analyte Negati ve Not Available [facility] [place] [facility] [place] [address], [place], [address], 10/09/2019 16:08:59 10/09/19 20 10/09/2019 urina lysis , dipst ick, auto Unknown Analyte Negati ve Not Available formerly [facility] [place] [facility] [place] [address] [facility] [address], [place], [address], 10/09/2019 16:08:59 10/09/19 20 10/09/2019 urina lysis , dipst ick, auto Unknown Analyte Normal Not Available [facility] [place] [facility] [address], [place], [address], 10/09/2019 16:08:59 10/09/19 20 10/09/2019 urina lysis , dipst ick, auto Unknown Analyte Normal - 1mg/dl Not Available [facility] With [place] [address], [place], [address], 10/09/2019 16:08:59 10/09/19 20 10/09/2019 urina lysis , dipst ick, auto Unknown Analyte Negati ve Not Available [facility] With [place] [address], [place], [address], 10/09/2019 16:08:59 10/09/19 20 10/09/2019 urina lysis , dipst ick, auto Unknown Analyte Negati ve Not Available [facility] With [place] [address], [place], [address], 10/09/2019 16:08:59 10/09/19 20 10/09/2019 urina lysis , dipst ick, auto Unknown Analyte Negati ve Not Available [facility] [address], [place], [address], 10/09/2019 16:08:59 10/09/19 20 10/09/2019 urina lysis , dipst ick, auto Unknown Analyte Negati ve Not Available [facility] [address], [place], [address], 10/09/2019 16:08:59 10/09/19 20 10/09/2019 urina lysis , dipst ick, auto Unknown Analyte Clean Catch Not Available [facility] [address], [place], [address], 10/09/2019 16:08:59 10/09/19 20 10/09/2019 urina lysis , dipst ick, auto Unknown Analyte Automa mary Not Available [facility] With [facility] [address], [place], [address], 10/09/2019 16:08:59 08/30/19 20 08/30/2019 urina lysis , dipst ick, auto Unknown Analyte Yellow Not Available [facility] With [address], [place], [address], 08/30/2019 11:47:20 08/30/19 20 08/30/2019 urina lysis , dipst ick, auto Unknown Analyte Clear Not Available [facility] With [place] [address], [place], [address], 08/30/2019 11:47:20 08/30/19 20 08/30/2019 urina lysis , dipst ick, auto Unknown Analyte 1.015 Not Available [facility] With [place] [address], [place], [address], 08/30/2019 11:47:20 08/30/19 20 08/30/2019 urina lysis , dipst ick, auto Unknown Analyte 1.003 - 1.035 Not Available formerly [facility] With [place] [address], [place], [address], 08/30/2019 11:47:20 08/30/19 20 08/30/2019 urina lysis , dipst ick, auto Unknown Analyte 6.5 Not Available [facility] With [address], [place], [address], 08/30/2019 11:47:20 08/30/19 20 08/30/2019 urina lysis , dipst ick, auto Unknown Analyte 5.0 - 8.0 Not Available formerly [facility] With [address], [place], [address], 08/30/2019 11:47:20 08/30/19 20 08/30/2019 urina lysis , dipst ick, auto Unknown Analyte Negati ve Not Available [facility] With [place] [address], [place], [address], 08/30/2019 11:47:20 08/30/19 20 08/30/2019 urina lysis , dipst ick, auto Unknown Analyte Negati ve Not Available formerly [facility] With [place] [address], [place], [address], 08/30/2019 11:47:20 08/30/19 20 08/30/2019 urina lysis , dipst ick, auto Unknown Analyte Negati ve Not Available formerly [facility] With [place] [address], [place], [address], 08/30/2019 11:47:20 08/30/19 20 08/30/2019 urina lysis , dipst ick, auto Unknown Analyte Negati ve Not Available formerly [facility] With [place] [address], [place], [address], 08/30/2019 11:47:20 08/30/19 20 08/30/2019 urina lysis , dipst ick, auto Unknown Analyte Negtiv e Not Available formerly [facility] With [address] [place], [place], [address], 08/30/2019 11:47:20 08/30/19 20 08/30/2019 urina lysis , dipst ick, auto Unknown Analyte Negati ve - Trace Not Available [facility] With [address], [place], [address], 08/30/2019 11:47:20 08/30/19 20 08/30/2019 urina lysis , dipst ick, auto Unknown Analyte Normal Not Available [facility] With [address] [place], [place], [address], 08/30/2019 11:47:20 08/30/19 20 08/30/2019 urina lysis , dipst ick, auto Unknown Analyte Normal Not Available [facility] With [address] [place], [place], [address], 08/30/2019 11:47:20 08/30/19 20 08/30/2019 urina lysis , dipst ick, auto Unknown Analyte Negati ve Not Available [facility] With [address] [place], [place], [address], 08/30/2019 11:47:20 08/30/19 20 08/30/2019 urina lysis , dipst ick, auto Unknown Analyte Negati ve Not Available [facility] With [place] [address], [place], [address], 08/30/2019 11:47:20 08/30/19 20 08/30/2019 urina lysis , dipst ick, auto Unknown Analyte Normal Not Available [facility] With [address] [place], [place], [address], 08/30/2019 11:47:20 08/30/19 20 08/30/2019 urina lysis , dipst ick, auto Unknown Analyte Normal - 1mg/dl Not Available formerly [facility] With [address] [place], [place], [address], 08/30/2019 11:47:20 08/30/19 20 08/30/2019 urina lysis , dipst ick, auto Unknown Analyte Negati ve Not Available formerly [facility] [place] [address], [place], [address], 08/30/2019 11:47:20 08/30/19 20 08/30/2019 urina lysis , dipst ick, auto Unknown Analyte Negati ve Not Available formerly [facility] [place] [address], [place], [address], 08/30/2019 11:47:20 08/30/19 20 08/30/2019 urina lysis , dipst ick, auto Unknown Analyte Trace Not Available [facility] With [place] [address], [place], [address], 08/30/2019 11:47:20 08/30/19 20 08/30/2019 urina lysis , dipst ick, auto Unknown Analyte Negati ve Not Available formerly [facility] With [place] [address], [place], [address], 08/30/2019 11:47:20 08/30/19 20 08/30/2019 urina lysis , dipst ick, auto Unknown Analyte Clean Catch Not Available formerly [facility] With [address] [place], [place], [address], 08/30/2019 11:47:20 08/30/19 20 08/30/2019 urina lysis , dipst ick, auto Unknown Analyte Automa mary Not Available formerly [facility] With [facility] [address], [place], [address], 08/30/2019 11:47:20 12/18/19 20 12/17/2019 XR, chest , 2 view No observ ation record ed. [facility] [address], [place], [address], 12/18/2019 11:51:53 Result Notes None recorded. 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 Procedures Surgical History Date Name Laterality Status Provider Name and Address Organization Details Recorded Time ROBOTIC SACROCOLPOPEXY W/MESH INSERTION (SURG) completed Not Available [facility] 01/12/2020 12:30:52 020 Uroflowmetry; Complex completed Alina [facility] 09/06/2019 14:47:59 020 Urodynamics Interpretation completed NICOLE MARSHALL JR, MD [address] [place], [address], [facility] 09/06/2019 18:20:11 020 Urodynamics completed [facility] 09/06/2019 14:51:46 020 Post Void Residual; Ultrasound completed Iqra Holloway [facility] 08/30/2019 11:45:53 Tonsillectomy completed Iqra Amie [facility] 08/30/2019 11:40:05 Cholecystectomy completed Iqra Amie [facility] 08/30/2019 11:40:56 Partial Hysterectomy completed Iqra Amie [facility] 08/30/2019 11:41:08 excision of bunion completed Colby lyle [facility] 08/30/2019 11:41:26 Imaging Results Imaging Date Name Status LastModified by Organiz ation Details LastModified Time 12/17/2019 XR, chest, 2 view completed [facility] [address] [facility], [place], [address], 12/18/2019 11:51:53 Procedure Notes None recorded. Medical [...] Updated DateTime 08/30/2019 175.26 cm 47.7 kg/m2 953613.34 g [facility] 08/30/[facility] 11:36:53 Date Recorded Body height Body mass index (BMI) Body weight Provider Name and Address Organization Details Last Updated DateTime 09/06/2019 175.26 cm 47.7 kg/m2 360065.34 g Alina Guerrero [facility] 09/06/2019 14:46:30 Date Recorded Body height Body mass index (BMI) Body weight Provider Name and Address Organization Details Last Updated DateTime 10/09/2019 175.26 cm 47.7 kg/m2 802238.34 g Wayne Sosa [facility] 10/09/2019 16:08:21 Date Recorded Body height Body mass index (BMI) Body weight Provider Name and Address Organization Details Last Updated DateTime 01/04/2020 175.26 cm 49.2 kg/m2 877642.26 g Socorro Macario [facility] 01/04/2020 14:41:18 Date Recorded Body height Body mass index (BMI) Body weight Provider Name and Address Organization Details Last Updated DateTime 04/15/2020 175.26 cm 49.2 kg/m2 328414.26 g Deseriee Croghan [facility] 04/15/2020 12:14:59 Social History Question Answer Notes LastModified by Organizat ion Details LastModified Time Tobacco Smoking Status Never Smoker Iqra Holloway null, [facility] 08/30/2019 11:39:46 What Is Your Level Of Alcohol Consumption? None Information not available 08/30/2019 How Much Tobacco Do You Chew? None Information not available 08/30/2019 Marital Status samara Informat ion not available 08/30/2019 How Much Tobacco Do You Smoke? No [email or web address] Information not available 01/04/2020 Sex: Unknown Functional [...] SNOMED-CT Code Diagnosis ICD10 Code Diagnosis Note [id number] NICOLE MRASHALL JR, MD [facility] [address] [place] [address] 08/30/2019 10:46:29 08/31/2019 11:36:17 Vaginal vault prolapse 883395985 N81.89 Mixed urin tai incontinence 632416025 N39.46 [id number] NICOLE MARSHALL JR, MD [facility] [address] [facility] [place] [address] 09/06/2019 09:21:43 09/06/2019 10:59:36 Mixed urinary incontinence 731867606 N39.46 [id number] NICOLE MARSHALL JR, MD [facility] [address] [facility] [place] [address] 10/09/2019 15:55:52 10/10/2019 14:08:46 Vaginal vault prolapse 607598789 N81.89 Urge incon tinence of urine 16284432 N39.41 [id number] MD ELZBIETA WATERS JR, [facility] [address] [place] [address] 01/04/2020 14:15:12 01/04/2020 14:49:45 Vaginal vault prolapse 175494063 N81.89 [id number] MD ELZBIETA WATERS JR, [facility] [address] [place] [address] 04/15/2020 11:25:18 04/15/2020 12:00:10 Vaginal vault prolapse 884442590 N81.89 Health Concerns Section Related Observation LastModified by Organization Detai ls LastModified Time None Recorded Concern Status LastModified by Organization Details LastModified Time None Recorded Advance Directives Directive None Recorded Payers Insurance Date Sequence Insurance Name Policy Number Policy Lock Covered Member ID Lock Member ID Guarantor Name 09/02/2021 1 [facility] [id number] Florencia Mai [id number] Florencia Mai 12/09/2020 PAYMENT PLAN Florencia Mai [...] 20 years ago. NICOLE MARSHALL JR, MD [address] [place] [address], [phone], [facility] 08/30/2019 12:07:04 10/09/2019 text/html [...] pessary in place NICOLE MARSHALL JR, MD [address] [place] [address], [phone], [facility] 10/09/2019 16:43:05 01/04/2020 text/html Patient is in to day for follow-up of vaginal prolapse. She underwent robotic-assisted laparoscopic sacral colpopexy December 19, 2019. She is recovered uneventfully. She denies recurrent prolapse. She denies any lower urinary tract symptoms. NICOLE MARSHALL JR, MD [address] [place] [address], [phone], [facility] 01/08/2020 07:39:57 04/15/2020 text/html Patient is in to day for follow-up of vaginal prolapse. She underwent robotic-assisted laparoscopic sacral colpopexy December 19, 2019. She is recovered uneventfully. She denies recurrent prolapse. She denies any lower urinary tract symptoms. NICOLE MARSHALL JR, MD [address] [place] [address], [address], [facility] 04/15/2020 16:35:57 OBGyn Episode No OBEpisode recorded.
[2024-12-08 07:58] LABS: Basophils % 0.5 % (0.1-2.0); Eosinophils # 0.1 Kmm3 (0.0-0.4); Eosinophils % 2.2 % (0.1-12.0); Hematocrit 41.9 % (37.0-47.0); Hemoglobin 13.9 g/dL (12.2-16.2); Immature Granulocytes # 0.01 10^3uL; Immature Granulocytes % 0.2 %; Lymphocytes # 0.8 K/mm3 (0.7-4.5); Lymphocytes % 20.1 % (10-50); Mean Corpuscular HGB Conc 33.2 g/dL (31.8-35.4); Mean Corpuscular Hemoglobin 29.1 pg (27.0-31.2); Mean Corpuscular Volume 87.8 fl (81-99); Mean Platelet Volume 8.3 fl (7.4-10.4); Monocytes # 0.3 K/mm3 (0.1-1.0); Monocytes % 6.5 % (1.7-9.3); Neutrophils # 2.9 K/mm3 (1.8-7.8); Neutrophils % 70.5 % (37.0-80.0); Nucleated Red Blood Cells # 0 10^3/uL; Nucleated Red Blood Cells % 0 %; Platelet Count 314 K/mm3 (142-424); Red Blood Count 4.77 M/mm3 (4.20-5.40); Red Cell Distribution Width 13.4 % (11.5-17.5); Red Cell Distribution Width-SD 43.2 fL; White Blood Count 4.2 K/mm3 (4.8-10.8)
[2024-12-08 08:52] LABS: Erythrocyte Sedimentation Rate 13 mm/hr (0-30)
[2024-12-08 10:36] LABS: Albumin Level 4.1 g/dl (3.5-5.0); Chloride 111 mmol/L (98-107); Potassium 3.6 mmoL/L (3.5-5.1); Sodium 141 mmol/L (136-145)
[2024-12-08 10:39] LABS: Alanine Aminotransferase 19 U/L (12-78); Albumin/Globulin Ratio 1.8 (1.1-1.8); Alkaline Phosphatase 73 U/L (38-126); Anion Gap 8.6 mEq/L (5-15); Aspartate Amino Transferase 23 U/L (14-36); Bilirubin,Total 0.5 mg/dl (0.2-1.3); Blood Urea Nitrogen 17 mg/dl (7-17); Calcium 8.9 mg/dl (8.4-10.2); Carbon Dioxide 25 mmol/L (22.0-30.0); Estimated Glomerular Filt Rate 58 ml/min (>60); GFR (African American) 70 ML/MIN (>60); Globulin 2.3 g/dL (1.3-3.2); Glucose 100 mg/dl (74-100); Total Protein,Serum 6.4 g/dl (6.3-8.2)
[2024-12-08 10:52] LABS: C-Reactive Protein 5.6 mg/L (0-4)
== END 2024-12-08 23:59 | disposition home or self-care (01) ==
LOC: LAB 07:24
PROVIDERS: PCP Internal Medicine Adolescent Medicine; Visit Provider Internal Medicine
DX: M05.79 Rheumatoid arthritis with rheumatoid factor of multiple sites without organ or systems involvement (principal); D84.821 Immunodeficiency due to drugs; Z79.899 Other long term (current) drug therapy
CPT/HCPCS: 36415; 80053; 85025; 85651; 86140

== ENCOUNTER 2025-02-28 10:46 | Outpatient (CLI) | payer OTHER, SELFPAY ==
--- OUTSIDE RECORDS SUMMARY | 2025-02-28 10:49 | XMS_ITS | Encounter Summary ---
[facility] Address [address] [place] [address] Care Team Providers Care Documentation Analyst Name Role Phone Franko Velasquez MD Primary Care Provider [phone] Encounter Details Date Type Department Care Team ([facility] Contact Info) Description 12/11/2024 Results Follow-Up [facility] RHEUMATOLOGY [address] [place] [address] Lamberto Vang MD [address] [place] [address] [id number] Social History Tobacco Use Types Packs/Day Years [...] Encounters Date Type Department Care Team (Late Contact Info) Description 05/21/2025 3:30 PM EDT Office Visit [facility] RHE[facility] [address] [address] Lamberto Vang MD [address] [place] [address] documented as of this encounter Visit Diagnoses Not on filedocumented in this encounter Care Teams Documentation Analyst Relationship Specialty Start Date End Date Franko Velasquez MD [facility] [address] [place] [address] PCP - General Adolescent Medicine 04/10/24 documented as of this encounter
--- OUTSIDE RECORDS SUMMARY | 2025-02-28 10:50 | XMS_ITS | Clinical Summary ---
Author Organization [facility] Address [address] [place] [address] Care Team Providers Care Pediatric Nurse Practitioner Name Role Phone Franko Velasquez MD Primary Care Provider [phone] Allergies Active Allergy Reactions Criticality Noted Date Comments Sulfa Antibiotics Other (See Comments) Low 04/10/20 24 Made pink eye worse Medications Fexofenadine-Ps eudoephedrine (BESSY-D 12 HOUR PO) Take 1 tablet by mouth 2 (Two) Times a Day. Active buPROPion XL (WELLBUTRIN XL) 150 MG 24 hr tablet Take 1 tablet by mouth Every Morning. 4 Active losartan (COZAAR) 100 MG tablet Take 1 tablet by mouth Daily. 4 Active topiramate (TOPAMAX) 100 MG tablet Take 1 tablet by mouth 2 (Two) Times a Day. 4 Active Diclofenac Sodium (VOLTAREN) 1 % gel gel Apply 4 g topically to the appropriate area as directed As Needed. Active DULoxetine (CYMBALTA) 60 MG capsuleIndicati ons:Rheumatoid arthritis involving multiple sites with positive rheumatoid factor Take 1 capsule by mouth Daily. 90 capsule 1 5 Active etodolac (LODINE) 400 MG tabletIndicatio ns:Rheumatoid arthritis involving multiple sites with positive rheumatoid factor Take 1 tablet by mouth 2 (Two) Times a Day As Needed (joint pain). 180 tablet 1 5 Active Tofacitinib Citrate ER (Xeljanz XR) 11 MG tablet sustained-relea se 24 hourIndications :Rheumatoid arthritis involving multiple sites with positive rheumatoid factor Take 1 tablet by mouth Daily. 30 tablet 5 5 Active Active Problems Problem Noted Date Diagnosed Date Other fatigue 07/10/2024 Assessment & Plan (07/10/2024 2:59 PM EST): Update QTB and hepatitis panel with next lab draw High risk medication use 04/10/2024 Assessment & Plan (07/10/2024 3:00 PM EST): Xeljanz Hepatitis panel - 06/29/2023 QuantiFERON - 04/10/24 Well tolerated and effective. Continue labs CBC [...] is imperative. This was discussed at length. Assessment & Plan (04/10/2024 11:18 AM EDT): [...] therapy 04/10/2024 Fibromyalgia 04/10/2024 Assessment & Plan (07/10/2024 3:15 PM EST): Current: Duloxetine, Etodolac prior lyrica-intolerant. Cymbalta has been helpful. She has lost nearly 50 pounds. She no longer drinks diet coke. She was drinking a 12 pack a day. Meds well tolerated. Refill provided. Exercise encouraged. Diagnosed with sleep apnea. She does not like her CPAP machine. She used it for a long time. Risk and benefits of SNRIs discussed including but not limited to worsening depression, suicidal ideation, nausea, constipation Assessment & Plan (04/10/2024 11:18 AM EDT): [...] positive rheumatoid factor 04/02/2024 Assessment & Plan (07/10/2024 3:18 PM EST): +RF 17; shoulder, wrist hand pains started [...] signs of toxicity of medication. Well tolerated. Prednisone taper sent in to have on hand in case she flares. Follow up in 3 month. Assessment & Plan (04/10/2024 2:51 PM EDT): [...] Encounters Date Type Department Care Team Description 12/11/2024 Results Follow-Up [facility] RHEUMATOLOGY [address] [place] [address] Lamberto Vang MD 12/04/2024 Telephone [facility] RHEUMATOLOGY [address] [place] [address] Lamberto Vang MD PHYSICAL THERAPY REFERRAL from Last 3 Months Family History Medical [...] Sign Reading Time Taken Comments Blood Pressure 132/80 11/15/2024 3:30 PM EDT Pulse 86 11/15/2024 3:30 PM EDT Temperature 36.7 C (98 F) 11/15/2024 3:30 PM EDT Respiratory Rate 18 12/20/2019 12:10 PM EDT Oxygen Saturation 94% 12/20/2019 12:10 PM EDT Inhaled Oxygen Concentration - - Weight 146 kg (321 lb 9.6 oz) 11/15/2024 3:30 PM EDT Height 175.3 cm (5' 9 ) 11/15/2024 3:30 PM EDT Body Mass Index 47.49 11/15/2024 3:30 PM EDT Plan of Treatment Upcoming Encounters Date Type Department Care Team (Late st Contact Info) Description 05/21/2025 3:30 PM EDT Office Visit [facility]ATOLOGY [address] [facility] [address] [place] [address] Lamberto Vang MD 330 [facility] [address] [place] [address] Health Maintenance Due Date Last Done Comments Annual Gynecologic Pelvic and Breast Exam 1970 Pneumococcal Vaccine 50+ (1 of 2 - PCV) 1989 MAMMOGRAM 2010 COLOGUARD 2015 COLON CANCER SCREENING 5 YEA R SIGMOIDOSCOPY 2015 COLONOSCOPY 2015 COL[address]AL CANCER SCREENING 2015 CT COLONOGRAPHY 2015 FECAL OCCULT BLOOD TEST 2015 FIT Testing (1 year) 2015 ANNUAL PHYSICAL 12/14/2019 HEPATITIS C SCREENING 12/14/2019 COVID-19 Vaccine ( season) 04/02/202412/2021, 10/09/2020 INFLUENZA VACCINE 05/02/2025 TDAP/TD VACCINES (2 - Td or Tdap) 11/14/2033 024 ZOSTER VACCINE Completed 02/09/2024, 10/21/2023 Medical Devices Implanted Type Area Public Relations Account Executive Device Identifier Shelf Expiration Date Model / Serial / Lot Kt Dev Position Vag Upsylon Mesh - [id number] Implanted:Qty : 1 on 12/19/2019 by Herve Sanabria Jr., MD at [facility] Implant N/A: Pelvis [employer] 03/01/2022 [id number] / / [id number] Procedures Procedure Name Priority Date/Time Associated Diagnosis Comments SCANNED - LABS 12/08/2024 SCANNED - LABS 12/08/2024 from Last 3 Months Results * LABS SCANNED (12/08/2024) Only the most recent of2 resultswithin the time period is included. Lamberto Vang MD LAB BLOOD ORDERABLES Final Result from Last 3 Months Insurance [employer] Advance Directives * CPR (Attempt to Resuscitate) (Latest Code Status on File) Date Activated Date Inactivated Comments 12/19/2019 4:56 PM 12/20/2019 8:02 PM Question Answer Comments Code Status (Patient has no pulse and is not breathing): CPR (Attempt to Resuscitate) Medical Interventions (Patie nt has pulse or is breathing): Full Level Of Support Discussed With: Patient Care Teams Pediatric Nurse Practitioner Relationship Specialty Start Date End Date Franko Velasquez MD [address] [place] [facility] [address] [facility] [place] [address] PCP - General Adolescent Medicine 04/10/24
--- OUTSIDE RECORDS SUMMARY | 2025-02-28 10:50 | XMS_ITS | Clinical Summary ---
Author Organization Healthcare Address [address] [place] [address] Care Team Providers Care Stone Paver Name Role Phone Ralph Dunne MD Primary [...] 20 Active cholecalciferol (Vitamin D-3) 250 MCG (96715 UT) capsule Take 10,000 Units by mouth [...] 21 Active ergocalciferol (Vitamin D-2) 1.25 MG (69141 UT) capsule take 1 capsule by oral route every week for 12 weeks 01/16/20 21 Active lisinopril 20 MG tablet Take 1 tablet (20 mg total) by mouth 1 (one) time each day. 30 tablet 3 10/26/20 21 Active pregabalin (Lyrica) 75 MG capsule TAKE [...] WITH B12 11/06/19 22 Active Tuberculin-Allergy Syringes (First Class EV Conversions Tuberculin Syringe) 25G X 1 1 ML [...] 72 09/08/2021 1:09 PM EST Temperature 37.1 C (98.8 F) 03/21/2021 11:50 AM EDT Respiratory Rate 20 03/21/2021 1:45 PM EDT Oxygen Saturation 94% 09/08/2021 1:09 PM EST Inhaled Oxygen Concentration - - Weight 159 kg (350 lb) 12/22/2021 11:39 AM EDT Height 175.3 cm (5' 9 ) 12/22/2021 11:39 AM EDT Body Mass Index 51.69 12/22/2021 11:39 AM EDT Plan of Treatment Health Maintenance Due Date Last Done Comments [facility]-Depression Screening 1970 [facility]-/Child/Adol SDOH Screenings 1970 [facility]- SDOH Screenings 1988 [facility]-Adult SDOH Screenings 1988 [facility]-DTaP,Tdap,and Td Vaccine s (1 - Tdap) 1989 [facility]-Hepatitis B Vaccines (1 of 3 - 19+ 3-dose series) 1989 [facility]-Pap Smear 1991 [facility]-Cervical Cancer Screening 2000 [facility]-HPV/Cotest 2000 CT Colonography 2015 Colonoscopy 2015 FIT-DNA 2015 FIT 2015 FOBT 2015 Sigmoidoscopy 2015 [facility]-Colorectal Cancer Screening 2015 [facility]-Pneumococcal Vaccine: 50 + Years (1 of 1 - PCV) 2020 [facility]-Zoster Vaccines (1 of 2) 2020 HOX-SOLAW-47 Vaccine (3 - 2023- season) 2024 08/07/2021, 10/09/2020 [facility]-Influenza Vaccine (#1) 2025 HPV Vaccines Aged Out No longer eligi ble based on patient's age to complete this topic [facility]-HIB Vaccines Aged Out No longer e [...] complete this topic Insurance [employer] Care Teams Stone Paver Relationship Specialty Start Date End Date Ralph Dunne MD [address] [place] [address] [address] [place] [id number] PCP - General 12/13/20
--- OUTSIDE RECORDS SUMMARY | 2025-02-28 10:50 | XMS_ITS ---
Author Organization [facility] Address [address] [place] [address] Care Team Providers Care Computational Scientist Name Role Phone Franko Velasquez MD Primary Care Provider [phone] Rheumatology - External Fill Status:Enrolled (Active) Start date:04/10/2024 Enrollment date:04/10/2024 Current support & services provided:Benefits Investigation, External Pharmacy Dispensing Linked medications:Tofacitinib Citrate (Active) Linked problems:Rheumatoid arthritis involving multiple sites with positive rheumatoid factor (Active) Continued Care and Services Coordination
[2025-02-28 12:02] LABS: Hematocrit 43.3 % (37.0-47.0); Hemoglobin 13.7 g/dL (12.2-16.2); Immature Granulocytes % 0.3 %; Mean Corpuscular HGB Conc 31.6 g/dL (31.8-35.4); Mean Corpuscular Hemoglobin 27.9 pg (27.0-31.2); Mean Corpuscular Volume 88.2 fl (81-99); Nucleated Red Blood Cells % 0 %; Platelet Count 309 K/mm3 (142-424); Red Blood Count 4.91 M/mm3 (4.20-5.40); Red Cell Distribution Width-SD 43.0 fL; White Blood Count 4.0 K/mm3 (4.8-10.8)
[2025-02-28 12:34] LABS: Alanine Aminotransferase 18 U/L (12-78); Albumin Level 4.2 g/dl (3.5-5.0); Albumin/Globulin Ratio 2.1 (1.1-1.8); Alkaline Phosphatase 71 U/L (38-126); Anion Gap 9.5 mEq/L (5-15); Aspartate Amino Transferase 26 U/L (14-36); Bilirubin,Total 0.4 mg/dl (0.2-1.3); Blood Urea Nitrogen 14 mg/dl (7-17); Calcium 9.2 mg/dl (8.4-10.2); Carbon Dioxide 29 mmol/L (22.0-30.0); Chloride 105 mmol/L (98-107); Creatinine,Serum 1.20 mg/dl (0.52-1.04); Estimated Glomerular Filt Rate 47 ml/min (>60); GFR (African American) 57 ML/MIN (>60); Globulin 2.0 g/dL (1.3-3.2); Glucose 92 mg/dl (74-100); Potassium 3.5 mmoL/L (3.5-5.1); Sodium 140 mmol/L (136-145); Total Protein,Serum 6.2 g/dl (6.3-8.2)
[2025-02-28 12:40] LABS: C-Reactive Protein 3.3 mg/L (0-4)
== END 2025-02-28 23:59 | disposition home or self-care (01) ==
LOC: LAB 10:47
PROVIDERS: PCP Internal Medicine Adolescent Medicine; Visit Provider Internal Medicine
DX: M05.79 Rheumatoid arthritis with rheumatoid factor of multiple sites without organ or systems involvement (principal); Z79.899 Other long term (current) drug therapy; D84.821 Immunodeficiency due to drugs
CPT/HCPCS: 36415; 80053; 85025; 85651; 86140